=== PATIENT | male | born 1940 | race Caucasian/White ===

== ENCOUNTER 2021-01-01 14:48 | Inpatient (IN) | payer OTHER, MEDICARE, SELFPAY ==
[2021-01-01] VITALS (8 sets, daily range): BP systolic 144–201; BP diastolic 66–97; PULSE 69–98; RESP 16–18; TEMP 36.5–36.7; O2SAT 93–98; BMI 33.9
--- NOTE | 2021-01-01 15:13 | CT_ITS ---
WS: [id number] CT HEAD TECHNIQUE: Noncontrast CT of the head obtained from the skullbase to the vertex. CLINICAL INFORMATION: fall, close dhead injury COMPARISON: None. DLP: 972.[address] scans at [facility] use at least one of these dose optimization techniques: automat ed exposure control; mA and/or kV adjustment per patient size (includes targeted exams where dose is matched to clinical indication); or iterative reconstruction. FINDINGS: No evidence of intracranial hemorrhage or mass effect. Ventricular system and basal cisterns are gagnon nt. Mild small vessel changes with moderate parenchymal volume loss. Chronic lacunar infarct left livier lamus. Incidental arachnoid cyst left middle cranial fossa measuring 2.7 x 1.1 CM. No extra-axial flu id collections. No evidence of mass or mass effect. Mastoid air cells are well aerated. Opacification right frontal sinus and frontoethmoidal recess. Muc osal thickening in the ethmoid air cells. Evidence of prior maxillary antrostomies with ethmoidectomi es. CT/CT head wo con* [id number] IMPRESSION: 1. No evidence of intracranial hemorrhage or mass effect. 2. Mild small vessel changes with moderate parenchymal volume loss. 3. Chronic lacunar infarct left thalamus. 4. Incidental arachnoid cyst left middle cranial fossa. 5. No acute intracranial findings.
--- NOTE | 2021-01-01 15:13 | XR_ITS ---
WS: [id number] Left shoulder, 3 views, 01/01/2021 Clinical Data: pain Comparison: None. Findings: No fractures or dislocations are seen. The AC joint shows mild osteoarthritis. The adjacent left clav icle, left scapula and ribs are normal. The soft tissues are unremarkable. XR/XR shoulder LT min 2V* [id number] Impression: Negative left shoulder.
--- NOTE | 2021-01-01 15:13 | XR_ITS ---
WS: [id number] Left hip, 3 views, 01/01/2021 Clinical Data: fall pain Comparison: None. Findings: There is an undisplaced fracture of the intertrochanteric region of the left hip. The left femoral he ad remains in the acetabulum. The soft tissues are normal. XR/XR hip LT 2-3V wo/w pel* [id number] Impression: Intertrochanteric fracture of the left hip.
--- NOTE | 2021-01-01 15:15 | ED_ITS ---
HPI - Fall General: Chief Complaint: Extremity Injury, Lower Stated Complaint: fall/ hip pain Time Seen by Provider: 01/01/21 14:54 History of Present Illness: HPI Narrative: 80-year-old male presents emergency room after a fall at a local business while he was shopping he stumbled over something on the ground and fell he states he did hit his head he is unsure whether or not he lost consciousness he denies any neck pain. He is complaining of pain in his left shoulder and his left hip. He denies previous injury to the left shoulder or left hip. MD complaint: fall Onset (ago): minute(s) Fall from: standing Fall witnessed: yes, by bystander Place fall occurred: other (Local business) Loss of consciousness: Unsure Prolonged down time: no Symptoms prior to fall: none Context: tripped/slipped Location of injury: other (Left hip left shoulder) Severity: moderate Quality: aching Associated symptoms-after fall: Denies abdominal pain, chest pain, confusion, difficulty walking, headache(s), hematuria, lightheadedness, neck pain, numbness, short of breath, vertigo or weakness Review of Systems Const: Denies: fever(s), chills, body aches, change in appetite, fatigue or malaise ENMT: Denies: throat pain, ear or mastoid pain, nasal discharge or nasal congestion Card: Denies: chest pain or lightheadedness Resp: Denies: dyspnea, productive cough or non-productive cough GI: Denies: abdominal pain : Denies: hematuria Musc: Denies: neck pain Skin/Breast: Denies: rash or pruritus Neuro: Denies: headache(s), difficulty walking, vertigo or confusion PFSH ED PFSH: Medical History (Updated 01/05/21 @ 03:11 by Nixon Danielle DO) History of prediabetes Lip cancer Perforated ulcer of intestine Prostate cancer Surgical History (Updated 01/01/21 @ 16:42 by Uriah Rose MD) H/O left knee surgery History of total right hip arthroplasty S/P laparotomy Physical Exam Const: COMMON NORMALS: no acute distress GENERAL APPEARANCE: cooperative and comfortable ORIENTATION/CONSCIOUSNESS: Yes awake, Yes oriented to person, Yes oriented to place and Yes oriented to time HENMT: COMMON NORMALS: normocephalic, atraumatic and hearing grossly normal bilaterally HEAD & SCALP: normocephalic and atraumatic Eye: COMMON NORMALS: Equal, round and reactive pupils present, EOMs intact bilaterally, conjunctivae normal and no scleral icterus CONJUNCTIVA: Yes conjunctivae normal PUPIL: Yes Equal, round and reactive pupils present Neck/C-Spine: COMMON NORMALS: full ROM, no lymphadenopathy, supple and no JVD Lymph: LYMPHATIC: no lymphadenopathy noted and no lymphedema noted Resp: COMMON NORMALS: normal respiratory effort, No retractions, No use of accessory muscles and clear to auscultation bilaterally AUSCULTATION: clear to auscultation bilaterally Cardio: COMMON NORMALS: no JVD, regular rate, regular rhythm and No murmurs present (Cardio) RATE: regular rate RHYTHM: regular rhythm GI: COMMON NORMALS: Soft to palpation and No hepatosplenomegaly present AUSCULTATION: Yes normoactive bowel sounds PALPATION: Yes Soft to palpation, No Tenderness to palpation present (GI), No Guarding due to palpation present (GI) and Yes No hepatosplenomegaly present Extremity: NARRATIVE EXTREMITY EXAM: External rotation of the left hip dorsalis pedis pulses intact neurovascularly intact Neuro: SENSORIUM/ORIENTATION: Yes oriented to person, Yes oriented to place and Yes oriented to time Skin: COMMON NORMALS: no rashes or lesions noted GENERAL SKIN EXAM: no rashes or lesions noted Course Vital Signs: Vital signs: Vital Signs Temperature 97.8 F 01/05/21 00:00 Pulse Rate 91 01/05/21 00:00 Respiratory Rate 17 01/05/21 00:00 Blood Pressure 144/77 01/05/21 00:00 Pulse Oximetry 98 01/05/21 00:00 MDM - Fall MDM Narrative: Medical decision making narrative: Left intertrochanteric fracture. Discussed with hospitalist and with Ortho will admit orders written Lab Data: Labs: Lab Results 01/01/21 01/01/21 01/01/21 Range/Units 14:31 14:31 14:31 WBC 6.8 (4.0-10.0) 10^3/ uL RBC 3.87 L (4.1-5.3) 10^6/u L Hgb 11.8 (11.7-16.6) g/dL Hct 36.1 L (42.0-52.0) % MCV 93.3 (80-94) fL MCH 30.5 (28.0-34.0) pg MCHC 32.7 (30.0-36.0) g/dL RDW 12.1 (12.1-15.1) % Plt Count 186 (130-400) 10^3/c mm MPV 10.5 H (7.4-10.4) fL Neut % (Auto) 59.2 % Lymph % (Auto) 26.1 % [place] % (Auto) 9.7 % Eos % (Auto) 4.0 % Baso % (Auto) 0.7 % Neut # (Auto) 4.05 (1.8-7.7) 10^3/u L Lymph # (Auto) 1.8 (0.8-4.8) 10^3/u L [place] # (Auto) 0.7 (0.2-0.9) 10^3/u L Eos # (Auto) 0.3 (0.0-0.8) 10^3/u L Baso # (Auto) 0.1 (0.0-0.1) 10^3/u L Nucleated RBC % (a uto) 0 % Nucleated RBCs # 0.0 /100WBC PT 14.10 (12.1-14.9) SECO NDS INR 1.05 (0.8-1.2) APTT 24.9 (23.9-36.7) SECO NDS Sodium 142 (136-145) mmol/L Potassium 4.6 (3.5-5.1) mmol/L Chloride 103 (98-107) mmol/L Carbon Dioxide 29 (22-29) mmol/L Anion Gap 14.6 (5-19) BUN 24 H (8-23) mg/dL Creatinine 0.7 (0.7-1.2) mg/dL GFR Calculation Not Reportable Glucose 126 H (65-115) mg/dL Calculated Osmolal ity 300 H (285-295) mOsm/k g Calcium 8.3 L (8.5-10.5) mg/dL Total Bilirubin 0.2 (0.15-1.2) mg/dL AST 20 (0-40) U/L ALT 21 (0-41) U/L Alkaline Phosphata se 76 (40-130) IU/L Troponin T Baselin e (0-15) ng/L Total Protein 6.1 L (6.6-8.7) g/dL Albumin 3.9 (3.5-5.2) g/dL Globulin 2.2 (1.3-4.6) g/dL TSH (0.27-4.20) uIU/ mL 01/01/21 01/01/21 Range/Units 14:31 14:31 WBC (4.0-10.0) 10^3/ uL RBC (4.1-5.3) 10^6/u L Hgb (11.7-16.6) g/dL Hct (42.0-52.0) % MCV (80-94) fL MCH (28.0-34.0) pg MCHC (30.0-36.0) g/dL RDW (12.1-15.1) % Plt Count (130-400) 10^3/c mm MPV (7.4-10.4) fL Neut % (Auto) % Lymph % (Auto) % [place] % (Auto) % Eos % (Auto) % Baso % (Auto) % Neut # (Auto) (1.8-7.7) 10^3/u L Lymph # (Auto) (0.8-4.8) 10^3/u L [place] # (Auto) (0.2-0.9) 10^3/u L Eos # (Auto) (0.0-0.8) 10^3/u L Baso # (Auto) (0.0-0.1) 10^3/u L Nucleated RBC % (a uto) % Nucleated RBCs # /100WBC PT (12.1-14.9) SECO NDS INR (0.8-1.2) APTT (23.9-36.7) SECO NDS Sodium (136-145) mmol/L Potassium (3.5-5.1) mmol/L Chloride (98-107) mmol/L Carbon Dioxide (22-29) mmol/L Anion Gap (5-19) BUN (8-23) mg/dL Creatinine (0.7-1.2) mg/dL GFR Calculation Glucose (65-115) mg/dL Calculated Osmolal ity (285-295) mOsm/k g Calcium (8.5-10.5) mg/dL Total Bilirubin (0.15-1.2) mg/dL AST (0-40) U/L ALT (0-41) U/L Alkaline Phosphata se (40-130) IU/L Troponin T Baselin e 23 H (0-15) ng/L Total Protein (6.6-8.7) g/dL Albumin (3.5-5.2) g/dL Globulin (1.3-4.6) g/dL TSH 1.66 (0.27-4.20) uIU/ mL Discharge Plan Discharge Patient Disposition: Admitted As Inpatient Admit Provider: Uriah Rose Clinical Impression: Closed left hip fracture, Hypertension Condition: Stable Coding Level of Care Code ED Rug Cleaner Helper for Tiffany Fwd Exam Comprehensive
--- NOTE | 2021-01-01 15:17 | CT_ITS ---
WS: [id number] CT CERVICAL TRAUMA TECHNIQUE: Noncontrast CT of the cervical spine with coronal and sagittal reformatted images. CLINICAL INFORMATION: fall COMPARISON: None. DLP: 880.[address] scans at [facility] use at least one of these dose optimization techniques: automat ed exposure control; mA and/or kV adjustment per patient size (includes targeted exams where dose is matched to clinical indication); or iterative reconstruction. FINDINGS: Straightening of the normal cervical lordosis. Normal C1-2 articulation. Advanced spondylit ic changes with disc space narrowing throughout the cervical spine. Anterior hypertrophic changes. Di sc osteophyte complexes at C4-C5 C5-C6 and C6-C7. Moderate to severe central canal stenosis C3-C4 C4- C5 C5-C6 and C6-C7. Multilevel moderate to severe bony foraminal narrowing. Congenital incomplete C1 ring. Normal dens. No acute fractures. Normal prevertebral soft tissues. Mastoids air cells are well aerated. CT/CT cervical spin wo con* [id number] IMPRESSION: 1. No evidence of acute fracture or dislocation. 2. Moderate spondylitic changes with moderate to severe central canal stenosis C3-C6.
[2021-01-01 15:21] LABS: Basophils # 0.1 10^3/uL (0.0-0.1); Basophils % 0.7 %; Eosinophils # 0.3 10^3/uL (0.0-0.8); Hematocrit 36.1 % (42.0-52.0); Hemoglobin 11.8 g/dL (11.7-16.6); Lymphocytes # 1.8 10^3/uL (0.8-4.8); Lymphocytes % 26.1 %; Mean Corpuscular HGB Conc 32.7 g/dL (30.0-36.0); Mean Corpuscular Hemoglobin 30.5 pg (28.0-34.0); Mean Corpuscular Volume 93.3 fL (80-94); Mean Platelet Volume 10.5 fL (7.4-10.4); Monocytes # 0.7 10^3/uL (0.2-0.9); Monocytes % 9.7 %; Neutrophils # 4.05 10^3/uL (1.8-7.7); Neutrophils % 59.2 %; Nucleated Red Blood Cells % 0 %; Platelet Count 186 10^3/cmm (130-400); Red Blood Count 3.87 10^6/uL (4.1-5.3); Red Cell Distribution Width 12.1 % (12.1-15.1); White Blood Count 6.8 10^3/uL (4.0-10.0)
[2021-01-01 15:48] LABS: Alanine Aminotransferase 21 U/L (0-41); Albumin Level 3.9 g/dL (3.5-5.2); Alkaline Phosphatase 76 IU/L (40-130); Anion Gap 14.6 (5-19); Aspartate Amino Transferase 20 U/L (0-40); Blood Urea Nitrogen 24 mg/dL (8-23); Calcium 8.3 mg/dL (8.5-10.5); Carbon Dioxide 29 mmol/L (22-29); Chloride 103 mmol/L (98-107); Globulin 2.2 g/dL (1.3-4.6); Glucose 126 mg/dL (65-115); Osmolality Calculated 300 mOsm/kg (285-295); Potassium 4.6 mmol/L (3.5-5.1); Sodium 142 mmol/L (136-145); Total Bilirubin 0.2 mg/dL (0.15-1.2); Total Protein 6.1 g/dL (6.6-8.7)
--- NOTE | 2021-01-01 16:01 | ECG_ITS ---
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 Measurements Intervals [place] Rate: 62 P: 30 KS: 237 QRS: -70 QRSD: 157 T: 32 QT: 459 QTc: 467 Interpretive Statements SINUS RHYTHM WITH FIRST DEGREE AV BLOCK RIGHT BUNDLE BRANCH BLOCK [120+ ms QRS DURATION, UPRIGHT V1, 40+ ms S IN I/aVL/V4/V5/V6] LEFT ANTERIOR FASCICULAR BLOCK [QRS AXIS <= -45, QR IN I, RS IN II] SEPTAL MYOCARDIAL INFARCTION [40+ ms Q WAVE IN V1/V2], OF INDETERMINATE AGE No previous ECG available for comparison Electronically Signed On 01-02-2021 14:53:08 CDT by Monty Lowery M.D. [email or web address]
[2021-01-01] MEDS: ondansetron 2 mg/ML SDV 2 mL 4 MG IVP (16:09)
[2021-01-01] MEDS: morphine 4 mg/mL SDV 1 mL IVP (16:09)
--- NOTE | 2021-01-01 16:14 | P.HP_ITS ---
Providers/Chief Complaint Chief Complaint: fall/ hip pain History of Present Illness Cali Lee is a 80 year old male who does not have significant past medical history(moved from [place] a month ago) presented today after a fall. Patient is stating that he has history of hyperglycemia with prediabetic range, hypertension otherwise never had any MN, CHF, stroke. Today he was shopping in a store looking for a frying de leon, he took a turn & lost his balance and fell on a steel rack. He landed on the sharp edge of V shaped steel rack on his left hip. He could not bear any weight he was in excruciating pain. EMS was called. Diagnostics in the ER revealed left intertrochanteric hip fracture. ED revealed hypertensive urgency, pulse 69 saturating well on room air, Dr. Ahmadi notified and consulted I have held his losartan and started hydralazine, noticed bilateral lower ext remity swelling and aortic systolic murmur will request echo, patient is stating that he consider himself fairly active for his age she is able to cut grass, carry daily activities on his own however flight of stairs are difficult because of his hip pain otherwise never experienced any chest pain shortness of breath or syncopal event. Review of Systems Const: Denies: fever(s) Eyes: Denies: change in vision ENMT: Denies: throat pain Card: Denies: chest pain Resp: Denies: dyspnea GI: Denies: abdominal pain : Denies: flank pain Musc: Reports: extremity pain, joint pain and limited range of motion; Denies: neck pain Skin/Breast: Denies: rash Neuro: Denies: headache(s) Psych: Denies: anxiety Endo: Denies: polyuria Brendon/Lymph: Denies: easy bruising All/Imm: Denies: urticaria Medications/Allergies Home Medications Medication Instructions Recorded Confirmed Last Taken Type amlodipine 2.5 mg PO DAILY 01/01/21 01/01/21 12/31/20 History buspirone 10 mg PO TID 01/01/21 01/01/21 01/01/21 History fluticasone furoate 1 spray INTRANASAL BID 01/01/21 01/01/21 01/01/21 History indomethacin 50 mg PO TID PRN 01/01/21 01/01/21 12/31/20 History losartan 100 mg PO DAILY 01/01/21 01/01/21 01/01/21 History rosuvastatin 5 mg PO DAILY 01/01/21 01/01/21 01/01/21 History Allergies Allergy/AdvReac Type Severity Reaction Status Date / Time No Known Allergies Allergy Verified 01/01/21 15:20 PFSH Acute PFSH: Medical History (Updated 01/01/21 @ 16:42 by Uriah Rose MD) History of prediabetes Lip cancer Perforated ulcer of intestine Prostate cancer Surgical History (Updated 01/01/21 @ 16:42 by Uriah Rose MD) H/O left knee surgery History of total right hip arthroplasty S/P laparotomy Vitals/I&O/Wt Last Vital Signs Temp 98.0 F 01/01/21 15:15 Pulse 75 01/01/21 15:15 Resp 16 01/01/21 15:15 BP 183/88 01/01/21 15:15 Pulse Ox 93 01/01/21 15:15 Weight last 48 hrs Weight 113.398 kg Physical Exam Narrative: EXAM NARRATIVE: Elderly male, Saturating well on room air with hypertensive urgency noted on his vitals No active chest pain shortness of breath S1, S2 systolic murmur appreciated right second intercostal space Active signs of fluid overload with bilateral lower extremity edema Abdomen soft surgical scar king noted bowel sounds present Lower extremity 2+ pitting edema bilaterally EOMI, PERRLA GCS 15 Awake alert oriented x3 Appropriate mood and affect Limited range of motion left hip Data : 01/01/21 14:31 01/01/21 14:31 A&P Assessment and plan (1) Closed left hip fracture: Status: Acute (2) Hypertensive urgency: Status: Acute (3) Swelling of both lower extremities: Status: Acute (4) Systolic murmur: Status: Acute Additional A&P Information Closed left hip intertrochanteric fracture Mechanical fall Preoperative clearance: Patient has aortic systolic murmur on clinical exam, bilateral lower extremity swelling, fairly active for his age, would recommend echo before surgery RCRI class I risk Hold losartan Would add hydralazine for hypertensive urgency along amlodipine Not on any anticoagulating agent Would avoid adding fluids overnight because of his bilateral lower extremity edema Request echo in the morning Check TSH N.p.o. after midnight DVT prophylaxis: SCDs Full code Attestations Medical Necessity Statement*: Anticipating stay in the hospital across more than two midnights for management of left hip fracture Time Spent in Patient Care: 35mins Coding Level of Care Code Acute Precision Assembly Inspector for Chg Fwd Diagnoses Closed left hip fracture S72.002A Hypertensive urgency I16.0 Swelling of both lower extremities M79.89 Systolic murmur R01.1
[2021-01-01 17:03] LABS: INR 1.05 (0.8-1.2)
[2021-01-01 17:04] LABS: Partial Thromboplastin Time 24.9 SECONDS (23.9-36.7)
[2021-01-01 17:07] LABS: Add Urine Microscopic? NO; Charge for UA Resulting for Rev
[2021-01-01 17:18] LABS: Bilirubin Urine Neg (Negative); Blood Urine Neg (Negative); Glucose Urine UA Norm (Normal); Ketones Urine Negative (Negative); Leukocyte Esterase Urine Negative (Negative); Nitrate Urine Negative (Negative); Protein Urine Neg (Negative); Specific Gravity, Urine 1.005 (1.005-1.030); Urine Appearance Clear (CLEAR); Urine Color Yellow (Yellow); Urobilinogen Urine Norm (Negative); pH Urine 7 (5-7)
[2021-01-01 17:27] LABS: Troponin(5th) Baseline 23 ng/L (0-15)
[2021-01-01 18:31] LABS: Thyroid Stimulating Hormone 1.66 uIU/mL (0.27-4.20)
[2021-01-01] MEDS: morphine 4 mg/mL SDV 1 mL 2 MG IVP (20:07)
[2021-01-01] MEDS: hyDRALAzine 10 mg Tablet PO (20:08)
[2021-01-01] MEDS: FUROsemide 10 mg/mL SDV 2mL 20 MG IVP (20:08)
[2021-01-01 21:48] LABS: Troponin T (5th) Once 20 ng/L (0-15)
[2021-01-02] VITALS (27 sets, daily range): BP systolic 117–197; BP diastolic 66–97; PULSE 83–868; RESP 14–22; TEMP 36.2–37.6; O2SAT 90–100
--- NOTE | 2021-01-02 | SCC_ITS ---
Procedure: 1. Left Intramedullary nail for Intertrochanteric hip fracture 78.3 seconds of fluoroscopic guidance, for a cumulative dose of 16.51 mGy, was provided to Dr. Ahmadi by the radiology department. C-arm images of the LEFT hip were saved for the patient's permanent record. [facility]
--- NOTE | 2021-01-02 | XR_ITS ---
WS: [id number] Left hip, C-arm fluoroscopy views, 01/02/2021 Clinical Data: ORIF left hip Comparison: Left hip, 01/01/2021 Findings: A left hip nail is in place inserted along with a proximal left femoral intramedullary maddie. The intra medullary maddie is fixed with a screw. XR/XR hip LT 2-3V wo/w pel* [id number] Impression: Internal fixation of left intertrochanteric hip fracture
[2021-01-02] MEDS: morphine 4 mg/mL SDV 1 mL 2 MG IVP ×4 (00:36→19:09)
[2021-01-02] MEDS: cyclobenzaprine 10 mg Tablet PO (04:35)
[2021-01-02 06:25] LABS: Basophils % 0.4 %; Eosinophils % 0.4 %; Hemoglobin 12.5 g/dL (11.7-16.6); Lymphocytes # 1.1 10^3/uL (0.8-4.8); Lymphocytes % 11.3 %; Mean Corpuscular HGB Conc 32.9 g/dL (30.0-36.0); Mean Corpuscular Hemoglobin 30.6 pg (28.0-34.0); Mean Corpuscular Volume 93.1 fL (80-94); Mean Platelet Volume 10.5 fL (7.4-10.4); Monocytes # 1.1 10^3/uL (0.2-0.9); Monocytes % 11.4 %; Neutrophils # 7.15 10^3/uL (1.8-7.7); Nucleated Red Blood Cells % 0 %; Platelet Count 176 10^3/cmm (130-400); Red Blood Count 4.08 10^6/uL (4.1-5.3); Red Cell Distribution Width 11.9 % (12.1-15.1); White Blood Count 9.4 10^3/uL (4.0-10.0)
--- NOTE | 2021-01-02 07:13 | PM.CONSULT ---
Providers/Reason For Consult Consulting Physician/Specialty*: hospitalist Reason for Consult*: Left hip fracture Attending Physician: Uriah Rose MD History of Present Illness History of Present Illness Cali Lee is a 80 year old male Review of Systems Const: Denies: fever(s), chills, body aches, change in appetite, fatigue or malaise Eyes: Denies: change in vision ENMT: Denies: throat pain, ear or mastoid pain, nasal discharge or nasal congestion Card: Denies: chest pain or lightheadedness Resp: Denies: dyspnea, productive cough or non-productive cough GI: Denies: abdominal pain : Denies: flank pain or hematuria Musc: Reports: extremity pain, joint pain and limited range of motion; Denies: neck pain Skin/Breast: Denies: rash or pruritus Neuro: Denies: headache(s), difficulty walking, vertigo or confusion Psych: Denies: anxiety Endo: Denies: polyuria Brendon/Lymph: Denies: easy bruising All/Imm: Denies: urticaria Meds/Allergies Home Medications and Allergies Home Medications Medication Instructions Recorded Confirmed Last Taken Type amlodipine 2.5 mg PO DAILY 01/01/21 01/01/21 12/31/20 History buspirone 10 mg PO TID 01/01/21 01/01/21 01/01/21 History fluticasone furoate 1 spray INTRANASAL BID 01/01/21 01/01/21 01/01/21 History indomethacin 50 mg PO TID PRN 01/01/21 01/01/21 12/31/20 History losartan 100 mg PO DAILY 01/01/21 01/01/21 01/01/21 History rosuvastatin 5 mg PO DAILY 01/01/21 01/01/21 01/01/21 History Allergies Allergy/AdvReac Type Severity Reaction Status Date / Time No Known Allergies Allergy Verified 01/01/21 15:20 Current Medications Current Medications Generic Name Dose Route Start Last Admin Trade Name Freq PRN Reason Stop Dose Admin Cyclobenzaprine HCl 10 mg 01/02/21 03:57 01/02/21 04:35 Cyclobenzaprine 10 Mg Tablet PO 10 mg TID PRN Administration MUSCLE SPASMS Hydralazine HCl 10 mg 01/01/21 21:00 01/01/21 20:08 Hydralazine 10 Mg Tablet PO 10 mg TID FABIANA Administration Morphine Sulfate 2 mg 01/01/21 19:48 01/02/21 04:35 Morphine 4 Mg/Ml Sdv 1 Ml IVP 2 mg Q4H PRN Administration hip pa in PFSH Acute PFSH: Medical History (Updated 01/01/21 @ 16:42 by Uriah Rose MD) History of prediabetes Lip cancer Perforated ulcer of intestine Prostate cancer Surgical History (Updated 01/01/21 @ 16:42 by Uriah Rose MD) H/O left knee surgery History of total right hip arthroplasty S/P laparotomy Vitals/I&O/Wt Last Vital Signs Temp 97.6 F 01/02/21 03:55 Pulse 84 01/02/21 03:55 Resp 18 01/02/21 04:35 BP 142/74 01/02/21 03:55 Pulse Ox 96 01/02/21 03:55 01/01/21 01/02/21 01/02/21 22:59 06:59 14:59 Intake Total 600 / 600 Output Total 1750 / 1750 Balance -1150 / -1150 Weight last 48 hrs Weight 250 lb Physical Exam Narrative: EXAM NARRATIVE: GENERAL: Patient in no acute distress. CARDIAC: Regular rate and rhythm. CHEST: Normal inspiratory effort, normal respiratory rate. ABDOMEN: Soft and nontender. SKIN: Clear, warm and intact. NEURO?PSYCH: The patient is alert and oriented to person, place and time. Sensorv /SILT Motor StrengthShoulder abduction C5 5/5Wrist extension C6 5/5Elbow extension C7 5/5Hand Marble Chip Terrazzo Worker C8 5/5Finger abduction T15/5 Radial/ Ulnar/ Median n intact LowerSensory (SILT)Motor StrengthHin flexion L2/3Ant/inner thigh 5/5Hip adduction L2/3 5/5Knee extension L4 Lat thigh, 5/5Toe dorsiflexion L5 5/5Ankle dorsiflexion L5/ [id number] flexion S1 5/5 DTRBleeps 2+Triceps 2+Brachioradialis 2+Patellar 2+Achilles 2+ MUSCULOSKELETAL: [] UPPEREXTREMITIES: The patient had full active ROM in fingers, wrist, elbow, and shoulder. The patient demonstrated ability to fully flex/extend/abduct/adduct fingers, make ok sign, cross 2nd/3rd digits, extend 1st digit fully.. Radial pulse 2+, CR<2 seconds. LOWER EXTREMITIES: Pt has full, active ROM of toes, ankle, knee, and hip. Dorsalis pedis/posterior tibialis pulses 2+, CR<2 seconds. SPINE: Skin warm, dry, intact. Left leg not done because of hip pain Urinary Catheter Management^: Grewal: Cath Placed During This Visit: yes Reason for Continuing Indwelling Catheter: Required Immobilization for Trauma or Surgery or Anesthesia Urinary Catheter Date of Insertion: 01/01/21 Urinary Catheter Time of Insertion: 16:49 A&P Assessment and plan (1) Closed left hip fracture: Status: Acute Consult Attestations Medical Necessity Statement: hip fx Coding Level of Care Code Acute Deli Manager for Tiffany Claudio Diagnoses Closed left hip fracture S72.002A
[2021-01-02 07:41] LABS: Anion Gap 10.6 (5-19); Blood Urea Nitrogen 25 mg/dL (8-23); Calcium 8.3 mg/dL (8.5-10.5); Carbon Dioxide 31 mmol/L (22-29); Chloride 100 mmol/L (98-107); Glucose 172 mg/dL (65-115); Osmolality Calculated 292 mOsm/kg (285-295); Potassium 4.6 mmol/L (3.5-5.1); Sodium 137 mmol/L (136-145)
[2021-01-02] MEDS: sennosides-docusate Tablet 1 TAB PO (10:28)
[2021-01-02] MEDS: amlodipine 5 mg Tablet 2.5 MG PO (10:28)
[2021-01-02] MEDS: hyDRALAzine 10 mg Tablet PO ×2 (10:29→15:28)
[2021-01-02 11:02] LABS: NT Pro B Type Natriuretic Pept 486 pg/mL (0-450)
--- NOTE | 2021-01-02 11:16 | W.PM.OPSUD ---
Surgery/Procedure H&P Update DATE OF PROCEDURE: January 02, 2021 DATE H&P PERFORMED: 01/02/21 H&P UPDATE INFORMATION: I have reviewed H&P completed within last 30 days, I have examined patient prior to procedure and No changes to prior documentation PLANNED PROCEDURE: Operation Date: 01/02/21 12:05 Proposed Procedures p Trochanteric Femoral Nail(Left) - Michael Ahmadi DO
[2021-01-02] MEDS: sodium chloride 0.9% 1,000 ML 30 ML (11:25)
--- NOTE | 2021-01-02 11:31 | ANES.PREANE2 ---
Pre-Anesthetic Assessment Pre-Anesthetic Assessment: Height/Weight: Height 1.83 m Weight 113.398 kg Temp Pulse Resp BP Pulse Ox 99.7 F H 83 18 190/96 98 01/02/21 11:23 01/02/21 11:23 01/02/21 11:23 01/02/21 11:23 01/02/21 11:23 Preop Diagnosis: Hip fracture Proposed Procedure: Operation Date: 01/02/21 12:05 Proposed Procedures p Trochanteric Femoral Nail(Left) - Michael Ahmadi, Familial anesthetic complications: None Was Beta Rodrigue taken within 24 hours: N/A Was Clonidine taken within 24 hours: N/A Last intake: > 8hrs Social: Social History: No alcohol and No tobacco Exam: Pre-Anes Outpt Exam: alert, oriented x 3, clear to auscultation bilaterally and regular rate & rhythm Additional Exam Findings (including area of procedure): murmur Airway: Cervical ROM: WNL MP: 3 Dentition: Other (mutliple missing, chipped, poor dentition) CV/HEM: CV/HEM: HTN Comments: Good functional status Echo CONCLUSIONS 1. Normal left ventricular cavity size and systolic function. Mild concentric left ventricle hypertrophy. Left ventricular ejection fraction is estimated at 65 %. No regional wall motion abnormalities. Abnormal diastolic function. 2. Moderately thickened and calcified probably trileaflet aortic valve. Moderate aortic valve stenosis, peak velocity 2.6 m/s, peak gradient 27 mmHg, mean gradient 17 mmHg, ANAHI 1.4 cm squared (LVOT = 20 mm). Dimensionless valve index of 0.43. No aortic valve regurgitation. 3. Normal pulmonary artery pressure. 4. No prior similar studies to compare. Metabolic: Metabolic: DM (pre-DM) and Hyperlipidemia Anesthetic Plan: ASA status: 2 Anesthesia: General Risk of > 500 ml blood loss (7ml/kg in children): No Meds/Allergies Current Medications: Current Medications Generic Name Dose Route Start Last Admin Trade Name Freq PRN Reason Stop Dose Admin Amlodipine Besylat e 2.5 mg 01/02/21 09:00 01/02/21 10:28 Amlodipine 5 Mg Tablet PO 2.5 mg DAILY FABIANA Administration Cyclobenzaprine HC l 10 mg 01/02/21 03:57 01/02/21 04:35 Cyclobenzaprine 10 Mg Tablet PO 10 mg TID PRN Administration MUSCLE SPASMS Hydralazine HCl 10 mg 01/01/21 21:00 01/02/21 10:29 Hydralazine 10 M g Tablet PO 10 mg TID FABIANA Administration Morphine Sulfate 2 mg 01/01/21 19:48 01/02/21 04:35 Morphine 4 Mg/Ml Sdv 1 Ml IVP 2 mg Q4H PRN Administration hip pa in Senna/Docusate Sod ium 1 tab 01/02/21 09:00 01/02/21 10:28 Sennosides-Docus ate Tablet PO 1 tab DAILY FABIANA Administration PFSH Anesthesia PFSH: Medical History (Updated 01/01/21 @ 16:42 by Uriah Rose MD) History of prediabetes Lip cancer Perforated ulcer of intestine Prostate cancer Surgical History (Updated 01/01/21 @ 16:42 by Uriah Rose MD) H/O left knee surgery History of total right hip arthroplasty S/P laparotomy Data Anesthesia CBC & Chem 7: 01/02/21 05:40 01/02/21 05:40 Other Labs: Laboratory Results - last 48 hr 01/01/21 01/01/21 01/01/21 14:31 14:31 14:31 WBC 6.8 RBC 3.87 L Hgb 11.8 Hct 36.1 L MCV 93.3 MCH 30.5 MCHC 32.7 RDW 12.1 Plt Count 186 MPV 10.5 H Neut % (Auto) 59.2 Lymph % (Auto) 26.1 Millard % (Auto) 9.7 Eos % (Auto) 4.0 Baso % (Auto) 0.7 Neut # (Auto) 4.05 Lymph # (Auto) 1.8 Millard # (Auto) 0.7 Eos # (Auto) 0.3 Baso # (Auto) 0.1 Nucleated RBC % (auto) 0 Nucleated RBCs # 0.0 PT 14.10 INR 1.05 APTT 24.9 Sodium 142 Potassium 4.6 Chloride 103 Carbon Dioxide 29 Anion Gap 14.6 BUN 24 H Creatinine 0.7 GFR Calculation Not Reportable Glucose 126 H Calculated Osmolality 300 H Calcium 8.3 L Total Bilirubin 0.2 AST 20 ALT 21 Alkaline Phosphatase 76 Troponin T Gen 5 ng/L Troponin T Baseline NT-Pro-B Natriuret Pep Total Protein 6.1 L Albumin 3.9 Globulin 2.2 TSH Urine Color Urine Appearance Urine pH Ur Specific [place] Urine Protein Urine Glucose (UA) Urine Ketones Urine Blood Urine Nitrate Urine Bilirubin Urine Urobilinogen Ur Leukocyte Esterase 01/01/21 01/01/21 01/01/21 14:31 14:31 16:41 WBC RBC Hgb Hct MCV MCH MCHC RDW Plt Count MPV Neut % (Auto) Lymph % (Auto) Millard % (Auto) Eos % (Auto) Baso % (Auto) Neut # (Auto) Lymph # (Auto) Millard # (Auto) Eos # (Auto) Baso # (Auto) Nucleated RBC % (auto) Nucleated RBCs # PT INR APTT Sodium Potassium Chloride Carbon Dioxide Anion Gap BUN Creatinine GFR Calculation Glucose Calculated Osmolality Calcium Total Bilirubin AST ALT Alkaline Phosphatase Troponin T Gen 5 ng/L Troponin T Baseline 23 H NT-Pro-B Natriuret Pep Total Protein Albumin Globulin TSH 1.66 Urine Color Yellow Urine Appearance Clear Urine pH 7 Ur Specific [place] 1.005 Urine Protein Neg Urine Glucose (UA) Norm Urine Ketones Negative Urine Blood Neg Urine Nitrate Negative Urine Bilirubin Neg Urine Urobilinogen Norm Ur Leukocyte Esterase Negative 01/01/21 01/02/21 01/02/21 21:18 05:40 05:40 WBC 9.4 RBC 4.08 L Hgb 12.5 Hct 38.0 L MCV 93.1 MCH 30.6 MCHC 32.9 RDW 11.9 L Plt Count 176 MPV 10.5 H Neut % (Auto) 76.0 Lymph % (Auto) 11.3 Millard % (Auto) 11.4 Eos % (Auto) 0.4 Baso % (Auto) 0.4 Neut # (Auto) 7.15 Lymph # (Auto) 1.1 Millard # (Auto) 1.1 H Eos # (Auto) 0.0 Baso # (Auto) 0.0 Nucleated RBC % (auto) 0 Nucleated RBCs # 0.0 PT INR APTT Sodium 137 Potassium 4.6 Chloride 100 Carbon Dioxide 31 H Anion Gap 10.6 BUN 25 H Creatinine 0.6 L GFR Calculation Not Reportable Glucose 172 H Calculated Osmolality 292 Calcium 8.3 L Total Bilirubin AST ALT Alkaline Phosphatase Troponin T Gen 5 ng/L 20 H Troponin T Baseline NT-Pro-B Natriuret Pep Total Protein Albumin Globulin TSH Urine Color Urine Appearance Urine pH Ur Specific [place] Urine Protein Urine Glucose (UA) Urine Ketones Urine Blood Urine Nitrate Urine Bilirubin Urine Urobilinogen Ur Leukocyte Esterase 01/02/21 05:40 WBC RBC Hgb Hct MCV MCH MCHC RDW Plt Count MPV Neut % (Auto) Lymph % (Auto) Millard % (Auto) Eos % (Auto) Baso % (Auto) Neut # (Auto) Lymph # (Auto) Millard # (Auto) Eos # (Auto) Baso # (Auto) Nucleated RBC % (auto) Nucleated RBCs # PT INR APTT Sodium Potassium Chloride Carbon Dioxide Anion Gap BUN Creatinine GFR Calculation Glucose Calculated Osmolality Calcium Total Bilirubin AST ALT Alkaline Phosphatase Troponin T Gen 5 ng/L Troponin T Baseline NT-Pro-B Natriuret Pep 486 H Total Protein Albumin Globulin TSH Urine Color Urine Appearance Urine pH Ur Specific [place] Urine Protein Urine Glucose (UA) Urine Ketones Urine Blood Urine Nitrate Urine Bilirubin Urine Urobilinogen Ur Leukocyte Esterase Cardiac Studies: Echocardiogram 01/02/21
--- NOTE | 2021-01-02 12:00 | P.PN_ITS ---
Subjective Subjective: Interval history: Talk with Dr. Scott regarding need of echo before surgery, I called Dr. Tamayo who read the echo to be as preserved ejection fraction with moderate Patient is complaining of back pain no overnight events Vitals/I&O/Wt Last Vital Signs Temp 99.7 F H 01/02/21 11:23 Pulse 83 01/02/21 11:23 Resp 18 01/02/21 11:23 BP 190/96 01/02/21 11:23 Pulse Ox 98 01/02/21 11:23 01/01/21 01/02/21 01/02/21 22:59 06:59 14:59 Intake Total 600 / 600 Output Total 1750 / 1750 Balance -1150 / -1150 Weight last 48 hrs Weight 113.398 kg Physical Exam Narrative: EXAM NARRATIVE: elderly male was laying comfortably in his bed Saturating well on room air Limited range of motion of left hip S1, S2 aortic systolic murmur right second intercostal space Bilateral extremity edema 1+ bilaterally Abdomen soft No acute respiratory distress saturating well on room air Appropriate mood and affect Urinary Catheter Management^: Grewal: Cath Placed During This Visit: yes Reason for Continuing Indwelling Catheter: Required Immobilization for Trauma or Surgery or Anesthesia Urinary Catheter Date of Insertion: 01/01/21 Urinary Catheter Time of Insertion: 16:49 Data : 01/02/21 05:40 01/02/21 05:40 A&P Assessment and plan (1) Closed left hip fracture: Status: Acute (2) Hypertensive urgency: Status: Acute (3) Swelling of both lower extremities: Status: Acute (4) Systolic murmur: Status: Acute Additional A&P Information Left hip fracture Surgery by Dr. Ahmadi today No overnight events Hypertensive urgency: Currently blood pressure 190/96 we will keep him on p.o. hydralazine losartan was discontinued secondary to surgery discontinue his amlodipine secondary to lower extremity edema We will add hydrochlorothiazide to his losartan after surgery Systolic murmur: EF preserved, moderate aortic stenosis patient denies chest pain, syncopal event or shortness of breath Would recommend outpatient cardiology follow-up Resume diet after surgery DVT prophylaxis to be initiated after surgery as well Currently SCDs Full code PT evaluation after surgery Attestations Medical Necessity Statement*: Continue current management, patient went to the OR for left hip fracture repair Time Spent in Patient Care: 15 to 30 minutes Coding Level of Care Code Acute Paperhanger Pipe for Chg Fwd Diagnoses Closed left hip fracture S72.002A Hypertensive urgency I16.0 Swelling of both lower extremities M79.89 Systolic murmur R01.1
--- NOTE | 2021-01-02 12:49 | P.OP_ITS ---
Operative Report Date of procedure: January 02, 2021 Pre-op Diagnosis: left Hip fracture Post-op diagnosis: same Procedure Done: IM nail left IT fx Condition: stable Disposition: PACU Procedure: 1. Left Intramedullary nail for Intertrochanteric hip fracture Patient was brought to the operative suite after undergoing anesthesia was placed on the fracture table. All areas impingement well-padded. Traction was applied and fracture was reduced. AP and lateral fluoroscopy ensured the fracture was adequate reduced. Patient was then prepped and draped normal sterile fashion. Skin skin is made proximal to the greater trochanter. Starting pin was inserted opening reamer was inserted. The size 10 nail from [employer] was inserted. The guidepin was then inserted through the nail into the center center position in the femoral head. This measured to be 125 mm. 115 mm screw was then placed. The fracture was then compressed 10 mm. And locked in position with a set screw proximally. Next attention was brought to the distal locking screw. A 40 mm screw was placed for the distal locking screw hole. AP lateral fluoroscopy to the fracture and hardware in preposition. Wounds were irrigated and closed with Vicryl and yuli. Sterile dressings were applied patient was transferred to the PACU in stable condition.
[2021-01-02] MEDS: fentaNYL 50 mcg/mL INJ 2mL IVP (13:24)
--- NOTE | 2021-01-02 14:25 | ANE.PACU2 ---
Inpatient post-anesthesia follow up: Airway intact: Yes Vital signs: Temperature 97.3 F Pulse Rate [Apical ] 75 Pulse Rate 868 Respiratory Rate 20 Blood Pressure [Le ft Arm] 183/88 Blood Pressure 179/80 Pulse Oximetry 98 Oxygen Delivery Me thod Nasal Cannula Oxygen Flow Rate 3 Fraction of Inspir ed Oxygen Hydration adequate: Yes Nausea and vomiting: No Pain level: 2 Mental status: Baseline
[2021-01-02 14:37] LABS: Glucose Point of Care 152 mg/dL (70-110)
[2021-01-02] MEDS: BuSPIRONE 10 mg Tablet PO ×2 (15:28→21:01)
[2021-01-02] MEDS: ipratropium-albuterol 3 mL Neb INHALATION (19:10)
--- NOTE | 2021-01-02 19:48 | USCV_ITS ---
Cali Lee Age: 80 Gender: M : 1940 Exam Date: 01/02/2021 05:27 Ordering Phys: Uriah Rose MD Technologist: Scarlet Gonzalez Exam Location: [facility] [place] Indication: PRE OP FX LT HIP BP: / HR: 79 Rhythm: Sinus Technical Quality: Adequate MEASUREMENTS (Male / Female) Normal Values 2D ECHO LV Diastolic Diameter PLAX 4.8 cm 4.2 - 5.9 / 3.9 - 5.3 cm LV Systolic Diameter PLAX 3.6 cm LV Chamber Size 4.3 cm IVS Diastolic Thickness 1.1 cm 0.6 - 1.0 / 0.6 - 0.9 cm IVS Systolic Thickness 1.6 cm LVPW Diastolic Thickness 1.6 cm 0.6 - 1.0 / 0.6 - 0.9 cm LVPW Systolic Thickness 1.7 cm RV Chamber Size 2.7 cm LVOT Diameter 2.0 cm LV Ejection Fraction 2D Teich 48.4 % LV Ejection Fraction MOD 2C 62.5 % LV Ejection Fraction 2C AL 64.5 % LA Diameter 4.2 cm LA Width 3.3 cm LA Height 5.0 cm RA Width 3.8 cm RA Height 4.5 cm Aorta at Sinotubular Diameter 2.7 cm M-MODE LV Diastolic Diameter MM 5.4 cm 4.2 - 5.9 / 3.9 - 5.3 cm LV Systolic Diameter MM 4.2 cm LV Ejection Fraction MM Teich 44.4 % IVS Diastolic Thickness MM 0.9 cm 0.6 - 1.0 / 0.6 - 0.9 cm IVS Systolic Thickness MM 1.4 cm LVPW Diastolic Thickness MM 1.4 cm 0.6 - 1.0 / 0.6 - 0.9 cm LVPW Systolic Thickness MM 1.8 cm Aortic Annulus Diameter 3.8 cm LA Ao Ratio MM 1.3 MV E Point Septal Separation 0.4 cm DOPPLER AV Peak Velocity 279.0 cm/s LVOT Peak Velocity 114.0 cm/s AV Area Cont Eq vti 1.3 cm squared AV Area Cont Eq pk 1.3 cm squared MV Area PHT 5.1 cm squared MV E' Velocity 70.5 cm/s Mitral E to MV E' Ratio 9.3 Mitral E to LV E' Lateral Ratio 9.2 Mitral E to LV E' Septal Ratio 9.6 TR Peak Velocity 158.4 cm/s TR Peak Gradient 10.0 mmHg TR Mean Velocity 168.1 cm/s TR Mean Gradient 12.6 mmHg TR Velocity Time Integral 56.7 cm TV Peak E Velocity 100.0 cm/s Right Atrial Pressure 3.0 mmHg Pulmonary Artery Systolic Pressu 13.0 mmHg PV Peak Velocity 101.0 cm/s RV Acceleration Time 0.1 s RV Ejection Time 0.4 s RV AcT/ET 0.3 FINDINGS Left Ventricle Normal left ventricular cavity size. Mildly increased left ventricle wall thickness. Mild concentric left ventricle hypertrophy. Normal left ventricular systolic function. Left ventricular ejection fraction is estimated at 65 %. No regional wall motion abnormalities. Abnormal diastolic function. Right Ventricle Normal right ventricular size and systolic function. Right ventricular systolic pressure 13 mmHg. Right Atrium Normal right atrial size. Left Atrium Normal left atrial size. Mitral Valve Mild mitral annular calcification. Trace mitral valve regurgitation. Aortic Valve Moderately thickened and calcified probably trileaflet aortic valve. Moderate aortic valve stenosis, peak velocity 2.6 m/s, peak gradient 27 mmHg, mean gradient 17 mmHg, ANAHI 1.4 cm squared (LVOT = 20 mm). Dimensionless valve index of 0.43. No aortic valve regurgitation. Tricuspid Valve Structurally normal tricuspid valve. Trace tricuspid valve regurgitation. Pulmonic Valve Pulmonic valve not well visualized. No pulmonary valve stenosis. Pericardium No pericardial effusion. Aorta Normal-sized aortic root. CONCLUSIONS 1. Normal left ventricular cavity size and systolic function. Mild concentric left ventricle hypertrophy. Left ventricular ejection fraction is estimated at 65 %. No regional wall motion abnormalities. Abnormal diastolic function. 2. Moderately thickened and calcified probably trileaflet aortic valve. Moderate aortic valve stenosis, peak velocity 2.6 m/s, peak gradient 27 mmHg, mean gradient 17 mmHg, ANAHI 1.4 cm squared (LVOT = 20 mm). Dimensionless valve index of 0.43. No aortic valve regurgitation. 3. Normal pulmonary artery pressure. 4. No prior similar studies to compare. Suri Tamayo MD (Electronically Signed) Final Date: 02 January 2021 10:23 S
[2021-01-02] MEDS: ondansetron 2 mg/ML SDV 2 mL 4 MG IVP (21:01)
[2021-01-03] VITALS (9 sets, daily range): BP systolic 120–149; BP diastolic 71–81; PULSE 68–95; RESP 12–19; TEMP 36.3–36.8; O2SAT 92–98
[2021-01-03] MEDS: hyDRALAzine 10 mg Tablet PO ×2 (00:36→09:11)
[2021-01-03 03:17] LABS: Basophils % 0.5 %; Eosinophils % 0.1 %; Hematocrit 34.8 % (42.0-52.0); Hemoglobin 11.5 g/dL (11.7-16.6); Lymphocytes # 1.2 10^3/uL (0.8-4.8); Lymphocytes % 13.9 %; Mean Corpuscular Hemoglobin 31.7 pg (28.0-34.0); Mean Corpuscular Volume 95.9 fL (80-94); Mean Platelet Volume 10.6 fL (7.4-10.4); Monocytes # 1.4 10^3/uL (0.2-0.9); Monocytes % 17.1 %; Neutrophils # 5.74 10^3/uL (1.8-7.7); Neutrophils % 67.9 %; Nucleated Red Blood Cells % 0 %; Platelet Count 154 10^3/cmm (130-400); Red Blood Count 3.63 10^6/uL (4.1-5.3); Red Cell Distribution Width 12.1 % (12.1-15.1); White Blood Count 8.4 10^3/uL (4.0-10.0)
[2021-01-03 03:50] LABS: Anion Gap 14.5 (5-19); Blood Urea Nitrogen 24 mg/dL (8-23); Calcium 7.5 mg/dL (8.5-10.5); Carbon Dioxide 25 mmol/L (22-29); Chloride 97 mmol/L (98-107); Glucose 265 mg/dL (65-115); Osmolality Calculated 287 mOsm/kg (285-295); Potassium 4.5 mmol/L (3.5-5.1); Sodium 132 mmol/L (136-145)
--- NOTE | 2021-01-03 08:04 | P.PN_ITS ---
Subjective Subjective: Interval history: pain controlled Vitals/I&O/Wt Last Vital Signs Temp 98.3 F 01/03/21 03:45 Pulse 85 01/03/21 03:45 Resp 16 01/03/21 03:45 BP 149/81 01/03/21 03:45 Pulse Ox 94 01/03/21 03:45 01/02/21 01/03/21 01/03/21 22:59 06:59 14:59 Intake Total 60 / 170 960 / 1130 Output Total 825 / 1250 Balance 60 / -255 135 / -120 Weight last 48 hrs Weight 250 lb Physical Exam Narrative: EXAM NARRATIVE: 10/15 strength Urinary Catheter Management^: Grewal: Cath Placed During This Visit: yes Reason for Continuing Indwelling Catheter: Perioperative Use in Selected Surgeries Urinary Catheter Date of Insertion: 01/01/21 Urinary Catheter Time of Insertion: 16:49 Data : 01/03/21 02:39 01/03/21 02:39 A&P Assessment and plan (1) Closed left hip fracture: POD#1 Left Hip IM nail WBAT Up With PT Ok to d/c from Ortho stand point Status: Acute Attestations Medical Necessity Statement*: up with PT Ok to d/c from ortho standpoint if able to ambulate Coding Level of Care Code Acute Statistical Machine Servicer for Tiffany Fwd Diagnoses Closed left hip fracture S72.002A
[2021-01-03] MEDS: losartan 50 mg Tablet 100 MG PO (09:11)
[2021-01-03] MEDS: hydroCHLOROthiazide 25 mg Tablet 12.5 MG PO (09:11)
[2021-01-03] MEDS: BuSPIRONE 10 mg Tablet PO ×3 (09:11→20:56)
[2021-01-03] MEDS: sennosides-docusate Tablet 1 TAB PO (09:11)
[2021-01-03] MEDS: atorvastatin 40 mg Tablet 20 MG PO (09:12)
[2021-01-03] MEDS: morphine 4 mg/mL SDV 1 mL 2 MG IVP (09:14)
--- NOTE | 2021-01-03 14:36 | P.PN_ITS ---
Subjective Subjective: Interval history: Patient was working with physical therapy today who recommended residential, no overnight events patient is complaining of back pain otherwise able to use bedpan, Grewal catheter to be removed today Vitals/I&O/Wt Last Vital Signs Temp 97.4 F L 01/03/21 11:26 Pulse 84 01/03/21 11:26 Resp 19 H 01/03/21 11:26 BP 124/74 01/03/21 11:26 Pulse Ox 98 01/03/21 11:26 01/02/21 01/03/21 01/03/21 22:59 06:59 14:59 Intake Total 60 / 170 960 / 1130 480 / 480 Output Total 825 / 1250 Balance 60 / -255 135 / -120 480 / 480 Weight last 48 hrs Weight 113.398 kg Physical Exam Narrative: EXAM NARRATIVE: Patient was working with physical therapist today, able to take small steps with a walker S1, S2 sinus rhythm Bilateral lower extremity edema Abdomen soft distended with obesity No acute respite distress Saturating well on room air Awake alert and attentive GCS 15 Urinary Catheter Management^: Grewal: Cath Placed During This Visit: yes Reason for Continuing Indwelling Catheter: Perioperative Use in Selected Surgeries Urinary Catheter Date of Insertion: 01/01/21 Urinary Catheter Time of Insertion: 16:49 Data : 01/03/21 02:39 01/03/21 02:39 A&P Assessment and plan (1) Closed left hip fracture: Status: Acute (2) Hypertensive urgency: Status: Acute (3) Swelling of both lower extremities: Status: Acute (4) Systolic murmur: Status: Acute Additional A&P Information Left hip fracture status post intervention 01/[address] Ahmadi Moderate aortic stenosis murmur Low extremity bilateral edema, discontinue morphine, EF preserved No active symptoms of aortic stenosis Hypertensive urgency: Improved Anticipating discharge to residential once accepted DVT prophylaxis Lovenox Cardiac diet Full code Attestations Medical Necessity Statement*: Anticipating discharge to residential once accepted Time Spent in Patient Care: 30mins Coding Level of Care Code Acute Residential Treatment Specialist for Chg Fwd Diagnoses Closed left hip fracture S72.002A Hypertensive urgency I16.0 Swelling of both lower extremities M79.89 Systolic murmur R01.1
[2021-01-03] MEDS: enoxaparin 40 mg/0.4 mL Syringe SUBCUT (15:51)
[2021-01-03] MEDS: oxyCODONE 5 mg IR Tab/Cap 10 MG PO (17:17)
[2021-01-04] VITALS (11 sets, daily range): BP systolic 122–178; BP diastolic 62–93; PULSE 72–93; RESP 12–20; TEMP 36.4–37.1; O2SAT 93–98
[2021-01-04] MEDS: atorvastatin 40 mg Tablet 20 MG PO (09:14)
[2021-01-04] MEDS: cyclobenzaprine 10 mg Tablet PO (09:15)
[2021-01-04] MEDS: oxyCODONE 5 mg IR Tab/Cap 10 MG PO ×2 (09:15→20:17)
[2021-01-04] MEDS: BuSPIRONE 10 mg Tablet PO ×3 (09:15→20:17)
[2021-01-04] MEDS: sennosides-docusate Tablet 1 TAB PO (09:16)
[2021-01-04] MEDS: losartan 50 mg Tablet 100 MG PO (09:16)
[2021-01-04] MEDS: hydroCHLOROthiazide 25 mg Tablet 12.5 MG PO (09:19)
--- NOTE | 2021-01-04 11:32 | PM.PN ---
Subjective Subjective: Interval history: Patient up sitting in chair. Pain controlled Vitals/I&O/Wt Last Vital Signs Temp 98.1 F 01/04/21 08:00 Pulse 92 01/04/21 08:00 Resp 20 H 01/04/21 09:15 BP 142/75 01/04/21 09:16 Pulse Ox 94 01/04/21 08:00 01/03/21 01/04/21 01/04/21 22:59 06:59 14:59 Intake Total 100 / 1060 360 / 360 Output Total 1475 / 1475 300 / 1775 Balance -1475 / -515 -200 / -715 360 / 360 Physical Exam Narrative: EXAM NARRATIVE: Dressing somewhat saturated. Will have nurse change today. Urinary Catheter Management^: Grewal: Cath Placed During This Visit: yes, but has since been removed by the nurse Reason for Continuing Indwelling Catheter: Decision to DC Catheter Urinary Catheter Date of Insertion: 01/01/21 Urinary Catheter Time of Insertion: 16:49 Date Urinary Catheter Removed: 01/03/21 Time Urinary Catheter Discontinued: 16:02 Data : 01/03/21 02:39 01/03/21 02:39 A&P Assessment and plan (1) Closed left hip fracture: Postop day #2 left hip IM nail. Work with physical therapy. Discharge planning Status: Acute Attestations Medical Necessity Statement*: Okay to discharge from orthopedic standpoint Coding Level of Care Code Acute Technology Analyst for Tiffany Claudio Diagnoses Closed left hip fracture S72.002A
--- NOTE | 2021-01-04 13:59 | PM.PN ---
Subjective Subjective: Interval history: Patient did well with physical therapy today made some progress, his pain is well controlled as compared to yesterday Vitals/I&O/Wt Last Vital Signs Temp 97.5 F L 01/04/21 12:00 Pulse 88 01/04/21 12:00 Resp 18 01/04/21 12:00 BP 122/62 01/04/21 13:43 Pulse Ox 96 01/04/21 12:00 01/03/21 01/04/21 01/04/21 22:59 06:59 14:59 Intake Total 100 / 1060 720 / 720 Output Total 1475 / 1475 300 / 1775 Balance -1475 / -515 -200 / -715 720 / 720 Physical Exam Narrative: EXAM NARRATIVE: Patient did walk with a walker S1, S2 sinus rhythm Bilateral lower extremity edema Abdomen soft distended with obesity No acute respite distress Saturating well on room air Awake alert and attentive GCS 15 Urinary Catheter Management^: Grewal: Cath Placed During This Visit: yes, but has since been removed by the nurse Reason for Continuing Indwelling Catheter: Decision to DC Catheter Urinary Catheter Date of Insertion: 01/01/21 Urinary Catheter Time of Insertion: 16:49 Date Urinary Catheter Removed: 01/03/21 Time Urinary Catheter Discontinued: 16:02 Data : 01/03/21 02:39 01/03/21 02:39 A&P Assessment and plan (1) Closed left hip fracture: Status: Acute (2) Hypertensive urgency: Status: Acute (3) Swelling of both lower extremities: Status: Acute (4) Systolic murmur: Status: Acute Additional A&P Information Postop day 2 No fever, patient tolerating pain well did work with physical therapy today, patient has recently moved from [place] has not establish himself with the [facility] with trying to get him approved to go to a custodial Continue physical therapy Moderate aortic stenosis no active symptoms follow-up with [facility] cardi[facility] EF preserved Hypertensive urgency: Improved blood pressure normotensive on hydrochlorothiazide losartan, amlodipine has been discontinued because of lower extremity edema Full code Cardiac diet DVT prophylaxis Lovenox, will discharge him on aspirin 14-day DVT prophylaxis as well Attestations Medical Necessity Statement*: Awaiting custodial placement Time Spent in Patient Care: less than 15 minutes Coding Level of Care Code Acute Client Architect for Chg Fwd Diagnoses Closed left hip fracture S72.002A Hypertensive urgency I16.0 Swelling of both lower extremities M79.89 Systolic murmur R01.1
[2021-01-04] MEDS: enoxaparin 40 mg/0.4 mL Syringe SUBCUT (16:36)
--- NOTE | 2021-01-04 18:30 | PC.NURSE ---
SHIFT SUMMARY PT WORKED WITH PHYSICAL THERAPY TODAY AND DONE WELL, PT WAS MEDICATED BEFORE PHYSICAL THERAPY SESSION. PT DRESSING ON UPPER LEFT HIM WAS SATURATED, THIS NURSE CHANGED DRESSING DR HUDDLESTON GAVE THE OK FOR THE NURSE TO DO SO. PT TOLERATED WELL. PT WAS UP TO BEDSIDE COMMODE FOR BM'S AND URINATION. PT DID NOT COMPLAIN OF PAIN THIS SHIFT.
[2021-01-05] VITALS (14 sets, daily range): BP systolic 129–164; BP diastolic 70–87; PULSE 85–97; RESP 16–20; TEMP 36.4–36.8; O2SAT 95–99
[2021-01-05] MEDS: oxyCODONE 5 mg IR Tab/Cap 10 MG PO ×3 (08:25→21:30)
[2021-01-05] MEDS: losartan 50 mg Tablet 100 MG PO (08:26)
[2021-01-05] MEDS: sennosides-docusate Tablet 1 TAB PO (08:26)
[2021-01-05] MEDS: atorvastatin 40 mg Tablet 20 MG PO (08:27)
[2021-01-05] MEDS: BuSPIRONE 10 mg Tablet PO ×3 (08:27→21:30)
[2021-01-05] MEDS: hydroCHLOROthiazide 25 mg Tablet 12.5 MG PO (08:27)
[2021-01-05] MEDS: enoxaparin 40 mg/0.4 mL Syringe SUBCUT (14:10)
--- NOTE | 2021-01-05 14:35 | PM.PN ---
Subjective Subjective: Interval history: Patient feeling better awaiting longterm placement, has been able to work more with physical therapy Vitals/I&O/Wt Last Vital Signs Temp 97.6 F 01/05/21 11:42 Pulse 85 01/05/21 11:42 Resp 20 H 01/05/21 14:09 BP 156/83 01/05/21 11:42 Pulse Ox 96 01/05/21 11:42 01/04/21 01/05/21 01/05/21 22:59 06:59 14:59 Intake Total 1480 / 2200 480 / 480 Output Total 450 / 450 700 / 1150 850 / 850 Balance 1030 / 1750 -700 / 1050 -370 / -370 Physical Exam Narrative: EXAM NARRATIVE: Laying comfortably in his bed today better mood, pain under control Dressing not soaked with blood S1, S2 sinus rhythm Bilateral lower extremity edema Abdomen soft distended with obesity No acute respite distress Saturating well on room air Awake alert and attentive GCS 15 Urinary Catheter Management^: Grewal: Cath Placed During This Visit: yes, but has since been removed by the nurse Reason for Continuing Indwelling Catheter: Decision to DC Catheter Urinary Catheter Date of Insertion: 01/01/21 Urinary Catheter Time of Insertion: 16:49 Date Urinary Catheter Removed: 01/03/21 Time Urinary Catheter Discontinued: 16:02 Data : 01/03/21 02:39 01/03/21 02:39 A&P Assessment and plan (1) Hypertension: Status: Acute (2) Closed left hip fracture: Status: Acute (3) Hypertensive urgency: Status: Acute (4) Swelling of both lower extremities: Status: Acute (5) Systolic murmur: Status: Acute Additional A&P Information Postop day 3 Awaiting longterm placement, pain under control hemoglobin stable no postop complications Moderate aortic stenosis no active symptoms follow-up with [place] cardiology clinic EF preserved Hypertensive urgency: Continue losartan and hydrochlorothiazide Full code Cardiac diet DVT prophylaxis Lovenox, will discharge him on aspirin 14-day DVT prophylaxis as well Attestations Medical Necessity Statement*: Anticipating discharge once accepted Time Spent in Patient Care: less than 15 minutes Coding Level of Care Code Acute Bridal Service Sales And Management for [facility] Fwd Diagnoses Hypertension I10 Closed left hip fracture S72.002A Hypertensive urgency I16.0 Swelling of both lower extremities M79.89 Systolic murmur R01.1
[2021-01-05] MEDS: cyclobenzaprine 10 mg Tablet PO (21:30)
[2021-01-05] MEDS: ipratropium-albuterol 3 mL Neb INHALATION (23:02)
[2021-01-06] VITALS (8 sets, daily range): BP systolic 116–161; BP diastolic 68–81; PULSE 84–100; RESP 16–18; TEMP 36.5–37.2; O2SAT 95–100
--- NOTE | 2021-01-06 02:46 | PC.NURSE ---
made many attempts to get a hold of CT to verify that they were ready to receive patient for a STAT CT of head to no avail. Multiple numbers were tried also by multiple coworkers.
--- NOTE | 2021-01-06 02:55 | PC.NURSE ---
dr ordered ct on patient and when going to take pt down ct was called by nurse to make sure they were ready and nurse got no answer. ct has been called multiple times since with no answer
--- NOTE | 2021-01-06 02:56 | PC.NURSE ---
Multiple attempts made to contact CT to verify they were ready to receive patient with no answer.
[2021-01-06] MEDS: oxyCODONE 5 mg IR Tab/Cap 10 MG PO ×2 (07:57→12:08)
[2021-01-06] MEDS: sennosides-docusate Tablet 1 TAB PO (07:57)
[2021-01-06] MEDS: atorvastatin 40 mg Tablet 20 MG PO (07:57)
[2021-01-06] MEDS: hydroCHLOROthiazide 25 mg Tablet 12.5 MG PO (07:57)
[2021-01-06] MEDS: BuSPIRONE 10 mg Tablet PO ×3 (07:57→20:51)
[2021-01-06] MEDS: losartan 50 mg Tablet 100 MG PO (07:58)
--- NOTE | 2021-01-06 09:40 | XR_ITS ---
WS: [id number] XR knee LT 1-2V 88370 REASON FOR EXAM: L KNEE PAIN FINDINGS: Three-part total left knee arthroplasty. The complements of the prostheses are in proper position and alignment. No significant soft tissue or bony abnormality. XR/XR knee LT 1-2V 47637 IMPRESSION: Total left knee joint replacement without significant abnormality.
--- NOTE | 2021-01-06 10:36 | PC.SOCIAL ---
IMM Updated Updated pt on Pg 2 IMM. No questions voiced. Provided pt a copy. Initialed, dated, & timed copy in chart.
[2021-01-06] MEDS: enoxaparin 40 mg/0.4 mL Syringe SUBCUT (14:00)
--- NOTE | 2021-01-06 15:20 | P.PN_ITS ---
Subjective Subjective: Interval history: Has hadPatient had a CT scan last night at the railing which was unremarkable this morning he was complaining of left knee pain I requested knee x-ray as well today Vitals/I&O/Wt Last Vital Signs Temp 97.7 F 01/06/21 11:15 Pulse 93 01/06/21 11:15 Resp 16 01/06/21 12:08 BP 161/81 01/06/21 11:15 Pulse Ox 95 01/06/21 11:15 01/06/21 01/06/21 01/06/21 06:59 14:59 22:59 Intake Total 360 / 360 Output Total 100 / 1600 300 / 300 Balance -100 / -760 60 / 60 Physical Exam Narrative: EXAM NARRATIVE: She was sitting in a chair complaining of left knee pain, knee exam did not reveal any hyperemia tenderness or swelling S1, S2 sinus rhythm Bilateral lower extremity edema Abdomen soft distended with obesity No acute respite distress Saturating well on room air Awake alert and attentive GCS 15 Urinary Catheter Management^: Grewal: Cath Placed During This Visit: yes, but has since been removed by the nurse Reason for Continuing Indwelling Catheter: Decision to DC Catheter Urinary Catheter Date of Insertion: 01/01/21 Urinary Catheter Time of Insertion: 16:49 Date Urinary Catheter Removed: 01/03/21 Time Urinary Catheter Discontinued: 16:02 Data : 01/03/21 02:39 01/03/21 02:39 A&P Assessment and plan (1) Closed left hip fracture: Status: Acute (2) Hypertensive urgency: Status: Acute (3) Swelling of both lower extremities: Status: Acute (4) Systolic murmur: Status: Acute (5) Hypertension: Status: Acute Additional A&P Information Postop day 3 Patient doing better in terms of physical therapy, complaining of knee pain x- ray unremarkable history of total knee arthroplasty, no active signs of sepsis or joint effusion CT head unremarkable Awaiting placement to a assisted Hypertensive: Increased dose of losartan continue hydrochlorothiazide Full code Cardiac diet Lovenox DVT prophylaxis will be discharged on aspirin for DVT prophylaxis Attestations Medical Necessity Statement*: Awaiting assisted placement Time Spent in Patient Care: less than 15 minutes Coding Level of Care Code Acute It Systems Engineer for [facility] Fwd Diagnoses Closed left hip fracture S72.002A Hypertensive urgency I16.0 Swelling of both lower extremities M79.89 Systolic murmur R01.1 Hypertension I10
--- NOTE | 2021-01-06 17:12 | PC.NURSE ---
SHIFT SUMMARY PATIENT HAS COMPLAINTS OF PAIN WHEN BEARING ANY WEIGHT ON THE LEFT LEG. KNEE X-RAY DONE IN THE ROOM. SURGICAL DRESSING C/D/I. BLISTER NOTED ABOVE SURGICAL DRESSING FROM TAPE. PATIENT HAS GOOD PO INTAKE. CURRENTLY RESTING IN BED.
--- NOTE | 2021-01-06 21:25 | CT_ITS ---
WS: [id number] CT HEAD TECHNIQUE: Noncontrast CT of the head obtained from the skullbase to the vertex. CLINICAL INFORMATION: hit head on bed railing whie transfering COMPARISON: January 01, 2021 DLP: 969.[address] scans at [facility] use at least one of these dose optimization techniques: automat ed exposure control; mA and/or kV adjustment per patient size (includes targeted exams where dose is matched to clinical indication); or iterative reconstruction. FINDINGS: No evidence of intracranial hemorrhage or mass effect. Ventricular system and basal cisterns are gagnon nt. Mild small vessel changes with moderate parenchymal volume loss. Chronic lacunar infarct left livier lamus unchanged. Incidental arachnoid cyst left middle cranial fossa unchanged. No extra-axial fluid collections. No evidence of mass or mass effect. Mild mucosal thickening in paranasal sinuses. Evidence of prior paranasal sinus surgery. Opacification right frontal sinus and frontoethmoidal rece ss. Mastoid air cells are well aerated. CT/CT head wo con* [id number] IMPRESSION: 1. No evidence of intracranial hemorrhage or mass effect. 2. Mild small vessel changes. Moderate parenchymal volume loss. 3. Chronic lacunar infarct left thalamus. 4. Incidental arachnoid cyst left middle cranial fossa unchanged. 5. No acute intracranial findings.
[2021-01-07] VITALS (7 sets, daily range): BP systolic 155–174; BP diastolic 76–82; PULSE 89–94; RESP 16–18; TEMP 36.4–37; O2SAT 95–99
[2021-01-07] MEDS: cetylpyridinium Lozenge 1 EACH MUCOUS MEM ×2 (00:39→04:48)
[2021-01-07] MEDS: losartan 50 mg Tablet 100 MG PO (07:36)
[2021-01-07] MEDS: oxyCODONE 5 mg IR Tab/Cap 10 MG PO ×2 (07:36→11:57)
[2021-01-07] MEDS: atorvastatin 40 mg Tablet 20 MG PO (07:37)
[2021-01-07] MEDS: hydroCHLOROthiazide 25 mg Tablet 12.5 MG PO (07:37)
[2021-01-07] MEDS: BuSPIRONE 10 mg Tablet PO (07:37)
--- NOTE | 2021-01-07 13:46 | P.DS_ITS ---
Discharge Providers Date of Admission: 01/01/21 16:14 Date of Discharge: January 07, 2021 Attending Provider at Admission: Uriah Rsoe MD Attending Provider at Discharge: Uriah Rose MD Diagnoses at Discharge Discharge Diagnosis (1) Closed left hip fracture: Status: Acute (2) Hypertensive urgency: Status: Acute (3) Swelling of both lower extremities: Status: Acute (4) Systolic murmur: Status: Acute (5) Hypertension: Status: Acute Reason for Visit Reason for Visit: fall/ hip pain Hospital Course Hospital Course HPI Cali Lee is a 80 year old male who does not have significant past medical history(moved from [place] a month ago) presented today after a fall. Patient is stating that he has history of hyperglycemia with prediabetic range, hypertension otherwise never had any MT, CHF, stroke. Today he was shopping in a store looking for a frying de leon, he took a turn & lost his balance and fell on a steel rack. He landed on the sharp edge of V shaped steel rack on his left hip. He could not bear any weight he was in excruciating pain. EMS was called. Diagnostics in the ER revealed left intertrochanteric hip fracture. ED revealed hypertensive urgency, pulse 69 saturating well on room air, Dr. Ahmadi notified and consulted I have held his losartan and started hydralazine, noticed bilateral lower extremity swelling and aortic systolic murmur will request echo, patient is stating that he consider himself fairly active for his age she is able to cut grass, carry daily activities on his own however flight of stairs are difficult because of his hip pain otherwise never experienced any chest pain shortness of breath or syncopal event. Hospital course Patient was admitted for management of left hip fracture, underwent intervention(left intramedullary nail for intertrochanteric hip fracture) on 01/[address] Ahmadi, is being discharged on 01/07 to a longterm with DVT prophylaxis for 2 weeks with Eliquis 2.5 mg twice a day. During his hospitalization he remained hypertensive for which hydrochlorothiazide and losartan was recommended, amlodipine was discontinued secondary to lower extremity edema. Echo was done before surgery which showed moderate aortic stenosis however he does not have any symptoms. I recommended following up with a sales development associate on an annual basis. He complains of left knee pain 24 hours prior to discharge, imaging unremarkable. He will follow up with Dr. Ahmadi in 2 weeks. No postoperative complications Physical Exam 2 Narrative: EXAM NARRATIVE: Sitting comfortably S1, S2 sinus rhythm Bilateral lower extremity edema Abdomen soft distended with obesity No acute respite distress Saturating well on room air Awake alert and attentive GCS 15 Urinary Catheter Management^: Grewal: Cath Placed During This Visit: yes, but has since been removed by the nurse Reason for Continuing Indwelling Catheter: Decision to DC Catheter Urinary Catheter Date of Insertion: 01/01/21 Urinary Catheter Time of Insertion: 16:49 Date Urinary Catheter Removed: 01/03/21 Time Urinary Catheter Discontinued: 16:02 Discharge Data Data Completed and Pending: Completed Studies During Hospitalization Category Date Time Status CT cervical spin wo con* [id number] Stat Cat Scan 01/01/21 15:[address] head wo con* 7 0450 Stat Cat Scan 01/01/21 15:[address] head wo con* 7 0450 Stat Cat Scan 01/06/21 21:25 Completed XR hip LT 2-3V wo /w pel* [id number] Rout ine Exams 01/02/21 Completed XR hip LT 2-3V wo /w pel* [id number] Stat Exams 01/01/21 15:13 Completed XR knee LT 1-2V 7 3560 Routine Exams 01/06/21 09:40 Completed XR shoulder LT mi n 2V* [id number] Stat Exams 01/01/21 15:13 Completed CV. echo complete * [id number] Routine Ultrasound 01/02/21 19:48 Completed Vitals: Last Vital Signs Temp 97.6 F 01/07/21 12:00 Pulse 91 01/07/21 12:00 Resp 16 01/07/21 12:00 BP 174/79 01/07/21 12:00 Pulse Ox 95 01/07/21 12:00 Discharge Plan Discharge Patient Disposition: Xfer SNF Condition: Stable Prescriptions: New Stool Softener-Laxative 8.6-50 mg Tablet 1 tab PO DAILY 20 Days Qty: 20 RF: 0 hydrochlorothiazide 25 mg Tablet 25 mg PO DAILY 30 Days Qty: 30 RF: 0 oxycodone 5 mg Tablet 10 mg PO Q4H PRN (Reason: Severe Pain) 10 Days Qty: 10 RF: 0 Eliquis 2.5 mg tablet 2.5 mg PO BID 14 Days Qty: 28 RF: 0 Continued buspirone 10 mg Tablet 10 mg PO TID RF: 0 indomethacin 50 mg Capsule 50 mg PO TID PRN (Reason: GOUT) RF: 0 losartan 100 mg Tablet 100 mg PO DAILY RF: 0 rosuvastatin 5 mg Tablet 5 mg PO DAILY RF: 0 fluticasone furoate 27.5 mcg/actuation [place],Suspension 1 spray INTRANASAL BID RF: 0 Discontinued amlodipine 2.5 mg Tablet 2.5 mg PO DAILY RF: 0 Discharge Orders: Discharge Order (Routine); Ordered 01/07/21 Ordered By: Uriah Rose Referrals: [facility] [Outside] Michael Ahmadi DO [Physician] - 2 weeks Discharge Diet: Cardiac Discharge Activity: Increase activity as tolerated and As per PT/OT instructions Patient Instructions: Opioid Safety Activity Restrictions/Additional Instructions: You are being discharged from the hospital today during which time you have been under the care of Dr. Ahmadi. You had a left intertrochanteric hip fracture. You were treated for this injury with left intramedullary nail. You may resume you normal diet (including any special diets as directed by your primary doctor) as well as your home medications. You should follow up with you primary doctor if you have any questions regarding medication you took prior to your stay in the hospital. You may take your pain medication as prescribed. After the first few days, take your pain medication as needed. Do not drive or drink alcohol while taking your pain medication. Your injury may increase your risk of developing a blood clot,or DVT, in your arm or leg. This could potentially dislodge and travel to your lungs and become a life threatening condition called apulmonary embolus,or PE. You have been prescribed Lovenox to be taken to prevent this. Frequent movement of the feet will also help prevent this from occurring. If you develop any new or worsening cough, chestpain, bloody sputum or shortness of breath, call 911 or go to the EmergencyRoom. Always keep your surgical incision/dressing clean and dry. If you experience increasing pain at your incision site, redness, swelling, increasing discharge, foul odors, or fevers (greater than 100.4), night sweats or chills you should call the office at the above number. If you feel this is an emergency you should be evaluated in the Emergency Department of a nearby hospital. Orthopedic Patient Instructions Summary: Weight Bearing: Weight-bear as tolerated Activity: Oriented. Diet:cardiac Anticoagulation: eliquis Pain Medication: Take only as needed. Ice, rest and elevation will be of great benefit. Please plan to follow-up wlkristen Ahmadi in 2 weeks. You will need to call the clinic [phone] to schedule this visit. Thank you far allowing me to participate in your care. Do not hesitate to call the office with any questions or concerns. Discharge Attestations Time Spent in Discharge Care*: less than 30 min Quality Metrics Clinical Quality Measures During this hospital stay, did patient experience: None Coding Level of Care Code Acute [facility] note Diagnoses Closed left hip fracture S72.002A Hypertensive urgency I16.0 Swelling of both lower extremities M79.89 Systolic murmur R01.1 Hypertension I10
== END 2021-01-07 15:11 | disposition skilled nursing facility (03) | DRG 482 ==
LOC: ER 16:22 → MEDSURG 18:15
PROVIDERS: Orthopaedic Surgery; Admitting Provider Internal Medicine; Emergency Provider Family Medicine; Visit Provider Internal Medicine
PROC: 0QS736Z Reposition Left Upper Femur with Intramedullary Internal Fixation Device, Percutaneous Approach (ICD-10-PCS; CPT 27245; principal; 2021-01-02 11:55)
DX: S72.002A Fracture of unspecified part of neck of left femur, initial encounter for closed fracture (principal); W01.118A Fall on same level from slipping, tripping and stumbling with subsequent striking against other sharp object, initial encounter; I16.0 Hypertensive urgency; R01.1 Cardiac murmur, unspecified; R73.03 Prediabetes; M79.89 Other specified soft tissue disorders; M25.562 Pain in left knee; Z96.652 Presence of left artificial knee joint; Z96.641 Presence of right artificial hip joint
CPT/HCPCS: 36415; 36416; 51702; 70450; 72125; 73030; 73502; 73560; 76000; 80048; 80053; 81003; 82962; 83880; 84443; 84484; 85025; 85610; 85730; 93005; 93306; 94640; 96372; 96374; 96375; 97110; 97116; 97161; 97166; 97530; 97535; 99285; C1713; J0330; J0690; J1650; J1940; J2270; J2405; J2704; J3010; J3490; J7030

== ENCOUNTER → 2021-02-12 15:45 | Outpatient (BNVA) | payer OTHER, MEDICARE, SELFPAY | PROVIDERS: Visit Provider Orthopaedic Surgery | DX: S72.142A Displaced intertrochanteric fracture of left femur, initial encounter for closed fracture (principal); X58.XXXA Exposure to other specified factors, initial encounter | CPT/HCPCS: 73502 ==

== ENCOUNTER 2021-02-12 16:48 | Outpatient (CLI) | payer OTHER, MEDICARE, SELFPAY | END 2021-02-12 16:49 | disposition home or self-care (01) | LOC: SPT 16:48 | PROVIDERS: Visit Provider Orthopaedic Surgery | DX: Z46.89 Encounter for fitting and adjustment of other specified devices (principal); M25.562 Pain in left knee | CPT/HCPCS: 97760; L1812 ==

== ENCOUNTER 2021-03-10 15:24 | Outpatient (CLI) | payer OTHER, SELFPAY ==
--- NOTE | 2021-03-10 16:00 | MR_ITS ---
WS: [id number] MRI LEFT SHOULDER HISTORY: M25.519 - Pain in unspecified shoulder, prior fall. COMPARISON: Shoulder radiograph 12/30/2020 TECHNIQUE: Multiplanar sequences of the shoulder joint are submitted. Severe AC joint arthritis. Joint space narrowing with hypertrophic bone formation at the acromion and clavicular side of the joint. Osteophytes from the distal clavicle extends 6 mm with encroachment up on the supraspinatus tendon. There is edema through the AC ligament and a moderate amount of fluid in the subacromial and subdeltoid bursa. There is significant deformity upon the anterior remaining sup raspinatus muscle and tendon. No os acromion. Biceps tendon is in the bicipital groove but there is i ncreased T2 signal in the central tendon consistent with a minimal split tear. Supraspinatus tendon is torn and retracted tendon proximal to the glenoid. There may be a very sligh t remaining portion of the tendon less than 2 mm extending to the humeral head. There is a small amou nt of edema in the supraspinatus muscle and mild atrophy. Extensive abnormal signal throughout the payton bscapularis tendon and there is atrophy of the muscle. No full-thickness tear or retraction. Infraspi natus and teres minor are normal. Glenohumeral joint osteoarthritis is moderate. Mild high riding hum eral head. Subchondral cystic changes in the glenoid with intrasubstance degeneration throughout the labrum. Increase fluid in the rotator cuff interval. Coracohumeral ligament is partially torn. MR/MR shoulder LT wo con* [id number] IMPRESSION: 1. Severe AC joint arthritis with encroachment and impingement upon the supras pinatus tendon and muscle. 2. Torn retracted supraspinatus tendon. Tendon is retracted medial to the francy oid. 3. Advanced degenerative changes in the subscapularis tendon with subscapulari s muscle atrophy. 4. Advanced degenerative changes at the glenohumeral joint from arthritis. 5. Extensive intrasubstance degeneration within the labrum. 6. Moderate amount of fluid surrounding the humeral head. No fractures.
== END 2021-03-10 15:25 | disposition home or self-care (01) ==
LOC: RADSHAW 15:26
PROVIDERS: Visit Provider Orthopaedic Surgery
DX: M25.519 Pain in unspecified shoulder (principal); S46.912A Strain of unspecified muscle, fascia and tendon at shoulder and upper arm level, left arm, initial encounter; X58.XXXA Exposure to other specified factors, initial encounter
CPT/HCPCS: 73221

== ENCOUNTER → 2021-03-26 14:02 | Outpatient (BNVA) | payer OTHER, SELFPAY | PROVIDERS: Visit Provider Physician Assistant | DX: S72.142A Displaced intertrochanteric fracture of left femur, initial encounter for closed fracture (principal); M25.519 Pain in unspecified shoulder; Z48.89 Encounter for other specified surgical aftercare | CPT/HCPCS: 72190 ==

== ENCOUNTER → 2021-05-05 15:59 | Outpatient (BNVA) | payer MEDICARE, SELFPAY | PROVIDERS: Visit Provider Orthopaedic Surgery | DX: S43.52XA Sprain of left acromioclavicular joint, initial encounter (principal); W19.XXXA Unspecified fall, initial encounter; M19.011 Primary osteoarthritis, right shoulder | CPT/HCPCS: 73030 ==

== ENCOUNTER → 2021-07-28 10:10 | Outpatient (BNVA) | payer MEDICARE, SELFPAY | PROVIDERS: Visit Provider Physician Assistant | DX: S72.142A Displaced intertrochanteric fracture of left femur, initial encounter for closed fracture (principal); X58.XXXA Exposure to other specified factors, initial encounter | CPT/HCPCS: 73523 ==

== ENCOUNTER 2021-08-20 08:50 | Outpatient (CLI) | payer MEDICARE, SELFPAY ==
--- NOTE | 2021-08-20 08:57 | CT_ITS ---
WS: [id number] NONCONTRAST CT RIGHT HIP TECHNIQUE: Noncontrast CT RIGHT hip with coronal and sagittal reformatted images. CLINICAL INFORMATION: M25.551 - Pain in right hip COMPARISON: None. DLP: 2463.[address] scans at [facility] use at least one of these dose optimization techniques: automated e xposure control; mA and/or kV adjustment per patient size (includes targeted exams where dose is matc hed to clinical indication); or iterative reconstruction. FINDINGS: Osteopenia. Postoperative changes RIGHT ROVERTO with acetabular prosthesis. Screw fixation extends into t he RIGHT ilium. No evidence of hardware loosening. Normal anatomic alignment. No acute fractures. Dmitry dware appears intact. Hypertrophic changes about the sacroiliac joint. Vascular calcification. CT/CT hip RT wo con* [id number] IMPRESSION: Normal-appearing RIGHT ROVERTO
--- NOTE | 2021-08-20 08:57 | CT_ITS ---
WS: [id number] NONCONTRAST CT OF THE LEFT HIP TECHNIQUE: Noncontrast CT LEFT hip with coronal and sagittal reformatted images. CLINICAL INFORMATION: M25.551 - Pain in right hip COMPARISON: None. DLP: 2463.[address] scans at [facility] use at least one of these dose optimization techniques: automated e xposure control; mA and/or kV adjustment per patient size (includes targeted exams where dose is matc hed to clinical indication); or iterative reconstruction. FINDINGS: Prior postoperative changes intramedullary maddie fixation LEFT femur with intertrochanteric fixation sc rew. Osteopenia. Hypertrophic changes about the greater trochanter. Normal anatomic alignment. Eviden ce of bony healing with callus formation along the intratrochanteric fracture. Bony bridging along th e fracture line. Residual lucency along the anterior fracture line. Intramedullary fixation maddie is normal in appearance. No evidence of hardware loosening. Moderate dege nerative narrowing with joint space narrowing. Hypertrophic changes along the acetabulum. Hypertrophi c changes at the sacroiliac joint. Vascular calcification. CT/CT hip LT wo con* [id number] IMPRESSION: 1. Prior postoperative changes intramedullary maddie and screw fixation LEFT inte rtrochanteric hip fracture. Evidence of healing with callus formation and bony bridging across the fracture line. 2. Small amount of residual lucency along the anterior fracture line appears i ncompletely healed. 3. No evidence of hardware loosening. 4. Heterotopic ossification along the greater trochanter 5. Moderate degenerative narrowing LEFT hip.
== END 2021-08-20 08:51 | disposition home or self-care (01) ==
LOC: RAD 08:51
PROVIDERS: Visit Provider Physician Assistant
DX: M25.551 Pain in right hip (principal); M25.552 Pain in left hip; Z96.641 Presence of right artificial hip joint
CPT/HCPCS: 73700

== ENCOUNTER → 2021-09-02 09:19 | Outpatient (BNVA) | payer MEDICARE, SELFPAY | PROVIDERS: Visit Provider Orthopaedic Surgery | DX: Z01.818 Encounter for other preprocedural examination (principal); Z20.822 Contact with and (suspected) exposure to COVID-19 | CPT/HCPCS: 87635 ==

== ENCOUNTER 2021-09-07 07:20 | Day surgery (SDC) | payer MEDICARE, SELFPAY ==
[2021-09-04 12:07] VITALS: BMI 31.8
--- NOTE | 2021-09-07 | SCC_ITS ---
Procedure done: 1. Removal of IM nail Left hip 2. placement of long IM nail left hip 169.1 seconds of fluoroscopic guidance, for a cumulative dose of 51.28 mGy, was provided to Dr. Ahmadi by the radiology department. C-arm images of the LEFT hip were saved for the patient's permanent record. [facility]
[2021-09-07 07:41] VITALS: BP 176/87; PULSE 63; RESP 18; TEMP 36.4; O2SAT 99
--- NOTE | 2021-09-07 08:00 | ANES.PREANE2 ---
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 Operation Date: 09/07/21 10:10 Proposed Procedures p Hardware Removal Trochanteric Nail /91210(Left) - Michael H Daiana, DO s Trochanteric Femoral Nail(Left) - Michael H Daiana, DO Familial anesthetic complications: None Was Beta Rodrigue taken within 24 hours: N/A Was Clonidine taken within 24 hours: N/A Last intake: 09/06/21 Social No alcohol and No tobacco Exam alert, oriented x 3, clear to auscultation bilaterally and regular rate & rhythm Murmur on cardiac exam Airway Submandibular: within normal limits Cervical ROM: within normal limits Mallampati: Class III Dentition: chipped and partials Pulmonary None reported Denies COPD CV/HEM Anemia, Arrythmia (First degree AV block), Hypertension and Murmur Moderate METS > 4 prior to acute fx summer TTE 12/2020 ?CONCLUSIONS ?1. Normal left ventricular cavity size and systolic function. ?Mild concentric left ventricle hypertrophy. ? Left ventricular ?ejection fraction is estimated at 65 %. No regional wall motion ?abnormalities.? Abnormal diastolic function. ?2. Moderately thickened and calcified probably trileaflet aortic ?valve.? Moderate aortic valve stenosis, peak velocity 2.6 m/s, ?peak gradient 27 mmHg, mean gradient 17 mmHg, ANAHI 1.4 cm squared (LVOT ?= 20 mm).? Dimensionless valve index of 0.43.? No aortic valve ?regurgitation. ?3.? Normal pulmonary artery pressure. ?4.? No prior similar studies to compare. 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 Patient consents to proceed with general anesthesia. Risk of > 500 ml blood loss (7ml/kg in children): No Medications/Allergies Home Medications Medication Instructions Recorded Confirmed Last Taken Type fluticasone furoate 27.5 1 spray INTRANASAL BID 01/01/21 09/07/21 09/06/21 History mcg/actuation nasal spray,suspension indomethacin 50 mg capsule 50 mg PO TID PRN 01/01/21 09/07/21 09/06/21 History losartan 100 mg tablet 100 mg PO DAILY 01/01/21 09/07/21 09/06/21 History rosuvastatin 5 mg tablet (Crestor) 5 mg PO DAILY 01/01/21 09/07/21 09/06/21 History amlodipine 2.5 mg tablet 2.5 mg PO DAILY 09/04/21 09/07/21 09/06/21 History polyethylene glycol 3350 17 gram 17 g PO DAILY 09/04/21 09/07/21 09/06/21 History oral powder packet (Miralax) Allergies Allergy/AdvReac Type Severity Reaction Status Date / Time No Known Allergies Allergy Verified 09/04/21 12:11 [facility] Anesthesia Medical History Closed left hip fracture History of prediabetes Hypertensive urgency Lip cancer Perforated ulcer of intestine Prostate cancer Swelling of both lower extremities Systolic murmur Surgical History H/O left knee surgery History of total right hip arthroplasty S/P laparotomy Social History Smoking and tobacco status: never smoked Data Anesthesia Cardiac Studies: Echocardiogram 01/02/21
[2021-09-07] MEDS: sodium chloride 0.9% 1,000 ML 30 ML IV (08:28)
--- NOTE | 2021-09-07 09:20 | W.PM.OPSUD ---
Surgery/Procedure H&P Update DATE OF PROCEDURE: September 07, 2021 DATE H&P PERFORMED: 08/25/21 H&P UPDATE INFORMATION: I have reviewed H&P completed within last 30 days, I have examined patient prior to procedure and No changes to prior documentation PREOP DIAGNOSIS: Nonunion Left Intertrochanteric Hip Fracture PLANNED PROCEDURE: Operation Date: 09/07/21 10:10 Proposed Procedures p Hardware Removal Trochanteric Nail [id number](Left) - Michael Ahmadi DO s Trochanteric Femoral Nail(Left) - Michael Ahmadi DO
[2021-09-07] MEDS: fentaNYL 50 mcg/mL INJ 2mL IVP (10:17)
[2021-09-07] MEDS: vancomycin 1,000 MG SDV 1000 MG XX (14:27)
--- NOTE | 2021-09-07 15:13 | XR_ITS ---
WS: [id number] Exam: XR hip LT 1V wo/w pel [id number] Date/Time of Exam: 09/07/2021 3:14 PM Reason For Exam: OR PICS Intraoperative AP and lateral C-arm images of the left hip are submitted for evaluation. A long intra medullary maddie is positioned in the left femur with 2 femoral neck screws. The screws appear to be in satisfactory location. The distal end of the femoral maddie appears to abut the posterior margin of the pre-existing femoral component of a total knee replacement. No other significant finding on this limi ga study.
[2021-09-07 15:25] VITALS: BP 148/76; PULSE 70; RESP 15; TEMP 36.7; O2SAT 92
[2021-09-07 15:30] VITALS: BP 131/71; PULSE 73; RESP 16; O2SAT 100
[2021-09-07 15:35] VITALS: BP 146/57; PULSE 55; RESP 15; O2SAT 95
--- NOTE | 2021-09-07 15:36 | PM.OP ---
Operative Report Date of procedure: September 07, 2021 Pre-op diagnosis: Preop Diagnosis Nonunion Left Intertrochanteric Hip Fracture Post-op diagnosis: same Procedure done: 1. Removal of IM nail Left hip 2. placement of long IM nail left hip Surgeon: Michael Ahmadi Market Research Analyst: Corey Freedman Market Research Analyst: The surgical corsetier, Corey Freedman, PAC was needed for his expertise with fractures. He was important and necessary throughout the procedure to complete in a safe and timely manner. He assisted with patient positioning prepping and draping tissue retraction suctioning of the operative field protection of critical structures and tissue closure Estimated blood loss (mL): 50 Procedure: Undergoing anesthesia was placed in the lateral decubitus position with the left side up. Patient was prepped and draped normal sterile fashion. Skin incision is made over the previous incision on the hip. Extended a little bit bigger. The top part of the nail was identified and a conical extraction bolt was inserted. Next tension was brought to the lag screw the lag screw was then backed out. And the distal locking screw was also backed out. The [place] nail was then removed. Next it was brought to placing a guidewire. The knee was measured to be 43 cm away. The canal was reamed to 13 mm. I put a 42 x 11 1/2 [employer] InterTAN nail in. The lag screw compression device was placed up into the femoral head. And compression through the nonunion was made for approximately 5 mm. 2 locking screws were placed distally. AP and lateral fluoroscopy views of the knee showed adequate position of the InterTAN long nail. Wounds were irrigated closed with Vicryl and yuli. Sterile dressings were applied patient was transferred to the PACU in stable condition.
[2021-09-07 15:40] VITALS: BP 111/67; PULSE 51; RESP 17; TEMP 36.8; O2SAT 93
[2021-09-07 15:54] VITALS: BP 137/59; PULSE 49; RESP 18; TEMP 36.8; O2SAT 93
--- NOTE | 2021-09-07 16:34 | PC.NURSE ---
per Dr Ahmadi request, pt was ambulated under supervision using his rolling walker to determine patients ability to ambulate safely prior to discharging home
--- NOTE | 2021-09-07 16:38 | ANE.PACU2 ---
Inpatient post-anesthesia follow up: Airway intact: Yes Vital signs: Temperature 98.2 F Pulse Rate 49 Respiratory Rate 18 Blood Pressure 137/59 Pulse Oximetry 93 Oxygen Delivery Me thod Room Air Oxygen Flow Rate Fraction of Inspir ed Oxygen Hydration adequate: Yes Nausea and vomiting: No Pain level: 5 Mental status: Baseline
== END 2021-09-07 16:40 | disposition home or self-care (01) ==
PROVIDERS: Visit Provider Orthopaedic Surgery
PROC: (CPT 20680; principal; 2021-09-07 10:10)
PROC: (CPT 27245; 2021-09-07 10:10)
DX: S72.002A Fracture of unspecified part of neck of left femur, initial encounter for closed fracture (principal); X58.XXXA Exposure to other specified factors, initial encounter; I10 Essential (primary) hypertension; E11.9 Type 2 diabetes mellitus without complications; Z85.46 Personal history of malignant neoplasm of prostate
CPT/HCPCS: 20680; 27506; 73501; 76000; C1713; J0690; J1100; J2405; J2704; J2710; J3010; J3370; J3490; J7030

== ENCOUNTER → 2021-09-22 09:09 | Outpatient (BNVA) | payer MEDICARE, SELFPAY | PROVIDERS: Visit Provider Orthopaedic Surgery | DX: S72.002D Fracture of unspecified part of neck of left femur, subsequent encounter for closed fracture with routine healing (principal); X58.XXXD Exposure to other specified factors, subsequent encounter | CPT/HCPCS: 73502; 99024; 99203 ==

== ENCOUNTER → 2021-10-20 10:35 | Outpatient (BNVA) | payer MEDICARE, SELFPAY | PROVIDERS: Visit Provider Orthopaedic Surgery | DX: Z47.89 Encounter for other orthopedic aftercare (principal); Z98.890 Other specified postprocedural states; M25.562 Pain in left knee | CPT/HCPCS: 73502; 73562; 99024 ==

== ENCOUNTER → 2021-11-17 09:02 | Outpatient (BNVA) | payer MEDICARE, SELFPAY | PROVIDERS: Visit Provider Orthopaedic Surgery | DX: S72.002K Fracture of unspecified part of neck of left femur, subsequent encounter for closed fracture with nonunion (principal); X58.XXXD Exposure to other specified factors, subsequent encounter; M25.561 Pain in right knee | CPT/HCPCS: 20610; 73502; 99024; J1100; J2795 ==

== ENCOUNTER → 2021-11-30 10:01 | Outpatient (BNVA) | payer MEDICARE, SELFPAY | PROVIDERS: PCP Family Medicine; Visit Provider Surgery | DX: R19.5 Other fecal abnormalities (principal) | CPT/HCPCS: 99203 ==

== ENCOUNTER → 2021-12-02 16:53 | Outpatient (BNVA) | payer MEDICARE, SELFPAY | PROVIDERS: PCP Family Medicine; Visit Provider Family Medicine | DX: R10.9 Unspecified abdominal pain (principal) | CPT/HCPCS: 85025 ==

== ENCOUNTER → 2021-12-17 10:16 | Outpatient (BNVA) | payer MEDICARE, SELFPAY | PROVIDERS: PCP Family Medicine; Visit Provider Family Medicine | DX: R10.9 Unspecified abdominal pain (principal) | CPT/HCPCS: 85025 ==

== ENCOUNTER 2021-12-21 10:19 | Outpatient (CLI) | payer MEDICARE, SELFPAY ==
--- NOTE | 2021-12-21 10:30 | CT_ITS ---
WS: [id number] NONCONTRAST CT LEFT HIP TECHNIQUE: Noncontrast CT LEFT with coronal and sagittal reformatted images. CLINICAL INFORMATION: post op IM nail COMPARISON: CT August 20, 2021 DLP: 1506.[address] scans at [facility] use at least one of these dose optimization techniques: automated e xposure control; mA and/or kV adjustment per patient size (includes targeted exams where dose is matc hed to clinical indication); or iterative reconstruction. FINDINGS:Interval revision of the intramedullary maddie and screw fixation LEFT hip with additional fixa tion screw extending to the subcapital femoral neck fracture. Prior screw tract. Mild concave deformi ty along the femoral neck with sclerosis along the subcapital femoral neck fracture. Incomplete heali ng of the subcapital femoral neck fracture with residual visualized fracture line and sclerosis. Intratrochanteric fracture appears essentially healed with callus formation. Intramedullary maddie and s crew fixation LEFT hip with distal extending femoral maddie. Screw fixations across the distal femoral r od. Partially visualized LEFT TKA. Vascular calcification. Osteopenia. CT/CT hip LT wo con* [id number] IMPRESSION: 1. Slight concave deformity and sclerosis along the subcapital femoral neck fr acture which is incompletely healed. Residual visualized fracture line with halina rounding sclerosis. Recommend interval follow-up to exclude avascular necrosis. 2. Intratrochanteric fracture appears essentially healed with callus formation
== END 2021-12-21 10:20 | disposition home or self-care (01) ==
LOC: RAD 10:20
PROVIDERS: PCP Family Medicine; Visit Provider Orthopaedic Surgery
DX: Z98.890 Other specified postprocedural states (principal); S72.012 Unspecified intracapsular fracture of left femur; X58.XXXD Exposure to other specified factors, subsequent encounter
CPT/HCPCS: 73700; J1100; J2795

== ENCOUNTER 2021-12-24 05:18 | Emergency (ER) | payer MEDICARE, SELFPAY ==
--- NOTE | 2021-12-24 05:25 | XRR_ITS ---
PROCEDURE INFORMATION: Exam: XR Left Hip Exam date and time: 12/24/2021 5:34 AM Age: 81 years old Clinical indication: Hip pain; Left hip; Prior surgery; Surgery date: 1-6 months; Surgery type: Hip replacement from hip to knee; Patient HX: PT says laying on the CT table three days ago had screwed up his hip and knee. Pain is in entire upper leg. PT says they put in second replacement in August after he broke his hip again after first replacement. TECHNIQUE: Imaging protocol: Radiologic exam of the Left hip. Views: 2 or 3 views hip with pelvis when performed. COMPARISON: CR (HIP AP, HIP, HIP AP) 11/17/2021 9:27 AM FINDINGS: Bones/joints: Intramedullary nail and screw fixation of the left femur. The superior most screw again abuts the cortical surface of the left femoral head. Similar mild deformity of the left femoral head/neck junction. No new fracture or change in alignment. Moderate left hip degenerative changes. Osteopenia. Soft tissues: Unremarkable. XR/XR hip LT 2-3V wo/w pel* [id number] IMPRESSION: No substantial change in the appearance of the left hip relative to 11/17/2021.
[2021-12-24 05:32] VITALS: BP 157/77; PULSE 86; RESP 20; TEMP 36.7; O2SAT 95; BMI 28.5
--- NOTE | 2021-12-24 05:32 | ED_ITS ---
HPI - Extremity Injury (Lower) General: Chief Complaint: Extremity Injury, Lower Stated Complaint: L hip pain Time Seen by Provider: 12/24/21 05:25 Source: patient Mode of arrival: ambulatory Limitations: no limitations History of Present Illness: 81-year-old male who has had a history of 2 hip surgeries on his left hip in the last year. He broke his hip and then he had to have another surgery for repair. Patient states has been having some pain still he had a CT scan done 3 days ago by his orthopedic surgeon for healing. He states that he had to lay on the hard table and he has been having severe left hip pain since then. States that pain is in the hip and goes down his leg. He states pain is a 6 out of 10 much worse with movement. Denies any fever denies any new injuries. Review of Systems Const: Denies: fever(s), chills, body aches or change in appetite Eyes: Denies: blurry vision or eye discomfort ENMT: Denies: throat pain or dental pain Card: Denies: chest pain Resp: Denies: dyspnea GI: Denies: abdominal pain, nausea, vomiting or diarrhea : Denies: dysuria Musc: Reports: extremity pain Skin/Breast: Denies: rash Neuro: Denies: headache(s) Psych: Denies: depression Brendon/Lymph: Denies: easy bruising All/Imm: Denies: urticaria PFSH ED PFSH: Medical History Closed left hip fracture History of prediabetes Hypertensive urgency Lip cancer Perforated ulcer of intestine Prostate cancer Swelling of both lower extremities Systolic murmur Surgical History H/O left knee surgery History of total right hip arthroplasty S/P laparotomy Social History Smoking and tobacco status: never smoked Alcohol intake: current Alcohol intake frequency: holidays/special occasions only Physical Exam 2 Const: COMMON NORMALS: no acute distress, patient oriented x3 and healthy appearing HENMT: COMMON NORMALS: normocephalic and atraumatic HEAD & SCALP: normocephalic and atraumatic Eye: COMMON NORMALS: Equal, round and reactive pupils present and EOMs intact bilaterally PUPIL: Yes Equal, round and reactive pupils present Neck/C-Spine: COMMON NORMALS: full ROM and supple Chest: COMMONS NORMALS: normal inspection of the chest and normal palpation of entire chest wall Resp: COMMON NORMALS: normal respiratory effort, No retractions, No use of accessory muscles and clear to auscultation bilaterally AUSCULTATION: clear to auscultation bilaterally Cardio: COMMON NORMALS: regular rate, regular rhythm and No murmurs present (Cardio) RATE: regular rate RHYTHM: regular rhythm GI: COMMON NORMALS: Normal to inspection, nondistended, normoactive bowel sounds present, Soft to palpation, non-tender and no masses PALPATION: Yes Soft to palpation Extremity: NARRATIVE EXTREMITY EXAM: Some tenderness to left hip does have full range of motion pain with range of motion no saddle anesthesia Neuro: COMMON NORMALS: patient oriented x3, moves all extremities and no focal motor deficits Psych: COMMON NORMALS: mental status grossly normal, Normal thought process present and cooperative THOUGHT PROCESS: Normal thought process present Skin: COMMON NORMALS: no rashes or lesions noted and no wounds GENERAL SKIN EXAM: no rashes or lesions noted Course Vital Signs: Vital signs: Vital Signs Temperature 98.0 F 12/24/21 05:32 Pulse Rate 86 12/24/21 05:32 Respiratory Rate 20 H 12/24/21 05:39 Blood Pressure 157/77 12/24/21 05:32 Pulse Oximetry 95 12/24/21 05:39 MDM - Extremity Injury (Lower) Medical Decision Making Patient presents here with hip pain that is chronic in nature his x-ray here is normal he is able to ambulate he is to follow-up with his orthopedic surgeon and return if worsening he understands agrees to plan. Lab Data Radiology Impressions Hip/Pelvis X-Ray 12/24/21 05:25 IMPRESSION: No substantial change in the appearance of the left hip relative to 11/17/2021. Discharge Plan Discharge Patient Disposition: Home Clinical Impression: Hip pain, left Condition: Stable Prescriptions: New hydrocodone-acetaminophen 5-325 mg tablet 1 tab PO Q6H PRN (Reason: pain) Qty: 14 0RF No Action indomethacin 50 mg Capsule 50 mg PO TID PRN (Reason: GOUT) 0RF losartan 100 mg Tablet 100 mg PO DAILY 0RF rosuvastatin [Crestor] 5 mg Tablet 5 mg PO DAILY 0RF fluticasone furoate 27.5 mcg/actuation [employer],Suspension 1 spray INTRANASAL BID 0RF polyethylene glycol 3350 [Miralax] 17 gram Powder In Packet 17 g PO DAILY 0RF amlodipine 2.5 mg Tablet 2.5 mg PO DAILY 0RF hydrocodone-acetaminophen 5-325 mg tablet 1 - 2 tab PO .Q4-6H Qty: 40 0RF Discharge Orders: Discharge ED (Routine); Ordered 12/24/21 Ordered By: Esa Langley Referrals: Michael Ahmadi DO [Physician] - 1-3 days Jack Gaspar MD [Primary Care Provider] - Discharge Diet: Advance as tolerated Discharge Activity: Resume usual activity Patient Instructions: Hip Pain (ED), Opioid Safety Coding Level of Care Code ED Entertainment Lawyer for Chg Fwd Exam Comprehensive
[2021-12-24] MEDS: ondansetron 2 mg/ML SDV 2 mL 4 MG IM (05:38)
[2021-12-24 05:39] VITALS: RESP 20; O2SAT 95
[2021-12-24] MEDS: morphine 4 mg/mL SDV 1 mL IM (05:39)
[2021-12-24] MEDS: dexamethasone 10 mg/mL INJ IM (05:39)
== END 2021-12-24 05:57 | disposition home or self-care (01) ==
PROVIDERS: Emergency Provider Emergency Medicine; PCP Family Medicine
DX: M25.552 Pain in left hip (principal); Z85.46 Personal history of malignant neoplasm of prostate
CPT/HCPCS: 73502; 96372; 99284; J1100; J2270; J2405

== ENCOUNTER → 2021-12-29 11:45 | Outpatient (BNVA) | payer MEDICARE, SELFPAY | PROVIDERS: PCP Family Medicine; Visit Provider Orthopaedic Surgery | DX: S72.002A Fracture of unspecified part of neck of left femur, initial encounter for closed fracture (principal); X58.XXXA Exposure to other specified factors, initial encounter | CPT/HCPCS: 99214 ==

== ENCOUNTER 2022-01-18 10:05 | Inpatient (IN) | payer MEDICARE, SELFPAY ==
[2022-01-13 12:16] LABS: Basophils # 0.1 10^3/uL (0.0-0.1); Basophils % 1.1 %; Eosinophils # 0.1 10^3/uL (0.0-0.8); Eosinophils % 1.9 %; Hematocrit 35.5 % (42.0-52.0); Hemoglobin 11.2 g/dL (11.7-16.6); Lymphocytes # 1.2 10^3/uL (0.8-4.8); Lymphocytes % 21.9 %; Mean Corpuscular HGB Conc 31.5 g/dL (30.0-36.0); Mean Corpuscular Hemoglobin 27.7 pg (28.0-34.0); Mean Corpuscular Volume 87.9 fl (80-94); Mean Platelet Volume 10.8 fL (7.4-10.4); Monocytes # 0.6 10^3/uL (0.2-0.9); Monocytes % 11.4 %; Neutrophils # 3.33 10^3/uL (1.8-7.7); Neutrophils % 63.5 %; Nucleated Red Blood Cells % 0 %; Platelet Count 201 10^3/cmm (130-400); Red Blood Count 4.04 10^6/uL (4.1-5.3); Red Cell Distribution Width 14.9 % (12.1-15.1); White Blood Count 5.3 10^3/uL (4.0-10.0)
[2022-01-13 12:25] LABS: Anion Gap 13.5 (5-19); Blood Urea Nitrogen 28 mg/dL (8-23); Calcium 9.1 mg/dL (8.5-10.5); Carbon Dioxide 27 mmol/L (22-29); Chloride 100 mmol/L (98-107); Glucose 214 mg/dL (65-115); Osmolality Calculated 294 mOsm/kg (285-295); Potassium 4.5 mmol/L (3.5-5.1); Sodium 136 mmol/L (136-145)
--- NOTE | 2022-01-13 15:02 | P.ANESASSM_ITS ---
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 Operation Date: 01/18/22 07:00 Proposed Procedures p ORIF Femur OR POSS PROSTHETIC REPLACEMENT 09234/M25.559(Left) - Michael Ahmadi, Familial anesthetic complications: none Was Beta Rodrigue taken within 24 hours: N/A Was Clonidine taken within 24 hours: N/A Social No alcohol and No tobacco Exam alert, oriented x 3, clear to auscultation bilaterally and regular rate & rhythm Airway Submandibular: within normal limits Cervical ROM: within normal limits Mallampati: Class II Dentition: chipped and partials Comments: Comments: False uppers Poor lower dentition Pulmonary None reported CV/HEM Anemia, Hypertension and Murmur METS < 4 TTE 12/2020 CONCLUSIONS ?1. Normal left ventricular cavity size and systolic function. ?Mild concentric left ventricle hypertrophy. ? Left ventricular ?ejection fraction is estimated at 65 %. No regional wall motion ?abnormalities.? Abnormal diastolic function. ?2. Moderately thickened and calcified probably trileaflet aortic ?valve.? Moderate aortic valve stenosis, peak velocity 2.6 m/s, ?peak gradient 27 mmHg, mean gradient 17 mmHg, ANAHI 1.4 cm squared (LVOT ?= 20 mm).? Dimensionless valve index of 0.43.? No aortic valve ?regurgitation. ?3.? Normal pulmonary artery pressure. ?4.? No prior similar studies to compare EKG 12/2020 ?Interpretive Statements SINUS RHYTHM WITH FIRST DEGREE AV BLOCK RIGHT BUNDLE BRANCH BLOCK [120+ ms QRS DURATION, UPRIGHT V1, 40+ ms S IN I/aVL/V4/V5/V6] LEFT ANTERIOR FASCICULAR BLOCK [QRS AXIS <= -45, QR IN I, RS IN II] SEPTAL MYOCARDIAL INFARCTION [40+ ms Q WAVE IN V1/V2], OF INDETERMINATE AGE No previous ECG available for comparison Electronically Signed On 01-02-2021 14:53:08 CDT by Monty Lowery M.D. [email or web address] Prostate cancer Hepatic None reported GI Hx of perforated ulcer of intestine Metabolic Diabetes Mellitus (Pre diabetes ) Musc/skel Osteoarthritis/DJD S/P intertrochanteric fracture repair Neuropsych None reported Anesthetic Plan ASA status: 3 Anesthesia: Anesthesia Evaluation and General Other: We discussed risk and benefits of general anesthesia including PONV, sore throat (sometimes severe), corneal abrasion, positioning and peripheral nerve injuries, life threatening allergic reaction, post operative ICU admission requiring prolonged intubation, aspiration, stroke, heart attack, , and rare incidences of recall. Patient consents to proceed with general anesthesia. Risk of > 500 ml blood loss (7ml/kg in children): No Medications/Allergies Home Medications Medication Instructions Recorded Confirmed Last Taken Type fluticasone furoate 27.5 1 spray intranasal BID 01/01/21 01/13/22 09/06/21 History mcg/actuation nasal spray,suspension indomethacin 50 mg capsule 50 mg PO TID PRN GOUT 01/01/21 01/13/22 09/06/21 History losartan 100 mg tablet 100 mg PO DAILY 01/01/21 01/13/22 09/06/21 History rosuvastatin 5 mg tablet (Crestor) 25 mg PO DAILY 01/01/21 01/13/22 09/06/21 History amlodipine 2.5 mg tablet 2.5 mg PO DAILY 09/04/21 01/13/22 09/06/21 History polyethylene glycol 3350 17 gram 17 g PO DAILY 09/04/21 01/13/22 09/06/21 History oral powder packet (Miralax) Co Q-10 100 mg PO DAILY 01/13/22 01/13/22 Unknown History ascorbic acid (vitamin C) 500 mg 500 mg PO DAILY 01/13/22 01/13/22 Unknown History tablet (Vitamin C) aspirin 81 mg capsule 81 mg PO DAILY 01/13/22 01/13/22 Unknown History cholecalciferol (vitamin D3) 100 100 mcg PO DAILY 01/13/22 01/13/22 Unknown History mcg (4,000 unit) capsule ferrous sulfate 325 mg (65 mg 325 mg PO DAILY 01/13/22 01/13/22 Unknown History iron) tablet (iron) multivitamin 1 tab PO DAILY 01/13/22 01/13/22 Unknown History omega-3 fatty acids-vitamin E 1 cap PO DAILY 01/13/22 01/13/22 Unknown History 1,000 mg capsule vitamin B complex 1 tab PO DAILY 01/13/22 01/13/22 Unknown History Allergies Allergy/AdvReac Type Severity Reaction Status Date / Time hydrocodone Allergy ADR-Dizzine Verified 01/13/22 11:25 ss [facility] Anesthesia Medical History Closed left hip fracture History of prediabetes Hypertensive urgency Lip cancer Perforated ulcer of intestine Prostate cancer Swelling of both lower extremities Systolic murmur Surgical History H/O left knee surgery History of total right hip arthroplasty S/P laparotomy Social History Smoking and tobacco status: never smoked Alcohol intake: current Alcohol intake frequency: holidays/special occasions o nly Data Anesthesia : 01/13/22 11:50 01/13/22 11:50 Short CBC 01/13/22 Range/Units 11:50 WBC 5.3 (4.0-10.0) 10^3/uL Hgb 11.2 L (11.7-16.6) g/dL Hct 35.5 L (42.0-52.0) % MCV 87.9 (80-94) fl Plt Count 201 (130-400) 10^3/cmm Neut % (Auto) 63.5 % Neut # (Auto) 3.33 (1.8-7.7) 10^3/uL BMP 01/13/22 11:50 Sodium 136 Potassium 4.5 Chloride 100 Carbon Dioxide 27 BUN 28 H Creatinine 0.7 Glucose 214 H Calcium 9.1 Cardiac Studies: Echocardiogram 01/02/21
[2022-01-18] VITALS (26 sets, daily range): BP systolic 98–156; BP diastolic 63–108; PULSE 81–120; RESP 11–27; TEMP 36.1–36.8; O2SAT 91–100
--- NOTE | 2022-01-18 | XR_ITS ---
WS: [id number] XR hip LT 1V wo/w pel [id number] REASON FOR EXAM: hardware removal left hip. bipolar hip FINDINGS: Removal of previous intramedullary maddie and nail fixation of the left hip replaced by total left hip a rthroplasty. Bone and surgical appliances appear in proper position and alignment. XR/XR hip LT 1V wo/w pel [id number] IMPRESSION: Hardware removal and total left hip arthroplasty without abnormality.
--- NOTE | 2022-01-18 | SCC_ITS ---
Procedure done: 1. removal of deep hardware Left hip 2. Left hip revision hemiarthroplasty 87.6 seconds of fluoroscopic guidance, for a cumulative dose of 14.22 mGy, was provided to Dr. Ahmadi by the radiology department. C-arm images of the LEFT hip were saved for the patient's permanent record. [facility]
--- NOTE | 2022-01-18 06:15 | P.ANESUD_ITS ---
Pre-Anesthetic Update Pre-Anesthetic Assessment: Date of Surgery/Procedure: 01/18/22 Preop Paulina gnosis: Failed hardware left femur, left hip osteoarthritis Proposed Procedure: Operation Date: 01/18/22 07:00 Proposed Procedures p Hardware Removal Trochanteric Nail 59821/M25.559(Left) - Michael Ahmadi, DO s Hemiarthroplasty Hip(Left) - Michaelrichard Ahmadi, DO Any changes to Pre-Anesthetic Assessment?: No Last Intake: 01/17/22 Exam: Pre-Anes Outpt Exam: alert, oriented x 3, clear to auscultation bilaterally and regular rate & rhythm Cardiac Studies: Echocardiogram 01/02/21
--- NOTE | 2022-01-18 06:45 | PM.HP ---
Providers/Chief Complaint Primary Care Provider: Jack Gaspar MD Chief Complaint: ORIF LT HIP POSS PROSTHETIC REPLACEMENT 53885 History of Present Illness Cali Lee is a 81 year old male Patient is an 81-year-old male who sustained a intertrochanteric hip fracture. He subsequent went on to a nonunion and was treated with a exchange nail. At this point the nail has cut out the femoral head. However he has healed the intertrochanteric portion of the fracture but is sustained a femoral neck fracture. Patient is here today for removal of hip nail and treatment with a bipolar hip replacement. Review of Systems General: Reports: 10 or more systems reviewed and unremarkable except in HPI and below Const: Denies: fever(s) Eyes: Denies: eye discharge ENMT: Denies: throat pain Card: Denies: chest pain Resp: Denies: dyspnea GI: Denies: nausea or vomiting : Denies: urinary incontinence Musc: Reports: joint pain Skin/Breast: Denies: rash Psych: Denies: anxiety Endo: Denies: polyuria Brendon/Lymph: Denies: easy bruising All/Imm: Denies: facial swelling Medications/Allergies Home Medications Medication Instructions Recorded Confirmed Last Taken Type fluticasone furoate 27.5 1 spray intranasal BID 01/01/21 01/18/22 01/15/22 History mcg/actuation nasal spray,suspension indomethacin 50 mg capsule 50 mg PO TID PRN GOUT 01/01/21 01/18/22 01/15/22 History losartan 100 mg tablet 100 mg PO DAILY 01/01/21 01/18/22 01/15/22 History rosuvastatin 5 mg tablet (Crestor) 25 mg PO DAILY 01/01/21 01/18/22 01/15/22 History amlodipine 2.5 mg tablet 2.5 mg PO DAILY 09/04/21 01/18/22 01/18/22 05:30 History polyethylene glycol 3350 17 gram 17 g PO DAILY 09/04/21 01/18/22 01/15/22 History oral powder packet (Miralax) Co Q-10 100 mg PO DAILY 01/13/22 01/18/22 01/15/22 History ascorbic acid (vitamin C) 500 mg 500 mg PO DAILY 01/13/22 01/18/22 01/16/22 History tablet (Vitamin C) aspirin 81 mg capsule 81 mg PO DAILY 01/13/22 01/18/22 01/15/22 History cholecalciferol (vitamin D3) 100 100 mcg PO DAILY 01/13/22 01/13/22 Unknown History mcg (4,000 unit) capsule ferrous sulfate 325 mg (65 mg 325 mg PO DAILY 01/13/22 01/18/22 01/15/22 History iron) tablet (iron) multivitamin 1 tab PO DAILY 01/13/22 01/18/22 01/15/22 History omega-3 fatty acids-vitamin E 1 cap PO DAILY 01/13/22 01/13/22 Unknown History 1,000 mg capsule vitamin B complex 1 tab PO DAILY 01/13/22 01/18/22 01/15/22 History Allergies Allergy/AdvReac Type Severity Reaction Status Date / Time hydrocodone Allergy ADR-Dizzine Verified 01/18/22 06:42 ss PFSH Acute PFSH: Medical History Closed left hip fracture History of prediabetes Hypertensive urgency Lip cancer Perforated ulcer of intestine Prostate cancer Swelling of both lower extremities Systolic murmur Surgical History H/O left knee surgery History of total right hip arthroplasty S/P laparotomy Social History Smoking and tobacco status: never smoked Alcohol intake: current Alcohol intake frequency: holidays/special occasions only Physical Exam Narrative: GENERAL: Patient in no acute distress. CARDIAC: Regular rate and rhythm. CHEST: Normal inspiratory effort, normal respiratory rate. ABDOMEN: Soft and nontender. SKIN: Clear, warm and intact. NEURO?PSYCH: The patient is alert and oriented to person, place and time. Sensorv /SILT Motor StrengthShoulder abduction C5 5/5Wrist extension C6 5/5Elbow extension C7 5/5Hand Tripe Scraper C8 5/5Finger abduction T15/5 Radial/ Ulnar/ Median n intact LowerSensory (SILT)Motor StrengthHin flexion L2/3Ant/inner thigh 5/5Hip adduction L2/3 5/5Knee extension L4 Lat thigh, 5/5Toe dorsiflexion L5 5/5Ankle dorsiflexion L5/ C66Dqtngky flexion S1 5/5 DTRBleeps 2+Triceps 2+Brachioradialis 2+Patellar 2+Achilles 2+ MUSCULOSKELETAL: [] UPPEREXTREMITIES: The patient had full active ROM in fingers, wrist, elbow, and shoulder. The patient demonstrated ability to fully flex/extend/abduct/adduct fingers, make ok sign, cross 2nd/3rd digits, extend 1st digit fully.. Radial pulse 2+, CR<2 seconds. LOWER EXTREMITIES: Pt has full, active ROM of toes, ankle, knee, and hip. Dorsalis pedis/posterior tibialis pulses 2+, CR<2 seconds. SPINE: Skin warm, dry, intact. Left leg not done because of hip pain Urinary Catheter Management: Grewal: Cath Placed During This Visit: yes Reason for Continuing Indwelling Catheter: Required Immobilization for Trauma or Surgery or Anesthesia Urinary Catheter Date of Insertion: 01/01/21 Urinary Catheter Time of Insertion: 16:49 Data : 01/13/22 11:50 01/13/22 11:50 A&P Assessment and plan (1) Femoral neck fracture: Removal of nail and placement of a hip hemiarthroplasty. Status: Acute Attestations Medical Necessity Statement*: Femoral neck fracture needs fixation. Coding Level of Care Code Acute [employer] Security Consultant for [facility] Shanon Diagnoses Femoral neck fracture S72.009A
[2022-01-18] MEDS: sodium chloride 0.9% 1,000 ML 30 ML IV (06:47)
[2022-01-18] MEDS: ceFAZolin 2,000 MG in sodium chloride 0.9% (plus) 50 ML 100 MG IV ×3 (07:07→22:09)
[2022-01-18] MEDS: vancomycin 1,000 MG SDV 1000 MG XX (09:14)
--- NOTE | 2022-01-18 09:55 | PM.OP ---
Operative Report Date of procedure: January 18, 2022 Pre-op diagnosis: Preop Diagnosis Failed hardware left femur, left hip osteoarthritis Post-op diagnosis: same Procedure done: 1. removal of deep hardware Left hip 2. Left hip revision hemiarthroplasty Surgeon: Michael Ahmadi Possum Trapper: Corey Freedman Possum Trapper: The surgical pathologist, Corey Freedman, TOSHA was needed for his expertise with hip fractures. He was important and necessary throughout the procedure to complete in a safe and timely manner. He assisted with patient positioning prepping and draping tissue retraction suctioning of the operative field protection of the critical structures and tissue closure Estimated blood loss (mL): 200 Procedure: 1. removal of deep hardware Left hip 2. Left hip revision hemiarthroplasty Patient was brought to the operative suite after undergoing anesthesia was placed in the lateral decubitus position on the table. All areas impingement were well-padded. Patient was positioned with a beanbag. Patient was then prepped and draped normal sterile fashion. Skin incision made using previous skin incisions but also just anterior to some of them in order to get proper alignment for the hip. Once the incision made IT band was split and exposure was brought anteriorly and the greater trochanter and callus from previous fracture all encased in all of this callus. The tip of the nail was identified the conical device was inserted and locked in position. Was brought to removing the screws out of the femoral head. These were identified and backed out and removed. And then the distal locking screws at the knee were removed. Once the screws were all removed the nail was back slapped out. Attention was now brought to using the restorationism modular hip system from [place]. The canal was identified by using a hot box operator followed by the canal finder. There is abundant callus formation what is callus was taken down with a rongeur and osteotomes in order to facilitate using the hip stem. The canal was reamed to I believe 22 mm. At 22 stem was inserted. And then the proximal part of the calcar was reamed to 25. And a 25 stem was trialed the version was dialed in to the patient's previous version and a +4 trial was used the hip was reduced and felt to be in adequate position. The trial was removed and then the permanent stem was inserted. The permanent stem was inserted and screwed into position. The +4 appropriate size head was inserted as a bipolar hip was reduced felt to be stable in all positions. Wounds were irrigated. X-rays were taken to ensure there is in good position. And then the abductors were tied back down to 3 drill holes in the bone. And then the capsule and abductors were also approximated anteriorly and then the IT band closed with 0 Vicryl and skin was closed with 2-0 Vicryl and yuli. Sterile dressings were applied and patient was transferred to the PACU in stable condition.
--- NOTE | 2022-01-18 10:02 | SUR.PHASEI ---
09:50 RECEIVED PT FROM OR STAFF. RESPONDS TO VERBAL. VENTILATING WELL. SINUS RHYTHM ON MONITOR. ROM AND SENSATION OF TOES LEFT FOOT.
[2022-01-18] MEDS: fentaNYL 50 mcg/mL INJ 2mL IVP ×2 (10:12→10:17)
[2022-01-18] MEDS: HYDROmorphone 1 mg/mL INJ 1 mL IVP (10:31)
--- NOTE | 2022-01-18 11:35 | PC.NURSE ---
Dr. Ahmadi called and voicemail left about concern over patients incision site bleeding. Drainage was marked with sharpie. Approximately ten minutes later bandage rechecked and serous drainage was outside of margins from original markings. Incisions were intact with yuli and moderate amount of blooding oozing through top yuli. Direct pressure was held and pressure dressing applied. Patient again was rechecked shortly after and bleeding appeared to have slowed down. Family and patient directed on s/s of bleeding and when to report to RN. Dr. Ahmadi was called and voicemail left. VS stable at this time.
[2022-01-18] MEDS: sodium chloride 0.9% 1,000 ML 80 ML IV (12:00)
[2022-01-18] MEDS: oxyCODONE-APAP 5-325 mg Tablet PO ×2 (13:26→20:49)
--- NOTE | 2022-01-18 13:47 | ANE.PACU2 ---
Inpatient post-anesthesia follow up: Airway intact: Yes Vital signs: Temperature 97.0 F Pulse Rate 99 Respiratory Rate 16 Blood Pressure 125/74 Pulse Oximetry 95 Oxygen Delivery Me thod Room Air Oxygen Flow Rate 2 Fraction of Inspir ed Oxygen Hydration adequate: Yes Nausea and vomiting: No Pain level: 1 Mental status: Baseline
[2022-01-18] MEDS: polyethylene glycol 3350 Pkt 17 gm PO (16:11)
[2022-01-18] MEDS: docusate sodium 100 mg Capsule PO (16:11)
[2022-01-18] MEDS: sodium chloride 0.9% 500 ML IV (19:35)
[2022-01-18 19:59] LABS: Hematocrit 31.6 % (42.0-52.0); Hemoglobin 9.9 g/dL (11.7-16.6)
--- NOTE | 2022-01-18 21:56 | PC.NURSE ---
Spoke with Dr. Ahmadi gave results of stat hgb 9.9 down from 11.2, orders to hold Lovenox tonight.
[2022-01-19] VITALS (11 sets, daily range): BP systolic 118–168; BP diastolic 72–89; PULSE 75–104; RESP 14–20; TEMP 36.6–36.8; O2SAT 91–98
[2022-01-19] MEDS: ondansetron 2 mg/ML SDV 2 mL 4 MG IVP (01:12)
[2022-01-19] MEDS: sodium chloride 0.9% 1,000 ML 80 ML IV ×2 (01:12→14:24)
[2022-01-19] MEDS: HYDROmorphone 1 mg/mL INJ 1 mL IVP (01:30)
[2022-01-19] MEDS: oxyCODONE-APAP 5-325 mg Tablet PO ×4 (04:23→20:56)
--- NOTE | 2022-01-19 05:38 | ECG_ITS ---
[facility] Test Date: 2022-01-19 Pat Name: Cali Lee Department: Room: 262 Gender: Male Facilities Flight Check Pilot: : 1940 Requested By: Michael Reinoso Order Number: [id number] Gennaro MD: Chris Ambrocio M.D. Measurements Intervals [place] Rate: 93 P: 52 LA: 247 QRS: -76 QRSD: 144 T: 49 QT: 386 QTc: 482 Interpretive Statements SINUS RHYTHM WITH FIRST DEGREE AV BLOCK RIGHT BUNDLE BRANCH BLOCK [120+ ms QRS DURATION, UPRIGHT V1, 40+ ms S IN I/aVL/V4/V5/V6] LEFT ANTERIOR FASCICULAR BLOCK [QRS AXIS <= -45, QR IN I, RS IN II] Compared to ECG 01/01/2021 16:18:33 Myocardial infarct finding no longer present Electronically Signed On 01-19-2022 18:58:20 CDT by Chris Ambrocio M.D. [id number]
--- NOTE | 2022-01-19 05:55 | PC.NURSE ---
Found patient taking his home nitroglcerin stating he was having some chest discomfort, he thought it was indigestion from his spicy dinner. Vital signs stable, EKG ordered per procotol. Patient states after nitro his discomfort was better. Will notify Dr. Ahmadi and continue to monitor patient.
[2022-01-19] MEDS: ceFAZolin 2,000 MG in sodium chloride 0.9% (plus) 50 ML 100 MG IV (06:28)
--- NOTE | 2022-01-19 07:41 | PM.PN ---
Subjective Subjective: POD 1 Patient resting comfortably until he was awoken from sleep he developed wincing spasms in the left hip. Had episodes of chest pain through the night but seem to be correlated more to reflux rather than cardiac event. He did not need improve with sublingual nitro, Stated it made it worse. He has had a history of reflux in the past. Still complains of hip pain with movement. Vitals/I&O/Wt Last Vital Signs Temp 98.2 F 01/19/22 04:48 Pulse 103 H 01/19/22 04:48 Resp 18 01/19/22 04:48 BP 134/77 01/19/22 04:48 Pulse Ox 91 01/19/22 04:48 O2 Del Method 01/19/22 00:33 O2 Flow Rate 2 01/18/22 10:45 01/18/22 01/19/22 01/19/22 22:59 06:59 14:59 Intake Total 1080 / 3330 1410 / 4740 Output Total 625 / 725 450 / 1175 Balance 455 / 2605 960 / 3565 Physical Exam Narrative: He is alert orient x3 has good general appearance normal mood and affect. Reports spasming pain in his left hip. Incision with bloody drainage. He wiggles both lower extremity toes are warm good cap refill calves are supple. 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 Physical therapy to work with mobilization. As well as hip precautions. We will place him on Pepcid 20 mg twice daily for his reflux. We will also place him on Flexeril 10 mg 1 tablet 3 times daily as needed spasms. Continue with mobilization today better pain control and probable discharge home tomorrow. Encourage incentive spirometry for pulmonary toilet. 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
[2022-01-19 08:34] LABS: Troponin(5th) Baseline 31 ng/L (0-15)
[2022-01-19] MEDS: amlodipine 5 mg Tablet 2.5 MG PO (08:52)
[2022-01-19] MEDS: polyethylene glycol 3350 Pkt 17 gm PO (08:52)
[2022-01-19] MEDS: cyclobenzaprine 10 mg Tablet PO ×2 (08:52→14:23)
[2022-01-19] MEDS: docusate sodium 100 mg Capsule PO ×2 (08:52→17:09)
[2022-01-19] MEDS: famotidine 20 mg Tablet PO ×2 (08:52→17:09)
[2022-01-19] MEDS: cyanocobalamin 1,000 mcg Tablet 4000 MCG PO (08:52)
[2022-01-19] MEDS: FLUTICASONE FUROATE 1 EACH INTRANASAL ×2 (08:53→17:09)
[2022-01-19] MEDS: aspirin 81 mg EC Tablet PO (08:53)
[2022-01-19] MEDS: ascorbic acid 500 mg Tablet PO (08:53)
[2022-01-19] MEDS: losartan 50 mg Tablet 100 MG PO (08:53)
[2022-01-19] MEDS: multivitamin therapeutic Tablet 1 TAB PO (08:53)
[2022-01-19] MEDS: ferrous sulfate EC 325 mg Tablet PO (08:53)
[2022-01-19] MEDS: atorvastatin 40 mg Tablet 80 MG PO (08:53)
[2022-01-19 09:11] LABS: Hematocrit 31.1 % (42.0-52.0); Hemoglobin 10.1 g/dL (11.7-16.6)
--- NOTE | 2022-01-19 10:08 | PC.CHAP ---
Pastoral Care Encounter/Spiritual Assessment Type of Contact [] Declined registered nurse ambulatory visit [] Patient/Family/Request visit [] Outpatient visit [] Follow-up visit [] Physician referral [] Code/Alert [x] Routine visit [] Staff referral [] Actively dying [] Patient sleeping [] Family support [] [] Out of room [] Palliative care [] [] Receiving care in room [] Pre-surgical visit [] Trauma [] Long length of stay [] ICU visit [] Other: Relational/Emotional Strength [x] Patient feels connected with others/family/visitors/staff [] Distress [] Loneliness/isolation [] Abandonment Spirituality of Patient [x] Person of Camilla [] Attends Lutheran of their Camilla [x] Believes in Prayer [] Reads Bible or Denominational materials [] There are Spiritual issues to be addressed 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 Interventions [x] Prayer x[] Active listening [x] Non-anxious presence [] Spiritual/emotional support [] Crisis/trauma care [] Spiritual counseling [] Bereavement support [] Provided bereavement packet [] Provided Bible/devotional materials [] Provided toy/stuffed animal, coloring book to patient or family member [] Provided Communion [] Anointing/[place] [] Salvation [x] Completed spiritual assessment [] Other: Impact on Illness or Injury [] Angry [] Fearful [] Anxious [] Often cries [] Exhaustion [] Unable to work [] Unable to attend sikhism [] Unable to walk/stand [] Unable to read [] Unable to drive [] Unable to eat/drink [] Unable to sleep [] Unable to be with family [] Patient intubated [] Other: Summary Time spent with patient 10 min
[2022-01-19 10:28] LABS: Troponin 5 2HR 26.87 ng/L (0-15)
[2022-01-19 10:34] LABS: Troponin 5 2HR Delta -4.13 ABS# (0-10)
[2022-01-19 13:59] LABS: Troponin 5 6HR 29.44 ng/L (0-15)
[2022-01-19 14:03] LABS: Troponin 5 6HR Delta -1.56 ng/L (0-12)
[2022-01-19] MEDS: enoxaparin 40 mg/0.4 mL Syringe SUBCUT (20:56)
[2022-01-20] VITALS (7 sets, daily range): BP systolic 112–140; BP diastolic 70–81; PULSE 88–99; RESP 14–17; TEMP 36.4–36.9; O2SAT 92–99
[2022-01-20] MEDS: sodium chloride 0.9% 1,000 ML 80 ML IV (02:55)
--- NOTE | 2022-01-20 06:45 | P.PN_ITS ---
Subjective Subjective: POD 2 Patient resting comfortably. States that he was up with physical therapy yesterday mobilizing. He denies any chest pain this morning. The muscle relaxant helped with his leg spasms. Patient is wanting to go home. Vitals/I&O/Wt Last Vital Signs Temp 98.1 F 01/20/22 04:00 Pulse 88 01/20/22 04:00 Resp 14 01/20/22 04:00 BP 140/79 01/20/22 04:00 Pulse Ox 92 01/20/22 04:00 O2 Del Method 01/19/22 20:00 O2 Flow Rate 2 01/18/22 10:45 01/19/22 01/19/22 01/20/22 14:59 22:59 06:59 Intake Total 1120 / 1120 1200 / 2320 1000 / 3320 Output Total 1200 / 1200 200 / 1400 Balance 1120 / 1120 0 / 1120 800 / 1920 Physical Exam Narrative: He is alert orient x3 has good general appearance normal mood and affect.? Reports spasming pain in his left hip.? Incision with bloody drainage.? He wiggles both lower extremity toes are warm good cap refill calves are supple. Urinary Catheter Management: Grewal: Cath Placed During This Visit: yes Reason for Continuing Indwelling Catheter: Required Immobilization for Trauma or Surgery or Anesthesia Urinary Catheter Date of Insertion: 01/01/21 Urinary Catheter Time of Insertion: 16:49 Data : 01/19/22 08:47 01/13/22 11:50 A&P Assessment and plan (1) Femoral neck fracture: Continue with physical therapy will determine whether or not it safe to transition home if the patient is not stable then considering social media community manager for placement. Encourage incentive spirometry for pulmonary toilet. Dressing changed with Silverlon to the left hip. We will see the patient back in 1 week's time for wound check. We will have hospitalist team evaluate due to his troponins being elevated. Patient does state that after the Pepcid his reflux symptoms resolved. Did not have any chest pain or reflux through the night. 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
--- NOTE | 2022-01-20 07:04 | ECG_ITS ---
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 Measurements Intervals [place] Rate: 99 P: -32 LA: 184 QRS: -66 QRSD: 147 T: 64 QT: 379 QTc: 487 Interpretive Statements SINUS RHYTHM WITH FIRST DEGREE AV BLOCK RIGHT BUNDLE BRANCH BLOCK LEFT ANTERIOR FASCICULAR BLOCK Compared to ECG 01/19/2022 05:38:05 NO SIGNIFICANT CHANGE Electronically Signed On 01-21-2022 18:51:55 CDT by Suri Tamayo M.D. [id number]
--- NOTE | 2022-01-20 07:04 | USCV_ITS ---
Cali Lee Age: 81 Gender: M : 1940 Exam Date: 01/20/2022 10:18 Ordering Phys: Cruz Lopez MD Technologist: DANELLE Exam Location: [facility] [place] Indication: CHEST PAIN BP: 130 / 76 HR: 99 Rhythm: Atrial fibrillation Technical Quality: Adequate MEASUREMENTS (Male / Female) Normal Values 2D ECHO LV Diastolic Diameter PLAX 5.9 cm 4.2 - 5.9 / 3.9 - 5.3 cm LV Systolic Diameter PLAX 3.7 cm IVS Diastolic Thickness 2.0 cm 0.6 - 1.0 / 0.6 - 0.9 cm IVS Systolic Thickness 2.4 cm LVPW Diastolic Thickness 1.9 cm 0.6 - 1.0 / 0.6 - 0.9 cm LVPW Systolic Thickness 2.8 cm LVOT Diameter 2.0 cm LV Ejection Fraction 2D Teich 66.0 % LV Ejection Fraction MOD 2C 62.5 % LV Ejection Fraction 2C AL 66.5 % LA Diameter 4.0 cm LA Width 4.7 cm LA Height 4.9 cm RA Width 3.5 cm RA Height 4.7 cm Aorta at Sinotubular Diameter 2.4 cm IVC Diameter 1.6 cm M-MODE Aortic Annulus Diameter 3.2 cm LA Ao Ratio MM 1.1 MV E Point Septal Separation 0.6 cm DOPPLER AV Peak Velocity 352.3 cm/s LVOT Peak Velocity 106.0 cm/s AV Area Cont Eq vti 0.9 cm squared AV Area Cont Eq pk 1.0 cm squared MV Peak Velocity 202.0 cm/s MV Area PHT 5.0 cm squared MV E' Velocity 75.0 cm/s Mitral E to MV E' Ratio 8.3 Mitral E to LV E' Lateral Ratio 7.1 Mitral E to LV E' Septal Ratio 10.2 TR Peak Velocity 256.7 cm/s TR Peak Gradient 26.4 mmHg TR Mean Velocity 195.8 cm/s TR Mean Gradient 17.2 mmHg TR Velocity Time Integral 66.1 cm TV Peak E Velocity 92.0 cm/s Right Atrial Pressure 3.0 mmHg Pulmonary Artery Systolic Pressu 29.4 mmHg PV Peak Velocity 155.0 cm/s RV Acceleration Time 0.1 s RV Ejection Time 0.3 s RV AcT/ET 0.4 FINDINGS Left Ventricle Normal left ventricular size, systolic function and increased left ventricular wall thickness, with no regional wall motion abnormalities. Severe concentric left ventricular hypertrophy. Left ventricular ejection fraction is estimated at 65 %. Abnormal septal motion consistent with conduction abnormality. Right Ventricle Normal right ventricular size and systolic function. Right ventricular systolic pressure 29.4 mmHg. Right Atrium Normal right atrial size. Left Atrium Mildly increased left atrial size. Mitral Valve Mild mitral annular calcification. Structurally normal mitral valve. No mitral valve stenosis. Mild mitral valve regurgitation. Aortic Valve Markedly thickened and calcified trileafket aortic valve. Paradoxical low flow low gradient severe aortic valve stenosis, peak velocity 3.4 m/s, peak gradient 49 mm Hg, mean gradient 30 mmHg, ANAHI 0.96 cm squared. Stroke volume index 30 ml/m2. Dimensionless valve index 0.29. Tricuspid Valve Structurally normal tricuspid valve. No tricuspid valve stenosis. Mild tricuspid valve regurgitation. Pulmonic Valve Structurally normal pulmonic valve. No pulmonary valve stenosis. Trace pulmonary valve regurgitation. Pericardium No pericardial effusion. Aorta Normal size aortic root and proximal ascending aorta. IVC Normal sized inferior vena cava. CONCLUSIONS 1. Normal left ventricular size, systolic function and increased left ventricular wall thickness, with no regional wall motion abnormalities. Severe concentric left ventricular hypertrophy. Left ventricular ejection fraction is estimated at 65 %. 2. Paradoxical low flow low gradient severe aortic valve stenosis, peak velocity 3.4 m/s, peak gradient 49 mm Hg, mean gradient 30 mmHg, ANAHI 0.96 cm squared. Stroke volume index 30 ml/m2. 3. When compared to previous study dated 01/02/2021, aortic stenosis is severe now. Suri Tamayo MD (Electronically Signed) Final Date: 21 January 2022 10:08 S
[2022-01-20 08:13] LABS: Basophils # 0.1 10^3/uL (0.0-0.1); Basophils % 0.7 %; Eosinophils # 0.1 10^3/uL (0.0-0.8); Eosinophils % 1.1 %; Hemoglobin 8.3 g/dL (11.7-16.6); Lymphocytes # 1.3 10^3/uL (0.8-4.8); Lymphocytes % 18.2 %; Mean Corpuscular HGB Conc 30.7 g/dL (30.0-36.0); Mean Corpuscular Hemoglobin 27.6 pg (28.0-34.0); Mean Corpuscular Volume 89.7 fl (80-94); Mean Platelet Volume 10.5 fL (7.4-10.4); Monocytes # 1.2 10^3/uL (0.2-0.9); Monocytes % 17.6 %; Neutrophils # 4.33 10^3/uL (1.8-7.7); Neutrophils % 62.3 %; Nucleated Red Blood Cells % 0 %; Platelet Count 146 10^3/cmm (130-400); Red Blood Count 3.01 10^6/uL (4.1-5.3); Red Cell Distribution Width 15.4 % (12.1-15.1)
--- NOTE | 2022-01-20 08:24 | PM.CONSULT ---
Providers/Reason For Consult Consulting Physician/Specialty*: Abdias Mcneil MD, hospitalist Reason for Consult*: Chest pain Requesting Physician: Dr. Ahmadi Attending Physician: Michael Ahmadi DO Primary Care Provider: Jack Gaspar MD History of Present Illness History of Present Illness Cali Lee is a 81 year old male who underwent removal of hardware left hip and a left hip revision hemiarthroplasty on January 18. 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 He reports this in the lower chest, epigastric area and radiating to the right. He had the sensation of difficulty with swallowing. He reports he drank a little bit of water and this seemed to clear his discomfort. He was treated with sublingual nitroglycerin, which was not useful according to the patient. He reports this is happened occasionally when eating. He states he has past history of an ulcer. He has had no recurrence of the discomfort. A troponin was done which was elevated, so I have been called to clarify the situation. He denies any past history of coronary disease. He reports he has known aortic stenosis. He denies any exertional chest discomfort, or significant symptoms. He has never had any kind of heart surgery. Occasionally he will feel like food sticks in his lower esophagus. Review of Systems General: Reports: 10 or more systems reviewed and unremarkable except in HPI and below Const: Denies: fever(s) or chills Eyes: Denies: change in vision ENMT: Denies: throat pain Card: Reports: chest pain; Denies: edema or dyspnea on exertion Resp: Denies: dyspnea GI: Reports: dysphagia; Denies: abdominal pain, nausea or vomiting : Denies: flank pain Musc: Reports: extremity pain; Denies: neck pain Skin/Breast: Denies: rash Neuro: Denies: headache(s) Psych: Denies: anxiety Endo: Denies: polyuria Brendon/Lymph: Denies: easy bruising All/Imm: Denies: urticaria Medications/Allergies Home Medications Medication Instructions Recorded Confirmed Last Taken Type fluticasone furoate 27.5 1 spray intranasal BID 01/01/21 01/18/22 01/15/22 History mcg/actuation nasal spray,suspension indomethacin 50 mg capsule 50 mg PO TID PRN GOUT 01/01/21 01/18/22 01/15/22 History losartan 100 mg tablet 100 mg PO DAILY 01/01/21 01/18/22 01/15/22 History rosuvastatin 5 mg tablet (Crestor) 25 mg PO DAILY 01/01/21 01/18/22 01/15/22 History amlodipine 2.5 mg tablet 2.5 mg PO DAILY 09/04/21 01/18/22 01/18/22 05:30 History polyethylene glycol 3350 17 gram 17 g PO DAILY 09/04/21 01/18/22 01/15/22 History oral powder packet (Miralax) Co Q-10 100 mg PO DAILY 01/13/22 01/18/22 01/15/22 History ascorbic acid (vitamin C) 500 mg 500 mg PO DAILY 01/13/22 01/18/22 01/16/22 History tablet (Vitamin C) aspirin 81 mg capsule 81 mg PO DAILY 01/13/22 01/18/22 01/15/22 History cholecalciferol (vitamin D3) 100 100 mcg PO DAILY 01/13/22 01/13/22 Unknown History mcg (4,000 unit) capsule ferrous sulfate 325 mg (65 mg 325 mg PO DAILY 01/13/22 01/18/22 01/15/22 History iron) tablet (iron) multivitamin 1 tab PO DAILY 01/13/22 01/18/22 01/15/22 History omega-3 fatty acids-vitamin E 1 cap PO DAILY 01/13/22 01/13/22 Unknown History 1,000 mg capsule vitamin B complex 1 tab PO DAILY 01/13/22 01/18/22 01/15/22 History Allergies Allergy/AdvReac Type Severity Reaction Status Date / Time hydrocodone Allergy ADR-Dizzine Verified 01/18/22 06:42 ss Current Medications Generic Name Dose Route Start Last Admin Trade Name Freq PRN Reason Stop Dose Admin Amlodipine Besylate 2.5 mg 01/19/22 09:00 01/19/22 08:52 Amlodipine 5 Mg Tablet PO 2.5 mg DAILY FABIANA Administration Ascorbic Acid 500 mg 01/19/22 09:00 01/19/22 08:53 Ascorbic Acid 500 Mg Tablet PO 500 mg DAILY FABIANA Administration Aspirin 81 mg 01/19/22 09:00 01/19/22 08:53 Aspirin 81 Mg Ec Tablet PO 81 mg DAILY FABIANA Administration Atorvastatin Calcium 80 mg 01/19/22 09:00 01/19/22 08:53 Atorvastatin 40 Mg Tablet PO 80 mg DAILY FAIBANA Administration Cyanocobalamin 4,000 mcg 01/19/22 09:00 01/19/22 08:52 Cyanocobalamin 1,000 Mcg Tablet PO 4,000 mcg DAILY FABIANA Administration Cyclobenzaprine HCl 10 mg 01/19/22 07:41 01/19/22 14:23 Cyclobenzaprine 10 Mg Tablet PO 10 mg TID PRN Administration MUSCLE SPASMS Docusate Sodium 100 mg 01/18/22 18:00 01/19/22 17:09 Docusate Sodium 100 Mg Capsule PO 100 mg BID FABIANA Administration Enoxaparin Sodium 40 mg 01/18/22 21:45 01/19/22 20:56 Enoxaparin 40 Mg/0.4 Ml Syringe SUBCUT 40 mg Q24H FABIANA Administration Famotidine 20 mg 01/19/22 09:00 01/19/22 17:09 Famotidine 20 Mg Tablet PO 20 mg BID FABIANA Administration Ferrous Sulfate 325 mg 01/19/22 09:00 01/19/22 08:53 Ferrous Sulfate Ec 325 Mg Tablet PO 325 mg DAILY FABIANA Administration Hydromorphone HCl 0.5 - 1 mg 01/18/22 09:44 01/19/22 01:30 Hydromorphone 1 Mg/Ml Inj 1 Ml IVP 0.5 mg Q3H PRN Administration Pain not managed by oral agent Sodium Chloride 1,000 mls @ 80 mls/hr 01/18/22 09:45 01/20/22 02:55 Sodium Chloride 0.9% IV 80 mls/hr .[id number] FABIANA Administration Losartan Potassium 100 mg 01/19/22 09:00 01/19/22 08:53 Losartan 50 Mg Tablet PO 100 mg DAILY FABIANA Administration Multivitamins Therapeutic 1 tab 01/19/22 09:00 01/19/22 08:53 Multivitamin Therapeutic Tablet PO 1 tab DAILY FABIANA Administration Non-Formulary Medication 100 mg 01/19/22 09:00 01/19/22 08:54 Co Q-10 PO Not Given DAILY [facility] Non-Formulary Medication 1 spray 01/18/22 18:00 01/19/22 17:09 Fluticasone Furoate INTRANASAL 1 spray BID FABIANA Administration Non-Formulary Medication 1 cap 01/19/22 09:00 01/19/22 08:54 [place]-3 Fatty Acids-Vitamin E PO Not Given DAILY FABIANA Non-Formulary Medication 1 tab 01/19/22 09:00 01/19/22 08:54 Vitamin B Complex PO Not Given DAILY FABIANA Ondansetron HCl 4 mg 01/18/22 09:44 01/19/22 01:12 Ondansetron 2 Mg/Ml Sdv 2 Ml IVP 4 mg Q4H PRN Administration NAUSEA AND VOMITING Oxycodone/Acetaminophen 1 - 2 tab 01/18/22 09:44 01/19/22 20:56 Oxycodone-Apap 5-325 Mg Tablet PO 2 tab Q4H PRN Administration BREAKTHROUGH PAIN Polyethylene Glycol 17 gm 01/19/22 09:00 01/19/22 08:52 Polyethylene Glycol 3350 Pkt 17 Gm PO 17 gm DAILY FABIANA Administration PFSH Acute PFSH: Medical History (Updated 01/20/22 @ 09:52 by Abdias Mcneil MD) Anemia Closed left hip fracture Depression History of prediabetes Hyperlipidemia Hypertension Hypertensive urgency Lip cancer Perforated ulcer of intestine Prostate cancer Swelling of both lower extremities Systolic murmur Surgical History (Updated 01/20/22 @ 09:52 by Abdias Mcneil MD) H/O left knee surgery History of left hip replacement History of total right hip arthroplasty S/P laparotomy Family History (Updated 01/20/22 @ 09:48 by Abdias Mcneil MD) Other Cancer Social History (Updated 01/20/22 @ 09:48 by Abdias Mcneil MD) Smoking and tobacco status: former smoker Alcohol intake: current Alcohol intake frequency: holidays/special occasions only Substance/Drug Use: never Vitals/I&O/Wt Last Vital Signs Temp 97.6 F 01/20/22 07:57 Pulse 88 01/20/22 07:57 Resp 16 01/20/22 07:57 BP 130/76 01/20/22 07:57 Pulse Ox 95 01/20/22 07:57 O2 Del Method 01/20/22 07:57 O2 Flow Rate 2 01/18/22 10:45 01/19/22 01/20/22 01/20/22 22:59 06:59 14:59 Intake Total 1200 / 2320 1000 / 3320 Output Total 1200 / 1200 200 / 1400 Balance 0 / 1120 800 / 1920 Physical Exam Narrative: General exam is no apparent distress, denies chest discomfort HEENT: Atraumatic normocephalic. Pupils equally round. Oropharynx clear. Neck is supple no lymphadenopathy thyromegaly Cardiovascular regular rate and rhythm with a 3/6 systolic murmur heard best in the right upper sternal border consistent with aortic valve stenosis. No S3 or S4 Lungs clear no wheezing or crackles Abdomen is soft nontender positive bowel sounds. No obvious organomegaly exams deferred Extremities no cyanosis clubbing. Trace edema is present. Left hip dressing site clean and dry. Skin no rash Neuro no obvious focal deficits. Urinary Catheter Management: Grewal: Cath Placed During This Visit: yes Reason for Continuing Indwelling Catheter: Required Immobilization for Trauma or Surgery or Anesthesia Urinary Catheter Date of Insertion: 01/01/21 Urinary Catheter Time of Insertion: 16:49 Data : 01/20/22 08:04 01/20/22 08:04 Other Labs: EKG demonstrates sinus rhythm, first-degree AV block, left axis deviation, right bundle branch block and left anterior fascicular block. Echocardiogram is pending Several troponins have been taken. Baseline 31, with a 6-hour of 29. Another 1 was repeated with this morning's lab that was 29. BNP 505 TSH 0.77 Glucose was high at 165 Echocardiogram December 2020 demonstrated an EF of 65%, LVH, diastolic dysfunction, and moderate aortic stenosis A&P Assessment and plan (1) History of left hip replacement: Patient is postoperative day #2, and doing well. Status: Acute (2) Chest pain: Per description this sounds like distal esophageal symptomatology such as reflux, or esophagitis. He appears to have some degree of anemia which may be chronic. He reports past history of ulcer, and also has had a colonoscopy about 4 years ago demonstrating polyps. His troponin is elevated, but it appears chronically so and he has no acute changes on his EKG. At this point I think the best avenue to take regarding his chest discomfort is to await his echocardiogram which has been ordered. If no decrease in function and no wall motion abnormalities could consider outpatient nuclear stress testing. As his chest discomfort seems highly likely to be GI in etiology, will place him on Protonix 40 mg twice daily. Stop all anti-inflammatories. Following outpatient stress testing would consider EGD in the future and further work-up as indicated. Status: Acute (3) Elevated troponin: See above. Appears to have a chronically elevated troponin. This was demonstrated by laboratory in December as well. Status: Acute (4) Hyperglycemia: Check hemoglobin A1c Status: Acute (5) Aortic stenosis: Await echocardiogram. Hopefully his aortic stenosis has not progressed. Status: Acute (6) Anemia: Concern with past laboratory that he may have some chronic anemia. Certainly has acute on chronic blood loss anemia from surgery as well. Try to keep hemoglobin greater than 8 Secondary to GI symptomatology avoid all anti-inflammatories Protonix 40 mg twice daily Status: Acute Plan Multiple other medical problems as outlined in past medical history Consult Attestations Medical Necessity Statement: As per primary Coding Level of Care Code Acute Environmental Management Specialist for Tiffany Claudio Diagnoses History of left hip replacement Z96.642 Chest pain R07.9 Elevated troponin R77.8 Hyperglycemia R73.9 Aortic stenosis I35.0 Anemia D64.9
[2022-01-20 08:44] LABS: Troponin(5th) Baseline 29 ng/L (0-15)
[2022-01-20 08:51] LABS: Alanine Aminotransferase 8 U/L (0-41); Albumin Level 2.4 g/dL (3.5-5.2); Alkaline Phosphatase 64 IU/L (40-130); Anion Gap 12.1 (5-19); Aspartate Amino Transferase 15 U/L (0-40); Blood Urea Nitrogen 19 mg/dL (8-23); C Reactive Protein 136.7 mg/L (0.0-4.9); Calcium 8.1 mg/dL (8.5-10.5); Carbon Dioxide 25 mmol/L (22-29); Chloride 101 mmol/L (98-107); Globulin 2.7 g/dL (1.3-4.6); Glucose 165 mg/dL (65-115); Magnesium 1.9 mg/dL (1.7-2.3); NT Pro B Type Natriuretic Pept 505 pg/mL (0-450); Osmolality Calculated 284 mOsm/kg (285-295); Phosphorus 2.8 mg/dL (2.5-4.5); Potassium 4.1 mmol/L (3.5-5.1); Sodium 134 mmol/L (136-145); Thyroid Stimulating Hormone 0.77 uIU/mL (0.27-4.20); Total Bilirubin 0.3 mg/dL (0.15-1.2); Total Protein 5.1 g/dL (6.6-8.7)
[2022-01-20] MEDS: polyethylene glycol 3350 Pkt 17 gm PO (09:45)
[2022-01-20] MEDS: amlodipine 5 mg Tablet 2.5 MG PO (09:46)
[2022-01-20] MEDS: cyanocobalamin 1,000 mcg Tablet 4000 MCG PO (09:46)
[2022-01-20] MEDS: docusate sodium 100 mg Capsule PO (09:46)
[2022-01-20] MEDS: ferrous sulfate EC 325 mg Tablet PO (09:48)
[2022-01-20] MEDS: atorvastatin 40 mg Tablet 80 MG PO (09:48)
[2022-01-20] MEDS: oxyCODONE-APAP 5-325 mg Tablet PO (09:49)
[2022-01-20] MEDS: losartan 50 mg Tablet 100 MG PO (09:51)
[2022-01-20] MEDS: aspirin 81 mg EC Tablet PO (09:51)
[2022-01-20] MEDS: multivitamin therapeutic Tablet 1 TAB PO (09:51)
[2022-01-20] MEDS: ascorbic acid 500 mg Tablet PO (09:52)
[2022-01-20 10:26] LABS: Estmated Average Glucose 171; Hemoglobin A1C 7.6 % (4.0-6.0)
[2022-01-20 10:46] LABS: Troponin 5 2HR 31.19 ng/L (0-15)
[2022-01-20 10:47] LABS: Troponin 5 2HR Delta 2.19 ABS# (0-10)
--- NOTE | 2022-01-20 12:32 | P.DS_ITS ---
Discharge Providers Date of Admission: 01/18/22 10:05 Date of Discharge: January 20, 2022 Attending Provider at Admission: Michael Ahmadi DO Attending Provider at Discharge: Michael Ahmadi DO Primary Care Provider: Jack Gaspar MD Diagnoses at Discharge Discharge Diagnosis (1) History of left hip replacement: Status: Acute (2) Chest pain: Status: Acute (3) Elevated troponin: Status: Acute (4) Hyperglycemia: Status: Acute (5) Aortic stenosis: Status: Acute (6) Anemia: Status: Acute Reason for Visit Reason for Visit: ORIF LT HIP POSS PROSTHETIC REPLACEMENT [id number] Hospital Course Hospital Course uneventful Physical Exam Urinary Catheter Management: Grewal: Cath Placed During This Visit: yes Reason for Continuing Indwelling Catheter: Required Immobilization for Trauma or Surgery or Anesthesia Urinary Catheter Date of Insertion: 01/01/21 Urinary Catheter Time of Insertion: 16:49 Discharge Data Studies Completed and Pending Completed Studies During Hospitalization Category Date Time Status XR hip LT 1V wo/[place] [id number] Routine Exams 01/18/22 Completed Pending at discharge Category Date Time Status Fecal Occult Blood [Immunochemical Fecal OCB] Routine Lab 01/20/22 08:26 Uncollected Troponin(5th) 6 hour. Timed Lab 01/20/22 14:04 Ordered CV. echo complete* [id number] Routine Ultrasound 01/20/22 07:04 Taken Radiology Impressions Hip X-Ray 01/18/22 00:00 IMPRESSION: Hardware removal and total left hip arthroplasty without abnormality. Laboratory Results WBC 7.0 10^3/uL (4.0-10.0) 01/20/22 08:04 RBC 3.01 10^6/uL (4.1-5.3) L 01/20/22 08:04 Hgb 8.3 g/dL (11.7-16.6) L 01/20/22 08:04 Hct 27.0 % (42.0-52.0) L 01/20/22 08:04 MCV 89.7 fl (80-94) 01/20/22 08:04 MCH 27.6 pg (28.0-34.0) L 01/20/22 08:04 MCHC 30.7 g/dL (30.0-36.0) 01/20/22 08:04 RDW 15.4 % (12.1-15.1) H 01/20/22 08:04 Plt Count 146 10^3/cmm (130-400) 01/20/22 08:04 MPV 10.5 fL (7.4-10.4) H 01/20/22 08:04 Neut % (Auto) 62.3 % 01/20/22 08:04 Lymph % (Auto) 18.2 % 01/20/22 08:04 Angelina % (Auto) 17.6 % 01/20/22 08:04 Eos % (Auto) 1.1 % 01/20/22 08:04 Baso % (Auto) 0.7 % 01/20/22 08:04 Neut # (Auto) 4.33 10^3/uL (1.8-7.7) 01/20/22 08:04 Lymph # (Auto) 1.3 10^3/uL (0.8-4.8) 01/20/22 08:04 Angelina # (Auto) 1.2 10^3/uL (0.2-0.9) H 01/20/22 08:04 Eos # (Auto) 0.1 10^3/uL (0.0-0.8) 01/20/22 08:04 Baso # (Auto) 0.1 10^3/uL (0.0-0.1) 01/20/22 08:04 Nucleated RBC % (auto) 0 % 01/20/22 08:04 Nucleated RBCs # 0.0 /100WBC 01/20/22 08:04 Sodium 134 mmol/L (136-145) L 01/20/22 08:04 Potassium 4.1 mmol/L (3.5-5.1) 01/20/22 08:04 Chloride 101 mmol/L (98-107) 01/20/22 08:04 Carbon Dioxide 25 mmol/L (22-29) 01/20/22 08:04 Anion Gap 12.1 (5-19) 01/20/22 08:04 BUN 19 mg/dL (8-23) 01/20/22 08:04 Creatinine 0.6 mg/dL (0.7-1.2) L 01/20/22 08:04 GFR Calculation Not Reportable 01/20/22 08:04 Glucose 165 mg/dL (65-115) H 01/20/22 08:04 Estimat Average Glucose 171 08/10/22 08:04 Hemoglobin A1c 7.6 % (4.0-6.0) H 01/20/22 08:04 Calculated Osmolality 284 mOsm/kg (285-295) L 01/20/22 08:04 Calcium 8.1 mg/dL (8.5-10.5) L 01/20/22 08:04 Phosphorus 2.8 mg/dL (2.5-4.5) 01/20/22 08:04 Magnesium 1.9 mg/dL (1.7-2.3) 01/20/22 08:04 Total Bilirubin 0.3 mg/dL (0.15-1.2) 01/20/22 08:04 AST 15 U/L (0-40) 01/20/22 08:04 ALT 8 U/L (0-41) 01/20/22 08:04 Alkaline Phosphatase 64 IU/L (40-130) 01/20/22 08:04 Troponin T Baseline 29 ng/L (0-15) H 01/20/22 08:04 Troponin T 120 Minute 31.19 ng/L (0-15) H 01/20/22 10:17 Delta Troponin T 2.19 ABS# (0-10) 01/20/22 10:17 Troponin T Hi Sens 6Hr 29.44 ng/L (0-15) H 01/19/22 12:23 Troponin T Hi Sens 6Hr Delta -1.56 ng/L (0-12) L 01/19/22 12:23 C-Reactive Protein 136.7 mg/L (0.0-4.9) H 01/20/22 08:04 NT-Pro-B Natriuret Pep 505 pg/mL (0-450) H 01/20/22 08:04 Total Protein 5.1 g/dL (6.6-8.7) L 01/20/22 08:04 Albumin 2.4 g/dL (3.5-5.2) L 01/20/22 08:04 Globulin 2.7 g/dL (1.3-4.6) 01/20/22 08:04 TSH 0.77 uIU/mL (0.27-4.20) 01/20/22 08:04 Blood Type O Positive 01/18/22 06:31 Rho(D) Type Positive 01/18/22 06:31 Antibody Screen Negative 01/18/22 06:31 Vitals Last Vital Signs Temp 98.5 F 01/20/22 12:00 Pulse 99 01/20/22 12:00 Resp 16 01/20/22 12:00 BP 112/70 01/20/22 12:00 Pulse Ox 99 01/20/22 12:00 O2 Del Method 01/20/22 12:00 O2 Flow Rate 2 01/18/22 10:45 Discharge Plan Discharge Patient Disposition: Home Condition: Stable Prescriptions: New hydrocodone-acetaminophen 5-325 mg tablet 1 - 2 tab PO .Q4-6H Qty: 40 0RF Lovenox 40 mg/0.4 mL syringe 40 mg SUBCUT DAILY 30 Days Qty: 12 0RF Continued indomethacin 50 mg Capsule 50 mg PO TID PRN (Reason: GOUT) losartan 100 mg Tablet 100 mg PO DAILY rosuvastatin [Crestor] 5 mg Tablet 25 mg PO DAILY fluticasone furoate 27.5 mcg/actuation Muse,Suspension 1 spray INTRANASAL BID polyethylene glycol 3350 [Miralax] 17 gram Powder In Packet 17 g PO DAILY amlodipine 2.5 mg Tablet 2.5 mg PO DAILY multivitamin Tablet 1 tab PO DAILY ascorbic acid (vitamin C) [Vitamin C] 500 mg Tablet 500 mg PO DAILY ferrous sulfate [iron] 325 mg (65 mg iron) Tablet 325 mg PO DAILY vitamin B complex Tablet 1 tab PO DAILY omega-3 fatty acids-vitamin E 1,000 mg Capsule 1 cap PO DAILY cholecalciferol (vitamin D3) 100 mcg (4,000 unit) Capsule 100 mcg PO DAILY aspirin 81 mg Capsule 81 mg PO DAILY Co Q-10 100 mg PO DAILY Discharge Orders: Discharge Order (Routine); Ordered 01/20/22 Ordered By: Michael Ahmadi Other Ambulatory Orders: DME: [employer] (Order) Location: None Selected Ordered By: Michael Ahmadi Referrals: Michael Ahmadi DO [Physician] - 02/04/22 9:15 am (APPOINTMENT WITH ALBERTO LAYTON) Jack Gaspar MD [Primary Care Provider] - 01/26/22 11:00 am Discharge Diet: Advance as tolerated Discharge Activity: Limit activity as instructed Patient Instructions: Opioid Safety Activity Restrictions/Additional Instructions: You are being discharged from the hospital today during which time you have been under the care of DR Ahmadi. You had a hip fracture. You were treated for this injury with hip hemiarthroplasty. You may resume you normal diet (including any special diets as directed by your primary doctor) as well as your home medications. You should follow up with you primary doctor if you have any questions regarding medication you took prior to your stay in the hospital. You may take your pain medication as prescribed. After the first few days, take your pain medication as needed. Do not drive or drink alcohol while taking your pain medication. Your injury may increase your risk of developing a blood clot,or DVT, in your arm or leg. This could potentially dislodge and travel to your lungs and become a life threatening condition called apulmonary embolus,or PE. You have been prescribed lovenox to be taken to prevent this. Frequent movement of the legs will also help prevent this from occurring. If you develop any new or worsening cough, chestpain, bloody sputum or shortness of breath, call 911 or go to the EmergencyRoom. Always keep your surgical incision/dressing clean and dry. If you experience increasing pain at your incision site, redness, swelling, increasing discharge, foul odors, or fevers (greater than 100.4), night sweats or chills you should call the office at the above number. If you feel this is an emergency you should be evaluated in the Emergency Department of a nearby hospital. Orthopedic Patient Instructions Summary: Weight Bearing: WBAT Activity: as tolerated. Diet: regular. Wound Care: Keep dressing clean and dry. change daily Anticoagulation: lovenox Pain Medication: Take only as needed. Ice, rest and elevation will be of great benefit. Please plan to follow-up [facility] Dr Ahmadi in 2 weeks. You will need to call the clinic [phone] to schedule this visit. Thank you far allowing me to participate in your care. Do not hesitate to call the office with any questions or concerns. Discharge Attestations Time Spent in Discharge Care*: less than 30 min Quality Metrics Clinical Quality Measures [ No reported AMI, CVA or VTE this stay] Coding Level of Care Code Acute Chg FW DC note Diagnoses History of left hip replacement Z96.642 Chest pain R07.9 Elevated troponin R77.8 Hyperglycemia R73.9 Aortic stenosis I35.0 Anemia D64.9
== END 2022-01-20 17:03 | disposition home health service (06) | DRG 470 ==
LOC: MEDSURG 10:06
PROVIDERS: Anesthesiology; Family Medicine; Internal Medicine; Physician Assistant; Admitting Provider Orthopaedic Surgery; PCP Family Medicine; Visit Provider Orthopaedic Surgery
PROC: 0SRS0JZ Replacement of Left Hip Joint, Femoral Surface with Synthetic Substitute, Open Approach (ICD-10-PCS; principal; 2022-01-18 07:00)
PROC: 0SRS0JZ Replacement of Left Hip Joint, Femoral Surface with Synthetic Substitute, Open Approach (ICD-10-PCS; CPT 27125; 2022-01-18 07:00)
DX: T84.115A Breakdown (mechanical) of internal fixation device of left femur, initial encounter (principal); M96.662 Fracture of femur following insertion of orthopedic implant, joint prosthesis, or bone plate, left leg; Y79.2 Prosthetic and other implants, materials and accessory orthopedic devices associated with adverse incidents; Z85.819 Personal history of malignant neoplasm of unspecified site of lip, oral cavity, and pharynx; Z85.46 Personal history of malignant neoplasm of prostate; Z96.641 Presence of right artificial hip joint; K21.9 Gastro-esophageal reflux disease without esophagitis; M62.838 Other muscle spasm; R07.9 Chest pain, unspecified; I35.0 Nonrheumatic aortic (valve) stenosis; F32.A Depression, unspecified; Z87.891 Personal history of nicotine dependence; Z79.82 Long term (current) use of aspirin; D50.0 Iron deficiency anemia secondary to blood loss (chronic); R73.9 Hyperglycemia, unspecified
CPT/HCPCS: 36415; 73501; 76000; 80048; 80053; 83036; 83735; 83880; 84100; 84443; 84484; 85014; 85018; 85025; 86140; 86850; 86900; 93005; 93306; 94640; 96372; 97110; 97116; 97161; 97167; 97530; C1713; C1776; J1100; J1170; J1650; J2370; J2405; J2704; J3010; J3370; J3490; J7030; J7040

== ENCOUNTER → 2022-02-04 09:50 | Outpatient (BNVA) | payer MEDICARE, SELFPAY | PROVIDERS: PCP Family Medicine; Visit Provider Physician Assistant | DX: Z47.89 Encounter for other orthopedic aftercare (principal); Z96.642 Presence of left artificial hip joint | CPT/HCPCS: 73502; 99024 ==

== ENCOUNTER → 2022-03-04 10:57 | Outpatient (BNVA) | payer MEDICARE, SELFPAY | PROVIDERS: PCP Family Medicine; Visit Provider Physician Assistant | DX: Z47.89 Encounter for other orthopedic aftercare (principal); Z96.642 Presence of left artificial hip joint | CPT/HCPCS: 73502; 99024 ==

== ENCOUNTER → 2022-03-22 13:50 | Outpatient (BNVA) | payer MEDICARE, SELFPAY | PROVIDERS: PCP Family Medicine; Visit Provider Surgery | DX: Z86.010 Personal history of colon polyps (principal) | CPT/HCPCS: 99203 ==

== ENCOUNTER 2022-03-23 23:17 | Emergency (ER) | payer MEDICARE, SELFPAY ==
[2022-03-23 23:18] VITALS: BMI 29.2
[2022-03-23 23:22] VITALS: BP 182/95; PULSE 75; RESP 16; TEMP 36.6; O2SAT 100
--- NOTE | 2022-03-23 23:24 | ED_ITS ---
HPI - Trauma General: Chief Complaint: Trauma Stated Complaint: FALL Time Seen by Provider: 03/23/22 23:24 History of Present Illness: Mr. Lee is an 82-year-old gentleman not on anticoagulation who presents to the emergency department due to fall with hip pain. He reports being at his baseline health and chronically uses a walker. He was bending over while trying to take off overalls and have loss of continence which is not atypical for him. This caused wetness on the floor and his walker slipped and he fell landing primarily on his left side. He was unable to ambulate after and immediately had moderate to severe intensity pain mostly in the left femur region. He did hit his head but did not denies loss of consciousness. No other specific changes in health, exacerbating, or alleviating factors identified. Onset (ago): minute(s) Severity: moderate Context: fall Review of Systems General: Reports: 10 or more systems reviewed and unremarkable except in HPI and below PFSH ED PFSH: Medical History Anemia Closed left hip fracture Depression History of prediabetes Hyperlipidemia Hypertension Hypertensive urgency Lip cancer Perforated ulcer of intestine Prostate cancer Swelling of both lower extremities Systolic murmur Surgical History H/O left knee surgery History of left hip replacement History of total right hip arthroplasty S/P laparotomy Family History Other Cancer Social History Smoking and tobacco status: current every day smoker Alcohol intake: current Alcohol intake frequency: holidays/special occasions only Physical Exam 2 Const: COMMON NORMALS: alert GENERAL APPEARANCE: cooperative and well developed HENMT: COMMON NORMALS: normocephalic and atraumatic HEAD & SCALP: normocephalic and atraumatic THROAT: posterior oropharynx normal OTHER: No pickering signs or raccoon eyes. No hemotympanum. No otorrhea or rhinorrhea. Jaw alignment normal. Dentition baseline. No obvious bony step-offs. No septal hematoma. No evidence of ocular entrapment. Eye: COMMON NORMALS: conjunctivae normal CONJUNCTIVA: Yes conjunctivae normal SCLERA: sclerae normal Neck/C-Spine: COMMON NORMALS: supple GENERAL: Yes trachea midline Resp: COMMON NORMALS: normal respiratory effort EFFORT & INSPECTION: Yes able to speak in complete sentences Cardio: COMMON NORMALS: regular rate and regular rhythm RATE: regular rate RHYTHM: regular rhythm GI: COMMON NORMALS: Soft to palpation PALPATION: Yes Soft to palpation and No Tenderness to palpation present (GI) PERCUSSION: normal to percussion Extremity: NARRATIVE EXTREMITY EXAM: Areas of tenderness palpation primarily on the left side body GENERAL: Yes normal exam except as noted and No edema Neuro: COMMON NORMALS: moves all extremities SENSORIUM/ORIENTATION: Yes alert and No Orientation impaired Psych: COMMON NORMALS: mental status grossly normal and Normal thought process present THOUGHT PROCESS: Normal thought process present Course Vital Signs: Vital signs: Vital Signs Temperature 97.8 F 03/23/22 23:22 Pulse Rate 88 03/24/22 07:58 Respiratory Rate 18 03/24/22 05:33 Blood Pressure 167/92 03/24/22 07:58 Pulse Oximetry 93 03/24/22 07:58 Oxygen Delivery Me thod 03/24/22 07:58 Oxygen Flow Rate 2 03/24/22 07:58 MDM - Trauma Medical Decision Making 82-year-old gentleman presenting with fall. Head to toe exam performed. No indication for laboratory studies. Imaging ordered as appropriate based on exam. CT imaging negative for acute traumatic injury. Incidental degenerative changes discussed. X-rays negative for acute fractures. Patient improved with analgesia and able to ambulate near baseline. Satisfactory for outpatient management. Medical Records I reviewed the patient's medical records. Lab Data I reviewed the patient's lab results. Radiology Impressions Cervical Spine CT 03/23/22 23:43 IMPRESSION: 1. No evidence of acute fracture or traumatic malalignment in the cervical spine. 2. 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 MRI of the cervical spine is recommended for further evaluation of cord compression. Chest X-Ray 03/23/22 23:43 IMPRESSION: No acute radiographic findings in the chest. Femur X-Ray 03/23/22 23:43 IMPRESSION: 1. No acute fractures. 2. Postsurgical changes as outlined. Head CT 03/23/22 23:43 IMPRESSION: No acute intracranial hemorrhage, mass effect, or midline shift. Hip/Pelvis X-Ray 03/23/22 23:43 IMPRESSION: 1. Postoperative findings as outlined above. 2. No evidence of acute fractures. Knee X-Ray 03/23/22 23:43 IMPRESSION: 1. Postsurgical changes as outlined. 2. No evidence of acute fractures. Humerus X-Ray 03/23/22 23:46 IMPRESSION: No evidence of acute fracture. Discharge Plan Discharge Patient Disposition: Home Clinical Impression: Fall, Acute knee pain, Multiple contusions Condition: Stable Prescriptions: New oxycodone 5 mg tablet 5 mg PO Q4H PRN (Reason: pain) Qty: 10 0RF No Action losartan 100 mg Tablet 100 mg PO DAILY rosuvastatin [Crestor] 5 mg Tablet 25 mg PO DAILY fluticasone furoate 27.5 mcg/actuation [place],Suspension 1 spray INTRANASAL BID polyethylene glycol 3350 [Miralax] 17 gram Powder In Packet 17 g PO DAILY amlodipine 2.5 mg Tablet 2.5 mg PO DAILY multivitamin Tablet 1 tab PO DAILY ascorbic acid (vitamin C) [Vitamin C] 500 mg Tablet 500 mg PO DAILY ferrous sulfate [iron] 325 mg (65 mg iron) Tablet 325 mg PO DAILY vitamin B complex Tablet 1 tab PO DAILY omega-3 fatty acids-vitamin E 1,000 mg Capsule 1 cap PO DAILY cholecalciferol (vitamin D3) 100 mcg (4,000 unit) Capsule 100 mcg PO DAILY aspirin 81 mg Capsule 81 mg PO DAILY Co Q-10 100 mg PO DAILY pantoprazole 40 mg Tablet,Delayed Release (Dr/Ec) 40 mg PO BID Qty: 60 0RF Discharge Orders: Discharge ED (Routine); Ordered 03/24/22 Ordered By: Arpan Poe Referrals: Jack Gaspar MD [Primary Care Provider] - Discharge Diet: Usual diet Discharge Activity: Increase activity as tolerated Patient Instructions: Fall Prevention for Older Adults (ED), Contusion in Adults (ED), Knee Pain (ED), Opioid Safety, Pain Management Activity Restrictions/Additional Instructions: Thank you for visiting the emergency department. You were seen and evaluated for fall with pain. No acute fractures were identified and your hardware appears intact. The most likely cause of your symptoms is soft tissue injury. The treatment for this is supportive. In addition to hpyr-iqc-fjaqwos medications you may use the prescription medication I will prescribe called oxycodone. Please use this very cautiously as it can cause difficulty with balance and sedation, additionally a common side effect is constipation so please continue your MiraLAX. Please follow-up with your orthopedist and primary care provider. Return to the emergency department for recurrent falls or anything else that you are concerned about a feel needs emergency department evaluation. Coding Level of Care Code ED Audit Senior Associate for Tiffany Claudio
--- NOTE | 2022-03-23 23:43 | CTR_ITS ---
PROCEDURE INFORMATION: Exam: CT Head Without Contrast Exam date and time: 03/24/2022 12:28 AM Age: 82 years old Clinical indication: Injury or trauma; Fall; Blunt trauma (contusions or hematomas); Patient HX: Patient was using walker at home and slipped and fell onto the floor landing on left side of body and struck head on the ground. C/O head pain with left leg pain. On anticoagulants. ; Additional info: Fall, headstrike TECHNIQUE: Imaging protocol: Computed tomography of the head without contrast. Radiation optimization: All CT scans at this facility use at least one of these dose optimization techniques: automated exposure control; mA and/or kV adjustment per patient size (includes targeted exams where dose is matched to clinical indication); or iterative reconstruction. COMPARISON: CT head wo con* [id number] 01/06/2021 7:34 AM RADIATION DOSE METRICS: Total DLP (mGy-cm): 1135.88 FINDINGS: Brain: No evidence of acute intracranial hemorrhage. The camilo-white matter differentiation is maintained. Periventricular hypoattenuation are nonspecific but likely the sequela of chronic small vessel ischemic disease. No midline shift. No significant mass effect. There are atherosclerotic calcifications of the carotid siphons and basilar artery. Suspected mild atrophy of the caudate nuclei. Cerebral ventricles: Moderate cerebral and mild cerebellar volume loss and ex vacuo dilation of the ventricles. Paranasal sinuses: Suspected sinonasal postsurgical changes. Diffuse paranasal sinus disease with opacification of the right frontal and the right anterior ethmoid air cells. No fluid levels. A small osteoma in the left ethmoid air cells. Mastoid air cells: Visualized mastoid air cells are well aerated. Orbital cavities: The visualized orbits appear grossly stable. Bones/joints: Unremarkable. No acute fracture. Soft tissues: Unremarkable. CT/CT head wo con* [id number] IMPRESSION: No acute intracranial hemorrhage, mass effect, or midline shift.
--- NOTE | 2022-03-23 23:43 | XRR_ITS ---
PROCEDURE INFORMATION: Exam: XR Left Knee Exam date and time: 03/24/2022 12:09 AM Age: 82 years old Clinical indication: Injury or trauma; Fall; Blunt trauma; Prior surgery; Surgery type: Total knee; Patient HX: Patient was using walker at home and slipped and fell onto the floor landing on left side of body and struck head on the ground. C/O head pain with left leg pain. On anticoagulants. ; Additional info: Fall, pain TECHNIQUE: Imaging protocol: Radiologic exam of the Left knee. Views: 3 views. COMPARISON: No relevant prior studies available. FINDINGS: Bones/joints: Total left knee arthroplasty is identified. The hardware appear grossly intact. The remaining osseous structures are intact. No evidence of acute fractures. Moderate knee joint effusion is identified. Soft tissues: Mild soft tissue swelling is present. Vasculature: Vascular atherosclerosis. XR/XR knee LT 3V* [id number] IMPRESSION: 1. Postsurgical changes as outlined. 2. No evidence of acute fractures.
--- NOTE | 2022-03-23 23:43 | XRR_ITS ---
PROCEDURE INFORMATION: Exam: XR Left Femur Exam date and time: 03/24/2022 12:09 AM Age: 82 years old Clinical indication: Injury or trauma; Fall; Blunt trauma; Thigh or upper leg; Prior surgery; Surgery type: Total hip. Total knee. Patient HX: Patient was using walker at home and slipped and fell onto the floor landing on left side of body and struck head on the ground. C/O head pain with left leg pain. On anticoagulants. ; Additional info: Fall, hip pain TECHNIQUE: Imaging protocol: Radiologic exam of the Left femur. Views: 2 views. COMPARISON: CR XR hip LT 2-3V wo/w pel* [id number] 03/04/2022 10:58 AM FINDINGS: Bones/joints: Total left hip prosthesis is identified. The hardware appears grossly intact. No periprosthetic fractures are identified. Partially imaged total left knee arthroplasty is identified. The hardware appears grossly intact. The remaining osseous structures of the femur appear grossly intact without acute fractures. Soft tissues: Soft tissue swelling is present. XR/XR femur LT min 2V* [id number] IMPRESSION: 1. No acute fractures. 2. Postsurgical changes as outlined.
--- NOTE | 2022-03-23 23:43 | XRR_ITS ---
PROCEDURE INFORMATION: Exam: XR Chest Exam date and time: 03/24/2022 12:04 AM Age: 82 years old Clinical indication: Injury or trauma; Fall; Blunt trauma (contusions or hematomas); Patient HX: Patient was using walker at home and slipped and fell onto the floor landing on left side of body and struck head on the ground. C/O head pain with left leg and upper arm pain. On anticoagulants. TECHNIQUE: Imaging protocol: Radiologic exam of the chest. Views: 1 view. COMPARISON: CR XR shoulder RT min 2V* [id number] 05/05/2021 4:07 PM FINDINGS: Lungs: Low lung volumes and mild bronchovascular crowding on portable. view. No consolidation. Pleural spaces: Unremarkable. No pleural effusion. No pneumothorax. Heart/Mediastinum: Unremarkable. No cardiomegaly. Bones/joints: There are degenerative changes of the spine and shoulder joints.. Soft tissues: Metallic clips overlays the midline lower chest/upper abdomen region XR/XR chest 1V portable [id number] IMPRESSION: No acute radiographic findings in the chest.
--- NOTE | 2022-03-23 23:43 | XRR_ITS ---
PROCEDURE INFORMATION: Exam: XR Left Hip Exam date and time: 03/24/2022 12:09 AM Age: 82 years old Clinical indication: Injury or trauma; Fall; Blunt trauma (contusions or hematomas); Prior surgery; Surgery type: Total hip; Patient HX: Patient was using walker at home and slipped and fell onto the floor landing on left side of body and struck head on the ground. C/O head pain with left leg pain. On anticoagulants. ; Additional info: Fall, hip pain TECHNIQUE: Imaging protocol: Radiologic exam of the Left hip. Views: 2 or 3 views hip with pelvis when performed. COMPARISON: CR XR hip LT 2-3V wo/w pel* [id number] 03/04/2022 10:58 AM FINDINGS: Bones/joints: Total left hip arthroplasty is identified. The arthroplasty head is contained within the acetabular cup. The hardware appears grossly intact. No evidence of hardware fracture or hardware failure. No evidence of periprosthetic fracture. The remaining osseous structures appear grossly intact. Vascular atherosclerosis is present. Soft tissues: Mild soft tissue swelling is suspected. XR/XR hip LT 2-3V wo/w pel* [id number] IMPRESSION: 1. Postoperative findings as outlined above. 2. No evidence of acute fractures.
--- NOTE | 2022-03-23 23:43 | CTR_ITS ---
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 Patient HX: Patient was using walker at home and slipped and fell onto the floor landing on left side of body and struck head on the ground. C/O head pain with left leg pain. On anticoagulants. ; Additional info: Fall, headstrike TECHNIQUE: Imaging protocol: Computed tomography of the cervical spine without contrast. Radiation optimization: All CT scans at this facility use at least one of these dose optimization techniques: automated exposure control; mA and/or kV adjustment per patient size (includes targeted exams where dose is matched to clinical indication); or iterative reconstruction. COMPARISON: CT cervical spin wo con* [id number] 01/01/2021 3:45 PM RADIATION DOSE METRICS: Total DLP (mGy-cm): 245.87 FINDINGS: Bones/joints: Congenital nonfusion of the posterior arch of C1. Straightening of the cervical lordosis. Mild levocurvature of the cervical spine. Trace retrolisthesis of C3 on C4. The vertebral body heights are maintained. No evidence of acute fractures. 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 Advanced degenerative changes of the cervical spine. Scattered calcifications of the posterior longitudinal ligament. Diffuse disc bulges, disc osteophyte complexes, and marginal spurring at multiple levels. Borderline developmental cervical spinal canal stenosis and superimposed multilevel degenerative disc and joint disease as follows: At C2-C3: Diffuse disc bulge. Mild facet arthropathy and uncovertebral hypertrophy. The spinal canal and neural foramina are patent. At C3-C4: Diffuse disc bulge/disc osteophyte complex. Hypertrophy of the ligamentum flavum. Severe spinal canal stenosis. Bilateral facet arthropathy and uncovertebral hypertrophy. Severe bilateral, right more than left neural foraminal stenosis. At C4-C5: Diffuse disc osteophyte complex and prominent calcification of the PLL. Hypertrophy of the ligamentum flavum. Severe spinal canal stenosis. Bilateral facet arthropathy and uncovertebral hypertrophy. Severe bilateral neural foraminal stenosis. At C5-C6: Diffuse disc osteophyte complex and prominent calcification of the PLL. Hypertrophy of the ligamentum flavum. Severe spinal canal stenosis. Bilateral facet arthropathy and uncovertebral hypertrophy. Up to severe bilateral neural foraminal stenosis. At C6-C7: Diffuse disc osteophyte complex and prominent calcification of the PLL. Hypertrophy of the ligamentum flavum. Severe spinal canal stenosis. Bilateral facet arthropathy and uncovertebral hypertrophy. Moderate bilateral neural foraminal stenosis. At C7-T1: Diffuse disc bulge/disc osteophyte complex. Mild hypertrophy of the ligamentum flavum. Qtcu-oo-ruahjkxe spinal canal stenosis. Bilateral facet arthropathy and uncovertebral hypertrophy. Moderate bilateral neural foraminal stenosis. Lungs: Lung apices are normal. Vasculature: There are atherosclerotic calcifications of the carotid bifurcations. Soft tissues: Unremarkable. CT/CT cervical spin wo con* [id number] IMPRESSION: 1. No evidence of acute fracture or traumatic malalignment in the cervical spine. 2. 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 MRI of the cervical spine is recommended for further evaluation of cord compression.
--- NOTE | 2022-03-23 23:46 | XRR_ITS ---
PROCEDURE INFORMATION: Exam: XR Left Humerus Exam date and time: 03/24/2022 12:07 AM Age: 82 years old Clinical indication: Injury or trauma; Fall; Blunt trauma (contusions or hematomas); Arm, upper; Patient HX: Patient was using walker at home and slipped and fell onto the floor landing on left side of body and struck head on the ground. C/O head pain with left leg and upper arm pain. On anticoagulants. ; Additional info: Fall, proximal pain TECHNIQUE: Imaging protocol: Radiologic exam of the Left humerus. Views: 2 or more views. COMPARISON: MR shoulder LT wo con* [id number] 03/10/2021 4:09 PM FINDINGS: Bones/joints: The osseous structures of the left humerus appear grossly intact. No evidence of acute fractures. Soft tissues: Suspected soft tissue swelling. XR/[place] [id number] IMPRESSION: No evidence of acute fracture.
[2022-03-24 01:00] VITALS: BP 156/81; PULSE 86; RESP 18; O2SAT 98
[2022-03-24 01:07] VITALS: RESP 18
[2022-03-24] MEDS: fentaNYL 50 mcg/mL INJ 2mL IVP (01:07)
[2022-03-24 02:00] VITALS: PULSE 84; O2SAT 98
[2022-03-24] MEDS: ketorolac 30 mg/mL INJ 15 MG IVP (02:25)
[2022-03-24] MEDS: acetaminophen 500 mg Tablet 1000 MG PO (02:25)
--- NOTE | 2022-03-24 03:00 | PC.NURSE ---
got patient up to ambulate with a walker. Had difficult time initially but after using bsc was able to bear weight a little better and take a few steps. Dr Poe notified. Pt has appointment at 0830 today with Ortho for evaluation of left knee. Patient will be kept in ED and will be picking patient up at 0800.
[2022-03-24 04:00] VITALS: PULSE 84; O2SAT 97
[2022-03-24 05:33] VITALS: RESP 18
[2022-03-24] MEDS: oxyCODONE 5 mg IR Tab/Cap PO (05:33)
[2022-03-24 07:58] VITALS: BP 167/92; PULSE 88; O2SAT 93
== END 2022-03-24 08:35 | disposition home or self-care (01) ==
PROVIDERS: Emergency Provider Emergency Medicine; PCP Family Medicine
DX: M25.569 Pain in unspecified knee (principal); T14.8XXA Other injury of unspecified body region, initial encounter; W01.0XXA Fall on same level from slipping, tripping and stumbling without subsequent striking against object, initial encounter; Z79.82 Long term (current) use of aspirin; E78.5 Hyperlipidemia, unspecified; I10 Essential (primary) hypertension; Z85.46 Personal history of malignant neoplasm of prostate; F17.210 Nicotine dependence, cigarettes, uncomplicated
CPT/HCPCS: 70450; 71045; 72125; 73060; 73502; 73552; 73562; 96374; 96375; 99285; J1885; J3010

== ENCOUNTER 2022-04-07 13:36 | Outpatient (CLI) | payer MEDICARE, SELFPAY | END 2022-04-07 13:37 | disposition home or self-care (01) | LOC: SPT 13:37 | PROVIDERS: PCP Family Medicine; Visit Provider Orthopaedic Surgery | DX: Z46.89 Encounter for fitting and adjustment of other specified devices (principal); S72.452D Displaced supracondylar fracture without intracondylar extension of lower end of left femur, subsequent encounter for closed fracture with routine healing; X58.XXXD Exposure to other specified factors, subsequent encounter | CPT/HCPCS: 27501; 97760; 99213; L1832 ==

== ENCOUNTER → 2022-05-05 13:34 | Outpatient (BNVA) | payer MEDICARE, SELFPAY | PROVIDERS: PCP Family Medicine; Visit Provider Nurse Practitioner Family | DX: S72.452A Displaced supracondylar fracture without intracondylar extension of lower end of left femur, initial encounter for closed fracture (principal) | CPT/HCPCS: 73560; 73565; 99213 ==

== ENCOUNTER → 2022-06-01 11:19 | Outpatient (BNVA) | payer MEDICARE, SELFPAY | PROVIDERS: PCP Family Medicine; Visit Provider Physician Assistant | DX: Z96.642 Presence of left artificial hip joint (principal); S72.452A Displaced supracondylar fracture without intracondylar extension of lower end of left femur, initial encounter for closed fracture; W19.XXXA Unspecified fall, initial encounter | CPT/HCPCS: 73502; 73560; 73565; 99213 ==

== ENCOUNTER → 2022-06-16 13:35 | Outpatient (BNVA) | payer MEDICARE, SELFPAY | PROVIDERS: PCP Family Medicine; Visit Provider Orthopaedic Surgery | DX: S72.452A Displaced supracondylar fracture without intracondylar extension of lower end of left femur, initial encounter for closed fracture (principal); X58.XXXA Exposure to other specified factors, initial encounter | CPT/HCPCS: 73560; 73565; 99024 ==

== ENCOUNTER 2022-07-26 01:10 | Inpatient (IN) | payer MEDICARE, SELFPAY ==
[2022-07-26] VITALS (42 sets, daily range): BP systolic 116–200; BP diastolic 45–88; PULSE 39–66; RESP 16–36; TEMP 36.4–37.2; O2SAT 87–100; BMI 29.2; BMI 31.1
--- NOTE | 2022-07-26 01:14 | XRR_ITS ---
PROCEDURE INFORMATION: Exam: XR Chest Exam date and time: 07/26/2022 1:19 AM Age: 82 years old Clinical indication: Pain; Chest pressure; Additional info: Cp TECHNIQUE: Imaging protocol: Radiologic exam of the chest. Views: 1 view. COMPARISON: CR XR chest 1V portable [id number] 03/24/2022 12:04 AM FINDINGS: Lungs: Mild lung base atelectasis increased. No consolidation. Question mild underlying COPD. Pleural spaces: Unremarkable. No pleural effusion. No pneumothorax. Heart/Mediastinum: GE junction clips. The heart is normal size. Vasculature: Advanced diffuse vascular calcification noted. Bones/joints: Unremarkable. XR/XR chest 1V portable [id number] IMPRESSION: 1. Increasing bilateral lung base atelectasis, airspace disease, or pneumonitis. 2. No pneumothorax. 3. No other change from 03/24/2022.
--- NOTE | 2022-07-26 01:15 | ECG_ITS ---
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 Measurements Intervals [place] Rate: 51 P: 71 HI: 198 QRS: 88 QRSD: 163 T: -84 QT: 532 QTc: 491 Interpretive Statements SINUS BRADYCARDIA LEFT BUNDLE BRANCH BLOCK [120+ ms QRS DURATION, 80+ ms Q/S IN V1/V2, 85+ ms R IN I/aVL/V5/V6] Compared to ECG 01/20/2022 08:43:33 Left bundle-branch block now present Sinus rhythm no longer present First degree AV block no longer present Right bundle-branch block no longer present Left anterior fascicular block no longer present Electronically Signed On 07-26-2022 8:52:05 REACH TRUCK OPERATOR by Chris Ambrocio M.D. [id number]
[2022-07-26 01:52] LABS: Basophils # 0.1 10^3/uL (0.0-0.1); Basophils % 0.6 %; Eosinophils # 0.1 10^3/uL (0.0-0.8); Hematocrit 39.9 % (42.0-52.0); Hemoglobin 13.2 g/dL (11.7-16.6); Lymphocytes # 1.4 10^3/uL (0.8-4.8); Lymphocytes % 10.4 %; Mean Corpuscular HGB Conc 33.1 g/dL (30.0-36.0); Mean Corpuscular Hemoglobin 30.4 pg (28.0-34.0); Mean Corpuscular Volume 91.9 fl (80-94); Mean Platelet Volume 10.7 fL (7.4-10.4); Monocytes # 1.4 10^3/uL (0.2-0.9); Monocytes % 10.7 %; Neutrophils # 10.42 10^3/uL (1.8-7.7); Nucleated Red Blood Cells % 0 %; Platelet Count 194 10^3/cmm (130-400); Red Blood Count 4.34 10^6/uL (4.1-5.3); Red Cell Distribution Width 12.8 % (12.1-15.1); White Blood Count 13.5 10^3/uL (4.0-10.0)
--- NOTE | 2022-07-26 01:54 | W.ED.CHESTPA ---
HPI - Chest Pain General: Chief Complaint: Chest Pain Stated Complaint: CP Time Seen by Provider: 07/26/22 01:14 Source: patient History of Present Illness: 82-year-old gentleman with a stated history of heart disease, although he states that he does not have any stents. He presents with his third episode of chest pain today. He had pain in the morning, relieved by 1 nitroglycerin at home. He had pain again around noon, again relieved by 1 nitroglycerin. Around 11 PM, he at rest, he began to get pain again to the central chest he took nitroglycerin without relief at this point. EMS was called and a total of 4 nitroglycerin were given along with 324 mg of aspirin. His pain is down to a 0-1. Bradycardia was noted on the monitor. He arrives by helicopter EMS. MD complaint: chest pain Pertinent past history: other Onset (ago): hour(s) (3) Timing of current episode: constant and now resolved Prior episodes: Yes Onset: during rest Pain location: substernal Pain radiation: none Severity: moderate Quality: aching Relieving factors: nitroglycerin Exacerbating factors: nothing Associated symptoms: Reports dyspnea, leg edema and palpitations; Deny abdominal pain, diaphoresis, fever(s), nausea or vomiting Treatment prior to arrival: aspirin and nitroglycerin Review of Systems Const: Denies: fever(s) or diaphoresis ENMT: Denies: throat pain Card: Reports: chest pain and palpitations Resp: Reports: dyspnea and non-productive cough GI: Denies: abdominal pain, nausea or vomiting Musc: Denies: neck pain Skin/Breast: Denies: rash Neuro: Denies: headache(s) PFS ED PFSH: Medical History Anemia Closed left hip fracture Depression History of prediabetes Hyperlipidemia Hypertension Hypertensive urgency Lip cancer Perforated ulcer of intestine Prostate cancer Swelling of both lower extremities Systolic murmur Surgical History H/O left knee surgery History of left hip replacement History of total right hip arthroplasty S/P laparotomy Family History Other Cancer Social History Smoking and tobacco status: current every day smoker Alcohol intake: current Alcohol intake frequency: holidays/special occasions only Physical Exam Const: GENERAL APPEARANCE: cooperative and ill appearing (Mildly); not frail appearing NUTRITIONAL APPEARANCE: overweight HENMT: COMMON NORMALS: normocephalic and atraumatic HEAD & SCALP: normocephalic and atraumatic Eye: COMMON NORMALS: Equal, round and reactive pupils present and EOMs intact bilaterally PUPIL: Yes Equal, round and reactive pupils present Neck/C-Spine: GENERAL: Yes trachea midline Chest: CHEST: Yes Symmetrical chest wall rise Resp: COMMON NORMALS: normal respiratory effort, No use of accessory muscles and clear to auscultation bilaterally AUSCULTATION: clear to auscultation bilaterally Cardio: COMMON NORMALS: regular rhythm and Peripheral pulses 2+ throughout RATE: bradycardic RHYTHM: regular rhythm PERIPHERAL PULSES: Peripheral pulses 2+ throughout GI: COMMON NORMALS: Normal to inspection, nondistended, normoactive bowel sounds present, Soft to palpation and non-tender PALPATION: Yes Soft to palpation Extremity: GENERAL: Yes edema and Yes pallor Neuro: GRACE COMA SCALE: document GCS findings Dawson coma scale eye opening: Spontaneous Grace coma scale verbal response: Orientated Dawson coma scale motor response: Obey commands Dawson coma scale total score: 15 Psych: COMMON NORMALS: mental status grossly normal and cooperative Course Consultations: Consultation #1: Carmen Time: 01:54 Vital Signs: Vital signs: Vital Signs Temperature 97.6 F 07/26/22 01:11 Pulse Rate 41 L 07/26/22 03:08 Respiratory Rate 24 H 07/26/22 03:08 Blood Pressure 154/59 07/26/22 03:08 Pulse Oximetry 96 07/26/22 03:08 Oxygen Delivery Me thod 07/26/22 03:08 Oxygen Flow Rate 4 07/26/22 02:28 MDM - Chest Pain Medical Decision Making This patient arrives essentially pain-free. His heart rate is in the 40s on the monitor. Initially, the monitor was showing a large bundle branch block. Twelve-lead EKG shows sinus bradycardia at 50 with a large left bundle branch block. Does not meet Sgarbossa criteria for ischemia. He though has had rhythm changes, with apparent heart block with profound bradycardia of 40. He is maintaining a good blood pressure, currently 177/80. He is awake and talking, and again pain-free. I spoke with cardiology regarding his EKG findings. 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 In the meantime chest x-ray shows some vascular congestion and/or pneumonitis without effusion. Heart is normal size. Pacer pads are on the patient. He is mildly hypoxic, satting 91 to 94% on 3 L. First troponin is near the patient's prior baseline troponins. It is 36. He does have an increase in BNP which is reflected on chest x-ray. Spoke with cardiology again. With questionable heart block, he will evaluate later in the morning for potential need for pacemaker placement. We will continue to monitor troponins. He will go to the ICU with pacer pads on. He has maintained a blood pressure to this point, and is asymptomatic currently. Spoke with hospitalist who agrees to admit the patient. Lab Data 07/26/22 01:25 07/26/22 01:25 Radiology Impressions Chest X-Ray 07/26/22 01:14 IMPRESSION: 1. Increasing bilateral lung base atelectasis, airspace disease, or pneumonitis. 2. No pneumothorax. 3. No other change from 03/24/2022. Laboratory Results WBC 13.5 10^3/uL (4.0-10.0) H 07/26/22 01:25 RBC 4.34 10^6/uL (4.1-5.3) 07/26/22 01:25 Hgb 13.2 g/dL (11.7-16.6) 07/26/22 01:25 Hct 39.9 % (42.0-52.0) L 07/26/22 01:25 MCV 91.9 fl (80-94) 07/26/22 01:25 MCH 30.4 pg (28.0-34.0) 07/26/22 01:25 MCHC 33.1 g/dL (30.0-36.0) 07/26/22 01:25 RDW 12.8 % (12.1-15.1) 07/26/22 01:25 Plt Count 194 10^3/cmm (130-400) 07/26/22 01:25 MPV 10.7 fL (7.4-10.4) H 07/26/22 01:25 Neut % (Auto) 77.0 % 07/26/22 01:25 Lymph % (Auto) 10.4 % 07/26/22 01:25 Tripp % (Auto) 10.7 % 07/26/22 01:25 Eos % (Auto) 1.0 % 07/26/22 01:25 Baso % (Auto) 0.6 % 07/26/22 01:25 Neut # (Auto) 10.42 10^3/uL (1.8-7.7) H 07/26/22 01:25 Lymph # (Auto) 1.4 10^3/uL (0.8-4.8) 07/26/22 01:25 Tripp # (Auto) 1.4 10^3/uL (0.2-0.9) H 07/26/22 01:25 Eos # (Auto) 0.1 10^3/uL (0.0-0.8) 07/26/22 01:25 Baso # (Auto) 0.1 10^3/uL (0.0-0.1) 07/26/22 01:25 Nucleated RBC % (auto) 0 % 07/26/22 01:25 Nucleated RBCs # 0.0 /100WBC 07/26/22 01:25 PT 13.40 SECONDS (12.1-14.9) 07/26/22 01:25 INR 0.99 (0.8-1.2) 07/26/22 01:25 APTT 25.8 SECONDS (23.9-36.7) 07/26/22 01:25 D-Dimer 1.18 ug/mIFEU (0-0.59) H 07/26/22 01:25 Sodium 137 mmol/L (136-145) 07/26/22 01:25 Potassium 4.7 mmol/L (3.5-5.1) 07/26/22 01:25 Chloride 100 mmol/L (98-107) 07/26/22 01:25 Carbon Dioxide 24 mmol/L (22-29) 07/26/22 01:25 Anion Gap 17.7 (5-19) 07/26/22 01:25 BUN 23 mg/dL (8-23) 07/26/22 01:25 Creatinine 0.8 mg/dL (0.7-1.2) 07/26/22 01:25 GFR Calculation Not Reportable 07/26/22 01:25 Glucose 168 mg/dL (65-115) H 07/26/22 01:25 Calculated Osmolality 292 mOsm/kg (285-295) 07/26/22 01:25 Calcium 9.3 mg/dL (8.5-10.5) 07/26/22 01:25 Total Bilirubin 0.5 mg/dL (0.15-1.2) 07/26/22 01:25 AST 29 U/L (0-40) 07/26/22 01:25 ALT 40 U/L (0-41) 07/26/22 01:25 Alkaline Phosphatase 101 U/L (40-130) 07/26/22 01:25 Troponin T Baseline 36 ng/L (0-15) H 07/26/22 01:25 NT-Pro-B Natriuret Pep 3935 pg/mL (0-450) H 07/26/22 01:25 Total Protein 7.4 g/dL (6.6-8.7) 07/26/22 01:25 Albumin 4.1 g/dL (3.5-5.2) 07/26/22 01:25 Globulin 3.3 g/dL (1.3-4.6) 07/26/22 01:25 Critical Care Time Critical Care Time: Critical Care Time: Yes Total Critical Care Time: 40 Attestation: This case had a high probability of a clinically significant, sudden, or life threatening deterioration of this patient's condition which required my full and direct attention, intervention and personal management. Time is independent of any procedures performed Discharge Plan Discharge Patient Disposition: Admitted As Inpatient Admit Provider: Stephy Graves Clinical Impression: Chest pain, Bradycardia on ECG Condition: Serious Coding Level of Care Code ED Contracts Law Professor for Tiffany Claudio
[2022-07-26 02:02] LABS: INR 0.99 (0.8-1.2); Partial Thromboplastin Time 25.8 SECONDS (23.9-36.7)
[2022-07-26 02:05] LABS: D Dimer 1.18 ug/mIFEU (0-0.59)
[2022-07-26 02:13] LABS: Troponin(5th) Baseline 36 ng/L (0-15)
[2022-07-26 02:17] LABS: Alanine Aminotransferase 40 U/L (0-41); Albumin Level 4.1 g/dL (3.5-5.2); Alkaline Phosphatase 101 U/L (40-130); Anion Gap 17.7 (5-19); Aspartate Amino Transferase 29 U/L (0-40); Blood Urea Nitrogen 23 mg/dL (8-23); Calcium 9.3 mg/dL (8.5-10.5); Carbon Dioxide 24 mmol/L (22-29); Chloride 100 mmol/L (98-107); Globulin 3.3 g/dL (1.3-4.6); Glucose 168 mg/dL (65-115); NT Pro B Type Natriuretic Pept 3935 pg/mL (0-450); Osmolality Calculated 292 mOsm/kg (285-295); Potassium 4.7 mmol/L (3.5-5.1); Sodium 137 mmol/L (136-145); Total Bilirubin 0.5 mg/dL (0.15-1.2); Total Protein 7.4 g/dL (6.6-8.7)
--- NOTE | 2022-07-26 03:14 | ECG_ITS ---
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 Measurements Intervals [place] Rate: 42 P: 0 PA: 0 QRS: -38 QRSD: 158 T: 158 QT: 511 QTc: 429 Interpretive Statements COMPLETE HEART BLOCK LEFT AXIS DEVIATION [QRS AXIS < -30] LEFT BUNDLE BRANCH BLOCK [120+ ms QRS DURATION, 80+ ms Q/S IN V1/V2, 85+ ms R IN I/aVL/V5/V6] Compared to ECG 07/26/2022 01:15:33 Left-axis deviation now present Sinus bradycardia no longer present Electronically Signed On 07-26-2022 11:22:53 FLAG FOOTBALL COACH by Chris Ambrocio M.D. [id number]
[2022-07-26 04:05] LABS: Troponin 5 2HR 40.28 ng/L (0-15)
[2022-07-26 04:18] LABS: Troponin 5 2HR Delta 4.28 ABS# (0-10)
--- NOTE | 2022-07-26 05:29 | ECG_ITS ---
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 Measurements Intervals [place] Rate: 48 P: 0 WI: 0 QRS: -34 QRSD: 158 T: 151 QT: 479 QTc: 430 Interpretive Statements UNCERTAIN REGULAR RHYTHM LEFT AXIS DEVIATION [QRS AXIS < -30] LEFT BUNDLE BRANCH BLOCK [120+ ms QRS DURATION, 80+ ms Q/S IN V1/V2, 85+ ms R IN I/aVL/V5/V6] Compared to ECG 07/26/2022 03:42:29 No significant changes Electronically Signed On 07-26-2022 11:21:04 INSTRUMENT LENS GRINDER APPRENTICE by Chris Ambrocio M.D. [id number]
[2022-07-26] MEDS: hyDRALAzine 20 mg/mL INJ 1 mL 10 MG IVP (05:37)
--- NOTE | 2022-07-26 06:06 | PM.HP ---
Providers/Chief Complaint Admitting Physician: Stephy Graves MD Primary Care Provider: Jack Gaspar MD Chief Complaint: CP History of Present Illness Cali Lee is a 82 year old male with a past medical history of severe aortic stenosis currently presenting with chest pain that started in the morning. Initially patient developed pain at around 8 AM, took a nitro which appears to have relieved his symptoms. Then again needing another nitro at noon. By 11 PM he was having chest pain again this time not relieved by nitro when he presented to the emergency room. Patient denies any palpitations or syncope. ROS + dyspnea. No apparent aggravating or relieving factors. He was found to be bradycardic by EMS. Twelve-lead EKG here showed variable heart block, LBBB. This is new compared to January 2022. Echocardiogram from January 2022 was with severe concentric LVH with EF of 65%. Severe with ANAHI 0.96 cm?. Baseline troponin was at 36, 2-hour trend at 40 with a delta of 4. Review of Systems General: Reports: 10 or more systems reviewed and unremarkable except in HPI and below Const: Denies: fever(s), chills or body aches Eyes: Denies: change in vision, blurry vision or photophobia ENMT: Denies: odynophagia or nasal congestion Card: Reports: chest pain; Denies: palpitations, irregular heart rhythm, edema, swelling of feet/ankles, lightheadedness, pre-syncope, dyspnea on exertion or orthopnea Resp: Denies: dyspnea, productive cough, non-productive cough, wheezing, stridor, pain on inspiration, change in phlegm color, hemoptysis or chest congestion GI: Denies: abdominal pain, nausea, vomiting, hematemesis, coffee ground emesis, dysphagia, heartburn, diarrhea, constipation, GI cramping, change in stool character, hematochezia or melena : Denies: flank pain, dysuria, urinary frequency, urinary urgency, urinary hesitancy or hematuria Musc: Denies: neck pain, back pain, extremity pain, joint swelling, joint warmth or deformity Neuro: Denies: headache(s), numbness in extremities, weakness in extremities, sensory changes, difficulty walking, frequent falls, dizziness, vertigo, behavioral changes, Slurred speech present or seizure-like activity Psych: Denies: anxiety, depression, suicidal ideation or homicidal ideation Endo: Denies: polyuria, polydipsia, tired all the time, cold intolerance or hot flashes Brendon/Lymph: Denies: easy bruising or easy bleeding Medications/Allergies Home Medications Medication Instructions Recorded Confirmed Last Taken Type fluticasone furoate 27.5 1 spray intranasal BID 01/01/21 06/16/22 01/15/22 History mcg/actuation nasal spray,suspension losartan 100 mg tablet 100 mg PO DAILY 01/01/21 06/16/22 01/15/22 History rosuvastatin 5 mg tablet (Crestor) 25 mg PO DAILY 01/01/21 06/16/22 01/15/22 History amlodipine 2.5 mg tablet 2.5 mg PO DAILY 09/04/21 06/16/22 01/18/22 05:30 History polyethylene glycol 3350 17 gram 17 g PO DAILY 09/04/21 06/16/22 01/15/22 History oral powder packet (Miralax) Co Q-10 100 mg PO DAILY 01/13/22 06/16/22 01/15/22 History ascorbic acid (vitamin C) 500 mg 500 mg PO DAILY 01/13/22 06/16/22 01/16/22 History tablet (Vitamin C) aspirin 81 mg capsule 81 mg PO DAILY 01/13/22 06/16/22 01/15/22 History cholecalciferol (vitamin D3) 100 100 mcg PO DAILY 01/13/22 06/16/22 Unknown History mcg (4,000 unit) capsule ferrous sulfate 325 mg (65 mg 325 mg PO DAILY 01/13/22 06/16/22 01/15/22 History iron) tablet (iron) multivitamin 1 tab PO DAILY 01/13/22 06/16/22 01/15/22 History omega-3 fatty acids-vitamin E 1 cap PO DAILY 01/13/22 06/16/22 Unknown History 1,000 mg capsule vitamin B complex 1 tab PO DAILY 01/13/22 06/16/22 01/15/22 History pantoprazole 40 mg tablet,delayed 40 mg PO BID #60 tabs 01/20/22 06/16/22 Unknown Rx release oxycodone 5 mg tablet 5 mg PO Q4H PRN pain #10 tabs 03/24/22 06/16/22 Unknown Rx vin hinged knee brace #1 ea 04/07/22 06/16/22 Unknown Rx Allergies Allergy/AdvReac Type Severity Reaction Status Date / Time hydrocodone Allergy ADR-Dizzine Verified 06/16/22 13:42 ss PFSH Acute PFSH: Medical History Anemia Closed left hip fracture Depression History of prediabetes Hyperlipidemia Hypertension Hypertensive urgency Lip cancer Perforated ulcer of intestine Prostate cancer Swelling of both lower extremities Systolic murmur Surgical History H/O left knee surgery History of left hip replacement History of total right hip arthroplasty S/P laparotomy Family History Other Cancer Social History Smoking and tobacco status: current every day smoker Alcohol intake: current Alcohol intake frequency: holidays/special occasions only Vitals/I&O/Wt Last Vital Signs Temp 97.6 F 07/26/22 01:11 Pulse 41 L 07/26/22 03:08 Resp 24 H 07/26/22 03:08 BP 154/59 07/26/22 03:08 Pulse Ox 96 07/26/22 03:08 O2 Del Method 07/26/22 03:57 O2 Flow Rate 4 07/26/22 02:28 07/25/22 07/25/22 07/26/22 14:59 22:59 06:59 Output Total 300 / 300 Balance -300 / -300 Weight last 48 hrs Weight 104.281 kg Weight 97.976 kg Physical Exam Narrative: General: No acute distress, AO x3 HEENT: PERRLA, pupils bilaterally equal and reactive, pallors not present Chest: Normal vesicular breath sounds, no added sounds, equal good air entry bilaterally CVS: S1-S2 regular, no murmurs, no tachycardia, no gallops, no rubs Abdomen: Soft, nontender, no organomegaly, bowel sounds present Neuro: No focal deficits, no facial deformity, AO x3, power 5/5 in all limbs Data 07/26/22 01:25 07/26/22 01:25 Other Labs: Radiology Impressions Chest X-Ray 07/26/22 01:14 IMPRESSION: 1. Increasing bilateral lung base atelectasis, airspace disease, or pneumonitis. 2. No pneumothorax. 3. No other change from 03/24/2022. Laboratory Results WBC 13.5 10^3/uL (4.0-10.0) H 07/26/22 01:25 RBC 4.34 10^6/uL (4.1-5.3) 07/26/22 01:25 Hgb 13.2 g/dL (11.7-16.6) 07/26/22 01:25 Hct 39.9 % (42.0-52.0) L 07/26/22 01:25 MCV 91.9 fl (80-94) 07/26/22 01:25 MCH 30.4 pg (28.0-34.0) 07/26/22 01:25 MCHC 33.1 g/dL (30.0-36.0) 07/26/22 01:25 RDW 12.8 % (12.1-15.1) 07/26/22 01:25 Plt Count 194 10^3/cmm (130-400) 07/26/22 01:25 MPV 10.7 fL (7.4-10.4) H 07/26/22 01:25 Neut % (Auto) 77.0 % 07/26/22 01:25 Lymph % (Auto) 10.4 % 07/26/22 01:25 Moody % (Auto) 10.7 % 07/26/22 01:25 Eos % (Auto) 1.0 % 07/26/22 01:25 Baso % (Auto) 0.6 % 07/26/22 01:25 Neut # (Auto) 10.42 10^3/uL (1.8-7.7) H 07/26/22 01:25 Lymph # (Auto) 1.4 10^3/uL (0.8-4.8) 07/26/22 01:25 Moody # (Auto) 1.4 10^3/uL (0.2-0.9) H 07/26/22 01:25 Eos # (Auto) 0.1 10^3/uL (0.0-0.8) 07/26/22 01:25 Baso # (Auto) 0.1 10^3/uL (0.0-0.1) 07/26/22 01:25 Nucleated RBC % (auto) 0 % 07/26/22 01:25 Nucleated RBCs # 0.0 /100WBC 07/26/22 01:25 PT 13.40 SECONDS (12.1-14.9) 07/26/22 01:25 INR 0.99 (0.8-1.2) 07/26/22 01:25 APTT 25.8 SECONDS (23.9-36.7) 07/26/22 01:25 D-Dimer 1.18 ug/mIFEU (0-0.59) H 07/26/22 01:25 Sodium 137 mmol/L (136-145) 07/26/22 01:25 Potassium 4.7 mmol/L (3.5-5.1) 07/26/22 01:25 Chloride 100 mmol/L (98-107) 07/26/22 01:25 Carbon Dioxide 24 mmol/L (22-29) 07/26/22 01:25 Anion Gap 17.7 (5-19) 07/26/22 01:25 BUN 23 mg/dL (8-23) 07/26/22 01:25 Creatinine 0.8 mg/dL (0.7-1.2) 07/26/22 01:25 GFR Calculation Not Reportable 07/26/22 01:25 Glucose 168 mg/dL (65-115) H 07/26/22 01:25 Calculated Osmolality 292 mOsm/kg (285-295) 07/26/22 01:25 Calcium 9.3 mg/dL (8.5-10.5) 07/26/22 01:25 Total Bilirubin 0.5 mg/dL (0.15-1.2) 07/26/22 01:25 AST 29 U/L (0-40) 07/26/22 01:25 ALT 40 U/L (0-41) 07/26/22 01:25 Alkaline Phosphatase 101 U/L (40-130) 07/26/22 01:25 Troponin T Baseline 36 ng/L (0-15) H 07/26/22 01:25 Troponin T 120 Minute 40.28 ng/L (0-15) H 07/26/22 03:42 Delta Troponin T 4.28 ABS# (0-10) 07/26/22 03:42 NT-Pro-B Natriuret Pep 3935 pg/mL (0-450) H 07/26/22 01:25 Total Protein 7.4 g/dL (6.6-8.7) 07/26/22 01:25 Albumin 4.1 g/dL (3.5-5.2) 07/26/22 01:25 Globulin 3.3 g/dL (1.3-4.6) 07/26/22 01:25 A&P Assessment and plan (1) Chest pain: (2) Aortic stenosis: (3) Heart block: (4) CHF (congestive heart failure): Plan Patient presenting with 2 days of chest pain dyspnea and bradycardia with heart rate in the 40s Symptoms are partially relieved by taking nitro. He received aspirin 324 mg by EMS. EKG shows bradycardia, appears to be variable heart block per my read, LBBB + Admit to ICU with continuous cardiac monitoring. Baseline troponin at 36, 2-hour at 40, delta of 4. Awaiting 6-hour trend. Normal K, magnesium pending Reports a past medical history of severe aortic stenosis ANAHI 0.96 from January 2022. Had angiogram approximately 5 years ago in [place], per description appears that he had nonobstructive CAD, on medical management. No stents were placed at the time. Aspirin 81 mg p.o. daily, statins to be continued. Cardiology consult given persisting chest pain and bradycardia. Limited echo to estimate EF, regional wall motion abnormalities Nitropaste 1 inch every 6 hours for symptomatic relief. Clinically evidence of CHF with lower extremity pitting edema, chest x-ray showing bilateral congestion. Elevated BNP. unknown if systolic or diastolic or acute or chronic at this time. Patient has noticed Le edema over the past 4-5 days. Continue home medications including losartan, amlodipine, add hyralazine 10mg ivp q6h prn Lasix 20 mg IV now, patient is Lasix na?ve. Monitor urine output and kidney function with initiation of Lasix. Will likely need to be titrated based on response. Attestations Medical Necessity Statement*: Anticipate > 2midnight admission for above defined care Coding Level of Care Code Acute Code for Chg Fwd High MDM includes number and complexity of problems actively addressed during encounter, amount and/or complexity of data reviewed/ordered and described risk of complication, morbidity or mortality of management as documented Diagnoses Chest pain R07.9 Aortic stenosis I35.0 Heart block I45.9 CHF (congestive heart failure) I50.9
[2022-07-26] MEDS: enoxaparin 40 mg/0.4 mL Syringe SUBCUT (06:07)
[2022-07-26] MEDS: nitroglycerin 1 gm/inch oint Pkt 0.5 INCH TOPICAL ×4 (06:07→23:16)
--- NOTE | 2022-07-26 06:17 | USCV_ITS ---
Cali Lee Age: 82 Gender: M : 1940 Exam Date: 07/26/2022 13:37 Ordering Phys: Stephy Graves MD Technologist: SIMEON [place] [facility] [place]: [place] BP: 160 / 62 HR: 52 Rhythm: Sinus Technical Quality: Adequate MEASUREMENTS (Male / Female) Normal Values 2D ECHO LV Diastolic Diameter PLAX 5.4 cm 4.2 - 5.9 / 3.9 - 5.3 cm LV Systolic Diameter PLAX 2.6 cm IVS Diastolic Thickness 0.9 cm 0.6 - 1.0 / 0.6 - 0.9 cm IVS Systolic Thickness 1.1 cm LVPW Diastolic Thickness 1.3 cm 0.6 - 1.0 / 0.6 - 0.9 cm LVPW Systolic Thickness 1.6 cm LVOT Diameter 2.2 cm LV Ejection Fraction 2D Teich 82.7 % LV Ejection Fraction MOD 2C 62.8 % LV Ejection Fraction 2C AL 62.6 % LA Diameter 4.0 cm LA Width 3.5 cm LA Height 5.4 cm RA Width 4.1 cm RA Height 4.5 cm Aorta at Sinotubular Diameter 2.3 cm IVC Diameter 1.8 cm M-MODE Aortic Annulus Diameter 2.8 cm LA Ao Ratio MM 1.5 MV E Point Septal Separation 0.6 cm DOPPLER Right Atrial Pressure 3.0 mmHg FINDINGS Left Ventricle Right Ventricle Right Atrium Left Atrium Mitral Valve Aortic Valve Tricuspid Valve Pulmonic Valve Pericardium Aorta IVC CONCLUSIONS This is a limited echocardiogram performed to assess LV systolic function LV systolic function is normal with EF of 60 to 65%. No regional wall motion abnormalities are seen. Compared to prior echocardiogram from 01/20/2022, no significant changes in LV systolic function are seen. Chris Ambrocio MD (Electronically Signed) Final Date: 26 July 2022 18:05 S
[2022-07-26 06:46] LABS: Magnesium 2.2 mg/dL (1.7-2.3)
[2022-07-26] MEDS: FUROsemide 10 mg/mL SDV 2mL 20 MG IVP (06:51)
--- NOTE | 2022-07-26 07:52 | P.CONIM_ITS ---
Providers/Reason For Consult Consulting Physician/Specialty*: Cardiovascular medicine Reason for Consult*: Bradycardia Requesting Physician: Hospitalist Attending Physician: Stephy Graves MD Primary Care Provider: Jack Gaspar MD History of Present Illness History of Present Illness Cali Lee is a 82 year old male who is a poor historian. His only known cardiac history is that of aortic stenosis diagnosed by echo in January of last year. He is ejection fraction was normal but according to the report he has severe aortic stenosis. I do not know that this is ever been followed up upon. He tells me that several years ago while living in [place] he had an angiogram but nothing needed to be fixed . He is hard to take a history from. He says that 2 days ago he started getting dizzy and shaking. He did not tell me he was short of breath until I asked him. He said he did have some chest pain but said it was slight . Something caused him to want to come to the hospital last evening. It was near midnight that he called 911. He lives quite a distance from here. An ambulance came, picked him up and took him to a [facility] an area [facility] brought him here. Upon his arrival he was mildly short of breath. By examination he appeared to be in mild congestive heart failure. He was also found to have a left bundle branch block with underlying intermittent complete heart block. After specific questioning he does admit to paroxysmal nocturnal dyspnea, orthopnea and lower extremity edema over the last 2 days. He tends to be fixated on the problem with his left hip and his left knee and always direct the conversation back to this area. He apparently has a history of glucose intolerance, dyslipidemia, hypertension, prostate cancer, remote tobacco abuse and anemia. His first troponin was 31. The second was 29. His BNP is 3935. Chest x-ray reveals increased airspace disease. His EKGs reveal third-degree AV block with an underlying left bundle branch block. This is intermittent and on occasion he does have sinus rhythm. This morning he states that he is better. His breathing is better. He is hesitant to try to lie flat. He is being treated with low-dose Lovenox, losartan. He also has an inch of Nitropaste in place. Review of Systems Narrative: He is a difficult historian. The review of systems is negative other than what is in the history of present illness. Medications/Allergies Home Medications Medication Instructions Recorded Confirmed Last Taken Type fluticasone furoate 27.5 1 spray intranasal BID 01/01/21 06/16/22 01/15/22 History mcg/actuation nasal spray,suspension losartan 100 mg tablet 100 mg PO DAILY 01/01/21 06/16/22 01/15/22 History rosuvastatin 5 mg tablet (Crestor) 25 mg PO DAILY 01/01/21 06/16/22 01/15/22 History amlodipine 2.5 mg tablet 2.5 mg PO DAILY 09/04/21 06/16/22 01/18/22 05:30 History polyethylene glycol 3350 17 gram 17 g PO DAILY 09/04/21 06/16/22 01/15/22 History oral powder packet (Miralax) Co Q-10 100 mg PO DAILY 01/13/22 06/16/22 01/15/22 History ascorbic acid (vitamin C) 500 mg 500 mg PO DAILY 01/13/22 06/16/22 01/16/22 History tablet (Vitamin C) aspirin 81 mg capsule 81 mg PO DAILY 01/13/22 06/16/22 01/15/22 History cholecalciferol (vitamin D3) 100 100 mcg PO DAILY 01/13/22 06/16/22 Unknown History mcg (4,000 unit) capsule ferrous sulfate 325 mg (65 mg 325 mg PO DAILY 01/13/22 06/16/22 01/15/22 History iron) tablet (iron) multivitamin 1 tab PO DAILY 01/13/22 06/16/22 01/15/22 History omega-3 fatty acids-vitamin E 1 cap PO DAILY 01/13/22 06/16/22 Unknown History 1,000 mg capsule vitamin B complex 1 tab PO DAILY 01/13/22 06/16/22 01/15/22 History pantoprazole 40 mg tablet,delayed 40 mg PO BID #60 tabs 01/20/22 06/16/22 Unknown Rx release oxycodone 5 mg tablet 5 mg PO Q4H PRN pain #10 tabs 03/24/22 06/16/22 Unknown Rx vin hinged knee brace #1 ea 04/07/22 06/16/22 Unknown Rx Allergies Allergy/AdvReac Type Severity Reaction Status Date / Time hydrocodone Allergy ADR-Dizzine Verified 07/26/22 07:36 ss Current Medications Generic Name Dose Route Start Last Admin Trade Name Freq PRN Reason Stop Dose Admin Enoxaparin Sodium 40 mg 07/26/22 06:00 07/26/22 06:07 Enoxaparin 40 Mg/0.4 Ml Syringe SUBCUT 40 mg Q24H FABIANA Administration Nitroglycerin 0.5 inch 07/26/22 05:45 07/26/22 06:07 Nitroglycerin 1 Gm/Inch Oint Pkt TOPICAL 0.5 inch Q6H FABIANA Administration PFSH Acute PFSH: Medical History (Updated 07/26/22 @ 07:58 by Brien Morales MD) Anemia Closed left hip fracture Depression History of prediabetes Hyperlipidemia Hypertension Hypertensive urgency Left bundle branch block Lip cancer Perforated ulcer of intestine Prostate cancer Swelling of both lower extremities Systolic murmur Third degree AV block Surgical History H/O left knee surgery History of left hip replacement History of total right hip arthroplasty S/P laparotomy Family History Other Cancer Social History Smoking and tobacco status: current every day smoker Alcohol intake: current Alcohol intake frequency: holidays/special occasions only Vitals/I&O/Wt Last Vital Signs Temp 99 F 07/26/22 04:00 Pulse 48 L 07/26/22 06:15 Resp 26 H 07/26/22 06:15 BP 167/76 07/26/22 06:15 Pulse Ox 95 07/26/22 06:15 O2 Del Method 07/26/22 04:00 O2 Flow Rate 6 07/26/22 04:00 07/25/22 07/26/22 07/26/22 22:59 06:59 14:59 Output Total 400 / 400 Balance -400 / -400 Weight last 48 hrs Weight 229 lb 14.4 oz Weight 216 lb Physical Exam Narrative: GENERAL: In general he is perfectly comfortable at rest and is in no distress HEENT: Exam within normal limits. NECK: Supple without jugular vein distention. The carotid upstroke is normal without bruits. BACK: Exam normal. LUNGS: Clear. HEART: Regular rate and rhythm. ABDOMEN: Benign without organomegaly or tenderness. EXTREMITIES: 2+ edema NEUROLOGIC: Exam normal. SKIN: Unremarkable. Data 07/26/22 01:25 07/26/22 01:25 A&P Assessment and plan (1) CHF (congestive heart failure): (2) Chest pain: (3) Bradycardia on ECG: (4) Aortic stenosis: (5) Hyperglycemia: (6) Elevated troponin: (7) History of left hip replacement: (8) Anemia: (9) Femoral neck fracture: (10) Third degree AV block: (11) Left bundle branch block: Plan He is still mildly volume overloaded. He needs some diuresis. He will also need a permanent pacemaker. His blood pressure is high 170 systolic. There is no need for temporary wire at this time. I see that an echo has been given. He is interesting that I do not hear an aortic stenosis murmur but the previous echo suggested severe aortic stenosis. I explained all of this to him in detail. Consult Attestations Medical Necessity Statement: Needs hospitalization for management of congestive heart failure, third-degree AV block. and Moderate Time for a total of 5 minutes, includes reviewing past or interval history, examining/interviewing patient, placing orders, counseling p atient/family/other support, updating patient/family/other support, discussing plan of care with staff, communicating with other healthcare providers, documenting encounter and coordinating care Other Coding Information Procedural care (documented in another note) Diagnoses CHF (congestive heart failure) I50.9 Chest pain R07.9 Bradycardia on ECG R00.1 Aortic stenosis I35.0 Hyperglycemia R73.9 Elevated troponin R77.8 History of left hip replacement Z96.642 Anemia D64.9 Femoral neck fracture S72.009A Third degree AV block I44.2 Left bundle branch block I44.7
--- NOTE | 2022-07-26 08:07 | PC.PHAR ---
pts luna [phone] verified pts medications-luna states the pt stop taking paxil 10mg daily filled 04/13/22 90d/s,chlorthalidone 25mg daily filled 05/27/22 90d/s and pantoprazole 40mg daily filled 05/25/22 90d/s states stop taking a month ago-
[2022-07-26 08:22] LABS: Troponin 5 6HR 48.47 ng/L (0-15)
[2022-07-26] MEDS: aspirin 81 mg EC Tablet PO (08:25)
[2022-07-26] MEDS: atorvastatin 40 mg Tablet 25 MG PO (08:25)
[2022-07-26] MEDS: pantoprazole DR 40 mg Tablet PO (08:25)
[2022-07-26] MEDS: losartan 50 mg Tablet 100 MG PO (08:26)
[2022-07-26] MEDS: FUROsemide 10 mg/mL SDV 4mL 40 MG IVP ×2 (08:26→20:06)
[2022-07-26 08:47] LABS: Troponin 5 6HR Delta 12.47 ng/L (0-12)
[2022-07-26] MEDS: amlodipine 5 mg Tablet 2.5 MG PO (09:32)
--- NOTE | 2022-07-26 13:47 | PM.MISC ---
Miscellaneous Note Note: Seen this morning. Agree with history physical document. Consultation appreciated by cardiology. N.p.o. at midnight tonight. Pacemaker tentatively for tomorrow morning. Continue to diurese patient. Lasix 40 IV twice daily ordered
--- NOTE | 2022-07-26 17:32 | P.CONIM_ITS ---
Providers/Reason For Consult Consulting Physician/Specialty*: Dr. DWAYNE Lowery/cardiology Reason for Consult*: Patient with high degree AV block /consider permanent pacer implantation Requesting Physician: Dr. Morales/Dr. Garcia Attending Physician: Shadia Garcia MD Primary Care Provider: Jack Gaspar MD History of Present Illness History of Present Illness Cali Lee is a 82 year old male is admitted to hospital with complaints of chest pain and shortness of breath/dizziness/near syncopal episode. Patient was found to be bradycardic with a heart rate in the 40s. EKG showed evidence of third-degree heart block. Consult is requested to consider permanent pacemaker plantation. According the patient, he has a history of chest pain off and on for many years. He been taking sublingual nitroglycerin on a as needed basis. For the last week or so, he has been having using episodes of chest pains requiring several sublingual nitro. The pain is in the mid substernal region, radiating across the chest and also to the neck area. He has associated shortness of breath. Usually he takes 1 sublingual nitro which relieves the pain. He also has been having increasing shortness of breath associated with the weakness and dizziness. He had so far, 5 or 6 episodes of near syncope. He never had any total loss of consciousness. The intensity of the chest pain is mild to moderate. He denies any fever or chills. No cough He was found to have elevated BNP and troponin T. Review of Systems Narrative: CONSTITUTIONAL: No fever or chills. Has been having some amount of shortness of breath with activities EYES: No blurring of vision or other visual disturbances lately. ENT: No hoarseness of voice, auditory disturbances or sore throat. CARDIOVASCULAR: As mentioned above. RESPIRATORY: No significant cough. GASTROINTESTINAL: No hematemesis or melena. GENITOURINARY: No dysuria or hematuria. INTEGUMENTARY: No skin rashes or history of skin cancer. NEURO: No transient ischemic attacks or amaurosis. PSYCHIATRIC: No history of psychosis or major depression. HEMATOLOGIC: No bleeding disorders or significant anemia. ENDOCRINE: No history of polyuria or polydipsia. MUSCULOSKELETAL: No recent joint pain or swelling. ALLERGY/IMMUNOLOGY: As mentioned above. Medications/Allergies Home Medications Medication Instructions Recorded Confirmed Last Taken Type losartan 100 mg tablet 100 mg PO QA 01/01/21 07/26/22 01/15/22 History rosuvastatin 5 mg tablet (Crestor) 5 mg PO QAM 01/01/21 07/26/22 01/15/22 History ascorbic acid (vitamin C) 500 mg 500 mg PO QPM 01/13/22 07/26/22 01/16/22 History tablet (Vitamin C) ferrous sulfate 325 mg (65 mg 325 mg PO BID 01/13/22 07/26/22 01/15/22 History iron) tablet (iron) multivitamin 1 tab PO QPM 01/13/22 07/26/22 01/15/22 History vin hinged knee brace #1 ea 04/07/22 07/26/22 Unknown Rx L.acidophil-L.casei-B.bifid-B.longum-FOS 1 cap PO QPM 07/26/22 07/26/22 Unknown History 2 billion cell-50 mg capsule (Probiotic Blend) Prevagen 1 cap PO DAILY 07/26/22 07/26/22 Unknown History Total Beets 2 tab PO QAM 07/26/22 07/26/22 Unknown History amlodipine 10 mg tablet 10 mg PO QAM 07/26/22 07/26/22 Unknown History aspirin 81 mg tablet,delayed 81 mg PO QAM 07/26/22 07/26/22 Unknown History release cholecalciferol (vitamin D3) 50 100 mcg PO QAM 07/26/22 07/26/22 Unknown History mcg (2,000 unit) capsule (Vitamin D3) coenzyme Q10 100 mg capsule 100 mg PO QAM 07/26/22 07/26/22 Unknown History (CoQ-10) fluticasone propionate 50 1 spray intranasal BID PRN Allergy 07/26/22 07/26/22 Unknown History mcg/actuation nasal Symptoms spray,suspension ginkgo biloba 40 mg tablet 40 mg PO QPM 07/26/22 07/26/22 Unknown History hydrocortisone 2.5 % topical cream 1 applic UT BID PRN Hemorrhoids 07/26/22 07/26/22 Unknown History with perineal applicator indomethacin 50 mg capsule 50 mg PO QPM 07/26/22 07/26/22 Unknown History magnesium oxide 400 mg PO QPM 07/26/22 07/26/22 Unknown History nitroglycerin 0.4 mg sublingual 0.4 mg sublingual Q5M PRN Chest 07/26/22 07/26/22 Unknown History tablet (Nitrostat) Pain vitamin B complex 1 tab PO QPM 07/26/22 07/26/22 Unknown History Allergies Allergy/AdvReac Type Severity Reaction Status Date / Time hydrocodone Allergy ADR-Dizzine Verified 07/26/22 07:36 ss Current Medications Generic Name Dose Route Start Last Admin Trade Name Freq PRN Reason Stop Dose Admin Amlodipine Besylate 2.5 mg 07/26/22 09:30 07/26/22 09:32 Amlodipine 5 Mg Tablet PO 2.5 mg DAILY FABIANA Administration Aspirin 81 mg 07/26/22 09:00 07/26/22 08:25 Aspirin 81 Mg Ec Tablet PO 81 mg DAILY FABIANA Administration Atorvastatin Calcium 25 mg 07/26/22 09:00 07/26/22 08:25 Atorvastatin 40 Mg Tablet PO 25 mg DAILY FABIANA Administration Enoxaparin Sodium 40 mg 07/26/22 06:00 07/26/22 06:07 Enoxaparin 40 Mg/0.4 Ml Syringe SUBCUT 40 mg Q24H FABIANA Administration Furosemide 40 mg 07/26/22 08:30 07/26/22 08:26 Furosemide 10 Mg/Ml Sdv 4ml IVP 40 mg Q12H FABIANA Administration Losartan Potassium 100 mg 07/26/22 09:00 07/26/22 08:26 Losartan 50 Mg Tablet PO 100 mg DAILY FABIANA Administration Nitroglycerin 0.5 inch 07/26/22 05:45 07/26/22 16:22 Nitroglycerin 1 Gm/Inch Oint Pkt TOPICAL 0.5 inch Q6H FABIANA Administration Pantoprazole Sodium 40 mg 07/26/22 09:00 07/26/22 08:[address] 40 Mg Tablet PO 40 mg DAILY FABIANA Administration PFSH Acute PFSH: Medical History Anemia Closed left hip fracture Depression History of prediabetes Hyperlipidemia Hypertension Hypertensive urgency Left bundle branch block Lip cancer Perforated ulcer of intestine Prostate cancer Swelling of both lower extremities Systolic murmur Third degree AV block Surgical History H/O left knee surgery History of left hip replacement History of total right hip arthroplasty S/P laparotomy Family History Other Cancer Social History Smoking and tobacco status: current every day smoker Alcohol intake: current Alcohol intake frequency: holidays/special occasions only Vitals/I&O/Wt Last Vital Signs Temp 98.1 F 07/26/22 15:21 Pulse 52 L 07/26/22 15:21 Resp 23 H 07/26/22 15:21 BP 184/73 07/26/22 15:21 Pulse Ox 96 07/26/22 15:21 O2 Del Method 07/26/22 15:21 O2 Flow Rate 5 07/26/22 11:51 07/26/22 07/26/22 07/26/22 06:59 14:59 22:59 Intake Total 540 / 540 480 / 1020 Output Total 400 / 400 1145 / 1145 Balance -400 / -400 -605 / -605 480 / -125 Weight last 48 hrs Weight 229 lb 14.4 oz Weight 216 lb Physical Exam Narrative: GENERAL: The patient is alert and oriented times three. Not in any acute distress. HEENT: No significant pallor, icterus or lymphadenopathy.Oral cavity: There are no mucous membrane lesions. NECK: Trachea appears to be central. No masses noted. No JVD or thyromegaly appreciated. RESPIRATORY: Chest is symmetrical. No intercostals muscle retraction or any accessory muscle activation. There is no chest wall tenderness. Breath sounds are heard bilaterally. No rales or rhonchi heard. No evidence of any consolidation. BREASTS: Deferred. HEART: The first heart sound is somewhat muffled. Second heart sound is normal. Ejection systolic murmur grade 4/6 in the aortic area. No diastolic murmurs. No S3 or S4. No significant murmurs. No pericardial rub ABDOMEN: No vessel pulsations or distenNo significant murmurstion. No tenderness. No organomegaly appreciated. Bowel sounds are normally heard. : Deferred. RECTAL: Deferred. LYMPHATIC: No lymphadenopathy noted in the neck. EXTREMITIES: No edema or cyanosis. No clubbing. MUSCULOSKELETAL: No acute joint deformities or swelling SKIN: There are no significant rashes or ecchymosis NEUROPSYCHIATRIC: The patient is alert and oriented x3. Appears to be in a good mood. No tremors or rigidity noted. Data 07/26/22 01:25 07/26/22 01:25 Other Labs: Laboratory Last Values WBC 13.5 10^3/uL (4.0-10.0) H 07/26/22 01:25 RBC 4.34 10^6/uL (4.1-5.3) 07/26/22 01:25 Hgb 13.2 g/dL (11.7-16.6) 07/26/22 01:25 Hct 39.9 % (42.0-52.0) L 07/26/22 01:25 MCV 91.9 fl (80-94) 07/26/22 01:25 MCH 30.4 pg (28.0-34.0) 07/26/22 01:25 MCHC 33.1 g/dL (30.0-36.0) 07/26/22 01:25 RDW 12.8 % (12.1-15.1) 07/26/22 01:25 Plt Count 194 10^3/cmm (130-400) 07/26/22 01:25 MPV 10.7 fL (7.4-10.4) H 07/26/22 01:25 Neut % (Auto) 77.0 % 07/26/22 01:25 Lymph % (Auto) 10.4 % 07/26/22 01:25 [place] % (Auto) 10.7 % 07/26/22 01:25 Eos % (Auto) 1.0 % 07/26/22 01:25 Baso % (Auto) 0.6 % 07/26/22 01:25 Neut # (Auto) 10.42 10^3/uL (1.8-7.7) H 07/26/22 01:25 Lymph # (Auto) 1.4 10^3/uL (0.8-4.8) 07/26/22 01:25 [place] # (Auto) 1.4 10^3/uL (0.2-0.9) H 07/26/22 01:25 Eos # (Auto) 0.1 10^3/uL (0.0-0.8) 07/26/22 01:25 Baso # (Auto) 0.1 10^3/uL (0.0-0.1) 07/26/22 01:25 Nucleated RBC % (auto) 0 % 07/26/22 01:25 Nucleated RBCs # 0.0 /100WBC 07/26/22 01:25 PT 13.40 SECONDS (12.1-14.9) 07/26/22 01:25 INR 0.99 (0.8-1.2) 07/26/22 01:25 APTT 25.8 SECONDS (23.9-36.7) 07/26/22 01:25 D-Dimer 1.18 ug/mIFEU (0-0.59) H 07/26/22 01:25 Sodium 137 mmol/L (136-145) 07/26/22 01:25 Potassium 4.7 mmol/L (3.5-5.1) 07/26/22 01:25 Chloride 100 mmol/L (98-107) 07/26/22 01:25 Carbon Dioxide 24 mmol/L (22-29) 07/26/22 01:25 Anion Gap 17.7 (5-19) 07/26/22 01:25 BUN 23 mg/dL (8-23) 07/26/22 01:25 Creatinine 0.8 mg/dL (0.7-1.2) 07/26/22 01:25 GFR Calculation Not Reportable 07/26/22 01:25 Glucose 168 mg/dL (65-115) H 07/26/22 01:25 Calculated Osmolality 292 mOsm/kg (285-295) 07/26/22 01:25 Calcium 9.3 mg/dL (8.5-10.5) 07/26/22 01:25 Magnesium 2.2 mg/dL (1.7-2.3) 07/26/22 01:25 Total Bilirubin 0.5 mg/dL (0.15-1.2) 07/26/22 01:25 AST 29 U/L (0-40) 07/26/22 01:25 ALT 40 U/L (0-41) 07/26/22 01:25 Alkaline Phosphatase 101 U/L (40-130) 07/26/22 01:25 Troponin T Baseline 36 ng/L (0-15) H 07/26/22 01:25 Troponin T 120 Minute 40.28 ng/L (0-15) H 07/26/22 03:42 Delta Troponin T 4.28 ABS# (0-10) 07/26/22 03:42 Troponin T Hi Sens 6Hr 48.47 ng/L (0-15) H 07/26/22 07:03 Troponin T Hi Sens 6Hr Delta 12.47 ng/L (0-12) H* 07/26/22 07:03 NT-Pro-B Natriuret Pep 3935 pg/mL (0-450) H 07/26/22 01:25 Total Protein 7.4 g/dL (6.6-8.7) 07/26/22 01:25 Albumin 4.1 g/dL (3.5-5.2) 07/26/22 01:25 Globulin 3.3 g/dL (1.3-4.6) 07/26/22 01:25 A&P Assessment and plan (1) Symptomatic bradycardia: This patient has a history of trifascicular block. Currently he has third- degree heart block with a left bundle branch block pattern. For further management of his condition, a permanent transvenous dual-chamber pacemaker implantation would be appropriate. Patient may benefit from a dual-chamber pacemaker for AV synchrony and symptom relief. (2) Chest pain: Patient increasing episodes of chest pain lately, may assess unstable anginal pattern. This needs to be further evaluated. (3) Severe aortic valve stenosis: Repeat echocardiogram is pending. Patient may require aortic valve intervention as well. (4) Acute on chronic diastolic heart failure: Patient is on IV p.o. Lasix. This may be continued. (5) Third degree AV block: Patient seems to have intermittent high degree AV block (6) Elevated troponin: Could be related to type II [place]. Positive underlying coronary disease causing non-ST elevation myocardial infarction also is a consideration. Plan It would be appropriate at this point to go ahead with a cardiac catheterization to further evaluate the coronary arteries, before proceeding with the pacemaker, in view of the increasing episodes of chest pain complicated with a heart block and heart failure. We will keep him n.p.o. after midnight. Dr. Morales will be performing this procedure in the morning. Based on the results, further recommendations will be made Coding Level of Care Code 16507 Diagnoses Symptomatic bradycardia R00.1 Chest pain R07.9 Severe aortic valve stenosis I35.0 Acute on chronic diastolic heart failure I50.33 Third degree AV block I44.2 Elevated troponin R77.8
[2022-07-27] VITALS (107 sets, daily range): BP systolic 114–185; BP diastolic 47–75; PULSE 46–83; RESP 15–32; TEMP 36.6; O2SAT 91–100
[2022-07-27 02:51] LABS: Basophils # 0.1 10^3/uL (0.0-0.1); Basophils % 0.6 %; Eosinophils # 0.1 10^3/uL (0.0-0.8); Eosinophils % 1.4 %; Hematocrit 33.1 % (42.0-52.0); Lymphocytes # 1.3 10^3/uL (0.8-4.8); Lymphocytes % 16.1 %; Mean Corpuscular HGB Conc 33.2 g/dL (30.0-36.0); Mean Corpuscular Hemoglobin 30.1 pg (28.0-34.0); Mean Corpuscular Volume 90.4 fl (80-94); Mean Platelet Volume 10.9 fL (7.4-10.4); Monocytes % 12.8 %; Neutrophils # 5.59 10^3/uL (1.8-7.7); Neutrophils % 68.7 %; Nucleated Red Blood Cells % 0 %; Platelet Count 161 10^3/cmm (130-400); Red Blood Count 3.66 10^6/uL (4.1-5.3); Red Cell Distribution Width 12.9 % (12.1-15.1); White Blood Count 8.1 10^3/uL (4.0-10.0)
[2022-07-27 03:17] LABS: Alanine Aminotransferase 24 U/L (0-41); Albumin Level 3.3 g/dL (3.5-5.2); Alkaline Phosphatase 75 U/L (40-130); Anion Gap 13.8 (5-19); Aspartate Amino Transferase 17 U/L (0-40); Blood Urea Nitrogen 22 mg/dL (8-23); Calcium 8.4 mg/dL (8.5-10.5); Carbon Dioxide 28 mmol/L (22-29); Chloride 101 mmol/L (98-107); Globulin 2.6 g/dL (1.3-4.6); Glucose 202 mg/dL (65-115); Magnesium 1.9 mg/dL (1.7-2.3); Osmolality Calculated 297 mOsm/kg (285-295); Potassium 3.8 mmol/L (3.5-5.1); Sodium 139 mmol/L (136-145); Total Bilirubin 0.6 mg/dL (0.15-1.2); Total Protein 5.9 g/dL (6.6-8.7)
--- NOTE | 2022-07-27 05:15 | XACV_ITS ---
Exam Room: [facility] Gender: Male : 1940 Any Known Allergies: Hydrocodone Exam Priority: Routine Procedure(s): Procedure Description: Diagnostic procedure Procedure Description: Coronary Angiography Carmen MALDONADO; Diagnostic Cath Status: Elective Diagnostic Findings * Patient was admitted with complete heart block. He had mild congestive heart failure. Troponins were minimally elevated. He did not express chest pain to me however apparently did so to Dr. Lowery. Dr. Lowery wished for coronary angiography prior to pacemaker placement. * Coronary angiography reveals right coronary artery dominance. The left main coronary artery is normal. There is a ramus intermedius artery which is normal. Circumflex contains very minimal luminal irregularities. The LAD contains very minimal luminal irregularities. The right coronary artery is a very large dominant vessel and ends distally as the posterior descending artery and a posterior left ventricular branch. There are minor diffuse luminal irregularities. There is a 50% stenosis in the mid posterior left ventricular branch. No left ventriculogram was done due to the complete heart block. Conclusions 1. Minor nonobstructive coronary artery disease. Recommendations * Proceed with pacemaker. Interventional RX Recommendation: none Diagnostic RX Recommendation: none Anticoagulation: Heparin Pressures Phase:Rest AO : 84 / 37 ( 56 ) @ 6:07:00 AM 96 / 39 ( 61 ) @ 6:10:00 AM Clinical Evaluation EBL: 5mL-10mL Procedural Details Procedure Consent Obtained. Pre-Procedure Time Out. Identified patient by full name and date of as verbalized by the patient/guarantor. Does the consent match the physician's order: Yes. Accurate & Complete Informed Consent: Yes. Inpatient/Outpatient History & Physical on Chart: Yes. If H&P is completed, is and addenduem needed: No. Visualize and Verify Site with Patient/Guarantor: N/A. Relevant Radiology Images available: Yes. The risks, benefits, and alternatives of sedation and/or procedure were discussed by physician. The patient agrees to continue. Procedure started. [facility] Clinical Fraility Score: 3: Managing Well. Electrical Panel Builder Indications: 3rd degree heart block. Chest Pain Symptom Assessment: Atypical Angina. Cardiovascular Instability: No. PERRLA. 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 Lungs clear x 5 lobes. IV Site on Arrival: 18 gauge in the left anticubital. IV Site on Arrival: 18 gauge in the right wrist. IV Fluids: 0.9% NaCl at KVO. 0 mL infused prior to rn labor delivery. Oxygen started at 2liters/min via nasal canula. Physician arrived. Patient's family unavailable. Equipment: 6F - Radial. Cardiac Cath Pack. ACIST Manifold Kit Model BT 2000. Heparinized Saline (2 units/mL), 1000 mL bag. Pre Procedural Pulses: bilateral radial was 3+. Pre Procedural Pulses: bilateral posterior tibial was Doppled. Pre Procedural Pulses: bilateral dorsalis pedis was Doppled. right groin was prepped with chloroprep then draped in the usual sterile fashion. right radial was prepped with chloroprep then draped in the usual sterile fashion. Physician notified. Baseline sample Acquired. HR: 49 BPM. Physician scrubbed in. Immediate Pre-Procedure Time Out. Correct Patient: Yes; Correct Procedure: Yes; Correct Site: Yes; Correct Patient Position: Yes; Correct Supplies: Yes; Dried Flammable Prep: Yes; Blood Products Available: N/A;. Jorge BULLOCK in case circulating/training with Becca BULLOCK. Lidocaine 1% infiltrated to the right radial. Arterial access obtained. A 5 slovak TIG catheter in over wire. Multiple views taken of right coronary artery. Catheter redirected to the LCA. Multiple views taken of left coronary artery. Physician review of cine films. Catheter removed over the exchange wire. A TR Band was successful obtaining hemostatsis at the Right Radial artery insertion site. Post Procedure: Pulses reassessed and unchanged. PERRLA. 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 No VTE prophylaxis required. Medication's Wasted: Nitro = 49.8 mg. Medication's Wasted: Heparin = 1000 u. Medication's Wasted: Other = Versed 1mg. Medication's Wasted: Other = Fentanyl 50 mcg. Total IV fluids: 25 mL. Post-op diagnosis: Non Obstructive CAD. Complications: none. Estimated blood loss: 5mL-10mL. Responsiveness - Normal response to verbal stimuli; alert and oriented, PERRLA. Airway - Unaffected, no intervention required; spontaneous ventilation. Circulation: W/N/L, pulses unchanged. Nausea/Vomiting: No. Procedure completed. Patient transferred by bed to ICU. Vital chart was stopped. Access Site Site: Right Radial artery Sheath Size: 6 Fr Hemostasis Method: TR Band Hemostasis Success: Successful Procedure Medications Start: 6:02 AM Stop: 6:02 AM Medication: Versed Amount: 1 mg Route: I.V. Start: 6:02 AM Stop: 6:02 AM Medication: Fentanyl Amount: 50 mcg Route: I.V. Start: 6:04 AM Stop: 6:04 AM Medication: Nitrogylcerin Amount: 200 mcg Route: I.A. Start: 6:15 AM Stop: 6:15 AM Medication: Heparin Amount: 5000 units Route: I.V. I, the attending physician, have reviewed and verified all procedure medications. Yes, all medications given per verbal order History/Risk Factors Hypertension: Yes Dyslipidemia: Yes Peripheral Arterial Disease (PAD): No Myocardial Infarction (MD): No Obesity: Yes Renal Disease: No Tobacco Use: Current/Recent(w/in 1 year) Prior Interventions PCI: No CABG: No Valve Surgery: No Report Signatures Finalized by Dr. Brien Morales MD on 07/27/2022 06:36 AM
[2022-07-27] MEDS: diphenhydrAMINE 50 mg Capsule PO (05:16)
[2022-07-27] MEDS: sodium chloride 0.9% 1,000 ML 50 ML IV (05:17)
[2022-07-27] MEDS: sodium chloride 0.9% 1,000 ML 100 ML IV (06:44)
[2022-07-27] MEDS: losartan 50 mg Tablet 100 MG PO (08:31)
[2022-07-27] MEDS: pantoprazole DR 40 mg Tablet PO (08:31)
[2022-07-27] MEDS: aspirin 81 mg EC Tablet PO (08:31)
[2022-07-27] MEDS: amlodipine 5 mg Tablet 2.5 MG PO (08:31)
[2022-07-27] MEDS: FUROsemide 10 mg/mL SDV 4mL 40 MG IVP (08:32)
[2022-07-27] MEDS: atorvastatin 40 mg Tablet 25 MG PO (08:32)
--- NOTE | 2022-07-27 11:08 | P.HPUD_ITS ---
Surgery/Procedure H&P Update DATE OF PROCEDURE: July 27, 2022 DATE H&P PERFORMED: 07/26/22 H&P UPDATE INFORMATION: I have reviewed H&P completed within last 30 days, I have examined patient prior to procedure and No changes to prior documentation PREOP DIAGNOSIS: symptomatic bradcardia, 3rd degree AV block PRIMARY INDICATION FOR PROCEDURE: symptomatic bradycardia PLANNED PROCEDURE: Operation Date: 07/27/22 12:00 Proposed Procedures p Pacemaker Insertion(Left) - Monty Lowery MD PATIENT REASSESSED PRIOR TO SEDATION, WITH NO CHANGE NOTED: Yes PHYSICAL EXAM: alert, oriented x 3, clear to auscultation bilaterally and regula r rate & rhythm AIRWAY EVAL/ANESTHESIA PLAN: normal airway, see other exam findings, ASA III, Monitored Anesthesia, Local Anesthesia, Risks, benefits & alternatives of sedation and/or procedure discussed and Patient agrees to continue as planned ADDITIONAL INFORMATION: The procedure was explained to the patient in detail. The risk of bleeding, hematoma, vascular injury, pneumothorax, pericardial tamponade ,infection, renal failure and other concomitant complications were explained in detail. The patient understood this well and consented to proceed.
--- NOTE | 2022-07-27 12:51 | P.PN_ITS ---
Subjective Subjective: will be getting pacemaker today no acute events overnight Vitals/I&O/Wt Last Vital Signs Temp 98 F 07/27/22 11:48 Pulse 48 L 07/27/22 11:48 Resp 18 07/27/22 11:48 BP 155/62 07/27/22 11:48 Pulse Ox 92 07/27/22 11:48 O2 Del Method 07/27/22 11:48 O2 Flow Rate 3 07/27/22 08:18 07/26/22 07/27/22 07/27/22 22:59 06:59 14:59 Intake Total 750 / 1290 71.667 / 1361.667 Output Total 425 / 1570 600 / 2170 1565 / 1565 Balance 325 / -280 -528.333 / -808.333 -1565 / -1565 Weight last 48 hrs Weight 104.281 kg Weight 97.976 kg Physical Exam Narrative: General: No acute distress, AO x3 HEENT: eomi Chest: Normal vesicular breath sounds, no added sounds, equal good air entry bilaterally CVS: S1-S2 regular, no murmurs, no tachycardia, no gallops, no rubs Abdomen: Soft, nontender, no organomegaly, bowel sounds present Neuro:non focal Data 07/27/22 02:19 07/27/22 02:19 A&P Assessment and plan (1) Chest pain: (2) Aortic stenosis: (3) Heart block: (4) CHF (congestive heart failure): Plan #Trifascicular block #HTN #Symptomatic bradycardia #aortic stenosis?? - Patient presenting with 2 days of chest pain dyspnea and bradycardia with heart rate in the 40s - EKG shows heart block trifascicular - Baseline troponin at 36, 2-hour at 40, delta of 4. 6 hr 48.47. delta 12.47 - Reports a past medical history of severe aortic stenosis ANAHI 0.96 from January 2022. Had angiogram approximately 5 years ago in [place], per description appears that he had nonobstructive CAD, on medical management. No stents were placed at the time. - Aspirin 81 mg p.o. daily, statins to be continued. - Cardiology consult: pacemaker planned for today - Limited echo to estimate EF, regional wall motion abnormalities - Clinically evidence of CHF with lower extremity pitting edema, chest x-ray showing bilateral congestion. Elevated BNP. unknown if systolic or diastolic or acute or chronic at this time. Patient has noticed Le edema over the past 4-5 days. - Continue home medications including losartan, amlodipine, add hyralazine 10mg ivp q6h prn - continue lasix 40 daily - echo pending. initial one done was limited. full code transfer to [facility] Attestations Medical Necessity Statement*: pacemaker placement today Other Coding Information Focused coding review requested Diagnoses Chest pain R07.9 Aortic stenosis I35.0 Heart block I45.9 CHF (congestive heart failure) I50.9
--- NOTE | 2022-07-27 14:01 | PC.NURSE ---
Attempted to call , voice mail box full. Called Daughter, Rene Cee, requested falmily to come back immediately to laborer general waiting room.
--- NOTE | 2022-07-27 15:12 | P.PN_ITS ---
Subjective Subjective: Patient had a cardiac catheterization this morning. Apparently he was found to have no significant obstructive coronary artery disease. A limited echocardiogram was done. Aortic valve Doppler was not performed Vitals/I&O/Wt Last Vital Signs Temp 98 F 07/27/22 11:48 Pulse 48 L 07/27/22 11:48 Resp 18 07/27/22 11:48 BP 155/62 07/27/22 11:48 Pulse Ox 92 07/27/22 11:48 O2 Del Method 07/27/22 11:48 O2 Flow Rate 3 07/27/22 08:18 07/27/22 07/27/22 07/27/22 06:59 14:59 22:59 Intake Total 71.667 / 1361.667 Output Total 600 / 2170 1565 / 1565 Balance -528.333 / -808.333 -1565 / -1565 Weight last 48 hrs Weight 229 lb 14.4 oz Weight 216 lb Physical Exam Narrative: GENERAL: The patient is alert and oriented times three. Not in any acute distress. HEENT: No significant pallor, icterus or lymphadenopathy.Oral cavity: There are no mucous membrane lesions. NECK: Trachea appears to be central. No masses noted. No JVD or thyromegaly appr eciated. RESPIRATORY: Chest is symmetrical. No intercostals muscle retraction or any accessory muscle activation. There is no chest wall tenderness. Breath sounds are heard bilaterally. No rales or rhonchi heard. No evidence of any consolidation. BREASTS: Deferred. HEART: The heart sounds are normal. No S3 or S4. Ejection systolic murmur grade 3/6 in the aortic area. No pericardial rub ABDOMEN: No vessel pulsations or distention. No tenderness. No organomegaly appreciated. Bowel sounds are normally heard. : Deferred. RECTAL: Deferred. LYMPHATIC: No lymphadenopathy noted in the neck. EXTREMITIES: Right radial artery puncture site has no hematoma bleeding MUSCULOSKELETAL: No acute joint deformities or swelling SKIN: There are no significant rashes or ecchymosis NEUROPSYCHIATRIC: The patient is alert and oriented x3. Appears to be in a good mood. No tremors or rigidity noted. 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 For further management of his condition, a permanent transvenous dual-chamber pacemaker implantation would be appropriate. Patient may benefit from a dual-chamber pacemaker for AV synchrony and symptom relief. The risks and benefits were once again discussed The risk of bleeding, hematoma, vascular injury, pneumothorax, infection, renal failure and other concomitant complications were explained in detail. The patient understood this well and consented to proceed. (2) Chest pain: Most likely nonischemic. Aortic valve stenosis heart failure are contributing factors (3) Severe aortic valve stenosis: LV ejection fraction was normal the echocardiogram. Aortic valve Doppler studies need to be repeated (4) Acute on chronic diastolic heart failure: May continue the current treatment (5) Third degree AV block: Patient seems to have intermittent high degree AV block (6) Elevated troponin: Most likely related to type II NV Plan We will go ahead with the permanent pacer implantation. Attestations Medical Necessity Statement*: Patient requires continued hospital stay for close monitoring and further management Coding Level of Care Code 60253 Diagnoses Symptomatic bradycardia R00.1 Chest pain R07.9 Severe aortic valve stenosis I35.0 Acute on chronic diastolic heart failure I50.33 Third degree AV block I44.2 Elevated troponin R77.8
--- NOTE | 2022-07-27 15:40 | P.ANES_ITS ---
Documented by User: Cali Dickinson Jr DIRECTOR OF HOUSING AND ENERGY SERVICES 07/27/22 15:53 Anesthesia Procedures Procedure/Date: 07/27/22 Arterial Line: Time Out Performed: Yes Consent: requested by attending/covering physician and emergency procedure Size (Gauge): 20 Technique Used: direct puncture technique Post-Procedure: dry sterile dressing placed Patient Tolerated Procedure: well Complications: none Site: left and radial Intubation: Time Out Performed: Yes Consent: requested by attending/covering physician Sedative (amount): etomidate (10) Paralytic (amount): succinylcholine (100) Laryngoscope: Ruben ET Tube Size: 7.5 ET Tube Uncuffed: Yes Tube Secured Depth (cm): 24 Tube Secured Location: lips Tube Placement Confirmation: visualized tube passing through cords, equal breath sounds bilaterally, no breath sounds over epigastrium, confirmation by capnometry and color change noted Patient Tolerated Procedure: well Intubation Complications: none Additional Comments: VERSED 5MG GIVEN Documented by User: Franklin Watson 07/27/22 16:35 Anesthesia Procedures Procedure/Date: 07/27/22
--- NOTE | 2022-07-27 15:45 | P.ANES_ITS ---
Documented by User: Cali Dickinson Jr MINIATURE TRAIN DRIVER 07/27/22 15:49 Anesthesia Procedures Procedure/Date: 07/27/22 Intubation: Time Out Performed: Yes Consent: requested by attending/covering physician and emergency procedure Sedative (amount): versed (5) Paralytic (amount): rocuronium (30) Laryngoscope: Ruben ET Tube Size: 8 ET Tube Uncuffed: Yes Tube Secured Depth (cm): 24 Tube Secured Location: lips Tube Placement Confirmation: visualized tube passing through cords, equal breath sounds bilaterally, no breath sounds over epigastrium, confirmation by capnometry and color change noted Patient Tolerated Procedure: well Intubation Complications: none Additional Comments: 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 Pulled 7.5 ETT and placed 8.0 ETT pt tolerated well Documented by User: Franklin Watson 07/27/22 16:34 Anesthesia Procedures Procedure/Date: 07/27/22
[2022-07-27 16:18] LABS: ABG PCO2 41.1 mmHg (35-45); ABG PH Result 7.29 (7.35-7.45); Arterial Blood Gas Hematocrit 39.7 % (42-52); Base Excess ABG -6.2 mmol/L (-2.0-2.0); Blood Gas Allen Test Pos; Blood Gas Operator Identificat MONRO; Blood Gas Sample Site Not specified; Blood Gas Sample Type Arterial; Fractionated Inspired Oxygen 0.1 %; HGB O2 Sat 96.1 % (95-100); Ionized Calcium Level - ABG 1.2 mmol/L (1.1-1.4); Methemoglobin 0.5 % (0.4-1.5); Oxygen Device VENT; Oxygen Saturation ABG 97.6; PO2 ABG 97.1 mmHg (80.0-100.0); Potassium Level - ABG 3.2 mmol/L (3.5-5.0)
--- NOTE | 2022-07-27 16:35 | ANES.PROC ---
Anesthesia Procedures Procedure/Date: 07/27/22 Central Venous Insert: Central Venous Line: 3-lumen 7fr 20cm Time Out Performed: Yes Consent: emergency procedure Central Line: New Anesthesia monitors: pulse oximetry, EKG, BP cuff and oxygen Vein cannulated: right internal jugular Post procedure: Obtain Chest X-Ray Additional Comments: Seldinger tech, sterile prep, drape, gown and glove. Sutured in place. Patient tolerated well.
[2022-07-27 16:38] LABS: Basophils # 0.1 10^3/uL (0.0-0.1); Basophils % 0.5 %; Eosinophils # 0.2 10^3/uL (0.0-0.8); Eosinophils % 1.4 %; Hemoglobin 11.1 g/dL (11.7-16.6); Lymphocytes # 2.6 10^3/uL (0.8-4.8); Lymphocytes % 22.1 %; Mean Corpuscular HGB Conc 32.6 g/dL (30.0-36.0); Mean Corpuscular Hemoglobin 29.9 pg (28.0-34.0); Mean Corpuscular Volume 91.6 fl (80-94); Mean Platelet Volume 11.6 fL (7.4-10.4); Monocytes # 0.9 10^3/uL (0.2-0.9); Monocytes % 7.3 %; Neutrophils # 7.77 10^3/uL (1.8-7.7); Neutrophils % 66.4 %; Nucleated Red Blood Cells % 0 %; Platelet Count 145 10^3/cmm (130-400); Red Blood Count 3.71 10^6/uL (4.1-5.3); Red Cell Distribution Width 13.8 % (12.1-15.1); White Blood Count 11.7 10^3/uL (4.0-10.0)
--- NOTE | 2022-07-27 16:40 | PM.OP ---
Operative Report Date of procedure: July 27, 2022 Pre-op diagnosis: Preop Diagnosis cardiac arrest during transvenous pacemaker implantation with clinical evidence for suspected tamponade with noted pericardial effusion on transthoracic echo performed in the [employer] [facility]. Post-op diagnosis: other Post-op diagnosis: Hemopericardium Procedure done: Emergent subxiphoid pericardial window with 28 Filipino drain placement and evacuation of pericardial blood and clot Implants: 28 Filipino drain placed in the pericardial space Specimens removed/disposition: Clot and blood evacuated Pathology: none sent Anesthesia: General IV fluids: 3 units packed RBCs Complications: None Findings: Several hundred cc's of blood as well as clot were evacuated from the pericardial space Condition: critical Disposition: ICU Brief History: I was contacted by phone originally from the [employer] due to hemodynamic deterioration of Mr. Lee. Upon my arrival, blood pressure could not be recorded and heart rate was bradycardic in the 30s without palpable pulse. I was informed that a transthoracic echo had just been completed urgently and revealed evidence for pericardial fluid which not been noted on a prior study performed yesterday. This is been a challenging case for placement of the RV lead and perforation was suspected. I was informed there were no immediately available options for percutaneous approach to the pericardium, therefore I elected to proceed in a urgent fashion with a formal subxiphoid pericardial window. CPR was initiated upon my arrival. Procedure: Mr. Lee was rapidly prepped and draped as best we could given that active CPR was in progress. Formal timeout could not be completed given the urgent nature of the situation. Midline incision was made over the xiphoid process and carried down sharply with scalpel down to the fascia which was opened as well as to the xiphoid which was then split utilizing heavy scissors. Self-retaining retractors were then placed. We did have active suction by this time were able to dissected out the diaphragm down to the pericardium inferiorly whether #10 scalpel blade was used to open it with brisk return of both bright and dark blood. This was simply opened widely with Metzenbaum scissors and finger fracture with subsequent removal of clot. I was informed that approximately 6 to 800 cc or better was collected during this maneuver. There was returned to a pulse at the carotid as well as recordable blood pressure at approximately 80 and then over 100. I continue to widen the pericardial window. At this point we placed a 28 Filipino drain through a separate inferior incision into the pericardium posteriorly. I manually inspected pericardial window and utilized active suction with a Yankauer to remove any obvious remaining clot. At this time he was on inotropic support with high-dose dopamine. I placed a single right ventricular pacing wire and brought out through the skin and connected to external pacer wire with him able to paced at 90 bpm with improvement of his hemodynamics. Pacing wire and pericardial drain was secured to the skin. Wound was irrigated. I then closed the fascia with running 0 Vicryl suture in 2 layers. Subcutaneous tissue was closed in 1 layer 2-0 Vicryl suture. Skin was approximated with surgical yuli. Sterile dressing was applied. Following this, the previous pacemaker pocket was closed. Mr. Lee is then transported to the ICU in critical condition. He is understanding the Dr. Lowery has conferred with family. Dr. Garcia from our hospitalist service is also assisting with medical management. Given the urgent nature of the procedure I have recommended cefazolin 2 g IV now and every 8 hours and close monitoring for signs of infection both systemically and in surgical incisions. Outcome remains uncertain
[2022-07-27 16:59] LABS: Alanine Aminotransferase 292 U/L (0-41); Albumin Level 2.7 g/dL (3.5-5.2); Alkaline Phosphatase 90 U/L (40-130); Anion Gap 20.3 (5-19); Aspartate Amino Transferase 304 U/L (0-40); Blood Urea Nitrogen 24 mg/dL (8-23); Calcium 9.4 mg/dL (8.5-10.5); Carbon Dioxide 19 mmol/L (22-29); Chloride 105 mmol/L (98-107); Globulin 2.2 g/dL (1.3-4.6); Glucose 283 mg/dL (65-115); Osmolality Calculated 306 mOsm/kg (285-295); Potassium 3.3 mmol/L (3.5-5.1); Sodium 141 mmol/L (136-145); Total Bilirubin 0.8 mg/dL (0.15-1.2); Total Protein 4.9 g/dL (6.6-8.7)
--- NOTE | 2022-07-27 17:00 | USCV_ITS ---
Cali Lee Age: 82 Gender: M : 1940 Exam Date: 07/27/2022 17:17 Ordering Phys: Monty Lowery MD ([email or web address]) Technologist: Priscila Mae Exam Location: [facility] [place] Indication: AORTIC STENOSIS BP: 139 / 59 HR: 70 Rhythm: Atrial fibrillation Technical Quality: Adequate MEASUREMENTS (Male / Female) Normal Values 2D ECHO LVOT Diameter 2.0 cm LA Diameter 4.0 cm Aorta at Sinotubular Diameter 2.1 cm M-MODE Aortic Annulus Diameter 3.2 cm LA Ao Ratio MM 1.5 DOPPLER AV Peak Velocity 436.0 cm/s LVOT Peak Velocity 172.0 cm/s AV Area Cont Eq vti 1.0 cm squared AV Area Cont Eq pk 1.2 cm squared MV Area PHT 2.4 cm squared MV E' Velocity 93.0 cm/s TR Peak Velocity 274.8 cm/s TR Peak Gradient 30.2 mmHg TR Mean Velocity 211.3 cm/s TR Mean Gradient 18.9 mmHg TR Velocity Time Integral 66.0 cm TV Peak E Velocity 67.0 cm/s PV Peak Velocity 157.0 cm/s RV Acceleration Time 0.1 s RV Ejection Time 0.2 s RV AcT/ET 0.5 FINDINGS Left Ventricle Mild concentric ventricular hypertrophy. Normal LV ejection fraction of 75%. Right Ventricle Appears to have normal size ejection fraction Right Atrium Normal size Left Atrium Mildly dilated Mitral Valve Thickened mitral valve with moderate mitral annular calcification Aortic Valve Stenotic aortic valve. Peak velocity of 4.18 m/s with a peak gradient of 74 and a mean gradient of 46 mmHg .The aortic valve area was 0.92 cm squared Tricuspid Valve Mild tricuspid valve regurgitation. Pulmonic Valve No gross abnormalities noted Pericardium Trivial pericardial effusion Aorta Normal aortic annulus size. IVC Inferior vena cava not visualized. CONCLUSIONS 1. Severe aortic valve stenosis with a valve area of 0.92 cm squared; peak gradient of 74 with a mean gradient of 46 mmHg. 2. Normal LV size and ejection fraction 75%. 3. Mildly dilated left atrium. 4. Mild tricuspid regurgitation. 5. Trivial pericardial effusion Dr Monty Lowery MD FAC (Electronically Signed) Final Date: 27 July 2022 19:20 S
--- NOTE | 2022-07-27 17:44 | P.OP_ITS ---
Operative Report Date of procedure: July 27, 2022 Pre-op diagnosis: Preop Diagnosis symptomatic bradcardia, 3rd degree AV block Preop Diagnosis cardiac arrest during transvenous pacemaker implantation with clinical evidence for suspected tamponade with noted pericardial effusion on transthoracic echo performed in the [facility]. Procedure: LOCATION: Cardiac catheterization lab PREOPERATIVE DIAGNOSES: Symptomatic bradycardia/third-degree heart. POSTOPERATIVE DIAGNOSES: Same. COMPLICATIONS: Myocardial perforation/pericardial Tamponade ESTIMATED BLOOD LOSS: Around 600 milliliters. BRIEF HISTORY: 82-year-old white male with a history of hypertension and aortic valve stenosis presented with complaints of chest pain, increasing shortness of breath, dizziness, weakness and near syncopal episodes. He was found to be in third-degree heart block with heart rate in the low 40s and upper 30s. He had elevated BNP and troponin T. Cardiac catheterization revealed no significant obstructive coronary artery disease. For further management of his condition, a permanent pacemaker implantation was requested A dual chamber permanent pacemaker implantation was recommended for AV synchrony and symptom relief The procedure was explained to the patient in detail with the risks and benefits. The risks of bleeding, hematoma, vascular injury, infection, pneumothorax, myocardial perforation and other concomitant complications were explained in detail, which the patient understood well and consented to proceed. PROCEDURE DESCRIPTION: The patient was brought to the Cardiac Catheterization Lab. The left and the right side of the neck and the subclavian area were cleaned and draped in a sterile fashion. 1% Xylocaine was used as the local anesthetic agent. Left subclavian venogram was performed by injecting 20 milliliters of Omnipaque through the left antecubital vein. A left subclavian venous access was obtained using a micropuncture needle system, under venographic guidance. . A two-inch long incision was made 2.0 centimeters below the midclavicular region. By sharp and blunt dissection, a pacemaker pocket was made. A second venous access was obtained using another micropuncture needle system. Over the first guidewire, a 7-Setswana venous sheath with dilator was advanced. The venous dilator and the guidewire were taken out. A screw-in ventricular lead was advanced through the venous sheath . We had some difficulty in identifying the right location to place the pacemaker wire. His blood pressure was high in the beginning, in the 200 range. He was given a 10 mg of hydralazine for blood pressure control . But later on the blood pressure started dropping. He also was complaining of pain with a deep breathing. At this point, I aborted the procedure. An emergency echo was performed. He was found to have at least moderate pericardial effusion. We contacted Dr. Ocampo to perform an emergency pericardiotomy. While Dr. Ocampo was getting ready to perform the procedure, a brief period of CPR was performed since the pulse became nonpalpable and the blood pressure was not recordable. He was started on IV fluids and dopamine. He regained pulse and blood pressure in 3 minutes or so. He also got intubated this point. The pacemaker insertion procedure was aborted. The venous sheath and the leads were removed and we applied pressure over the insertion site with sterile precautions. Dr. Ocampo removed around 600 cc of blood from the pericardial sac. He inserted a pericardial drainage tube and epicardial pacing wires. The pacemaker insertion site was closed in layers. Patient was kept on the dopamine drip. He was moved to the ICU at this point. IV antibiotics was ordered. I discussed with the patient's family about the events in the [facility] and kept them appraised of his condition. I also discussed with Dr. Garcia, the primary attending about the patient's status and further management plan. At this point ,we will hold off on the permanent pacemaker implantation.
--- NOTE | 2022-07-27 17:55 | XRR_ITS ---
PROCEDURE INFORMATION: Exam: XR Chest Exam date and time: 07/27/2022 6:32 PM Age: 82 years old Clinical indication: Device placement; Ett placement (vent status); Additional info: Et and central line TECHNIQUE: Imaging protocol: Radiologic exam of the chest. Views: 1 view. COMPARISON: CR (CHEST, ) 07/26/2022 1:19 AM FINDINGS: Tubes, catheters and devices: Patient has undergone placement of an ET tube in satisfactory position 5 cm above the liss. There is a central line placed via a right jugular approach whose tip is projects over the junction of the SVC and azygos vein. Lungs: There is increasing perihilar and lower lobe haziness and ground-glass opacification and may be due to developing CHF pattern. Pleural spaces: There is no pneumothorax. Assessment for pleural effusions is limited in this of pine position patient. Heart/Mediastinum: Cardiac silhouette appears mildly enlarged Bones/joints: Unremarkable for age. XR/XR chest 1V portable [id number] IMPRESSION: Tubes and lines as discussed above.
--- NOTE | 2022-07-27 17:55 | PM.CCNAC ---
Critical Care Event Note Approximately around 2 PM today CODE JONG was called in the [facility]. Mr. Patino had been taken down for pacemaker placement. It is reported that there was a possible perforation during pacemaker lead placement. Patient developed cardiac tamponade. He had to have emergent pericardial window placement. Dr. Ocampo was called for the procedure. Please see operative note. 1500 cc blood loss. 3 units of packed RBCs given. Placed on dopamine drip. Intubated. Patient brought back to ICU to room 9. Blood pressure 80s over 29. Art line is placed. Levophed order placed. Versed ordered. Fentanyl ordered. Lactated Ringer bolus 500x1 ordered for increasing preload. Patient does have a history of aortic stenosis. Echo was done at bedside which showed aortic valve 1.1 cm? surface area. Patient is quite volume depleted. We will place on 125 cc/h lactated Ringer after initial 500 cc bolus. Map is between 55-60. CVP line in place. Vent settings FiO2 100, rate 14, tidal volume 500 at this time. ABG is pending. Repeat labs to be done at 8 PM CBC, CMP, lactic acid, magnesium. Family updated by myself and Dr. Lowery in person in [facility] waiting area and answered all questions to their satisfaction. Will consult critical care pantry attendant for help with ventilator management. Chest tube in place at this time. Draining about 300 cc of blood at this time. Continue to monitor CBC every 6 hours. Discussed at length with Dr. Espinoza, Dr. Lowery at the bedside. At this time patient is hemodynamically stable. Offical echo report pending. Operative notes pending. The high probability of a clinically significant, sudden or life threatening deterioration of the patient's [cardiovascular, respiratory] system(s) required my full and direct attention, intervention and personal management. The critical care time is as shown. This time is in addition to time spent performing any reported procedures but includes the following: [x] Data and vital sign review and interpretation [x] Patient assessment, examination and intervention [x] Documentation [x] Medication orders and management Critical Care Time Code activated: Yes Critical Care Time (min): 75 Procedures Arterial Line Size (Gauge): 20 Coding Level of Care Code Critical Care Other Coding Information Focused coding review requested Prolonged care (total time indicated above or notated here) and Shared care Time Spent (min) 75
--- NOTE | 2022-07-27 17:56 | PM.CONSULT ---
Providers/Reason For Consult Consulting Physician/Specialty*: Dallin Cabezas MD/pulmonary critical care Reason for Consult*: Vent and hemodynamic management Requesting Physician: Shadia Garcia MD Attending Physician: Shadia Garcia MD Primary Care Provider: Jack Gaspar MD History of Present Illness History of Present Illness Cali Lee is a 82 year old male With past medical history of severe arctic stenosis presented with chest pain, shortness of breath, dizziness and near syncopal episode on 07/26/2021. He was found to be bradycardic with heart rate in 40s by EMS, twelve-lead EKG showed variable heart block with LBBB which is new compared to EKG in January 2022. Also echocardiogram from January 2022 showed severe concentric LVH with EF 65% severe with ANAHI 0.96 cm?. Limited echocardiogram during this admission showed LV systolic function EF 60 to 65% with no regional wall motion abnormalities. There were no aortic valve Doppler studies to determine aortic stenosis this time. Cardiology were consulted for an in pacemaker placement. He underwent cardiac catheterization today morning which did not show any significant obstructive CAD. Unfortunately patient had cardiac arrest during transvenous pacemaker implantation with clinical evidence of suspected tamponade with noted pericardial effusion on transthoracic echo. CT surgery was consulted and formal subxiphoid pericardial window was placed. There was brisk region of approximately 1500 cc both bright and dark blood. 3 units of packed RBCs immediately patient pulse as well as blood pressure were recordable. A 28 Romanian drain was placed into posterior pericardium. A single right ventricular pacing wire was placed and connected to external pacer wire-paced at 90 bpm with improvement of his hemodynamics. Both pacing wire and pericardial drain was secured to the skin. Previous pacemaker pocket was closed. He was started on inotropic support with high-dose dopamine and Levophed Currently receiving cefazolin 2 g IV every 8 hours Critical care consult requested for ventilator as well as hemodynamic management Patient seen at bedside-intubated and sedated with fentanyl and Versed Pericardial drain site looks clean, about 200 cc output, no clots noted in the tube Currently patient is on dopamine 15 and Levophed 20 mcg and maintaining MAP 74; he is on external pacemaker and heart rate in line with pacemaker 70 bpm There is good urine output Other labs and imaging reviewed Review of Systems General: Reports: ROS unobtainable due to endotracheal tube, ROS unobtainable due to medical condition and ROS unobtainable due to mental status Medications/Allergies Home Medications Medication Instructions Recorded Confirmed Last Taken Type losartan 100 mg tablet 100 mg PO QAM 01/01/21 07/26/22 01/15/22 History rosuvastatin 5 mg tablet (Crestor) 5 mg PO QAM 01/01/21 07/26/22 01/15/22 History ascorbic acid (vitamin C) 500 mg 500 mg PO QPM 01/13/22 07/26/22 01/16/22 History tablet (Vitamin C) ferrous sulfate 325 mg (65 mg 325 mg PO BID 01/13/22 07/26/22 01/15/22 History iron) tablet (iron) multivitamin 1 tab PO QPM 01/13/22 07/26/22 01/15/22 History vin hinged knee brace #1 ea 04/07/22 07/26/22 Unknown Rx L.acidophil-L.casei-B.bifid-B.longum-FOS 1 cap PO QPM 07/26/22 07/26/22 Unknown History 2 billion cell-50 mg capsule (Probiotic Blend) Prevagen 1 cap PO DAILY 07/26/22 07/26/22 Unknown History Total Beets 2 tab PO QAM 07/26/22 07/26/22 Unknown History amlodipine 10 mg tablet 10 mg PO QAM 07/26/22 07/26/22 Unknown History aspirin 81 mg tablet,delayed 81 mg PO QAM 07/26/22 07/26/22 Unknown History release cholecalciferol (vitamin D3) 50 100 mcg PO QAM 07/26/22 07/26/22 Unknown History mcg (2,000 unit) capsule (Vitamin D3) coenzyme Q10 100 mg capsule 100 mg PO QAM 07/26/22 07/26/22 Unknown History (CoQ-10) fluticasone propionate 50 1 spray intranasal BID PRN Allergy 07/26/22 07/26/22 Unknown History mcg/actuation nasal Symptoms spray,suspension ginkgo biloba 40 mg tablet 40 mg PO QPM 07/26/22 07/26/22 Unknown History hydrocortisone 2.5 % topical cream 1 applic [place] BID PRN Hemorrhoids 07/26/22 07/26/22 Unknown History with perineal applicator indomethacin 50 mg capsule 50 mg PO QPM 07/26/22 07/26/22 Unknown History magnesium oxide 400 mg PO QPM 07/26/22 07/26/22 Unknown History nitroglycerin 0.4 mg sublingual 0.4 mg sublingual Q5M PRN Chest 07/26/22 07/26/22 Unknown History tablet (Nitrostat) Pain vitamin B complex 1 tab PO QPM 07/26/22 07/26/22 Unknown History Allergies Allergy/AdvReac Type Severity Reaction Status Date / Time hydrocodone Allergy ADR-Dizzine Verified 07/26/22 07:36 ss Current Medications Generic Name Dose Route Start Last Admin Trade Name Freq PRN Reason Stop Dose Admin Amlodipine Besylate 2.5 mg 07/26/22 09:30 07/27/22 08:31 Amlodipine 5 Mg Tablet PO 2.5 mg DAILY FABIANA Administration Aspirin 81 mg 07/26/22 09:00 07/27/22 08:31 Aspirin 81 Mg Ec Tablet PO 81 mg DAILY FABIANA Administration Atorvastatin Calcium 25 mg 07/26/22 09:00 07/27/22 08:32 Atorvastatin 40 Mg Tablet PO 25 mg DAILY FABIANA Administration Enoxaparin Sodium 40 mg 07/26/22 06:00 07/27/22 06:42 Enoxaparin 40 Mg/0.4 Ml Syringe SUBCUT Not Given Q24H FABIANA Furosemide 40 mg 07/26/22 08:30 07/27/22 17:53 Furosemide 10 Mg/Ml Sdv 4ml IVP Not Given Q12H FABIANA Sodium Chloride 1,000 mls @ 50 mls/hr 07/27/22 05:00 07/27/22 06:43 Sodium Chloride 0.9% IV 07/28/22 00:59 0 mls/hr .Q20H ONE Infusion Sodium Chloride 1,000 mls @ 100 mls/hr 07/27/22 06:38 07/27/22 17:51 Sodium Chloride 0.9% IV Not Given .Q10H FABIANA Fentanyl 1,000 mcg/ Sodium 100 mls @ 0 mls/hr 07/27/22 16:30 07/27/22 16:43 Chloride IV 25 mcg/hr .Q0M FABIANA 2.5 mls/hr Administration Protocol Per Protocol Midazolam HCl 100 mg/ Sodium 100 mls @ 0 mls/hr 07/27/22 16:30 07/27/22 16:42 Chloride IV 2 mg/hr .Q0M FABIANA 2 mls/hr Administration Protocol Per Protocol Norepinephrine Bitartrate 4 mg 254 mls @ 0 mls/hr 07/27/22 16:30 07/27/22 16:44 / Dextrose IV 2 mcg/min .Q0M FABIANA 7.62 mls/hr Administration Protocol Per Protocol Losartan Potassium 100 mg 07/26/22 09:00 07/27/22 08:31 Losartan 50 Mg Tablet PO 100 mg DAILY FABIANA Administration Nitroglycerin 0.5 inch 07/26/22 05:45 07/27/22 17:55 Nitroglycerin 1 Gm/Inch Oint Pkt TOPICAL Not Given Q6H FABIANA Pantoprazole Sodium 40 mg 07/26/22 09:00 07/27/22 08:[address] 40 Mg Tablet PO 40 mg DAILY FABIANA Administration PFSH Acute PFSH: Medical History Anemia Closed left hip fracture Depression History of prediabetes Hyperlipidemia Hypertension Hypertensive urgency Left bundle branch block Lip cancer Perforated ulcer of intestine Prostate cancer Swelling of both lower extremities Systolic murmur Third degree AV block Surgical History H/O left knee surgery History of left hip replacement History of total right hip arthroplasty S/P laparotomy Family History Other Cancer Social History Smoking and tobacco status: current every day smoker Alcohol intake: current Alcohol intake frequency: holidays/special occasions only Vitals/I&O/Wt Last Vital Signs Temp 98 F 07/27/22 11:48 Pulse 48 L 07/27/22 11:48 Resp 15 07/27/22 15:58 BP 155/62 07/27/22 11:48 Pulse Ox 93 07/27/22 15:58 O2 Del Method 07/27/22 11:48 O2 Flow Rate 3 07/27/22 08:18 FiO2 100 07/27/22 15:58 07/27/22 07/27/22 07/27/22 06:59 14:59 22:59 Intake Total 71.667 / 1361.667 Output Total 600 / 2170 1565 / 1565 Balance -528.333 / -808.333 -1565 / -1565 Weight last 48 hrs Weight 229 lb 14.4 oz Weight 216 lb Physical Exam Narrative: PHYSICAL EXAM: General: lying in bed, sedated and intubated. HEENT:NCAT, PERRLA, EOMI Neck: Supple Lungs: Clear, Heart: s1/s2, RRR Abd: soft, NT, ND, BS + Normoactive Extremities: No edema [employer]: sedated and limited [employer] exam possible. SKIN: no rash LDA: # CVC: Right IJ 07/27/2022 # Grewal: 07/27/2022 # A line: 07/27/2022 # Pacing wires: Right ventricular external pacemaker 07/27/2022 # Chest tubes: 28 Romanian pericardial drain 07/27/2022 Data 07/27/22 15:15 07/27/22 15:15 Other Labs: Radiology Impressions Chest X-Ray 07/27/22 17:55 IMPRESSION: Tubes and lines as discussed above. Laboratory Results WBC 11.7 10^3/uL (4.0-10.0) H 07/27/22 15:15 RBC 3.71 10^6/uL (4.1-5.3) L 07/27/22 15:15 Hgb 11.1 g/dL (11.7-16.6) L 07/27/22 15:15 Hct 34.0 % (42.0-52.0) L 07/27/22 15:15 MCV 91.6 fl (80-94) 07/27/22 15:15 MCH 29.9 pg (28.0-34.0) 07/27/22 15:15 MCHC 32.6 g/dL (30.0-36.0) 07/27/22 15:15 RDW 13.8 % (12.1-15.1) 07/27/22 15:15 Plt Count 145 10^3/cmm (130-400) 07/27/22 15:15 MPV 11.6 fL (7.4-10.4) H 07/27/22 15:15 Neut % (Auto) 66.4 % 07/27/22 15:15 Lymph % (Auto) 22.1 % 07/27/22 15:15 Hitchcock % (Auto) 7.3 % 07/27/22 15:15 Eos % (Auto) 1.4 % 07/27/22 15:15 Baso % (Auto) 0.5 % 07/27/22 15:15 Neut # (Auto) 7.77 10^3/uL (1.8-7.7) H 07/27/22 15:15 Lymph # (Auto) 2.6 10^3/uL (0.8-4.8) 07/27/22 15:15 Hitchcock # (Auto) 0.9 10^3/uL (0.2-0.9) 07/27/22 15:15 Eos # (Auto) 0.2 10^3/uL (0.0-0.8) 07/27/22 15:15 Baso # (Auto) 0.1 10^3/uL (0.0-0.1) 07/27/22 15:15 Nucleated RBC % (auto) 0 % 07/27/22 15:15 Nucleated RBCs # 0.0 /100WBC 07/27/22 15:15 PT 13.40 SECONDS (12.1-14.9) 07/26/22 01:25 INR 0.99 (0.8-1.2) 07/26/22 01:25 APTT 25.8 SECONDS (23.9-36.7) 07/26/22 01:25 D-Dimer 1.18 ug/mIFEU (0-0.59) H 07/26/22 01:25 Specimen Type Arterial 07/27/22 16:05 Sample Site Not specified 07/27/22 16:05 ABG pH 7.29 (7.35-7.45) L 07/27/22 16:05 ABG pCO2 41.1 mmHg (35-45) 07/27/22 16:05 ABG pO2 97.1 mmHg (80.0-100.0) 07/27/22 16:05 ABG HCO3 20.0 mmol/L (22-26) L 07/27/22 16:05 ABG O2 Saturation 97.6 07/27/22 16:05 ABG Base Excess -6.2 mmol/L (-2.0-2.0) L 07/27/22 16:05 Javier Test Pos 07/27/22 16:05 A-a O2 Gradient Not Reportable 07/27/22 16:05 Hematocrit 39.7 % (42-52) L 07/27/22 16:05 Hgb O2 Saturation 96.1 % (95-100) 07/27/22 16:05 Carboxyhemoglobin 1.0 %THgb (0.4-20.1) 07/27/22 16:05 Methemoglobin 0.5 % (0.4-1.5) 07/27/22 16:05 Total Hemoglobin 13.0 g/dL (14-18) L 07/27/22 16:05 Sodium 142.0 mmol/L (131-143) 07/27/22 16:05 Potassium 3.2 mmol/L (3.5-5.0) L 07/27/22 16:05 Glucose 255.0 mg/dL (70-115) H 07/27/22 16:05 Ionized Calcium 1.2 mmol/L (1.1-1.4) 07/27/22 16:05 O2 Delivery Device Vent 07/27/22 16:05 FiO2 0.1 % 07/27/22 16:05 Tidal Volume 0.50 07/27/22 16:05 PEEP 5.0 cmH20 07/27/22 16:05 Hand Spring [employer] ID [place]ro 07/27/22 16:05 Sodium 141 mmol/L (136-145) 07/27/22 15:15 Potassium 3.3 mmol/L (3.5-5.1) L 07/27/22 15:15 Chloride 105 mmol/L (98-107) 07/27/22 15:15 Carbon Dioxide 19 mmol/L (22-29) L 07/27/22 15:15 Anion Gap 20.3 (5-19) H 07/27/22 15:15 BUN 24 mg/dL (8-23) H 07/27/22 15:15 Creatinine 0.9 mg/dL (0.7-1.2) 07/27/22 15:15 GFR Calculation Not Reportable 07/27/22 15:15 Glucose 283 mg/dL (65-115) H 07/27/22 15:15 Calculated Osmolality 306 mOsm/kg (285-295) H 07/27/22 15:15 Calcium 9.4 mg/dL (8.5-10.5) 07/27/22 15:15 Magnesium 1.9 mg/dL (1.7-2.3) 07/27/22 02:19 Total Bilirubin 0.8 mg/dL (0.15-1.2) 07/27/22 15:15 AST 304 U/L (0-40) H 07/27/22 15:15 ALT 292 U/L (0-41) H 07/27/22 15:15 Alkaline Phosphatase 90 U/L (40-130) 07/27/22 15:15 Troponin T Baseline 36 ng/L (0-15) H 07/26/22 01:25 Troponin T 120 Minute 40.28 ng/L (0-15) H 07/26/22 03:42 Delta Troponin T 4.28 ABS# (0-10) 07/26/22 03:42 Troponin T Hi Sens 6Hr 48.47 ng/L (0-15) H 07/26/22 07:03 Troponin T Hi Sens 6Hr Delta 12.47 ng/L (0-12) H* 07/26/22 07:03 NT-Pro-B Natriuret Pep 3935 pg/mL (0-450) H 07/26/22 01:25 Total Protein 4.9 g/dL (6.6-8.7) L 07/27/22 15:15 Albumin 2.7 g/dL (3.5-5.2) L 07/27/22 15:15 Globulin 2.2 g/dL (1.3-4.6) 07/27/22 15:15 Blood Type O Positive 07/27/22 14:30 Rho(D) Type Positive 07/27/22 14:30 Antibody Screen Negative 07/27/22 14:30 Crossmatch See Detail 07/27/22 14:30 A&P Assessment and plan (1) Cardiac arrest: (2) Cardiogenic shock: (3) Respiratory failure: (4) Third degree AV block: (5) CHF (congestive heart failure): (6) Acute on chronic diastolic heart failure: (7) Aortic stenosis: Plan ASSESSMENT/PLAN: Overall: POD # 0 Overall: 82-year-old male with significant past medical history of aortic stenosis with valve area less than 1 cm? in January 2022 echocardiogram-presented to hospital with chest pain, shortness of breath-EKG showed left bundle branch block with intermittent complete heart wzuci-blvfokpyl-jedlbaqfq pacemaker placement-unfortunately complicated by possible RV free wall rupture-causing pericardial tamponade-resulting in cardiogenic shock and cardiac arrest. ROSC achieved followed by transient CPR and emergent pericardial window placement to decompress the pericardium. Patient was intubated and mechanically ventilated during cardiac arrest and transferred to ICU for close ICU monitoring Brought to CVICU intubated and sedated Sedation: Fentanyl 50 mcg and Versed 2 Mg Pressors and inotropes: Dopamine 15 and Levophed 20 mcg/hour LDA: # CVC : Right IJ 07/27/2022 # Grewal: Urine Grewal catheter 07/27/2022 # A line: Left radial 07/27/2022 # Pacing wires: 1 right ventricular pacing lead 07/27/2022 # Chest tubes: 28 Romanian pericardial drain 07/27/2022 Intra OP : 1. Crytalloids: 1000 cc 2. Blood products: 3 PRBC 3. EBL: 1500 cc 4. UOP: 500 cc 5. Airway: ETT 8 cm NEURO: # Acute post-op pain and sedation -Currently on fentanyl 50 mcg/hour gtt. -Also receiving Versed 2 Mg/hour #Other [employer] issues: None -Once patient is more hemodynamically stable-we will attempt a weaning trials to check for mentation; he had cardiac arrest for less than 5 minutes as per CODE BLUE team #PTOT: after extubation and when pt. able to tolerate PULM: # Acute respiratory insufficiency post cardiac arrest - Wean sedation and vent settings over next 24 hours - Saturating 99% on 100% FIO2: Tidal volume 400, PEEP 5 - AB.2 //-possibility of metabolic acidosis secondary to cardiac arrest - CXR postintubation-ET tube satisfactory; perihilar and lower lobe groundglass is suggestive of fluid overload - Follow ABG and CXR now and in AM - IS for volume expansion once extubated # Other Pulmonary issues: None CVS: #Cardiac arrest-ROSC achieved in 5 minutes #Secondary to cardiogenic shock #Secondary to pericardial tamponade-due to suspected RV rupture while placing permanent pacemaker #Pericardial tamponade-s/p decompressed with a pericardial window-and pericardial tube #Coronary catheterization today-nonobstructive CAD #Right ventricular pacing lead connected to external pacemaker-currently patient heart rate 70 bpm -Post op echo today: Severe aortic valve stenosis with a valve area of 0.92 cm squared;?peak gradient of 74 with a mean gradient of 46 mmHg.Normal LV EF 75%.Mildly dilated left atrium. Mild tricuspid regurgitation. Trivial pericardial effusion - Pressors/Inotropes: Levophed 20 mcg and dopamine 15 -Hold off anticoagulation until CT surgery clears - optimize hemodynamics, inotropes/vasopressors as needed - monitor chest tube output, resuscitate as needed -Patient has good urine output-no need for Lasix-maintain MAP > 65 -HTN: Hold off home blood pressure medications # Other CVS issues: Severe aortic valve stenosis with valve area 0.92 cm? with peak gradient 74 and mean gradient 44 -Once patient is optimized-can plan for TAVR nonurgently RENAL: # Renal functions: I/O/N since morning 1279/1565/-285 UOP/HR -100 cc/hour BUN/Cr -24/0.9 Electrolytes-K3.3/Mg 1.9 IVF: Received 1 L bolus and 3 PRBC during surgery-currently receiving Ringer lactate at 75 cc/hour; will transfuse albumin as well - monitor UOP for ODILON, oliguria and serum creatinine - replete electrolytes as needed GI: #Monitor for post op Ileus - Monitor electrolytes & supplement - OOB & PTOT once patient is extubated and can tolerate - BR:Senna # Nutrition: - NPO for now; - Clears when extubated, ADAT; # GI PPX/GERD: H2B ENDO: #h/o DM: A1C 7.6 in January 2022 #Moderately controlled sugars - FSBS Trend moderately controlled-started on insulin scale - Monitor sugars and adjust medications HEM: # Acute blood loss anemia #Suspected pericardial tamponade-decompression with pericardial window and drain-1500 cc bloody output noted -Received 3 unit PRBC -H&H - monitor H&H every 6 hours and chest tube output -resuscitate/transfuse as needed to keep H&H 05/03> # DVT prophylaxis - hold until specified by Surgery ID: No acute issues -Currently on perioperative abx-cefazolin 2 g IV every 8 for 2 days - trend fever and WBC count MSK: No acute issues Code Status: Full code ICU CHECKLIST: Problem list updated Verbal orders reviewed and signed Analgesia: Fentanyl Glycemic Control: Insulin scale coverage Nutrition: N.p.o. for now Restraint Renewal (within 24 hrs): Yes Ulcer Prophylaxis: PPI Chemical Thromboprophylaxis: Prophylaxis: Currently on hold as patient has pericardial drains with bloody output Mechanical Thromboprophylaxis: SCDs Need for Central line: For inotropes and pressors and multiple medications including sedation Need for Grewal catheter: For close urine output monitoring Critical Care Time (No Overlap): 78 min Consult Attestations Medical Necessity Statement: S/p cardiac arrest secondary to cardiac tamponade-requiring pericardial drain-intubated on mechanical ventilation as well as need close hemodynamic monitoring as patient is still in cardiogenic shock requiring pressors and inotropes Time Spent in Patient Care: Greater than 35 minutes (>than 50% of time spent in counselling and/or direct pt care on unit). Critical Care Time: This patient has a high probability of sudden, clinically significant deterioration of the patient's cardiac, pulmonary, renal, endocrine, which requires my full and direct attention, the highest level of physician preparedness to intervene urgently. I managed/supervised life or organ supporting interventions that required frequent physician assessment. I devoted my full attention in the ICU to the direct care of this patient for the period of time indicated above. Time I spent with family or surrogate(s) is included only if the patient was incapable of providing necessary information or participating in decision making. Time devoted to teaching and to any procedures I billed separately is not included. Services Provided: Telemetry review Mechanical Ventilation Hemodynamic interpretation, assessment and management Review and interpretation of CXR Review and interpretation of lab values Review and interpretation of microbiologic data and culture results Review of medications and administration Review and interpretation of Nutrition requirements and management Discussion of management with other consultants and services Clinical update to family members [x] Data and vital sign review and interpretation [x] Patient assessment, examination and intervention [x] Documentation [x] Medication orders and management Critical Care Time (min): 78 Procedures Arterial Line Size (Gauge): 20 Coding Level of Care Code Critical Care >/= 30 minutes Critical care time (in minutes): 78 The high probability of a clinically significant, sudden or life threatening deterioration, as referenced in this documentation, required my full and direct attention, intervention and personal management. The critical care time shown is in addition to time spent performing any reported separately billable procedures and includes the following: [x] Data and vital sign review and interpretation [x] Patient assessment, examination and intervention [x] Medication orders and management [x] Patient/Family updates as able [x] Care Coordination and Documentation. Other Coding Information Prolonged care (total time indicated above or notated here) Diagnoses Cardiac arrest I46.9 Cardiogenic shock R57.0 Respiratory failure J96.90 Third degree AV block I44.2 CHF (congestive heart failure) I50.9 Acute on chronic diastolic heart failure I50.33 Aortic stenosis I35.0 Time Spent (min) 78
[2022-07-27] MEDS: ceFAZolin 2,000 MG in sodium chloride 0.9% (plus) 50 ML 100 MG IV (18:02)
[2022-07-27] MEDS: lactated ringers 1,000 ML 75 ML IV (18:05)
--- NOTE | 2022-07-27 18:17 | PC.NURSE ---
Received Patient This nurse reported to [employer]. Pt went into cardiac arrest and was a code blue. Once pt stabilized they were brought back to ICU. Pt currently on Vent at 100% fio2, fent at 50, versed at 2, dopamine at 20 and levophed at 12. Pt's family is updated. Please refer to event notes.
[2022-07-27] MEDS: DOPamine drip 400 MG/250 ML PREMIX 39.11 MG IV (19:07)
[2022-07-27] MEDS: piperacillin-tazobactam 3.375 GM in sodium chloride 0.9% (plus) 50 ML IV (20:50)
[2022-07-27 22:20] LABS: Basophils % 0.2 %; Hematocrit 36.5 % (42.0-52.0); Hemoglobin 12.7 g/dL (11.7-16.6); Lymphocytes # 0.6 10^3/uL (0.8-4.8); Mean Corpuscular HGB Conc 34.8 g/dL (30.0-36.0); Mean Corpuscular Hemoglobin 31.1 pg (28.0-34.0); Mean Corpuscular Volume 89.2 fl (80-94); Mean Platelet Volume 11.1 fL (7.4-10.4); Monocytes % 10.7 %; Neutrophils # 16.01 10^3/uL (1.8-7.7); Neutrophils % 85.7 %; Nucleated Red Blood Cells % 0 %; Platelet Count 172 10^3/cmm (130-400); Red Blood Count 4.09 10^6/uL (4.1-5.3); Red Cell Distribution Width 13.7 % (12.1-15.1); White Blood Count 18.7 10^3/uL (4.0-10.0)
[2022-07-27 22:25] LABS: Alanine Aminotransferase 293 U/L (0-41); Albumin Level 2.9 g/dL (3.5-5.2); Alkaline Phosphatase 87 U/L (40-130); Anion Gap 19.8 (5-19); Aspartate Amino Transferase 269 U/L (0-40); Blood Urea Nitrogen 30 mg/dL (8-23); Calcium 8.7 mg/dL (8.5-10.5); Carbon Dioxide 19 mmol/L (22-29); Chloride 103 mmol/L (98-107); Globulin 2.5 g/dL (1.3-4.6); Glucose 345 mg/dL (65-115); Lactate (Lactic Acid level) 2.3 mmol/L (0.5-2.2); Osmolality Calculated 306 mOsm/kg (285-295); Potassium 3.8 mmol/L (3.5-5.1); Sodium 138 mmol/L (136-145); Total Bilirubin 0.8 mg/dL (0.15-1.2); Total Protein 5.4 g/dL (6.6-8.7)
[2022-07-28] VITALS (114 sets, daily range): BP systolic 95–164; BP diastolic 52–78; PULSE 67–81; RESP 15; TEMP 36.4–36.6; O2SAT 97–100
--- NOTE | 2022-07-28 01:10 | PC.NURSE ---
MD okayed to non admit nitro paste and PO meds this evening. Advised to allow day shift to assess needs of OG tube.
[2022-07-28] MEDS: lactated ringers 1,000 ML 75 ML IV (01:23)
[2022-07-28 02:38] LABS: Glucose Point of Care 326 mg/dL (70-110)
[2022-07-28 03:21] LABS: Basophils % 0.2 %; Hematocrit 34.4 % (42.0-52.0); Hemoglobin 12.1 g/dL (11.7-16.6); Lymphocytes # 0.8 10^3/uL (0.8-4.8); Lymphocytes % 6.2 %; Mean Corpuscular HGB Conc 35.2 g/dL (30.0-36.0); Mean Corpuscular Hemoglobin 30.9 pg (28.0-34.0); Mean Platelet Volume 10.7 fL (7.4-10.4); Monocytes # 1.4 10^3/uL (0.2-0.9); Monocytes % 11.3 %; Neutrophils # 10.24 10^3/uL (1.8-7.7); Neutrophils % 81.6 %; Nucleated Red Blood Cells % 0 %; Platelet Count 160 10^3/cmm (130-400); Red Blood Count 3.91 10^6/uL (4.1-5.3); Red Cell Distribution Width 13.7 % (12.1-15.1); White Blood Count 12.6 10^3/uL (4.0-10.0)
[2022-07-28 03:37] LABS: Base Excess ABG -1.8 mmol/L (-2.0-2.0); Blood Gas Operator Identificat JB; Blood Gas Sample Site Not specified; Blood Gas Sample Type Arterial; Ionized Calcium Level - ABG 1.2 mmol/L (1.1-1.4); Oxygen Device VENT; Potassium Level - ABG 3.9 mmol/L (3.5-5.0)
[2022-07-28 03:38] LABS: Anion Gap 17.1 (5-19); Blood Urea Nitrogen 33 mg/dL (8-23); Calcium 8.2 mg/dL (8.5-10.5); Carbon Dioxide 21 mmol/L (22-29); Chloride 102 mmol/L (98-107); Glucose 371 mg/dL (65-115); Osmolality Calculated 304 mOsm/kg (285-295); Potassium 4.1 mmol/L (3.5-5.1); Sodium 136 mmol/L (136-145)
[2022-07-28 03:39] LABS: Alveolar-Arterial Oxygen Gradi 23.8 mmHg (5-10); Arterial Blood Gas Hematocrit 27.6 % (42-52); HCO3 ABG 22.8 mmol/L (22-26); HGB O2 Sat 97.9 % (95-100); Methemoglobin 0.7 % (0.4-1.5); Oxygen Saturation ABG 99.6
[2022-07-28] MEDS: piperacillin-tazobactam 3.375 GM in sodium chloride 0.9% (plus) 50 ML IV (04:19)
[2022-07-28] MEDS: DOPamine drip 400 MG/250 ML PREMIX 15.64 MG IV (04:42)
[2022-07-28] MEDS: chlorhexidine gluconate 4% Btl 118 mL 1 APPLIC TOPICAL (05:04)
--- NOTE | 2022-07-28 06:29 | PM.PN ---
Subjective Subjective: Nursing service reports uneventful night. Dopamine is now down to 3 mics per cake per minute. Levophed is also being decreased. Systolic blood pressure by A-line is approximate 100 and by cuff approximate 120. Heart rate is 71 and paced. Pericardial drain output approximate 300 cc overnight. Nursing service reports that he is open his eyes spontaneously and move all extremities spontaneously. He currently is on sedation. FiO2 requirements have decreased to 50%. Follow-up laboratory data revealed H&H is stable. Potassium is also now in normal range. By ABG, acidosis has corrected. Serum glucose this morning was over 300. Vitals/I&O/Wt Last Vital Signs Temp 98 F 07/27/22 11:48 Pulse 73 07/28/22 02:00 Resp 15 07/28/22 02:41 BP 146/52 07/28/22 02:00 Pulse Ox 98 07/28/22 02:41 O2 Del Method 07/27/22 11:48 O2 Flow Rate 3 07/27/22 08:18 FiO2 50 07/28/22 04:00 07/27/22 07/27/22 07/28/22 14:59 22:59 06:59 Intake Total 1508.095 / 1508.095 551.259 / 2059.354 Output Total 1565 / 1565 500 / 2065 265 / 2330 Balance -1565 / -1565 1008.095 / -556.905 286.259 / -270.646 Data 07/28/22 03:05 07/28/22 03:05 A&P Assessment and plan (1) Pericardial effusion with cardiac tamponade: Postop day 1 status post emergent subxiphoid pericardial window and evacuation of pericardial effusion and tamponade relief Recommendation: I would recommend initiating cardiac surgery IV insulin protocol for his elevated serum glucose and would maintain that for the interim. Medical management continues from our colleagues, Dr. Cabezas from intensive care medicine, Dr. Garcia from the hospital service, and Dr. Lowery from our cardiology service. Attestations Medical Necessity Statement*: Status post urgent pericardial window for cardiac tamponade Procedures Arterial Line Size (Gauge): 20 Coding Level of Care Code Acute Code for Chg Fwd Diagnoses Pericardial effusion with cardiac tamponade I31.39; I31.4
--- NOTE | 2022-07-28 07:08 | XRR_ITS ---
PROCEDURE INFORMATION: Exam: XR Chest Exam date and time: 07/28/2022 7:22 AM Age: 82 years old Clinical indication: Condition or disease; Lung condition and disease; Pneumonia TECHNIQUE: Imaging protocol: Radiologic exam of the chest. Views: 1 view. COMPARISON: CR (CHEST, ) 07/27/2022 6:32 PM FINDINGS: Tubes, catheters and devices: New feeding tube with its tip overlying the stomach. Numerous clips by the GE junction. Central venous catheter with its tip possibly the origin the superior vena cava. Endotracheal tube 7 cm above the liss at the level clavicles. Lungs: Small amount of infiltrate improved in the right perihilar region. Infiltrate is stable in the left base. Pleural spaces: Stable left pleural effusion with no right pleural effusion pneumothorax. Heart/Mediastinum: Is cardiomegaly. Bones/joints: Unremarkable. Soft tissues: New skin yuli incompletely seen overlying the mid upper abdomen. XR/XR chest 1V portable [id number] IMPRESSION: 1. Stable left lung. 2. New feeding tube with other tubes as above. 3. Improvement in the right lung infiltrate in the perihilar region.
--- NOTE | 2022-07-28 08:21 | PM.PN ---
Subjective Subjective: Patient did well through the night. He is currently on FiO2 of 40%. Oxygen saturation is around 100. Blood pressure is 128/78. He is off dopamine. Currently on Levophed of 12 mics per/kg per minute. The dose of the Levophed is being tapered off. He appears to be in intermittent sinus rhythm. The urine output is improving. He was waking up and moving all extremities. Since he got agitated, placed back on the sedation. There is a total of around 300 cc of fluid drained from the pericardium after the surgery. Within the last 12 hours, there was around 20 cc of serosanguineous drainage from the pericardium. Medications: Medication Review Details: Current Medications Acetaminophen (Acetaminophen 325 Mg Tablet) 650 mg PO Q6H PRN PRN Reason: Mild/Mod Pain Or Temp >/= 101 Amlodipine Besylate (Amlodipine 5 Mg Tablet) 2.5 mg PO DAILY [facility] Last Admin: 07/27/22 08:31 Dose: 2.5 mg Aspirin (Aspirin 81 Mg Ec Tablet) 81 mg PO DAILY [facility] Last Admin: 07/27/22 08:31 Dose: 81 mg Atorvastatin Calcium (Atorvastatin 40 Mg Tablet) 25 mg PO DAILY [facility] Last Admin: 07/27/22 08:32 Dose: 25 mg Chlorhexidine Gluconate (Chlorhexidine Gluconate 4% Btl 118 Ml) 1 applic TOPICAL DAILY [facility] Last Admin: 07/28/22 05:04 Dose: 1 applic Dextrose (Dextrose 50% Syringe 50 Ml) 25 ml IVP ONCE PRN; Protocol PRN Reason: hypoglycemia protocol Dextrose (Dextrose 50% Syringe 50 Ml) 50 ml IVP PRN PRN; Protocol PRN Reason: hypoglycemia protocol Glucagon (Glucagon 1 Mg/Ml Inj 1 Ml) 1 mg IM ONCE PRN; Protocol PRN Reason: Adult Acute Hypoglycemia Prot. Fentanyl 1,000 mcg/ Sodium (Chloride) 100 mls @ 0 mls/hr IV .Q0M [facility]; Protocol Last Admin: 07/28/22 05:07 Dose: 75 mcg/hr, 7.5 mls/hr Midazolam HCl 100 mg/ Sodium (Chloride) 100 mls @ 0 mls/hr IV .Q0M [facility]; Protocol Last Titration: 07/27/22 19:15 Dose: 3 mg/hr, 3 mls/hr Piperacillin Sod/Tazobactam (Sod 3.375 gm/ Sodium Chloride) 50 mls @ 12.5 mls/hr IV Q8H [facility]; Protocol Last Admin: 07/28/22 04:19 Dose: 12.5 mls/hr Norepinephrine Bitartrate 4 mg (/ Dextrose) 254 mls @ 0 mls/hr IV .Q0M [facility]; Protocol Last Admin: 07/28/22 07:47 Dose: 14 mcg/min, 53.34 mls/hr Dopamine HCl/Dextrose (Intropin Drip) 400 mg in 250 mls @ 19.553 mls/hr IV CONT [facility]; Protocol Last Titration: 07/28/22 06:00 Dose: 2 mcg/kg/min, 7.82 mls/hr Dextrose (D5w) 500 mls @ 100 mls/hr IV ONCE PRN; Protocol PRN Reason: Adult Acute Hypoglycemia Prot Lactated Ringer's (Lactated Ringers) 1,000 mls @ 75 mls/hr IV .[id number] [facility] Last Admin: 07/28/22 01:23 Dose: 75 mls/hr Insulin Human Lispro (Insulin Lispro 100 Unit/1 Ml) 0 unit SUBCUT TIDWM [facility]; Protocol Losartan Potassium (Losartan 50 Mg Tablet) 100 mg PO DAILY [facility] Last Admin: 07/27/22 08:31 Dose: 100 mg Naloxone HCl (Naloxone 0.4 Mg/Ml Sdv) 0.1 mg IVP Q2M PRN PRN Reason: OPIATERV Ondansetron HCl (Ondansetron 2 Mg/Ml Sdv 2 Ml) 4 mg IVP Q8H PRN PRN Reason: vomiting, or N/V if npo Pantoprazole Sodium (Pantoprazole Dr 40 Mg Tablet) 40 mg PO DAILY [facility] Last Admin: 07/27/22 08:31 Dose: 40 mg Senna (Sennosides 8.6 Mg Tablet) 8.6 mg PO BEDTIME [facility] Last Admin: 07/27/22 22:54 Dose: Not Given Vitals/I&O/Wt Last Vital Signs Temp 97.9 F 07/28/22 08:10 Pulse 73 07/28/22 08:10 Resp 15 07/28/22 05:00 BP 129/63 07/28/22 08:10 Pulse Ox 100 07/28/22 05:20 O2 Del Method 07/27/22 11:48 O2 Flow Rate 3 07/27/22 08:18 FiO2 50 07/28/22 06:00 07/27/22 07/28/22 07/28/22 22:59 06:59 14:59 Intake Total 1508.095 / 1508.095 571.591 / 2079.686 254 / 254 Output Total 500 / 2065 265 / 2330 Balance 1008.095 / -556.905 306.591 / -250.314 254 / 254 Physical Exam Narrative: GENERAL: The patient is intubated and sedated HEENT: No significant pallor, icterus or lymphadenopathy.pupils are somewhat constricted but reactive to light. Oral cavity: There are no mucous membrane lesions. NECK: Trachea appears to be central. No masses noted. No JVD or thyromegaly appreciated. RESPIRATORY: Chest is symmetrical. No intercostals muscle retraction or any accessory muscle activation. Breath sounds are heard bilaterally. No rales or rhonchi BREASTS: Deferred. HEART: Ejection systolic murmur grade 4/6 in the aortic area. No diastolic murmurs. No pericardial rub. ABDOMEN: No vessel pulsations or distention. No tenderness. No organomegaly appreciated. Bowel sounds are normally heard. : Deferred. RECTAL: Deferred. LYMPHATIC: No lymphadenopathy noted in the neck. EXTREMITIES: No edema or cyanosis. No clubbing. MUSCULOSKELETAL: No acute joint deformities or swelling SKIN: There are no significant rashes or ecchymosis NEUROPSYCHIATRIC: The patient is intubated and sedated. Has been moving all the extremities. Data 07/28/22 03:05 07/28/22 03:05 Other Labs: Laboratory Last Values WBC 12.6 10^3/uL (4.0-10.0) H 07/28/22 03:05 RBC 3.91 10^6/uL (4.1-5.3) L 07/28/22 03:05 Hgb 12.1 g/dL (11.7-16.6) 07/28/22 03:05 Hct 34.4 % (42.0-52.0) L 07/28/22 03:05 MCV 88.0 fl (80-94) 07/28/22 03:05 MCH 30.9 pg (28.0-34.0) 07/28/22 03:05 MCHC 35.2 g/dL (30.0-36.0) 07/28/22 03:05 RDW 13.7 % (12.1-15.1) 07/28/22 03:05 Plt Count 160 10^3/cmm (130-400) 07/28/22 03:05 MPV 10.7 fL (7.4-10.4) H 07/28/22 03:05 Neut % (Auto) 81.6 % 07/28/22 03:05 Lymph % (Auto) 6.2 % 07/28/22 03:05 Hamlin % (Auto) 11.3 % 07/28/22 03:05 Eos % (Auto) 0.0 % 07/28/22 03:05 Baso % (Auto) 0.2 % 07/28/22 03:05 Neut # (Auto) 10.24 10^3/uL (1.8-7.7) H 07/28/22 03:05 Lymph # (Auto) 0.8 10^3/uL (0.8-4.8) 07/28/22 03:05 Hamlin # (Auto) 1.4 10^3/uL (0.2-0.9) H 07/28/22 03:05 Eos # (Auto) 0.0 10^3/uL (0.0-0.8) 07/28/22 03:05 Baso # (Auto) 0.0 10^3/uL (0.0-0.1) 07/28/22 03:05 Nucleated RBC % (auto) 0 % 07/28/22 03:05 Nucleated RBCs # 0.0 /100WBC 07/28/22 03:05 PT 13.40 SECONDS (12.1-14.9) 07/26/22 01:25 INR 0.99 (0.8-1.2) 07/26/22 01:25 APTT 25.8 SECONDS (23.9-36.7) 07/26/22 01:25 D-Dimer 1.18 ug/mIFEU (0-0.59) H 07/26/22 01:25 Specimen Type Arterial 07/28/22 03:15 Sample Site Not specified 07/28/22 03:15 ABG pH 7.40 (7.35-7.45) 07/28/22 03:15 ABG pCO2 37.0 mmHg (35-45) 07/28/22 03:15 ABG pO2 123.0 mmHg (80.0-100.0) H 07/28/22 03:15 ABG HCO3 22.8 mmol/L (22-26) 07/28/22 03:15 ABG O2 Saturation 99.6 07/28/22 03:15 ABG Base Excess -1.8 mmol/L (-2.0-2.0) 07/28/22 03:15 Javier Test N/a 07/28/22 03:15 A-a O2 Gradient 23.8 mmHg (5-10) H 07/28/22 03:15 Hematocrit 27.6 % (42-52) L 07/28/22 03:15 Hgb O2 Saturation 97.9 % (95-100) 07/28/22 03:15 Carboxyhemoglobin 1.0 %THgb (0.4-20.1) 07/28/22 03:15 Methemoglobin 0.7 % (0.4-1.5) 07/28/22 03:15 Total Hemoglobin 9.0 g/dL (14-18) L 07/28/22 03:15 Sodium 137.0 mmol/L (131-143) 07/28/22 03:15 Potassium 3.9 mmol/L (3.5-5.0) 07/28/22 03:15 Glucose 385.0 mg/dL (70-115) H 07/28/22 03:15 Ionized Calcium 1.2 mmol/L (1.1-1.4) 07/28/22 03:15 O2 Delivery Device Vent 07/28/22 03:15 FiO2 50.0 % 07/28/22 03:15 Tidal Volume 0.50 07/28/22 03:15 PEEP 5.0 cmH20 07/28/22 03:15 Gas Load Dispatcher ID Chapin 07/28/22 03:15 Sodium 136 mmol/L (136-145) 07/28/22 03:05 Potassium 4.1 mmol/L (3.5-5.1) 07/28/22 03:05 Chloride 102 mmol/L (98-107) 07/28/22 03:05 Carbon Dioxide 21 mmol/L (22-29) L 07/28/22 03:05 Anion Gap 17.1 (5-19) 07/28/22 03:05 BUN 33 mg/dL (8-23) H 07/28/22 03:05 Creatinine 1.1 mg/dL (0.7-1.2) 07/28/22 03:05 GFR Calculation Not Reportable 07/28/22 03:05 Glucose 371 mg/dL (65-115) H 07/28/22 03:05 POC Glucose 368 mg/dL (70-110) H 07/28/22 08:38 Calculated Osmolality 304 mOsm/kg (285-295) H 07/28/22 03:05 Lactate 2.3 mmol/L (0.5-2.2) H 07/27/22 21:10 Calcium 8.2 mg/dL (8.5-10.5) L 07/28/22 03:05 Magnesium 1.9 mg/dL (1.7-2.3) 07/27/22 02:19 Total Bilirubin 0.8 mg/dL (0.15-1.2) 07/27/22 21:10 AST 269 U/L (0-40) H 07/27/22 21:10 ALT 293 U/L (0-41) H 07/27/22 21:10 Alkaline Phosphatase 87 U/L (40-130) 07/27/22 21:10 Troponin T Baseline 36 ng/L (0-15) H 07/26/22 01:25 Troponin T 120 Minute 40.28 ng/L (0-15) H 07/26/22 03:42 Delta Troponin T 4.28 ABS# (0-10) 07/26/22 03:42 Troponin T Hi Sens 6Hr 48.47 ng/L (0-15) H 07/26/22 07:03 Troponin T Hi Sens 6Hr Delta 12.47 ng/L (0-12) H* 07/26/22 07:03 NT-Pro-B Natriuret Pep 3935 pg/mL (0-450) H 07/26/22 01:25 Total Protein 5.4 g/dL (6.6-8.7) L 07/27/22 21:10 Albumin 2.9 g/dL (3.5-5.2) L 07/27/22 21:10 Globulin 2.5 g/dL (1.3-4.6) 07/27/22 21:10 Blood Type O Positive 07/27/22 14:30 Rho(D) Type Positive 07/27/22 14:30 Antibody Screen Negative 07/27/22 14:30 Crossmatch See Detail 07/27/22 14:30 Other data: Chest [id number] as 1. Stable left lung. 2. New feeding tube with other tubes as above. 3. Improvement in the right lung infiltrate in the perihilar region. A&P Assessment and plan (1) Pericardial effusion with cardiac tamponade: Status post pericardiectomy with a pericardial drainage placement. Currently has only very minimal drainage. Patient is fairly stable, hemodynamically. According to Dr. Ocampo, the drainage tube can come out. (2) Symptomatic bradycardia: Patient seems intermittent the degree heart block. During the sinus rhythm, his blood pressure seems to be in the normal range. As he starts V pacing, the pressure drops most likely related to the severe diastolic dysfunction (3) Severe aortic valve stenosis: LV ejection fraction was normal the echocardiogram. The peak gradient across the aortic valve was 74 mmHg with a mean gradient of 46 and a valve area of 0.92 cm?. This patient requires valve surgery as early as possible in view of his high degree AV block and heart failure (4) Acute on chronic diastolic heart failure: May continue the current treatment (5) Elevated troponin: Most likely related to type II IA. No significant obstructive coronary artery disease by angiogram Plan Patient requires a dual-chamber pacemaker insertion and aortic valve replacement. I discussed the patient's condition with Dr. Hinojosa at the [facility]. Since we do not do valve surgery, it would be appropriate for him to be transferred to [facility] where they can perform both valve intervention and pacemaker insertion. Dr. Hinojsoa is willing to accept his transfer for further management. I also discussed with the patient's , Crow about his current status and further management plan. Ms. Maria is willing for him to be transferred to the [facility] in [place] for further management of his valve and the pacemaker insertion. Discussed with Dr. Garcia and Dr. Morales regarding further management plans. Both concurred with the plan. We will make arrangements for him to be transferred to the [facility] ICU for further evaluation management. Attestations Medical Necessity Statement*: Possible transfer to the [facility] today Procedures Arterial Line Size (Gauge): 20 Coding Level of Care Code 83454 Diagnoses Pericardial effusion with cardiac tamponade I31.39; I31.4 Symptomatic bradycardia R00.1 Severe aortic valve stenosis I35.0 Acute on chronic diastolic heart failure I50.33 Elevated troponin R77.8
[2022-07-28 08:40] LABS: Glucose Point of Care 368 mg/dL (70-110)
[2022-07-28] MEDS: insulin lispro 100 unit/1 mL SUBCUT (09:01)
[2022-07-28] MEDS: pantoprazole DR 40 mg Tablet PO (09:02)
[2022-07-28] MEDS: atorvastatin 40 mg Tablet 25 MG PO (09:02)
[2022-07-28] MEDS: aspirin 81 mg EC Tablet PO (09:02)
[2022-07-28] MEDS: albumin 50 G/200 ML VIAL IV (09:08)
[2022-07-28 09:58] LABS: Glucose Point of Care 367 mg/dL (70-110)
[2022-07-28] MEDS: insulin regular-human 250 UNIT in sodium chloride 0.9% 250 ML 9.2 UNIT IV (10:18)
[2022-07-28 11:03] LABS: Glucose Point of Care 305 mg/dL (70-110)
--- NOTE | 2022-07-28 11:26 | P.TS_ITS ---
Transfer Summary Providers Date of Admission: 07/26/22 03:57 Date of Discharge/Transfer: 07/28/22 Attending Provider at Admission: Stephy Graves MD Attending Provider at Transfer: Shadia Garcia MD Primary Care Provider: Jack Gaspar MD Transfer Plans: Anticipated date of transfer: 07/28/22 . Receiving Facility: [facility] . Receiving Provider: Dr. aJck Hinojosa . Diagnoses at Discharge Discharge Diagnosis (1) Pericardial effusion with cardiac tamponade: Status: Acute (2) Symptomatic bradycardia: Status: Acute (3) Severe aortic valve stenosis: Status: Acute (4) Acute on chronic diastolic heart failure: Status: Acute (5) Elevated troponin: Status: Acute Reason for Visit Reason for Visit CP Brief History: As per Dr. Graves Admitting Physician Cali Lee is a 82 year old male with a past medical history of severe aor tic stenosis currently presenting with chest pain that started in the morning.? Initially patient developed pain at around 8 AM, took a nitro which appears to have relieved his symptoms.? Then again needing another nitro at noon.? By 11 PM he was having chest pain again this time not relieved by nitro when he presented to the emergency room.? Patient denies any palpitations or syncope.? ROS + dysp zohaib.? No apparent aggravating or relieving factors.? He was found to be bradycardic by EMS.? Twelve-lead EKG here showed variable heart block, LBBB.? This is new compared to January 2022.? Echocardiogram from January 2022 was with severe concentric LVH with EF of 65%.? Severe with ANAHI 0.96 cm?.? Baseline troponin was at 36, 2-hour trend at 40 with a delta of 4.? Hospital Course Hospital Course Patient was admitted for 2 days of chest pain and dyspnea. He was noted to be bradycardic with heart rate in the 40s upon admission. Symptoms partially relieved by taking nitro. 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 He did have an angiogram done 5 years ago in [place] which showed nonobstructive coronary artery disease that is on medical management. No stents were placed at the time. There was clinical evidence of CHF with lower extremity edema chest x-ray showing bilateral congestion therefore patient was started on Lasix. He was seen by cardiology due to fluid overload plan was to diurese him with Lasix 40 IV BID before pacemaker placement. Echo was ordered to evaluate for evaluating his aortic stenosis. Patient was prediabetic and not on any medications at home for diabetes. Patient underwent cardiac angiogram: Coronary angiography reveals right coronary artery dominance.? The left main coronary artery is normal.? There is a ramus intermedius artery which is normal.? Circumflex contains very minimal luminal irregularities.? The LAD contains very minimal luminal irregularities.? The right coronary artery is a very large dominant vessel and ends distally as the posterior descending artery and a posterior left ventricular branch.? There are minor diffuse luminal irregularities.? There is a 50% stenosis in the mid posterior left ventricular branch.? No left ventriculogram was done due to the complete heart block. Limited echo initially obtained showed: This is a limited echocardiogram performed to assess LV systolic ?function ?LV systolic function is normal with EF of 60 to 65%.? No ?regional wall motion abnormalities are seen. ?Compared to prior echocardiogram from 01/20/2022, no significant ?changes in LV systolic function are seen. Around 2 PM on 07/27 2022 patient was taken for pacemaker placement and DEDE SUNSHINE was called. There is a possible perforation during pacemaker lead placement. Patient developed cardiac tamponade and required emergent pericardial window placement. 1500 cc blood loss 3 units packed RBC given. Patient intubated. So far overnight there has been total 20 cc output and pericardial drain. Total 300 cc since drain placement on 07/27 2022. Initially patient was on dopamine and Levophed and now Levophed is running at a rate of 14 and dopamine has been turned off completely. Blood sugars have been elevated this morning and 300 range and therefore insulin drip protocol has been started. Serum ketones have been ordered but they are pending. Patient was not in any antihyperglycemics at home. We will be checking for hemoglobin A1c as well. Currently on 3 of Versed, 75 of fentanyl, 14 of Levophed. Being continued on zosyn for empiric coverage. Patient is being paced at 70. Repeat echo completed which shows: CONCLUSIONS ?1.? Severe aortic valve stenosis with a valve area of 0.92 cm squared; ?peak gradient of 74 with a mean gradient of 46 mmHg. ?2.? Normal LV size and ejection fraction 75%. ?3.? Mildly dilated left atrium. ?4.? Mild tricuspid regurgitation. ?5.? Trivial pericardial effusion Dr. Lowery from cardiology discussed case with Dr. Hinojosa at [facility] who is general see separate the patient for transfer to his CVICU for possible TAVR and further management with potential leadless pacemaker placement. Dr. Lowery discussed with patient's who consented for the transfer. RN updated. We will transfer patient at this time to [facility] to CVICU. Please see operative notes below from cardiology and CT surgery. Cardiology: July 27, 2022 Pre-op diagnosis: Preop Diagnosis ? symptomatic bradcardia, 3rd degree AV block ? ?? Preop Diagnosis ? cardiac arrest during transvenous pacemaker implantation with clinical evidence for suspected tamponade with noted pericardial effusion on transthoracic echo performed in the [employer] [facility]. ?? Procedure: LOCATION: Cardiac catheterization lab PREOPERATIVE DIAGNOSES: Symptomatic bradycardia/third-degree heart. POSTOPERATIVE DIAGNOSES: Same. COMPLICATIONS: Myocardial perforation/pericardial Tamponade ESTIMATED BLOOD LOSS: Around 600 milliliters. BRIEF HISTORY: 82-year-old white male with a history of hypertension and aortic valve stenosis presented with complaints of chest pain, increasing shortness of breath, dizziness, weakness and near syncopal episodes.? He was found to be in third-degree heart block with heart rate in the low 40s and upper 30s.? He had elevated BNP and troponin T.? Cardiac catheterization revealed no significant obstructive coronary artery disease.? For further management of his condition, a permanent pacemaker implantation was requested A? dual chamber permanent pacemaker implantation was recommended for AV synchrony and symptom relief The procedure was explained to the patient in detail with the risks and benefits. The risks of bleeding, hematoma, vascular injury, infection, pneumothorax, myocardial perforation and other concomitant complications were explained in detail, which the patient understood well and consented to proceed. PROCEDURE DESCRIPTION:? The patient was brought to the Cardiac Catheterization Lab. The left and the right side of the neck and the subclavian area were cleaned and draped in a sterile fashion. 1% Xylocaine was used as the local anesthetic agent.? Left subclavian venogram was performed by injecting? 20 milliliters of Omnipaque through the left antecubital vein.? A left subclavian venous access was obtained using a micropuncture needle system, under venographic guidance. . A two-inch long incision was made 2.0 centimeters below the midclavicular region. By sharp and blunt dissection, a pacemaker pocket was made. A second venous access was obtained using another micropuncture needle system.? Over the first guidewire, a 7-Mexican venous sheath with dilator was advanced. The venous dilator and the guidewire were taken out. A screw-in ventricular lead was advanced through the venous sheath .? We had some difficulty in identifying the right location to place the pacemaker wire.? His blood pressure was high in the beginning, in the 200 range.? He was given a 10 mg of hydralazine for blood pressure control .? But later on the blood pressure started dropping.? He also was complaining of pain with a deep breathing.? At this point, I aborted the procedure.? An emergency echo was performed.? He was found to have at least moderate pericardial effusion. We contacted Dr. Ocampo to perform an emergency pericardiotomy.? While Dr. Ocampo was getting ready to perform the procedure, a brief period of CPR was performed since the pulse became nonpalpable and the blood pressure was not recordable.? He was started on IV fluids and dopamine.? He regained pulse and blood pressure in 3 minutes or so.? He also got intubated this point.? The pacemaker insertion procedure was aborted.? The venous sheath and the leads were removed and we applied pressure over the insertion site with? sterile precautions. Dr. Ocampo removed? around 600 cc of blood from the pericardial sac.? He inserted a pericardial drainage tube and epicardial pacing wires.? The pacemaker insertion site was closed in layers.? Patient was kept on the dopamine drip.? He was moved to the ICU at this point.? IV antibiotics was ordered. I discussed with the patient's family about the events in the [facility] [employer] [facility] and kept them appraised of his condition.? I also discussed with Dr. Garcia, the primary attending about the patient's status and further management plan. At this point ,we will hold off on the permanent pacemaker implantation. CT surgery: Pre-op diagnosis: Preop Diagnosis ? cardiac arrest during transvenous pacemaker implantation with clinical evidence for suspected tamponade with noted pericardial effusion on transthoracic echo performed in the [facility]. ?? Post-op diagnosis: other Post-op diagnosis: Hemopericardium Procedure done: Emergent subxiphoid pericardial window with 28 Mexican drain placement and evacuation of pericardial blood and clot Implants: 28 Mexican drain placed in the pericardial space Specimens removed/disposition: Clot and blood evacuated Pathology: none sent Anesthesia: General IV fluids: 3 units packed RBCs Complications: None Findings: Several? hundred cc's of blood as well as clot were evacuated from the pericardial space Condition: critical Disposition: ICU Brief History: I was contacted by phone originally from the [facility] [employer] [facility] [facility] due to hemodynamic deterioration of Mr. Lee.? Upon my arrival, blood pressure could not be recorded and heart rate was bradycardic in the 30s without palpable pulse.? I was informed that a transthoracic echo had just been completed urgently and revealed evidence for pericardial fluid which not been noted on a prior study performed yesterday.? This is been a challenging case for placement of the RV lead and perforation was suspected.? I was informed there were no immediately available options for percutaneous approach to the pericardium, therefore I elected to proceed in a urgent fashion with a formal subxiphoid pericardial window.? CPR was initiated upon my arrival. Procedure: Mr. Lee was rapidly prepped and draped as best we could given that active CPR was in progress.? Formal timeout could not be completed given the urgent nature of the situation.? Midline incision was made over the xiphoid process and carried down sharply with scalpel down to the fascia which was opened as well as to the xiphoid which was then split utilizing heavy scissors.? Self-retaining retractors were then placed.? We did have active suction by this time were able to dissected out the diaphragm down to the pericardium inferiorly whether #10 scalpel blade was used to open it with brisk return of both bright and dark blood.? This was simply opened widely with Metzenbaum scissors and finger fracture with subsequent removal of clot.? I was informed that approximately 6 to 800 cc or better was collected during this maneuver.? There was returned to a pulse at the carotid as well as recordable blood pressure at approximately 80 and then over 100.? I continue to widen the pericardial window.? At this point we placed a 28 Mexican drain through a separate inferior incision into the pericardium posteriorly.? I manually inspected pericardial window and utilized active suction with a Yankauer to remove any obvious remaining clot.? At this time he was on inotropic support with high-dose dopamine.? I placed a single right ventricular pacing wire and brought out through the skin and connected to external pacer wire with him able to paced at 90 bpm with improvement of his hemodynamics.? Pacing wire and pericardial drain was secured to the skin.? Wound was irrigated.? I then closed the fascia with running 0 Vicryl suture in 2 layers.? Subcutaneous tissue was closed in 1 layer 2-0 Vicryl suture.? Skin was approximated with surgical yuli.? Sterile dressing was applied.? Following this, the previous pacemaker pocket was closed. Mr. Lee is then transported to the ICU in critical condition.? He is understanding the Dr. Lowery has conferred with family.? Dr. Garcia from our hospitalist service is also assisting with medical management. Given the urgent nature of the procedure I have recommended cefazolin 2 g IV now and every 8 hours and close monitoring for signs of infection both systemically and in surgical incisions.? Outcome remains uncertain Physical Exam Narrative: General: lying in bed, sedated and intubated. HEENT:NCAT, PERRLA, Neck: Supple Lungs: Clear to auscultation bilaterally no wheezes no rhonchi no crackles very clear breath sounds. Heart: s1/s2, RRR, paced rhythm, murmur not appreciated on auscultation. pericardial drain in place with minimal drainage. 20 cc output overnight. 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 SKIN: Visible skin intact. TS Data Studies Completed and Pending Pending at discharge Category Date Time Status CBC Auto Diff [Complete Blood Count w/Auto] Q6H Lab 07/28/22 16:18 Ordered CBC Auto Diff [Complete Blood Count w/Auto] Q6H Lab 07/28/22 22:18 Ordered CBC Auto Diff [Complete Blood Count w/Auto] Q6H Lab 07/29/22 04:18 Ordered CBC Auto Diff [Complete Blood Count w/Auto] Q6H Lab 07/29/22 10:18 Ordered Complete Blood Count w/Auto Routine Lab 07/28/22 12:00 Ordered Comprehensive Metabolic Panel Routine Lab 07/28/22 12:00 Ordered Ketone (Acetest) Serum Routine Lab 07/28/22 09:36 Ordered Leukocyte Reduced RBC Stat Lab 07/27/22 14:30 Results Magnesium Routine Lab 07/28/22 12:00 Ordered Sputum Culture and Gram Stain Routine Lab 07/27/22 16:27 Results Type and Screen Stat Lab 07/27/22 14:30 Results Venous Blood Gas Timed Lab 07/28/22 12:00 Ordered Labs from last 24 hours 07/28/22 07/28/22 07/28/22 10:59 09:55 08:38 WBC RBC Hgb Hct MCV MCH MCHC RDW Plt Count MPV Neut % (Auto) Lymph % (Auto) Rabun % (Auto) Eos % (Auto) Baso % (Auto) Neut # (Auto) Lymph # (Auto) Rabun # (Auto) Eos # (Auto) Baso # (Auto) Nucleated RBC % (auto) Nucleated RBCs # Specimen Type Sample Site ABG pH ABG pCO2 ABG pO2 ABG HCO3 ABG O2 Saturation ABG Base Excess Javier Test A-a O2 Gradient Hematocrit Hgb O2 Saturation Carboxyhemoglobin Methemoglobin Total Hemoglobin Ionized Calcium O2 Delivery Device FiO2 Tidal Volume PEEP Municipal Firefighter ID Sodium Potassium Chloride Carbon Dioxide Anion Gap BUN Creatinine GFR Calculation Glucose POC Glucose 305 H 367 H 368 H Calculated Osmolality Lactate Calcium Total Bilirubin AST ALT Alkaline Phosphatase Total Protein Albumin Globulin Blood Type Rho(D) Type Antibody Screen Crossmatch 07/28/22 07/28/22 07/28/22 03:15 03:05 03:05 WBC 12.6 H RBC 3.91 L Hgb 12.1 Hct 34.4 L MCV 88.0 MCH 30.9 MCHC 35.2 RDW 13.7 Plt Count 160 MPV 10.7 H Neut % (Auto) 81.6 Lymph % (Auto) 6.2 Rabun % (Auto) 11.3 Eos % (Auto) 0.0 Baso % (Auto) 0.2 Neut # (Auto) 10.24 H Lymph # (Auto) 0.8 Rabun # (Auto) 1.4 H Eos # (Auto) 0.0 Baso # (Auto) 0.0 Nucleated RBC % (auto) 0 Nucleated RBCs # 0.0 Specimen Type Arterial Sample Site Not specified ABG pH 7.40 ABG pCO2 37.0 ABG pO2 123.0 H ABG HCO3 22.8 ABG O2 Saturation 99.6 ABG Base Excess -1.8 Javier Test N/a A-a O2 Gradient 23.8 H Hematocrit 27.6 L Hgb O2 Saturation 97.9 Carboxyhemoglobin 1.0 Methemoglobin 0.7 Total Hemoglobin 9.0 L Ionized Calcium 1.2 O2 Delivery Device Vent FiO2 50.0 Tidal Volume 0.50 PEEP 5.0 Municipal Firefighter ID [place] Sodium 137.0 136 Potassium 3.9 4.1 Chloride 102 Carbon Dioxide 21 L Anion Gap 17.1 BUN 33 H Creatinine 1.1 GFR Calculation Not Reportable Glucose 385.0 H 371 H POC Glucose Calculated Osmolality 304 H Lactate Calcium 8.2 L Total Bilirubin AST ALT Alkaline Phosphatase Total Protein Albumin Globulin Blood Type Rho(D) Type Antibody Screen Crossmatch 07/28/22 07/27/22 07/27/22 02:17 21:10 21:10 WBC RBC Hgb Hct MCV MCH MCHC RDW Plt Count MPV Neut % (Auto) Lymph % (Auto) Rabun % (Auto) Eos % (Auto) Baso % (Auto) Neut # (Auto) Lymph # (Auto) Rabun # (Auto) Eos # (Auto) Baso # (Auto) Nucleated RBC % (auto) Nucleated RBCs # Specimen Type Sample Site ABG pH ABG pCO2 ABG pO2 ABG HCO3 ABG O2 Saturation ABG Base Excess Javier Test A-a O2 Gradient Hematocrit Hgb O2 Saturation Carboxyhemoglobin Methemoglobin Total Hemoglobin Ionized Calcium O2 Delivery Device FiO2 Tidal Volume PEEP Municipal Firefighter ID Sodium 138 Potassium 3.8 Chloride 103 Carbon Dioxide 19 L Anion Gap 19.8 H BUN 30 H Creatinine 1.1 GFR Calculation Not Reportable Glucose 345 H POC Glucose 326 H Calculated Osmolality 306 H Lactate 2.3 H Calcium 8.7 Total Bilirubin 0.8 AST 269 H ALT 293 H Alkaline Phosphatase 87 Total Protein 5.4 L Albumin 2.9 L Globulin 2.5 Blood Type Rho(D) Type Antibody Screen Crossmatch 07/27/22 07/27/22 07/27/22 21:10 16:05 15:15 WBC 18.7 H RBC 4.09 L Hgb 12.7 Hct 36.5 L MCV 89.2 MCH 31.1 MCHC 34.8 D RDW 13.7 Plt Count 172 MPV 11.1 H Neut % (Auto) 85.7 Lymph % (Auto) 3.0 Rabun % (Auto) 10.7 Eos % (Auto) 0.0 Baso % (Auto) 0.2 Neut # (Auto) 16.01 H Lymph # (Auto) 0.6 L Rabun # (Auto) 2.0 H Eos # (Auto) 0.0 Baso # (Auto) 0.0 Nucleated RBC % (auto) 0 Nucleated RBCs # 0.0 Specimen Type Arterial Sample Site Not specified ABG pH 7.29 L ABG pCO2 41.1 ABG pO2 97.1 ABG HCO3 20.0 L ABG O2 Saturation 97.6 ABG Base Excess -6.2 L Javier Test Pos A-a O2 Gradient Not Reportable Hematocrit 39.7 L Hgb O2 Saturation 96.1 Carboxyhemoglobin 1.0 Methemoglobin 0.5 Total Hemoglobin 13.0 L Ionized Calcium 1.2 O2 Delivery Device Vent FiO2 0.1 Tidal Volume 0.50 PEEP 5.0 Municipal Firefighter ID [place] Sodium 142.0 141 Potassium 3.2 L 3.3 L Chloride 105 Carbon Dioxide 19 L Anion Gap 20.3 H BUN 24 H Creatinine 0.9 GFR Calculation Not Reportable Glucose 255.0 H 283 H POC Glucose Calculated Osmolality 306 H Lactate Calcium 9.4 Total Bilirubin 0.8 AST 304 H ALT 292 H Alkaline Phosphatase 90 Total Protein 4.9 L Albumin 2.7 L Globulin 2.2 Blood Type Rho(D) Type Antibody Screen Crossmatch 07/27/22 07/27/22 15:15 14:30 WBC 11.7 H RBC 3.71 L Hgb 11.1 L Hct 34.0 L MCV 91.6 MCH 29.9 MCHC 32.6 RDW 13.8 Plt Count 145 MPV 11.6 H Neut % (Auto) 66.4 Lymph % (Auto) 22.1 Rabun % (Auto) 7.3 Eos % (Auto) 1.4 Baso % (Auto) 0.5 Neut # (Auto) 7.77 H Lymph # (Auto) 2.6 Rabun # (Auto) 0.9 Eos # (Auto) 0.2 Baso # (Auto) 0.1 Nucleated RBC % (auto) 0 Nucleated RBCs # 0.0 Specimen Type Sample Site ABG pH ABG pCO2 ABG pO2 ABG HCO3 ABG O2 Saturation ABG Base Excess Javier Test A-a O2 Gradient Hematocrit Hgb O2 Saturation Carboxyhemoglobin Methemoglobin Total Hemoglobin Ionized Calcium O2 Delivery Device FiO2 Tidal Volume PEEP Municipal Firefighter ID Sodium Potassium Chloride Carbon Dioxide Anion Gap BUN Creatinine GFR Calculation Glucose POC Glucose Calculated Osmolality Lactate Calcium Total Bilirubin AST ALT Alkaline Phosphatase Total Protein Albumin Globulin Blood Type O Positive Rho(D) Type Positive Antibody Screen Negative Crossmatch See Detail Completed Studies During Hospitalization Category Date Time Status 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 echo limited [id number] Routine Ultrasound 07/26/22 06:17 Completed CV. echo lmt w color [id number] Routine Ultrasound 07/27/22 17:00 Completed Laboratory Last Values WBC 12.6 10^3/uL (4.0-10.0) H 07/28/22 03:05 RBC 3.91 10^6/uL (4.1-5.3) L 07/28/22 03:05 Hgb 12.1 g/dL (11.7-16.6) 07/28/22 03:05 Hct 34.4 % (42.0-52.0) L 07/28/22 03:05 MCV 88.0 fl (80-94) 07/28/22 03:05 MCH 30.9 pg (28.0-34.0) 07/28/22 03:05 MCHC 35.2 g/dL (30.0-36.0) 07/28/22 03:05 RDW 13.7 % (12.1-15.1) 07/28/22 03:05 Plt Count 160 10^3/cmm (130-400) 07/28/22 03:05 MPV 10.7 fL (7.4-10.4) H 07/28/22 03:05 Neut % (Auto) 81.6 % 07/28/22 03:05 Lymph % (Auto) 6.2 % 07/28/22 03:05 Rabun % (Auto) 11.3 % 07/28/22 03:05 Eos % (Auto) 0.0 % 07/28/22 03:05 Baso % (Auto) 0.2 % 07/28/22 03:05 Neut # (Auto) 10.24 10^3/uL (1.8-7.7) H 07/28/22 03:05 Lymph # (Auto) 0.8 10^3/uL (0.8-4.8) 07/28/22 03:05 Rabun # (Auto) 1.4 10^3/uL (0.2-0.9) H 07/28/22 03:05 Eos # (Auto) 0.0 10^3/uL (0.0-0.8) 07/28/22 03:05 Baso # (Auto) 0.0 10^3/uL (0.0-0.1) 07/28/22 03:05 Nucleated RBC % (auto) 0 % 07/28/22 03:05 Nucleated RBCs # 0.0 /100WBC 07/28/22 03:05 PT 13.40 SECONDS (12.1-14.9) 07/26/22 01:25 INR 0.99 (0.8-1.2) 07/26/22 01:25 APTT 25.8 SECONDS (23.9-36.7) 07/26/22 01:25 D-Dimer 1.18 ug/mIFEU (0-0.59) H 07/26/22 01:25 Specimen Type Arterial 07/28/22 03:15 Sample Site Not specified 07/28/22 03:15 ABG pH 7.40 (7.35-7.45) 07/28/22 03:15 ABG pCO2 37.0 mmHg (35-45) 07/28/22 03:15 ABG pO2 123.0 mmHg (80.0-100.0) H 07/28/22 03:15 ABG HCO3 22.8 mmol/L (22-26) 07/28/22 03:15 ABG O2 Saturation 99.6 07/28/22 03:15 ABG Base Excess -1.8 mmol/L (-2.0-2.0) 07/28/22 03:15 Javier Test N/a 07/28/22 03:15 A-a O2 Gradient 23.8 mmHg (5-10) H 07/28/22 03:15 Hematocrit 27.6 % (42-52) L 07/28/22 03:15 Hgb O2 Saturation 97.9 % (95-100) 07/28/22 03:15 Carboxyhemoglobin 1.0 %THgb (0.4-20.1) 07/28/22 03:15 Methemoglobin 0.7 % (0.4-1.5) 07/28/22 03:15 Total Hemoglobin 9.0 g/dL (14-18) L 07/28/22 03:15 Sodium 137.0 mmol/L (131-143) 07/28/22 03:15 Potassium 3.9 mmol/L (3.5-5.0) 07/28/22 03:15 Glucose 385.0 mg/dL (70-115) H 07/28/22 03:15 Ionized Calcium 1.2 mmol/L (1.1-1.4) 07/28/22 03:15 O2 Delivery Device Vent 07/28/22 03:15 FiO2 50.0 % 07/28/22 03:15 Tidal Volume 0.50 07/28/22 03:15 PEEP 5.0 cmH20 07/28/22 03:15 Municipal Firefighter ID Chapin 07/28/22 03:15 Sodium 136 mmol/L (136-145) 07/28/22 03:05 Potassium 4.1 mmol/L (3.5-5.1) 07/28/22 03:05 Chloride 102 mmol/L (98-107) 07/28/22 03:05 Carbon Dioxide 21 mmol/L (22-29) L 07/28/22 03:05 Anion Gap 17.1 (5-19) 07/28/22 03:05 BUN 33 mg/dL (8-23) H 07/28/22 03:05 Creatinine 1.1 mg/dL (0.7-1.2) 07/28/22 03:05 GFR Calculation Not Reportable 07/28/22 03:05 Glucose 371 mg/dL (65-115) H 07/28/22 03:05 POC Glucose 305 mg/dL (70-110) H 07/28/22 10:59 Calculated Osmolality 304 mOsm/kg (285-295) H 07/28/22 03:05 Lactate 2.3 mmol/L (0.5-2.2) H 07/27/22 21:10 Calcium 8.2 mg/dL (8.5-10.5) L 07/28/22 03:05 Magnesium 1.9 mg/dL (1.7-2.3) 07/27/22 02:19 Total Bilirubin 0.8 mg/dL (0.15-1.2) 07/27/22 21:10 AST 269 U/L (0-40) H 07/27/22 21:10 ALT 293 U/L (0-41) H 07/27/22 21:10 Alkaline Phosphatase 87 U/L (40-130) 07/27/22 21:10 Troponin T Baseline 36 ng/L (0-15) H 07/26/22 01:25 Troponin T 120 Minute 40.28 ng/L (0-15) H 07/26/22 03:42 Delta Troponin T 4.28 ABS# (0-10) 07/26/22 03:42 Troponin T Hi Sens 6Hr 48.47 ng/L (0-15) H 07/26/22 07:03 Troponin T Hi Sens 6Hr Delta 12.47 ng/L (0-12) H* 07/26/22 07:03 NT-Pro-B Natriuret Pep 3935 pg/mL (0-450) H 07/26/22 01:25 Total Protein 5.4 g/dL (6.6-8.7) L 07/27/22 21:10 Albumin 2.9 g/dL (3.5-5.2) L 07/27/22 21:10 Globulin 2.5 g/dL (1.3-4.6) 07/27/22 21:10 Blood Type O Positive 07/27/22 14:30 Rho(D) Type Positive 07/27/22 14:30 Antibody Screen Negative 07/27/22 14:30 Crossmatch See Detail 07/27/22 14:30 Radiology Impressions Chest X-Ray 07/28/22 07:08 IMPRESSION: 1. Stable left lung. 2. New feeding tube with other tubes as above. 3. Improvement in the right lung infiltrate in the perihilar region. Recent Clincial Data Last Vital Signs Temp 97.5 F L 07/28/22 10:00 Pulse 67 07/28/22 09:30 Resp 15 07/28/22 10:48 BP 116/63 07/28/22 09:30 Pulse Ox 100 07/28/22 10:48 O2 Del Method 07/27/22 11:48 O2 Flow Rate 3 07/27/22 08:18 FiO2 40 07/28/22 10:48 Vital Signs Temp Pulse Resp BP Pulse Ox FiO2 07/28/22 10:00 97.5 F L 07/28/22 10:00 40 07/28/22 09:30 67 116/63 99 07/28/22 09:25 68 116/63 99 07/28/22 09:20 71 116/63 100 07/28/22 09:15 71 116/65 100 07/28/22 09:10 71 116/65 100 07/28/22 09:05 73 116/65 100 07/28/22 09:00 71 125/65 100 07/28/22 08:55 73 125/65 100 07/28/22 08:50 75 125/65 100 07/28/22 08:45 75 151/69 100 07/28/22 08:40 76 151/69 100 07/28/22 08:35 72 151/69 99 07/28/22 08:30 72 142/66 07/28/22 08:25 72 142/66 07/28/22 08:20 71 142/66 07/28/22 08:15 71 129/63 07/28/22 08:25 15 98 40 07/28/22 10:48 15 100 40 07/28/22 08:10 97.9 F 73 129/63 07/28/22 08:05 74 129/63 07/28/22 08:00 75 120/71 07/28/22 07:55 75 120/71 07/28/22 07:50 71 120/71 07/28/22 07:45 71 132/64 07/28/22 07:40 71 132/64 02/15/23 07:35 71 132/64 07/28/22 07:30 71 119/54 07/28/22 07:25 71 119/54 07/28/22 07:20 71 119/54 07/28/22 07:15 71 127/60 07/28/22 07:10 71 127/60 07/28/22 07:05 71 127/60 07/28/22 07:00 71 120/74 07/28/22 06:55 71 120/74 07/28/22 06:50 71 120/74 07/28/22 08:00 50 07/28/22 08:00 97.9 F 73 129/63 07/28/22 05:00 15 98 40 07/28/22 06:45 71 102/57 07/28/22 02:15 80 152/55 99 07/28/22 06:30 71 135/64 07/28/22 06:25 71 135/64 07/28/22 06:20 71 135/64 07/28/22 06:15 71 119/76 07/28/22 06:10 71 119/76 07/28/22 06:05 71 119/76 07/28/22 06:00 71 131/63 07/28/22 05:55 71 131/63 07/28/22 05:50 71 131/63 07/28/22 05:45 71 164/64 07/28/22 05:40 71 164/64 07/28/22 05:35 71 164/64 07/28/22 05:30 71 141/75 07/28/22 05:25 71 141/75 07/28/22 05:20 71 141/75 100 07/28/22 05:15 71 137/61 100 07/28/22 05:10 71 137/61 99 07/28/22 05:05 71 137/61 99 07/28/22 05:00 71 138/78 99 07/28/22 04:55 71 138/78 99 07/28/22 04:50 71 138/78 99 07/28/22 04:45 71 127/60 98 07/28/22 04:40 71 127/60 98 07/28/22 04:35 71 127/60 99 07/28/22 04:30 71 95/62 99 07/28/22 04:25 71 95/62 99 07/28/22 04:20 71 110/59 100 07/28/22 04:15 71 125/64 100 07/28/22 04:10 71 125/64 100 07/28/22 04:05 71 125/64 99 07/28/22 04:00 71 128/64 99 07/28/22 03:55 71 128/64 99 07/28/22 03:50 71 128/64 99 07/28/22 03:45 71 143/60 99 07/28/22 03:40 71 143/60 99 07/28/22 03:35 71 143/60 99 07/28/22 03:30 71 115/62 99 07/28/22 03:25 71 115/62 99 07/28/22 03:20 71 115/62 99 07/28/22 03:15 71 139/72 99 07/28/22 03:10 71 139/72 100 07/28/22 03:05 71 139/72 99 07/28/22 03:00 71 151/57 99 07/28/22 02:55 72 151/57 99 07/28/22 02:50 70 151/57 99 07/28/22 02:45 71 151/60 100 07/28/22 02:40 73 151/60 99 07/28/22 02:35 73 151/60 99 07/28/22 02:30 77 142/70 99 07/28/22 02:25 73 142/70 99 07/28/22 06:00 50 07/28/22 06:00 71 07/28/22 04:00 50 07/28/22 02:41 15 98 50 07/28/22 02:00 50 07/28/22 00:00 50 07/28/22 02:00 73 146/52 98 07/28/22 01:55 73 146/52 98 07/28/22 01:50 77 146/52 98 07/28/22 01:45 71 162/60 98 07/28/22 01:40 80 162/60 98 07/28/22 01:35 73 162/60 98 07/28/22 01:30 79 154/63 98 07/28/22 01:25 71 154/63 98 07/28/22 01:20 71 154/63 98 07/28/22 01:15 71 155/70 98 07/28/22 01:10 71 155/70 98 07/28/22 01:05 76 155/70 98 07/28/22 01:00 81 155/60 98 07/28/22 00:55 71 155/60 98 07/28/22 00:50 73 155/60 98 07/28/22 00:45 71 152/59 98 07/28/22 00:40 78 152/59 98 07/28/22 00:35 71 152/59 98 07/28/22 00:30 71 144/53 98 07/28/22 00:25 73 144/53 98 07/28/22 00:20 78 144/53 98 07/28/22 00:15 76 148/58 98 07/28/22 00:10 77 148/58 98 07/28/22 00:05 81 148/58 97 07/28/22 00:00 73 137/60 98 07/27/22 23:55 78 137/60 97 07/27/22 23:50 78 137/60 97 07/27/22 23:45 71 147/54 98 07/27/22 23:40 80 147/54 98 07/27/22 23:35 78 147/54 98 07/27/22 23:30 77 142/61 98 Intake & Output/Weight 07/26/22 07/27/22 07/28/22 07/29/22 06:59 06:59 06:59 06:59 Intake Total 1361.667 / 4310.166 1833.686 / 2079.686 330.603 / 330.603 Output Total 400 / 400 2170 / 2170 2330 / 2330 Balance -400 / -400 -808.333 / -808.333 -250.314 / -250.314 330.603 / 330.603 Weight 104.281 kg Vitals Last Vital Signs Temp 97.5 F L 07/28/22 10:00 Pulse 67 07/28/22 09:30 Resp 15 07/28/22 10:48 BP 116/63 07/28/22 09:30 Pulse Ox 100 07/28/22 10:48 O2 Del Method 07/27/22 11:48 O2 Flow Rate 3 07/27/22 08:18 FiO2 40 07/28/22 10:48 TS Medications Medications Acetaminophen (Acetaminophen 325 Mg Tablet) 650 mg PO Q6H PRN PRN Reason: Mild/Mod Pain Or Temp >/= 101 Amlodipine Besylate (Amlodipine 5 Mg Tablet) 2.5 mg PO DAILY [facility] Last Admin: 07/27/22 08:31 Dose: 2.5 mg Aspirin (Aspirin 81 Mg Ec Tablet) 81 mg PO DAILY [facility] Last Admin: 07/28/22 09:02 Dose: 81 mg Atorvastatin Calcium (Atorvastatin 40 Mg Tablet) 25 mg PO DAILY [facility] Last Admin: 07/28/22 09:02 Dose: 25 mg Chlorhexidine Gluconate (Chlorhexidine Gluconate 4% Btl 118 Ml) 1 applic TOPICAL DAILY [facility] Last Admin: 07/28/22 09:33 Dose: Not Given Dextrose (Dextrose 50% Syringe 50 Ml) 25 ml IVP ONCE PRN; Protocol PRN Reason: hypoglycemia protocol Dextrose (Dextrose 50% Syringe 50 Ml) 50 ml IVP PRN PRN; Protocol PRN Reason: hypoglycemia protocol Dextrose (Dextrose 50% Syringe 50 Ml) 25 ml IVP ONCE PRN; Protocol PRN Reason: hypoglycemia protocol Dextrose (Dextrose 50% Syringe 50 Ml) 50 ml IVP PRN PRN; Protocol PRN Reason: hypoglycemia protocol Glucagon (Glucagon 1 Mg/Ml Inj 1 Ml) 1 mg IM ONCE PRN; Protocol PRN Reason: Adult Acute Hypoglycemia Prot. Glucagon (Glucagon 1 Mg/Ml Inj 1 Ml) 1 mg IM ONCE PRN; Protocol PRN Reason: Adult Acute Hypoglycemia Prot Fentanyl 1,000 mcg/ Sodium (Chloride) 100 mls @ 0 mls/hr IV .Q0M [facility]; Protocol Last Admin: 07/28/22 05:07 Dose: 75 mcg/hr, 7.5 mls/hr Midazolam HCl 100 mg/ Sodium (Chloride) 100 mls @ 0 mls/hr IV .Q0M [facility]; Protocol Last Titration: 07/27/22 19:15 Dose: 3 mg/hr, 3 mls/hr Piperacillin Sod/Tazobactam (Sod 3.375 gm/ Sodium Chloride) 50 mls @ 12.5 mls/hr IV Q8H [facility]; Protocol Last Infusion: 07/28/22 09:54 Dose: Infused Norepinephrine Bitartrate 4 mg (/ Dextrose) 254 mls @ 0 mls/hr IV .Q0M [facility]; Protocol Last Admin: 07/28/22 07:47 Dose: 14 mcg/min, 53.34 mls/hr Dopamine HCl/Dextrose (Intropin Drip) 400 mg in 250 mls @ 19.553 mls/hr IV CONT [facility]; Protocol Last Titration: 07/28/22 08:30 Dose: 0 mcg/kg/min, 0 mls/hr Dextrose (D5w) 500 mls @ 100 mls/hr IV ONCE PRN; Protocol PRN Reason: Adult Acute Hypoglycemia Prot Lactated Ringer's (Lactated Ringers) 1,000 mls @ 75 mls/hr IV .[id number] [facility] Last Admin: 07/28/22 01:23 Dose: 75 mls/hr Albumin Human (Albumin) 50 g in 200 mls @ 60 mls/hr IV ONCE ONE Stop: 07/28/22 12:19 Last Admin: 07/28/22 09:08 Dose: 60 mls/hr Dextrose (D5w) 500 mls @ 100 mls/hr IV ONCE PRN; Protocol PRN Reason: Adult Acute Hypoglycemia Prot Insulin Human Regular 250 unit (/ Sodium Chloride) 252.5 mls @ 0 mls/hr IV .Q0M [facility]; Protocol Last Titration: 07/28/22 11:04 Dose: 9.8 ml/hr, 9.8 mls/hr Losartan Potassium (Losartan 50 Mg Tablet) 100 mg PO DAILY [facility] Last Admin: 07/27/22 08:31 Dose: 100 mg Naloxone HCl (Naloxone 0.4 Mg/Ml Sdv) 0.1 mg IVP Q2M PRN PRN Reason: OPIATERV Ondansetron HCl (Ondansetron 2 Mg/Ml Sdv 2 Ml) 4 mg IVP Q8H PRN PRN Reason: vomiting, or N/V if npo Pantoprazole Sodium (Pantoprazole Dr 40 Mg Tablet) 40 mg PO DAILY [facility] Last Admin: 07/28/22 09:02 Dose: 40 mg Senna (Sennosides 8.6 Mg Tablet) 8.6 mg PO BEDTIME [facility] Last Admin: 07/27/22 22:54 Dose: Not Given Discontinued Medications Cefazolin Sodium (Cefazolin 2,000 Mg Sdv) Confirm Administered Dose 2,000 mg .ROUTE .STK-MED ONE Stop: 07/27/22 11:52 Cefazolin Sodium (Cefazolin 2,000 Mg Sdv) Confirm Administered Dose 2,000 mg .ROUTE .STK-MED ONE Stop: 07/27/22 12:26 Diphenhydramine HCl (Diphenhydramine 50 Mg Capsule) 50 mg PO ONCE ONE Stop: 07/27/22 05:01 Last Admin: 07/27/22 05:16 Dose: 50 mg Enoxaparin Sodium (Enoxaparin 40 Mg/0.4 Ml Syringe) 40 mg SUBCUT Q24H [facility] Last Admin: 07/27/22 06:42 Dose: Not Given Fentanyl (Fentanyl 50 Mcg/Ml Inj 2ml) Confirm Administered Dose 100 mcg .ROUTE .STK-MED ONE Stop: 07/27/22 05:26 Fentanyl (Fentanyl 50 Mcg/Ml Inj 2ml) Confirm Administered Dose 100 mcg .ROUTE .STK-MED ONE Stop: 07/27/22 11:52 Fentanyl (Fentanyl 50 Mcg/Ml Inj 2ml) Confirm Administered Dose 100 mcg .ROUTE .STK-MED ONE Stop: 07/27/22 13:10 Flumazenil (Flumazenil 0.1 Mg/Ml Sdv 5ml) Confirm Administered Dose 0.5 mg .ROUTE .STK-MED ONE Stop: 07/27/22 13:36 Furosemide (Furosemide 10 Mg/Ml Sdv 2ml) 20 mg IVP ONCE ONE Stop: 07/26/22 06:28 Last Admin: 07/26/22 06:51 Dose: 20 mg Furosemide (Furosemide 10 Mg/Ml Sdv 4ml) 40 mg IVP Q12H [facility] Last Admin: 07/27/22 17:53 Dose: Not Given Heparin Sodium (Porcine) (Heparin 5,000 Unit/Ml Inj 1 Ml) Confirm Administered Dose 10,000 unit .ROUTE .STK-MED ONE Stop: 07/27/22 05:13 Heparin Sodium (Porcine) (Heparin 5,000 Unit/Ml Inj 1 Ml) Confirm Administered Dose 5,000 unit .ROUTE .STK-MED ONE Stop: 07/27/22 06:16 Hydralazine HCl (Hydralazine 20 Mg/Ml Inj 1 Ml) 10 mg IVP ONCE PRN PRN Reason: HYPERTENSION Stop: 07/27/22 05:00 Last Admin: 07/26/22 05:37 Dose: 10 mg Hydralazine HCl (Hydralazine 20 Mg/Ml Inj 1 Ml) 10 mg IVP Q6H PRN PRN Reason: SBP >170 Hydralazine HCl (Hydralazine 20 Mg/Ml Inj 1 Ml) Confirm Administered Dose 20 mg .ROUTE .[facility]-MED ONE Stop: 07/27/22 12:56 Sodium Chloride (Sodium Chloride 0.9%) 1,000 mls @ 50 mls/hr IV .Q20H ONE Stop: 07/28/22 00:59 Last Infusion: 07/27/22 06:43 Dose: 0 mls/hr Sodium Chloride (Sodium Chloride 0.9%) 1,000 mls @ 100 mls/hr IV .Q10H [facility] Last Infusion: 07/27/22 19:18 Dose: Infused Sodium Chloride (Sodium Chloride 0.9%) Confirm Administered Dose 500 mls @ as directed .ROUTE .[facility] ONE Stop: 07/27/22 11:51 Lidocaine HCl (Xylocaine) Confirm Administered Dose 20 mls @ as directed .ROUTE .[facility] ONE Stop: 07/27/22 11:57 Sodium Chloride (Sodium Chloride 0.9%) Confirm Administered Dose 250 mls @ as directed .ROUTE .[facility] ONE Stop: 07/27/22 12:26 Lidocaine HCl (Xylocaine) Confirm Administered Dose 10 mls @ as directed .ROUTE .[facility] ONE Stop: 07/27/22 12:48 Dopamine HCl/Dextrose (Intropin Drip) Confirm Administered Dose 400 mg in 250 mls @ as directed .ROUTE .[facility] ONE Stop: 07/27/22 13:44 Sodium Chloride (Sodium Chloride 0.9%) Confirm Administered Dose 250 mls @ as directed .ROUTE .[facility] ONE Stop: 07/27/22 14:12 Sodium Chloride (Sodium Chloride 0.9%) Confirm Administered Dose 250 mls @ as directed .ROUTE .[facility] ONE Stop: 07/27/22 14:49 Etomidate (Amidate) Confirm Administered Dose 10 mls @ as directed .ROUTE .[facility] ONE Stop: 07/27/22 15:49 Cefazolin Sodium 2,000 mg/ (Sodium Chloride) 50 mls @ 100 mls/hr IV ONCE ONE; Protocol Stop: 07/27/22 16:32 Last Infusion: 07/27/22 19:19 Dose: Infused Lactated Ringer's (Lactated Ringers) 1,000 mls @ 75 mls/hr IV .[id number] [facility] Last Infusion: 07/27/22 20:45 Dose: 75 mls/hr Insulin Human Lispro (Insulin Lispro 100 Unit/1 Ml) 0 unit SUBCUT TIDWM [facility]; Protocol Last Admin: 07/28/22 09:01 Dose: 14 unit Lidocaine HCl (Lidocaine 1% Inj 10 Ml (Per Ml)) Confirm Administered Dose 30 ml .ROUTE .STK-MED ONE Stop: 07/27/22 05:28 Midazolam HCl (Midazolam 1 Mg/Ml Inj 2 Ml) Confirm Administered Dose 2 mg .ROUTE .STK-MED ONE Stop: 07/27/22 05:26 Midazolam HCl (Midazolam 1 Mg/Ml Inj 2 Ml) Confirm Administered Dose 2 mg .ROUTE .STK-MED ONE Stop: 07/27/22 11:52 Midazolam HCl (Midazolam 1 Mg/Ml Inj 2 Ml) Confirm Administered Dose 2 mg .ROUTE .STK-MED ONE Stop: 07/27/22 13:10 Midazolam HCl (Midazolam 1 Mg/Ml Inj 5 Ml) Confirm Administered Dose 5 mg .ROUTE .STK-MED ONE Stop: 07/27/22 14:04 Midazolam HCl (Midazolam 1 Mg/Ml Inj 5 Ml) Confirm Administered Dose 5 mg .ROUTE .STK-MED ONE Stop: 07/27/22 15:29 Morphine Sulfate (Morphine 4 Mg/Ml Sdv 1 Ml) 2 mg IVP Q4H PRN PRN Reason: SEVERE PAIN Naloxone HCl (Naloxone 0.4 Mg/Ml Sdv) Confirm Administered Dose 0.4 mg .ROUTE .STK-MED ONE Stop: 07/27/22 13:30 Nitroglycerin (Nitroglycerin 1 Gm/Inch Oint Pkt) 0.5 inch TOPICAL Q6H [facility] Last Admin: 07/28/22 06:47 Dose: Not Given Nitroglycerin (Nitroglycerin 5 Mg/Ml Sdv 10 Ml) Confirm Administered Dose 50 mg .ROUTE .STK-MED ONE Stop: 07/27/22 05:26 Non-Formulary Medication (Amlodipine) 2.5 mg PO DAILY [facility] Oxycodone HCl (Oxycodone 5 Mg Ir Tab/Cap) 5 mg PO Q4H PRN PRN Reason: pain Phenylephrine HCl (Phenylephrine 10 Mg/Ml Sdv 1 Ml) Confirm Administered Dose 10 mg .ROUTE .STK-MED ONE Stop: 07/27/22 15:49 Propofol (Propofol 10 Mg/Ml Sdv 20 Ml) Confirm Administered Dose 200 mg .ROUTE .STK-MED ONE Stop: 07/27/22 15:49 Succinylcholine Chloride (Succinylcholine 20 Mg/Ml Sdv 10ml) Confirm Administered Dose 200 mg .ROUTE .STK-MED ONE Stop: 07/27/22 15:49 Vancomycin HCl (Vancomycin 500 Mg Sdv) Confirm Administered Dose 500 mg .ROUTE .STK-MED ONE Stop: 07/27/22 11:52 Vancomycin HCl (Vancomycin 500 Mg Sdv) Confirm Administered Dose 500 mg .ROUTE .STK-MED ONE Stop: 07/27/22 14:48 Vecuronium Saxton (Vecuronium 10 Mg Sdv) Confirm Administered Dose 10 mg .ROUTE .STK-MED ONE Stop: 07/27/22 14:03 Allergies hydrocodone Allergy (Verified 07/26/22 07:36) ADR-Dizziness Home Medications losartan 100 mg tablet 100 mg PO QAM 01/01/21 [History Confirmed 07/26/22] rosuvastatin 5 mg tablet (Crestor) 5 mg PO QAM 01/01/21 [History Confirmed 07/26/22] ascorbic acid (vitamin C) 500 mg tablet (Vitamin C) 500 mg PO QPM 01/13/22 [History Confirmed 07/26/22] ferrous sulfate 325 mg (65 mg iron) tablet (iron) 325 mg PO BID 01/13/22 [History Confirmed 07/26/22] multivitamin 1 tab PO QPM 01/13/22 [History Confirmed 07/26/22] vin hinged knee brace #1 ea 04/07/22 [Rx Confirmed 07/26/22] L.acidophil-L.casei-B.bifid-B.longum-FOS 2 billion cell-50 mg capsule (Probiotic Blend) 1 cap PO QPM 07/26/22 [History Confirmed 07/26/22] Prevagen 1 cap PO DAILY 07/26/22 [History Confirmed 07/26/22] Total Beets 2 tab PO QAM 07/26/22 [History Confirmed 07/26/22] amlodipine 10 mg tablet 10 mg PO QAM 07/26/22 [History Confirmed 07/26/22] aspirin 81 mg tablet,delayed release 81 mg PO QAM 07/26/22 [History Confirmed 07/26/22] cholecalciferol (vitamin D3) 50 mcg (2,000 unit) capsule (Vitamin D3) 100 mcg PO QAM 07/26/22 [History Confirmed 07/26/22] coenzyme Q10 100 mg capsule (CoQ-10) 100 mg PO QAM 07/26/22 [History Confirmed 07/26/22] fluticasone propionate 50 mcg/actuation nasal spray,suspension 1 spray intranasal BID PRN Allergy Symptoms 07/26/22 [History Confirmed 07/26/22] ginkgo biloba 40 mg tablet 40 mg PO QPM 07/26/22 [History Confirmed 07/26/22] hydrocortisone 2.5 % topical cream with perineal applicator 1 applic IA BID PRN Hemorrhoids 07/26/22 [History Confirmed 07/26/22] indomethacin 50 mg capsule 50 mg PO QPM 07/26/22 [History Confirmed 07/26/22] magnesium oxide 400 mg PO QPM 07/26/22 [History Confirmed 07/26/22] nitroglycerin 0.4 mg sublingual tablet (Nitrostat) 0.4 mg sublingual Q5M PRN Chest Pain 07/26/22 [History Confirmed 07/26/22] vitamin B complex 1 tab PO QPM 07/26/22 [History Confirmed 07/26/22] Discharge Plan Discharge Patient Disposition: Home Condition: Serious Prescriptions: No Action (DME) vin hinged knee brace See Rx Instructions .Route .MEDSUPPLY Qty: 1 0RF Rx Instructions: As directed losartan 100 mg Tablet 100 mg PO QAM rosuvastatin [Crestor] 5 mg Tablet 5 mg PO QAM multivitamin Tablet 1 tab PO QPM ascorbic acid (vitamin C) [Vitamin C] 500 mg Tablet 500 mg PO QPM ferrous sulfate [iron] 325 mg (65 mg iron) Tablet 325 mg PO BID Aspir-81 81 mg Tablet,Delayed Release (Dr/Ec) 81 mg PO QAM hydrocortisone 2.5 % cream with perineal applicator 1 applic IA BID PRN (Reason: Hemorrhoids) ginkgo biloba 40 mg Tablet 40 mg PO QPM Rx Instructions: give with meal/snack amlodipine 10 mg tablet 10 mg PO QAM indomethacin 50 mg Capsule 50 mg PO QPM Nitrostat 0.4 mg Tablet, Sublingual 0.4 mg SUBLINGUAL Q5M PRN (Reason: Chest Pain) Rx Instructions: do not exceed 3 doses per episode Super B Complex Tablet 1 tab PO QPM Flonase 50 mcg/actuation [place],Suspension 1 spray INTRANASAL BID PRN (Reason: Allergy Symptoms) Rx Instructions: administer into each nostril CoQ-10 100 mg Capsule 100 mg PO QAM Vitamin D3 50 mcg (2,000 unit) Capsule 100 mcg PO QAM Probiotic Blend 2 billion cell-50 mg Capsule 1 cap PO QPM Rx Instructions: give with meal/snack magnesium oxide 400 mg magnesium Tablet 400 mg PO QPM Prevagen 1 cap PO DAILY Total Beets 2 tab PO QAM Patient Instructions: Opioid Safety Transfer Attestations Time Spent in Transfer Care: critical care time Critical Care Time (min): 45 Status at Transfer: Cognitive status at transfer: other ; Behavioral status at transfer: other ; Functional status at transfer: other ; Overall status at transfer: patient is not back to baseline Quality Metrics Clinical Quality Measures [ No reported AMI, CVA or VTE this stay] Coding Level of Care Code 73805 Diagnoses Pericardial effusion with cardiac tamponade I31.39; I31.4 Symptomatic bradycardia R00.1 Severe aortic valve stenosis I35.0 Acute on chronic diastolic heart failure I50.33 Elevated troponin R77.8 Time Spent (min) 45
[2022-07-28 11:59] LABS: Glucose Point of Care 271 mg/dL (70-110)
[2022-07-28 12:12] LABS: Base Excess VBG -1.1 mmol/L (-3.0-3.0); Blood Gas Allen Test Pos; Blood Gas Operator Identificat MONRO; Blood Gas Sample Site Not specified; Blood Gas Sample Type Venous; Fractionated Inspired Oxygen 0.4 %; HCO3 VBG 24.6 mmol/L (24-28); Oxygen Device VENT; PCO2 VBG 44.2 mmHg (41-51); Venous Blood Gas Hematocrit 35.6 % (42-52); pH VBG 7.35 (7.32-7.42)
[2022-07-28 12:16] LABS: Basophils % 0.3 %; Eosinophils % 0.1 %; Hematocrit 32.1 % (42.0-52.0); Hemoglobin 10.9 g/dL (11.7-16.6); Lymphocytes # 1.5 10^3/uL (0.8-4.8); Lymphocytes % 13.4 %; Mean Corpuscular Hemoglobin 30.2 pg (28.0-34.0); Mean Corpuscular Volume 88.9 fl (80-94); Mean Platelet Volume 10.3 fL (7.4-10.4); Monocytes # 1.2 10^3/uL (0.2-0.9); Monocytes % 11.2 %; Neutrophils % 74.6 %; Nucleated Red Blood Cells % 0 %; Platelet Count 154 10^3/cmm (130-400); Red Blood Count 3.61 10^6/uL (4.1-5.3); Red Cell Distribution Width 13.7 % (12.1-15.1); White Blood Count 10.9 10^3/uL (4.0-10.0)
[2022-07-28 12:30] LABS: Ketone (Acetest) Serum Negative (Negative)
[2022-07-28 12:32] LABS: Alanine Aminotransferase 170 U/L (0-41); Albumin Level 2.6 g/dL (3.5-5.2); Alkaline Phosphatase 69 U/L (40-130); Anion Gap 16.7 (5-19); Aspartate Amino Transferase 99 U/L (0-40); Blood Urea Nitrogen 37 mg/dL (8-23); Carbon Dioxide 21 mmol/L (22-29); Chloride 100 mmol/L (98-107); Globulin 2.5 g/dL (1.3-4.6); Glucose 246 mg/dL (65-115); Magnesium 1.7 mg/dL (1.7-2.3); Osmolality Calculated 295 mOsm/kg (285-295); Potassium 3.7 mmol/L (3.5-5.1); Sodium 134 mmol/L (136-145); Total Bilirubin 0.7 mg/dL (0.15-1.2); Total Protein 5.1 g/dL (6.6-8.7)
--- NOTE | 2022-07-28 12:45 | PC.NURSE ---
Pt transfer Pt accepted by Dr Mueller at [facility]. Pt going to room 3303-3E report called to Marlena Wooten RN at [phone]. Pt taken to [facility] by air evac. Bedside report given to Prem with the flight team. Pt transferred from us to [facility]. Pt's family at bedside and up to date with transfer.
--- NOTE | 2022-07-28 13:38 | PM.PN ---
Subjective Subjective: Seen patient today morning at bedside Sedated-on fentanyl 75 mcg and Versed 2-night team reported patient has opened eyes and moves his limbs Currently FiO2 down to 40% and saturating greater than 90% on monitor Off dopamine and currently only on Levophed 14 mcg and MAP is over 65 Good urine output-about 700 cc over 12 hours during maintenance technician 3rd shift Heart rate 70-with 100% pacing Sugars are more than 300-we will start insulin drip Chest tube output 300 cc since placement yesterday afternoon-during maintenance technician 3rd shift 100 cc-H&H stable in the morning Cardiology planning to transfer to [place] for TAVR placement Other labs and imaging reviewed Medications: Medication Review Details: Current Medications Acetaminophen (Acetaminophen 325 Mg Tablet) 650 mg PO Q6H PRN PRN Reason: Mild/Mod Pain Or Temp >/= 101 Amlodipine Besylate (Amlodipine 5 Mg Tablet) 2.5 mg PO DAILY COUNT INCLUDES THE [facility] Last Admin: 07/27/22 08:31 Dose: 2.5 mg Aspirin (Aspirin 81 Mg Ec Tablet) 81 mg PO DAILY COUNT INCLUDES THE [facility] Last Admin: 07/27/22 08:31 Dose: 81 mg Atorvastatin Calcium (Atorvastatin 40 Mg Tablet) 25 mg PO DAILY COUNT INCLUDES THE [facility] Last Admin: 07/27/22 08:32 Dose: 25 mg Chlorhexidine Gluconate (Chlorhexidine Gluconate 4% Btl 118 Ml) 1 applic TOPICAL DAILY COUNT INCLUDES THE [facility] Last Admin: 07/28/22 05:04 Dose: 1 applic Dextrose (Dextrose 50% Syringe 50 Ml) 25 ml IVP ONCE PRN; Protocol PRN Reason: hypoglycemia protocol Dextrose (Dextrose 50% Syringe 50 Ml) 50 ml IVP PRN PRN; Protocol PRN Reason: hypoglycemia protocol Glucagon (Glucagon 1 Mg/Ml Inj 1 Ml) 1 mg IM ONCE PRN; Protocol PRN Reason: Adult Acute Hypoglycemia Prot. Fentanyl 1,000 mcg/ Sodium (Chloride) 100 mls @ 0 mls/hr IV .Q0M COUNT INCLUDES THE [facility]; Protocol Last Admin: 07/28/22 05:07 Dose: 75 mcg/hr, 7.5 mls/hr Midazolam HCl 100 mg/ Sodium (Chloride) 100 mls @ 0 mls/hr IV .Q0M FABIANA; Protocol Last Titration: 07/27/22 19:15 Dose: 3 mg/hr, 3 mls/hr Piperacillin Sod/Tazobactam (Sod 3.375 gm/ Sodium Chloride) 50 mls @ 12.5 mls/hr IV Q8H FABIANA; Protocol Last Admin: 07/28/22 04:19 Dose: 12.5 mls/hr Norepinephrine Bitartrate 4 mg (/ Dextrose) 254 mls @ 0 mls/hr IV .Q0M FABIANA; Protocol Last Admin: 07/28/22 07:47 Dose: 14 mcg/min, 53.34 mls/hr Dopamine HCl/Dextrose (Intropin Drip) 400 mg in 250 mls @ 19.553 mls/hr IV CONT FABIANA; Protocol Last Titration: 07/28/22 06:00 Dose: 2 mcg/kg/min, 7.82 mls/hr Dextrose (D5w) 500 mls @ 100 mls/hr IV ONCE PRN; Protocol PRN Reason: Adult Acute Hypoglycemia Prot Lactated Ringer's (Lactated Ringers) 1,000 mls @ 75 mls/hr IV .[id number] COUNT INCLUDES THE [facility] Last Admin: 07/28/22 01:23 Dose: 75 mls/hr Insulin Human Lispro (Insulin Lispro 100 Unit/1 Ml) 0 unit SUBCUT TIDWM COUNT INCLUDES THE [facility]; Protocol Losartan Potassium (Losartan 50 Mg Tablet) 100 mg PO DAILY COUNT INCLUDES THE [facility] Last Admin: 07/27/22 08:31 Dose: 100 mg Naloxone HCl (Naloxone 0.4 Mg/Ml Sdv) 0.1 mg IVP Q2M PRN PRN Reason: OPIATERV Ondansetron HCl (Ondansetron 2 Mg/Ml Sdv 2 Ml) 4 mg IVP Q8H PRN PRN Reason: vomiting, or N/V if npo Pantoprazole Sodium (Pantoprazole Dr 40 Mg Tablet) 40 mg PO DAILY COUNT INCLUDES THE [facility] Last Admin: 07/27/22 08:31 Dose: 40 mg Senna (Sennosides 8.6 Mg Tablet) 8.6 mg PO BEDTIME COUNT INCLUDES THE [facility] Last Admin: 07/27/22 22:54 Dose: Not Given Vitals/I&O/Wt Last Vital Signs Temp 97.5 F L 07/28/22 10:00 Pulse 67 07/28/22 09:30 Resp 15 07/28/22 10:48 BP 116/63 07/28/22 09:30 Pulse Ox 100 07/28/22 10:48 O2 Del Method 07/27/22 11:48 O2 Flow Rate 3 07/27/22 08:18 FiO2 40 02/15/23 10:48 07/27/22 07/28/22 07/28/22 22:59 06:59 14:59 Intake Total 1508.095 / 1508.095 571.591 / 2079.686 330.603 / 330.603 Output Total 500 / 2065 265 / 2330 Balance 1008.095 / -556.905 306.591 / -250.314 330.603 / 330.603 Physical Exam Narrative: PHYSICAL EXAM: General: lying in bed, sedated and intubated, appears slightly edematous HEENT:NCAT, PERRLA, EOMI Neck: Supple Lungs: Clear, Heart: s1/s2, RRR Abd: soft, NT, ND, BS + Normoactive Extremities: 1+ pitting pedal edema SOCIAL MEDIA MARKETING MANAGER: sedated and limited SOCIAL MEDIA MARKETING MANAGER exam possible. SKIN: no rash LDA: # CVC: Right IJ 07/27/2022 # Grewal: 07/27/2022 # A line: 07/27/2022 # Pacing wires: Right ventricular external pacemaker 07/27/2022 # Chest tubes: 28 [place] pericardial drain 07/27/2022 Data 07/28/22 12:00 07/28/22 12:00 Other Labs: Radiology Impressions Chest X-Ray 07/28/22 07:08 IMPRESSION: 1. Stable left lung. 2. New feeding tube with other tubes as above. 3. Improvement in the right lung infiltrate in the perihilar region. Laboratory Results WBC 10.9 10^3/uL (4.0-10.0) H 07/28/22 12:00 RBC 3.61 10^6/uL (4.1-5.3) L 07/28/22 12:00 Hgb 10.9 g/dL (11.7-16.6) L 07/28/22 12:00 Hct 32.1 % (42.0-52.0) L 07/28/22 12:00 MCV 88.9 fl (80-94) 07/28/22 12:00 MCH 30.2 pg (28.0-34.0) 07/28/22 12:00 MCHC 34.0 g/dL (30.0-36.0) 07/28/22 12:00 RDW 13.7 % (12.1-15.1) 07/28/22 12:00 Plt Count 154 10^3/cmm (130-400) 07/28/22 12:00 MPV 10.3 fL (7.4-10.4) 07/28/22 12:00 Neut % (Auto) 74.6 % 07/28/22 12:00 Lymph % (Auto) 13.4 % 07/28/22 12:00 [place] % (Auto) 11.2 % 07/28/22 12:00 Eos % (Auto) 0.1 % 07/28/22 12:00 Baso % (Auto) 0.3 % 07/28/22 12:00 Neut # (Auto) 8.10 10^3/uL (1.8-7.7) H 07/28/22 12:00 Lymph # (Auto) 1.5 10^3/uL (0.8-4.8) 07/28/22 12:00 [place] # (Auto) 1.2 10^3/uL (0.2-0.9) H 07/28/22 12:00 Eos # (Auto) 0.0 10^3/uL (0.0-0.8) 07/28/22 12:00 Baso # (Auto) 0.0 10^3/uL (0.0-0.1) 07/28/22 12:00 Nucleated RBC % (auto) 0 % 07/28/22 12:00 Nucleated RBCs # 0.0 /100WBC 07/28/22 12:00 PT 13.40 SECONDS (12.1-14.9) 07/26/22 01:25 INR 0.99 (0.8-1.2) 07/26/22 01:25 APTT 25.8 SECONDS (23.9-36.7) 07/26/22 01:25 D-Dimer 1.18 ug/mIFEU (0-0.59) H 07/26/22 01:25 Specimen Type Venous 07/28/22 12:00 Sample Site Not specified 07/28/22 12:00 ABG pH 7.40 (7.35-7.45) 07/28/22 03:15 ABG pCO2 37.0 mmHg (35-45) 07/28/22 03:15 ABG pO2 123.0 mmHg (80.0-100.0) H 07/28/22 03:15 ABG HCO3 22.8 mmol/L (22-26) 07/28/22 03:15 ABG O2 Saturation 99.6 07/28/22 03:15 ABG Base Excess -1.8 mmol/L (-2.0-2.0) 07/28/22 03:15 Javier Test Pos 07/28/22 12:00 VBG pH 7.35 (7.32-7.42) 07/28/22 12:00 VBG pCO2 44.2 mmHg (41-51) 07/28/22 12:00 VBG pO2 41.0 mmHg (25-40) H 07/28/22 12:00 VBG HCO3 24.6 mmol/L (24-28) 07/28/22 12:00 VBG Base Excess -1.1 mmol/L (-3.0-3.0) 07/28/22 12:00 VBG Hematocrit 35.6 % (42-52) L 07/28/22 12:00 A-a O2 Gradient 23.8 mmHg (5-10) H 07/28/22 03:15 Hematocrit 27.6 % (42-52) L 07/28/22 03:15 Hgb O2 Saturation 97.9 % (95-100) 07/28/22 03:15 Carboxyhemoglobin 1.0 %THgb (0.4-20.1) 07/28/22 03:15 Methemoglobin 0.7 % (0.4-1.5) 07/28/22 03:15 Total Hemoglobin 9.0 g/dL (14-18) L 07/28/22 03:15 Sodium 137.0 mmol/L (131-143) 07/28/22 03:15 Potassium 3.9 mmol/L (3.5-5.0) 07/28/22 03:15 Glucose 385.0 mg/dL (70-115) H 07/28/22 03:15 Ionized Calcium 1.2 mmol/L (1.1-1.4) 07/28/22 03:15 O2 Delivery Device Vent 07/28/22 12:00 FiO2 0.4 % 07/28/22 12:00 Tidal Volume 0.50 07/28/22 12:00 PEEP 5.0 cmH20 07/28/22 12:00 Conductor/Engineer ID John 07/28/22 12:00 Sodium 134 mmol/L (136-145) L 07/28/22 12:00 Potassium 3.7 mmol/L (3.5-5.1) 07/28/22 12:00 Chloride 100 mmol/L (98-107) 07/28/22 12:00 Carbon Dioxide 21 mmol/L (22-29) L 07/28/22 12:00 Anion Gap 16.7 (5-19) 07/28/22 12:00 BUN 37 mg/dL (8-23) H 07/28/22 12:00 Creatinine 1.1 mg/dL (0.7-1.2) 07/28/22 12:00 GFR Calculation Not Reportable 07/28/22 12:00 Glucose 246 mg/dL (65-115) H 07/28/22 12:00 POC Glucose 271 mg/dL (70-110) H 07/28/22 11:54 Calculated Osmolality 295 mOsm/kg (285-295) 07/28/22 12:00 Lactate 2.3 mmol/L (0.5-2.2) H 07/27/22 21:10 Calcium 8.0 mg/dL (8.5-10.5) L 07/28/22 12:00 Magnesium 1.7 mg/dL (1.7-2.3) 07/28/22 12:00 Total Bilirubin 0.7 mg/dL (0.15-1.2) 07/28/22 12:00 AST 99 U/L (0-40) H 07/28/22 12:00 ALT 170 U/L (0-41) H 07/28/22 12:00 Alkaline Phosphatase 69 U/L (40-130) 07/28/22 12:00 Troponin T Baseline 36 ng/L (0-15) H 07/26/22 01:25 Troponin T 120 Minute 40.28 ng/L (0-15) H 07/26/22 03:42 Delta Troponin T 4.28 ABS# (0-10) 07/26/22 03:42 Troponin T Hi Sens 6Hr 48.47 ng/L (0-15) H 07/26/22 07:03 Troponin T Hi Sens 6Hr Delta 12.47 ng/L (0-12) H* 07/26/22 07:03 NT-Pro-B Natriuret Pep 3935 pg/mL (0-450) H 07/26/22 01:25 Total Protein 5.1 g/dL (6.6-8.7) L 07/28/22 12:00 Albumin 2.6 g/dL (3.5-5.2) L 07/28/22 12:00 Globulin 2.5 g/dL (1.3-4.6) 07/28/22 12:00 Serum Ketones Negative (Negative) 07/28/22 12:00 Blood Type O Positive 07/27/22 14:30 Rho(D) Type Positive 07/27/22 14:30 Antibody Screen Negative 07/27/22 14:30 Crossmatch See Detail 07/27/22 14:30 Micro: Microbiology 07/27/22 16:27 Gram Stain - Final Sputum - Endotracheal Tube Aspirate A&P Assessment and plan (1) Cardiac arrest: (2) Cardiogenic shock: (3) Respiratory failure: (4) Third degree AV block: (5) CHF (congestive heart failure): (6) Acute on chronic diastolic heart failure: (7) Aortic stenosis: Plan ASSESSMENT/PLAN: Overall: POD # 1 Overall: 82-year-old male with significant past medical history of aortic stenosis with valve area less than 1 cm? in January 2022 echocardiogram-presented to hospital with chest pain, shortness of breath-EKG showed left bundle branch block with intermittent complete heart [id number] pacemaker placement-unfortunately complicated by possible RV free wall rupture-causing pericardial tamponade-resulting in cardiogenic shock and cardiac arrest. ROSC achieved followed by transient CPR and emergent pericardial window placement to decompress the pericardium. Patient was intubated and mechanically ventilated during cardiac arrest and transferred to ICU for close ICU monitoring NEURO: # Acute post-op pain and sedation -Currently on fentanyl 75 mcg/hour gtt. -Also receiving Versed 2 Mg/hour #Other SOCIAL MEDIA MARKETING MANAGER issues: None -Once patient is more hemodynamically stable-we will attempt a weaning trials to check for mentation; he had cardiac arrest for less than 5 minutes as per CODE BLUE team #PTOT: after extubation and when pt. able to tolerate PULM: # Acute respiratory insufficiency post cardiac arrest - Wean sedation and vent settings over next 24 hours - Saturating 99% on 50 % FIO2: Tidal volume 500, PEEP 5 - AB.4 0/37/123/22/96%-on CMV 400/5/50 percent-Taper FiO2 to 40% - CXR today improvement in right perihilar infiltrate - Follow ABG and CXR now and in AM - IS for volume expansion once extubated # Other Pulmonary issues: None CVS: #Cardiac arrest-ROSC achieved in 5 minutes #Secondary to cardiogenic shock #Secondary to pericardial tamponade-due to suspected RV rupture while placing permanent pacemaker #Pericardial tamponade-s/p decompressed with a pericardial window-and pericardial tube #Coronary catheterization today-nonobstructive CAD #Right ventricular pacing lead connected to external pacemaker-currently patient heart rate 70 bpm -Post op echo 07/27/2022: Severe aortic valve stenosis with a valve area of 0.92 cm squared;?peak gradient of 74 with a mean gradient of 46 mmHg.Normal LV EF 75%.Mildly dilated left atrium. Mild tricuspid regurgitation. Trivial pericardial effusion - Pressors/Inotropes: Levophed 14 mcg and off dopamine -Hold off anticoagulation until CT surgery clears - optimize hemodynamics, inotropes/vasopressors as needed -Pericardial chest tube output 300 cc since insertion yesterday-monitor chest tube output, resuscitate as needed -Patient has good urine output-no need for Lasix-maintain MAP > 65 -HTN: Hold off home blood pressure medications -Cardiology on board # Other CVS issues: Severe aortic valve stenosis with valve area 0.92 cm? with peak gradient 74 and mean gradient 44 -Cardiology planning to transfer patient to [place] for TAVR placement RENAL: # Renal functions: I/O/N last 24 hours-/-250 UOP/HR - 60 cc/hour BUN/Cr -37/1.1 Electrolytes-K 3.7/Mg 1.7 IVF: Received 1 L bolus and 3 PRBC during surgery-currently receiving Ringer lactate at 75 cc/hour; appeared to mildly congested-we will reduce Ringer lactate to 50 cc/hour and give albumin infusion - monitor UOP for ODILON, oliguria and serum creatinine - replete electrolytes as needed GI: #Monitor for post op Ileus - Monitor electrolytes & supplement - OOB & PTOT once patient is extubated and can tolerate - BR:Senna # Nutrition: - NPO for now; - Clears when extubated, ADAT; # GI PPX/GERD: H2B ENDO: #h/o DM: A1C 7.6 in January 2022 #Uncontrolled sugars -We will start on IV insulin and continue scale coverage - Monitor sugars and adjust medications HEM: # Acute blood loss anemia #Suspected pericardial tamponade-decompression with pericardial window and drain-1500 cc bloody output noted -Received 3 unit PRBC -H&H -today morning - - monitor H&H every 6 hours and chest tube output -resuscitate/transfuse as needed to keep H&H greater than 12/31 # DVT prophylaxis - hold until specified by Surgery ID: No acute issues -Currently on perioperative abx-cefazolin 2 g IV every 8 for 2 days - trend fever and WBC count MSK: No acute issues Code Status: Full code ICU CHECKLIST: Problem list updated Verbal orders reviewed and signed Analgesia: Fentanyl Glycemic Control: Insulin scale coverage Nutrition: N.p.o. for now Restraint Renewal (within 24 hrs): Yes Ulcer Prophylaxis: PPI Chemical Thromboprophylaxis: Prophylaxis: Currently on hold as patient has pericardial drains with bloody output Mechanical Thromboprophylaxis: SCDs Need for Central line: For inotropes and pressors and multiple medications including sedation Need for Grewal catheter: For close urine output monitoring Attestations Medical Necessity Statement*: Possible transfer to [facility] for TAVR placement today, patient still needs close ICU monitoring Time Spent in Patient Care: Greater than 35 minutes (>than 50% of time spent in counselling and/or direct pt care on unit). Critical Care Time: This patient has a high probability of sudden, clinically significant deterioration of pulmonary, cardiac, renal, systems, which requires the highest level of physician preparedness to intervene urgently. I managed/supervised life or organ supporting interventions that required frequent physician assessment. I devoted my full attention in the ICU to the direct care of this patient for the period of time indicated above. Time I spent with family or surrogate(s) is included only if the patient was incapable of providing necessary information or participating in decision making. Time devoted to teaching and to any procedures I billed separately is not included. Services Provided: Telemetry review Mechanical Ventilation Hemodynamic interpretation, assessment and management Review and interpretation of CXR Review and interpretation of lab values Review and interpretation of microbiologic data and culture results Review of medications and administration Review and interpretation of Nutrition requirements and management Discussion of management with other consultants and services Clinical update to family members [x] Data and vital sign review and interpretation [x] Patient assessment, examination and intervention [x] Documentation [x] Medication orders and management Critical Care Time (min): 62 Procedures Arterial Line Size (Gauge): 20 Coding Level of Care Code Critical Care >/= 30 minutes Diagnoses Cardiac arrest I46.9 Cardiogenic shock R57.0 Respiratory failure J96.90 Third degree AV block I44.2 CHF (congestive heart failure) I50.9 Acute on chronic diastolic heart failure I50.33 Aortic stenosis I35.0 Time Spent (min) 62
== END 2022-07-28 14:00 | disposition short-term general hospital (02) | DRG 270 ==
LOC: ER 01:43 → ICU 03:45
PROVIDERS: Internal Medicine Cardiovascular Disease; Internal Medicine Pulmonary Disease; Nurse Practitioner Family; Thoracic Surgery (Cardiothoracic Vascular Surgery); Admitting Provider Student in an Organized Health Care Education/Training Program; Emergency Provider Emergency Medicine; PCP Family Medicine; Visit Provider Internal Medicine
PROC: B2111ZZ Fluoroscopy of Multiple Coronary Arteries using Low Osmolar Contrast (ICD-10-PCS; principal; 2022-07-27 06:00)
PROC: 5A12012 Performance of Cardiac Output, Single, Manual (ICD-10-PCS; principal; 2022-07-27 12:00)
DX: I44.2 Atrioventricular block, complete (principal); I50.33 Acute on chronic diastolic (congestive) heart failure; R57.0 Cardiogenic shock; I97.710 Intraoperative cardiac arrest during cardiac surgery; I97.51 Accidental puncture and laceration of a circulatory system organ or structure during a circulatory system procedure; D62 Acute posthemorrhagic anemia; I31.4 Cardiac tamponade; I11.0 Hypertensive heart disease with heart failure; R00.1 Bradycardia, unspecified; I44.7 Left bundle-branch block, unspecified; I35.0 Nonrheumatic aortic (valve) stenosis; I25.10 Atherosclerotic heart disease of native coronary artery without angina pectoris; R77.8 Other specified abnormalities of plasma proteins; E78.5 Hyperlipidemia, unspecified; R73.03 Prediabetes; R06.89 Other abnormalities of breathing; F17.200 Nicotine dependence, unspecified, uncomplicated; Z79.891 Long term (current) use of opiate analgesic; Z79.82 Long term (current) use of aspirin; Z85.46 Personal history of malignant neoplasm of prostate; Z96.643 Presence of artificial hip joint, bilateral
CPT/HCPCS: 36415; 36416; 36600; 71045; 80048; 80051; 80053; 82009; 82330; 82803; 82805; 82962; 83605; 83735; 83880; 84484; 85025; 85378; 85610; 85730; 86850; 86900; 86920; 87070; 87205; 93005; 93308; 93325; 93454; 94002; 94003; 94799; 96367; 96372; 96374; 99152; 99153; 99285; 99291; A4216; C1769; C1887; C1894; C1898; J0330; J0360; J0690; J1265; J1644; J1650; J1815; J1940; J2250; J2310; J2370; J2543; J2704; J3010; J3370; J3490; J7030; J7050; J7060; J7120; P9016; P9047; Q0163; Q9967